=== PATIENT | female | born 1970 | race Caucasian/White ===

== ENCOUNTER 2017-09-22 08:45 | Emergency (ER) | payer BC, OTHER ==
[2017-09-22 08:54] VITALS: TEMP 37.2
[2017-09-22] MEDS ORDERED: SERT-234 PO (09:45)
[2017-09-22] MEDS ORDERED: MULT-506 PO (09:45)
--- NOTE | 2017-09-22 10:21 | DIAGNOSTIC IMAGING REPORT ---
HEAD WITHOUT CONTRAST (CT) CT DOSE: 537.48 mGy.cm HISTORY: Trauma. Mental status change. fall x4 last 24 hours TECHNIQUE: Multiaxial CT images of the head were performed without the use of intravenous contrast. A dose lowering technique was utilized adhering to the principles of ALARA. Comparison: None. Findings: The paranasal sinuses and mastoid air cells are clear. There is a right-sided ventriculostomy catheter. Catheter traverses the midline and is in the region of the anterior horn left lateral ventricle. There is no evidence for ventricular distention. There is dense calcification immediately left lateral of the suprasellar cistern and third ventricle. Density characteristics exceed that of blood consistent with a calcification. There is a second ventriculostomy catheter occupying the left occipital horn region. There is no midline shift. There is no acute intracranial hemorrhage. There is benign hyperostosis of the skull. Impression: 1. Chronic and age-related change. 2. Post operative catheter placement with no evidence hydrocephalus. 3. Dense calcification left basal ganglia. 4. No acute intracranial abnormality. The above report was generated using voice recognition software. It may contain grammatical, syntax or spelling errors. Electronically signed by: Saurav Barnett M.D. 09/22/2017 10:20 AM Dictated Date/Time: 09/22/2017 10:16 AM
[2017-09-22 10:50] LABS: BASO % 0.3 %; BASO ABS # 0.02 K/uL (0-0.2); EOS % 1.4 %; EOS ABS # 0.08 K/uL (0-0.5); HEMATOCRIT 39.2 % (37-47); HEMOGLOBIN 13.5 g/dL (12.0-16.0); IG# 0.02 K/uL (0.00-0.02); LYMPH % 29.2 %; LYMPH ABS # 1.73 K/uL (1.2-3.4); MEAN CELL VOLUME 88.1 fL (80-100); MEAN CORPUSCULAR HEMOGLOBIN 30.3 pg (25-34); MEAN CORPUSCULAR HGB CONC 34.4 g/dl (32-36); MEAN PLATELET VOLUME 10.9 fL (7.4-10.4); MONO % 6.9 %; MONO ABS # 0.41 K/uL (0.11-0.59); NEUT % 61.9 %; NEUT ABS # 3.66 K/uL (1.4-6.5); PLATELET COUNT 175 K/uL (130-400); RED CELL DISTRIBUTION WIDTH CV 13.5 % (11.5-14.5); RED CELL DISTRIBUTION WIDTH SD 43.7 fL (36.4-46.3); WHITE BLOOD COUNT 5.92 K/uL (4.8-10.8)
[2017-09-22 11:22] LABS: ALBUMIN 3.5 gm/dl (3.4-5.0); ALT/SGPT 20 U/L (12-78); AST/SGOT 11 U/L (15-37); BLOOD UREA NITROGEN 11 mg/dl (7-18); CALCIUM 8.5 mg/dl (8.5-10.1); CARBON DIOXIDE 26 mmol/L (21-32); CREATININE 0.61 mg/dl (0.60-1.20); GLUCOSE 99 mg/dl (70-99); POTASSIUM 3.8 mmol/L (3.5-5.1); SODIUM 140 mmol/L (136-145)
[2017-09-22 11:24] LABS: ALKALINE PHOSPHATASE 94 U/L (45-117); TOTAL PROTEIN 6.8 gm/dl (6.4-8.2)
--- NOTE | 2017-09-22 13:57 | DIAGNOSTIC IMAGING REPORT ---
HEAD WITHOUT CONTRAST (CT) CT DOSE: 537.48 mGy.cm HISTORY: Trauma new fall; R frontal hematoma TECHNIQUE: Multiaxial CT images of the head were performed without the use of intravenous contrast. A dose lowering technique was utilized adhering to the principles of ALARA. Comparison: Same date 10:12 AM Findings: The paranasal sinuses and mastoid air cells are clear. Bilateral shunt catheter placements including craniotomy defects are unchanged. Dense calcification of the left and to a lesser extent right basal ganglia is unaltered. Density characteristics of the cerebellar as well as cerebral hemispheres are within normal limits. There is minimal components of age-related chronic small vessel change. Impression: Stable postoperative change. No acute intracranial abnormality. No change from the prior study. The above report was generated using voice recognition software. It may contain grammatical, syntax or spelling errors. Electronically signed by: Saurav Barnett M.D. 09/22/2017 1:56 PM Dictated Date/Time: 09/22/2017 1:54 PM
[2017-09-22 14:44] VITALS: BP 166/92; PULSE 66; O2SAT 100
--- NOTE | 2017-09-22 14:49 | EMERGENCY ROOM VISIT NOTE ---
ED Visit Note First contact with patient: 09:01 The patient was seen and examined with Pankaj Hudson PA-C. I agree with the history, physical and findings. Please see the note for disposition and details. The patient is doing fairly well. She attempted to get out of bed while eating her lunch and had a fall. CT imaging did not reveal any evidence of bleed. Conservative management was recommended. The patient was discharged back to her facility.
--- NOTE | 2017-09-23 10:47 | EMERGENCY ROOM VISIT NOTE ---
ED Visit Note First contact with patient: 09:01 Chief Complaint: Fall. History of Present Illness: Ms. Mario is a 47-year-old white female who is brought into the ED following for falls in the last 24 hours. 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 Patient was brought in the hospital via ambulance from [facility] following for falls while standing up from her wheelchair in the last 24 hours. EMS reports patient was stable and had no acute changes in route. During transfer they initiated an IV lock and her blood sugar was checked and was 94. According to the paperwork sent with the patient they reports that 4 times in the last 24 hours she was attempting to stand up out of her wheelchair and fell to the ground. It was noted at least once she struck her head on the ground but did not have a loss of consciousness but was developing a left parietal contusion. Additionally they report after her last fall they feel her speech was slow. Additionally they report that over the last 24 hours she has been having difficulty feeding herself. On my initial evaluation patient reports she remembers her falls, but does not have any physical complaints. She denies headache, dizziness, lightheadedness, visual changes, hearing changes , difficulty speaking, difficulty swallowing, neck pain, back pain, chest pain, shortness of breath, abdominal pain, decreased appetite, nausea, vomiting, extremity weakness/numbness/tingling. Review of Systems: As noted above in history of present illness. All body systems were reviewed and found to be negative as noted above. Past Medical History: As previously noted and depression and spastic abnormal gait. Current Medications: Multivitamins, Zoloft. Allergies to Medications: Patient denies and no allergies noted in her medical records. Social History: Patient is not employed and is on disability; she feels safe in her home environment; she denies tobacco and alcohol use. Physical Examination: Vital Signs: Date Time Temp Pulse Resp B/P (MAP) Pulse Ox O2 Delivery O2 Flow Rate FiO2 09/22/17 14:44 66 16 166/92 100 09/22/17 12:54 81 16 172/114 98 09/22/17 11:24 71 20 149/88 99 Room Air 09/22/17 11:23 77 144/94 71 149/88 09/22/17 10:34 76 20 170/93 99 Room Air 159/69 09/22/17 08:55 77 09/22/17 08:54 37.2 78 20 148/104 99 Room Air GENERAL: 47-year-old female in no acute distress, chronically-appearing, afebrile and hemodynamically stable. NEUROLOGICAL: Awake, alert and oriented to person and place, but not time or day. Superficially elated. Answering questions appropriately and following commands. Cranial nerves II through XII grossly intact. Poor hand eye coordination. Abnormal rapid altering movements of the hands and fingers. Good long-term and short-term recall. Was not able to spell where count backwards. Difficulty to assess to rest of her neurological exam because of her medical conditions. SKIN: Warm, dry and pink. Head: Early contusion in the left parietal and occipital area. No open trauma noted. HEENT: Normocephalic. Skull: Contusion noted above under SKIN. Mild tenderness but no gross bony deformity. No raccoons eyes or youngblood signs. No drainage from the ears are than naris; no hemotympanum. Face: No bony tenderness, swelling or ecchymosis. PERRLA. EOMI without nystagmus. Oral cavity is moist and pink and airway is patent with graft speech due to no teeth. I do not appreciate any slurred speech. Pharynx is nonerythematous or edematous. No lymphadenopathy. Trachea midline. No jugular venous distention. No facial twitches. BACK: No tenderness over the bony spine. No CVA tenderness. THORAX: Lungs sounds are clear to auscultation and equal bilaterally with symmetrical chest wall. No wheezing, rales or rhonchi. HEART: Regular rate and rhythm. No gallops, rubs or murmurs are appreciated. ABDOMEN: Flat, soft and nontender. Positive bowel sounds in all quadrants. No guarding, rigidity or organomegaly. EXTREMITIES: Moves all extremities well on command and with purpose. Distal pulses, sensations to light touch, capillary refill are all intact. 4/5 muscle strength in all movements of the shoulders, elbows, forearms, wrists, hips, knees and ankles. ED Course: Patient is assessed as noted above. Patient's medication list was reviewed. Laboratory Testing: Test 09/22/17 10:00 09/22/17 10:25 Range/Units White Blood Count 5.92 4.8-10.8 K/uL Red Blood Count 4.45 4.2-5.4 M/uL Hemoglobin 13.5 12.0-16.0 g/dL Hematocrit 39.2 37-47 % Mean Corpuscular Volume 88.1 80-100 fL Mean Corpuscular Hemoglobin 30.3 25-34 pg Mean Corpuscular Hemoglobin Concent 34.4 32-36 g/dl Platelet Count 175 130-400 K/uL Mean Platelet Volume 10.9 7.4-10.4 fL Neutrophils (%) (Auto) 61.9 % Lymphocytes (%) (Auto) 29.2 % Monocytes (%) (Auto) 6.9 % Eosinophils (%) (Auto) 1.4 % Basophils (%) (Auto) 0.3 % Neutrophils # (Auto) 3.66 1.4-6.5 K/uL Lymphocytes # (Auto) 1.73 1.2-3.4 K/uL Monocytes # (Auto) 0.41 0.11-0.59 K/uL Eosinophils # (Auto) 0.08 0-0.5 K/uL Basophils # (Auto) 0.02 0-0.2 K/uL RDW Standard Deviation 43.7 36.4-46.3 fL RDW Coefficient of Variation 13.5 11.5-14.5 % Immature Granulocyte % (Auto) 0.3 % Immature Granulocyte # (Auto) 0.02 0.00-0.02 K/uL Sodium Level 140 136-145 mmol/L Potassium Level 3.8 3.5-5.1 mmol/L Chloride Level 110 98-107 mmol/L Carbon Dioxide Level 26 21-32 mmol/L Anion Gap 4.0 3-11 mmol/L Blood Urea Nitrogen 11 7-18 mg/dl Creatinine 0.61 0.60-1.20 mg/dl Estimated GFR () 126.9 Estimated GFR (Non- 109.5 BUN/Creatinine Ratio 18.6 10-20 Random Glucose 99 70-99 mg/dl Calcium Level 8.5 8.5-10.1 mg/dl Total Bilirubin 0.5 0.2-1 mg/dl Direct Bilirubin 0.1 0-0.2 mg/dl Aspartate Amino Transf (AST/SGOT) 11 15-37 U/L Alanine Aminotransferase (ALT/SGPT) 20 12-78 U/L Alkaline Phosphatase 94 45-117 U/L Total Protein 6.8 6.4-8.2 gm/dl Albumin 3.5 3.4-5.0 gm/dl Urine Color YELLOW Urine Appearance CLEAR CLEAR Urine pH 7.5 4.5-7.5 Urine Specific Marquez 1.013 1.000-1.030 Urine Protein NEG NEG Urine Glucose (UA) NEG NEG Urine Ketones NEG NEG Urine Occult Blood NEG NEG Urine Nitrite NEG NEG Urine Bilirubin NEG NEG Urine Urobilinogen NEG NEG Urine Leukocyte Esterase NEG NEG EKG: Was read by myself and shows normal sinus rhythm with a ventricular rate of 65 bpm. Normal axis, intervals and complexes. Medical records were reviewed and no previous to compare. Head CT: Was reviewed by myself and read by the radiologist showing chronic and age-related changes. Post operative catheter placement with no evidence of hydrocephalus. Dense calcification left basal ganglia. No acute intracranial abnormalities or skull fractures. Patient was reassessed multiple times during her stay in the emergency department. Patient was given a food tray because she was hungry after testing was done and waiting discharge. She was allowed to sit on the side of the bed. She then attempted to stand and fell to the floor striking the right frontal area of her head. She did not have a loss of consciousness. She also continued to deny any complaints. Head CT: Were reviewed by myself and read by the radiologist and shows no acute injuries and all the findings that were felt on her previous CT. Patient was reassessed multiple times during her stay in the emergency department. Patient's case was reviewed with Dr. Petersen; we agreed on diagnostic approach, treatment, disposition and plan. Patient was informed about her testing results and educated on her treatment plan; she verbalized understanding and agreement with this plan. Clinical Impression: Falls. Scalp contusions. Decision-Making: Initially my differential diagnosis I considered closed head injury, exacerbation of current illnesses, arrhythmias, hypotension, hypoglycemia and other causes. Disposition: Patient was discharged in stable condition. She was transferred To [facility]. Prior to departure I did speak with her and she reports that she was still pain-free. Plan: It was encouraged that the patient be given 650 mg of acetaminophen every 6 hours as needed for complaints of pain. It was encouraged that the patient be given ice for her scalp contusion 4-5 times a day for 20 minutes. It was encouraged that the patient be well- hydrated with increased clear fluids. It was encouraged that patient be observed for any signs of head injury. It was encouraged that the patient have follow-up with her primary care provider for recheck in 3-4 days. It was encouraged that the patient be brought back to the emergency department for any signs of head injury or any new/concerning symptoms.
[2017-09-26] MEDS ORDERED: LISI-729 PO (13:23)
[2017-09-26] MEDS ORDERED: ACET-1256 PO (13:23)
[2017-09-26] MEDS ORDERED: DOCU-94 PO (13:23)
== END 2017-09-22 15:43 | disposition home or self-care (01) ==
LOC: EDBD 08:45 → C.EDB 08:47
DX: S00.03XA Contusion of scalp, initial encounter (principal); W05.0XXA Fall from non-moving wheelchair, initial encounter; Y92.129 Unspecified place in nursing home as the place of occurrence of the external cause; G35 Multiple sclerosis; G10 Huntington's disease; G40.909 Epilepsy, unspecified, not intractable, without status epilepticus; F32.9 Major depressive disorder, single episode, unspecified; Z98.890 Other specified postprocedural states; Z79.899 Other long term (current) drug therapy

== ENCOUNTER 2017-09-26 12:37 | Inpatient (IN) | payer OTHER ==
[~2017-09-26] VITALS: Ht 175.3 cm; Wt 87.6 kg
[~2017-09-26 12:37] MED LIST changes: -ACET-1256 PO; -DOCU-94 PO; -LISI-729 PO
--- NOTE | 2017-09-26 12:51 | EMERGENCY ROOM VISIT NOTE ---
History Report prepared by Aleksandra: Luke Dalal Under the Supervision of: Dr. Jaguar Wheatley M.D. First contact with patient: 12:39 Stated Complaint: INCREASED FALLS History of Present Illness The patient is a 47 year old female who presents to the Emergency Room with concerns from the [facility] Nursing staff that she has been exhibiting increased falls and choking episodes over the past 24 hours. The nursing staff also questions a change in the patient's mental status/memory. 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 She was in the Emergency Department 4 days ago for falling episodes. The patient had a fall while she was in the department. She has no physical complaints at this time. Source of History: patient, [facility] notes, EMS Onset: 24 hours Position: throat Quality: other (Falls, choking) Timing: worsening (increased) Associated Symptoms: No chest pain, No SOB Review of Systems See HPI for pertinent positives & negatives. A total of 10 systems reviewed and were otherwise negative. Past Medical & Surgical Medical Problems: (1) Depression (2) History of brain tumor (3) HTN (hypertension) (4) Hx of hydrocephalus (5) Multiple sclerosis (6) Neurocognitive deficits Surgical Problems: (1) History of brain shunt Multiple sclerosis Family History Patient notes Brother has Cartwright's Disease. Social History Smoking Status: Never Smoker Housing Status: other ([facility]) Occupation Status: unemployed Current/Historical Medications Scheduled Lisinopril (Zestril), 2.5 MG PO DAILY Multivitamin (Multivitamin), 1 TAB PO DAILY Sertraline (Zoloft), 100 MG PO QAM Scheduled PRN Acetaminophen (Tylenol), 500 MG PO Q4H PRN for Pain Docusate Sodium (Colace), 1 CAP PO BID PRN for Constipation Allergies Coded Allergies: Erythromycin (Verified Allergy, Unknown, RASH, 09/26/17) Mother thinks rash Penicillins (Verified Allergy, Unknown, RASH, 09/26/17) Mother thinks rash Sulfamethoxazole w/Trimethoprim (Verified Allergy, Unknown, RASH, 09/26/17) Mother thinks rash Physical Exam Vital Signs Date Time Temp Pulse Resp B/P (MAP) Pulse Ox O2 Delivery O2 Flow Rate FiO2 09/26/17 15:12 80 18 139/89 100 Room Air 09/26/17 13:56 70 18 127/86 99 Room Air 09/26/17 13:08 68 09/26/17 13:06 72 18 134/62 88 142/81 84 143/78 09/26/17 12:55 37.1 83 18 155/86 97 Room Air Physical Exam GENERAL: Patient is in no acute distress. HEENT: There is an older contusion present around the right eye, right cheondoism, and right forehead. The right globe is uninvolved. Pupils are equal, round, and reactive to light. There is no facial bony step-off to suggest fracture. Mucous membranes are moist. NECK: No stridor, no adenopathy, no meningismus, trachea is midline. LUNGS: Clear to auscultation bilaterally, no wheeze, no rhonchi, breath sounds equal. HEART: Without murmurs gallops or rubs, regular rate and rhythm. ABDOMEN: Soft, nontender, bowel sounds positive, no hernias, no peritonitis. EXTREMITIES: No cyanosis or edema, full range of motion of all the joints without pain or difficulty, no signs for acute trauma. NEUROLOGIC: MR noted. Patient is moving all extremities equally. Awake and alert , answers questions appropriately, no Somnolence. SKIN: No rash, no jaundice, no diaphoresis. Medical Decision & Procedures ER Provider Diagnostic Interpretation: Radiology results as stated below per my review and radiologist interpretation: CHEST ONE VIEW PORTABLE CLINICAL HISTORY: 47 years-old Female presenting with EVALUATE ALTERED MENTAL STATUS/WEAKNESS. TECHNIQUE: Portable upright AP view of the chest was obtained. COMPARISON: None. FINDINGS: Cardiomediastinal silhouette normal. A catheter descends along the right hemithorax, terminus not visualized. The catheter is intact along the visualized course in the thorax though poorly visualized in the abdomen. A portion of the catheter may project over the right upper quadrant. No focal infiltrate in the lungs. No large effusion or pneumothorax. Osseous structures normal. Upper abdomen normal. IMPRESSION: 1. No acute cardiopulmonary disease. Electronically signed by: Cj Torres M.D. 09/26/2017 1:06 PM Dictated Date/Time: 09/26/2017 1:[address] OF THE HEAD WITHOUT CONTRAST CLINICAL HISTORY: Altered mental status. Weakness. Increased falls. COMPARISON STUDY: Head CT September 22, 2017. CT DOSE: 614.27 mGy.cm TECHNIQUE: Helical axial images of the head were obtained without IV contrast. Automated exposure control was utilized for the study. A dose lowering technique was utilized adhering to the principles of ALARA. FINDINGS: No acute intracranial hemorrhage, midline shift or mass effect is present. A right sided ventriculostomy catheter is unchanged in position. This traverses the bodies of the lateral ventricles. The tip is either within or adjacent to the frontal horn of the left lateral ventricle. Ventricular system remains decompressed. This is unchanged since exam of September 22, 2017. The corpus callosum may be congenitally absent. Note is made of a 1.6 cm mass-like lesion located between the frontal horns of the lateral ventricles. There is a 2.2 cm calcified focus within left basal ganglia which is unchanged. The basilar cisterns are patent. There are no extra axial collections. No calvarial fracture is present. A small right frontal scalp contusion is noted. There may be mild right periorbital soft tissue swelling. The right globe is intact and there is no retrobulbar hematoma. Irregularity of the inner table of the calvarium is noted. An additional left posterior shunt catheter is noted. IMPRESSION: 1. No acute intracranial findings. No change since exam of September 22, 2017. 2. Right ventriculostomy catheter in place. Ventricular system remains decompressed. This is unchanged. 3. 1.6 cm midline mass-like lesion located between the frontal horns of the lateral ventricles. 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 Left basal ganglia calcification may be related to this apparent tumor. 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 5. Right frontal scalp contusion with right periorbital soft tissue swelling. No chondral fracture. Electronically signed by: Emiliano Monet M.D. 09/26/2017 2:03 PM Dictated Date/Time: 09/26/2017 1:50 PM Laboratory Results 09/26/17 13:34 Red Blood Count 4.57, Mean Corpuscular Volume 88.4, Mean Corpuscular Hemoglobin 30.2, Mean Corpuscular Hemoglobin Concent 34.2, Mean Platelet Volume 10.1, Neutrophils (%) (Auto) 64.1, Lymphocytes (%) (Auto) 24.5, Monocytes (%) (Auto) 9.0, Eosinophils (%) (Auto) 1.6, Basophils (%) (Auto) 0.4, Neutrophils # (Auto) 4.77, Lymphocytes # (Auto) 1.82, Monocytes # (Auto) 0.67, Eosinophils # (Auto) 0.12, Basophils # (Auto) 0.03 09/26/17 13:34 Test 09/26/17 13:20 09/26/17 13:34 Urine Color DK YELLOW Urine Appearance CLOUDY (CLEAR) Urine pH 6.0 (4.5-7.5) Urine Specific [place] 1.020 (1.000-1.030) Urine Protein TRACE (NEG) Urine Glucose (UA) NEG (NEG) Urine Ketones NEG (NEG) Urine Occult Blood 1+ (NEG) Urine Nitrite NEG (NEG) Urine Bilirubin NEG (NEG) Urine Urobilinogen NEG (NEG) Urine Leukocyte Esterase LARGE (NEG) Urine WBC (Auto) >30 /hpf (0-5) Urine RBC (Auto) 5-10 /hpf (0-4) Urine Hyaline Casts (Auto) 1-5 /lpf (0-5) Urine Epithelial Cells (Auto) >30 /lpf (0-5) Urine Bacteria (Auto) NEG (NEG) White Blood Count 7.44 K/uL (4.8-10.8) Red Blood Count 4.57 M/uL (4.2-5.4) Hemoglobin 13.8 g/dL (12.0-16.0) Hematocrit 40.4 % (37-47) Mean Corpuscular Volume 88.4 fL (80-100) Mean Corpuscular Hemoglobin 30.2 pg (25-34) Mean Corpuscular Hemoglobin Concent 34.2 g/dl (32-36) Platelet Count 203 K/uL (130-400) Mean Platelet Volume 10.1 fL (7.4-10.4) Neutrophils (%) (Auto) 64.1 % Lymphocytes (%) (Auto) 24.5 % Monocytes (%) (Auto) 9.0 % Eosinophils (%) (Auto) 1.6 % Basophils (%) (Auto) 0.4 % Neutrophils # (Auto) 4.77 K/uL (1.4-6.5) Lymphocytes # (Auto) 1.82 K/uL (1.2-3.4) Monocytes # (Auto) 0.67 K/uL (0.11-0.59) Eosinophils # (Auto) 0.12 K/uL (0-0.5) Basophils # (Auto) 0.03 K/uL (0-0.2) RDW Standard Deviation 43.0 fL (36.4-46.3) RDW Coefficient of Variation 13.2 % (11.5-14.5) Immature Granulocyte % (Auto) 0.4 % Immature Granulocyte # (Auto) 0.03 K/uL (0.00-0.02) Prothrombin Time 10.4 SECONDS (9.0-12.0) Prothromb Time International Ratio 1.0 (0.9-1.1) Anion Gap 4.0 mmol/L (3-11) Est Creatinine Clear Calc Drug Dose 121.2 ml/min Estimated GFR () 121.8 Estimated GFR (Non- 105.1 BUN/Creatinine Ratio 20.3 (10-20) Calcium Level 8.7 mg/dl (8.5-10.1) Magnesium Level 2.2 mg/dl (1.8-2.4) Total Bilirubin 0.6 mg/dl (0.2-1) Aspartate Amino Transf (AST/SGOT) 14 U/L (15-37) Alanine Aminotransferase (ALT/SGPT) 27 U/L (12-78) Alkaline Phosphatase 102 U/L (45-117) Total Protein 7.0 gm/dl (6.4-8.2) Albumin 3.7 gm/dl (3.4-5.0) Globulin 3.3 gm/dl (2.5-4.0) Albumin/Globulin Ratio 1.1 (0.9-2) Thyroid Stimulating Hormone (TSH) 1.040 uIu/ml (0.300-4.500) Laboratory results reviewed by me. Medications Administered Medications (Trade) Dose Ordered Sig/Patience Route Start Time Stop Time Status Last Admin Dose Admin Ceftriaxone Sodium (Rocephin Inj) 1 gm NOW STAT IV 09/26/17 13:42 09/26/17 13:43 DC 09/26/17 14:18 1 GM ECG Per My Interpretation Indication: other (Falls) Rate (beats per minute): 67 Rhythm: normal sinus Findings: other (No BUTCH, No PVCs) ED Course 1241: The patient was evaluated in room C3. A complete history and physical exam was performed. 1342: Ordered Rocephin 1 gm IV. 1408: I discussed the case with Dr. Monet - Radiology at this time. 1414: I reviewed the patient's orthostatic vital signs. They were negative. 1419: I discussed the case with Dr. Lee - Neurology. She states that the patient does have a known tumor, so the imaging today may not be showing anything new. She is concerned that the patient is declining rapidly and may have Ismael's. She states that the patient may be to difficult for [facility] to care for. 1430: The reviewed a previous MRI of the patient's head. The findings of the CT are unchanged compared to the MRI. Today's findings are stable. 1428: I discussed the case with [employer], she will attempt to find a solution for the patients living status. 1439: I discussed the case at length with the patient's mother over the phone. She is in agreement with the patient being admitted. I will page for Orthopaedic Hospitalist. 1455: [facility] She will evaluate the patient for further treatment. Medical Decision Differential Diagnosis includes: UTI, dehydration, intracranial bleeding, viral illness, infection, anemia, electrolyte imbalance, and pneumonia. There is no leukocytosis or concerning anemia. No significant electrolyte abnormality, kidney failure, hepatitis. Urinalysis is suspicious for infection , urine culture is pending. Patient appears to be in a euthyroid state. Chest film does not show pneumonia. Brain CT was felt unchanged compared to previous imaging. Chronic findings were seen. The patient appears to be in a euthyroid state. Patient received IV ceftriaxone for the potential UTI. I discussed her situation with case management, I spoke with her mother over the telephone. Mother feels the patient is altered and not at baseline. She is concerned that she has not been the same since falling and striking her head a few days ago. Certainly, the patient may have a concussion. The UTI may also be causing the mental status decline. As the patient is not at baseline, as she continues to fall, further workup was felt warranted. I did speak with neurology over the phone. They also had concerns for the patient's frequent falls. I did speak with the on-call hospitalist. Patient is soon to be transferred upstairs. She has done well while here in the ED. Medication Reconcilliation Current Medication List: was personally reviewed by me Blood Pressure Screening Patient's blood pressure: Elevated blood pressure Referred to hospitalist. Consults Time Called: 1408 Consulting Physician: Dr. Lee - Neurology Returned Call: [phone] I discussed the case with Dr. Rosa Olivo Neurology. She states that the patient does have a known tumor, so the imaging today may not be showing anything new. She is concerned that the patient is declining rapidly and may have Cartwright's. She states that the patient may be to difficult for [facility] to care for. Additional Consults: Time Called: 1449 Consulted Physician: [facility] Returned Call: [phone] Additional Comments: I discussed the case with [facility]. She will evaluate the patient for further treatment. Impression Primary Impression: Head trauma Additional Impressions: Frequent falls Change in mental status UTI (urinary tract infection) Scribe Attestation The scribe's documentation has been prepared under my direction and personally reviewed by me in its entirety. I confirm that the note above accurately reflects all work, treatment, procedures, and medical decision making performed by me. Departure Information Dispostion Being Evaluated By Hospitalist Referrals [facility] (PCP) Problem Qualifiers
--- NOTE | 2017-09-26 13:08 | DIAGNOSTIC IMAGING REPORT ---
CHEST ONE VIEW PORTABLE CLINICAL HISTORY: 47 years-old Female presenting with EVALUATE ALTERED MENTAL STATUS/WEAKNESS. TECHNIQUE: Portable upright AP view of the chest was obtained. COMPARISON: None. FINDINGS: Cardiomediastinal silhouette normal. A catheter descends along the right hemithorax, terminus not visualized. The catheter is intact along the visualized course in the thorax though poorly visualized in the abdomen. A portion of the catheter may project over the right upper quadrant. No focal infiltrate in the lungs. No large effusion or pneumothorax. Osseous structures normal. Upper abdomen normal. IMPRESSION: 1. No acute cardiopulmonary disease. Electronically signed by: Cj Torres M.D. 09/26/2017 1:06 PM Dictated Date/Time: 09/26/2017 1:05 PM
[2017-09-26] MEDS ORDERED: LISI-729 PO ×2 (13:23)
[2017-09-26] MEDS ORDERED: ACET-1256 PO ×2 (13:23)
[2017-09-26] MEDS ORDERED: DOCU-94 PO ×2 (13:23)
[2017-09-26] MEDS ORDERED: CEFTRIAXONE SOD INJ 1 GM ADDVIAL IV STA (13:42)
[2017-09-26 13:45] LABS: BASO % 0.4 %; BASO ABS # 0.03 K/uL (0-0.2); EOS % 1.6 %; EOS ABS # 0.12 K/uL (0-0.5); HEMATOCRIT 40.4 % (37-47); HEMOGLOBIN 13.8 g/dL (12.0-16.0); IG# 0.03 K/uL (0.00-0.02); LYMPH % 24.5 %; LYMPH ABS # 1.82 K/uL (1.2-3.4); MEAN CELL VOLUME 88.4 fL (80-100); MEAN CORPUSCULAR HEMOGLOBIN 30.2 pg (25-34); MEAN CORPUSCULAR HGB CONC 34.2 g/dl (32-36); MEAN PLATELET VOLUME 10.1 fL (7.4-10.4); MONO ABS # 0.67 K/uL (0.11-0.59); NEUT % 64.1 %; NEUT ABS # 4.77 K/uL (1.4-6.5); PLATELET COUNT 203 K/uL (130-400); RED CELL DISTRIBUTION WIDTH CV 13.2 % (11.5-14.5); WHITE BLOOD COUNT 7.44 K/uL (4.8-10.8)
[2017-09-26 14:02] LABS: ALBUMIN 3.7 gm/dl (3.4-5.0); CALCIUM 8.7 mg/dl (8.5-10.1); CREATININE 0.69 mg/dl (0.60-1.20); POTASSIUM 4.2 mmol/L (3.5-5.1)
--- NOTE | 2017-09-26 14:04 | DIAGNOSTIC IMAGING REPORT ---
CT OF THE HEAD WITHOUT CONTRAST CLINICAL HISTORY: Altered mental status. Weakness. Increased falls. COMPARISON STUDY: Head CT September 22, 2017. CT DOSE: 614.27 mGy.cm TECHNIQUE: Helical axial images of the head were obtained without IV contrast. Automated exposure control was utilized for the study. A dose lowering technique was utilized adhering to the principles of ALARA. FINDINGS: No acute intracranial hemorrhage, midline shift or mass effect is present. A right sided ventriculostomy catheter is unchanged in position. This traverses the bodies of the lateral ventricles. The tip is either within or adjacent to the frontal horn of the left lateral ventricle. Ventricular system remains decompressed. This is unchanged since exam of September 22, 2017. The corpus callosum may be congenitally absent. Note is made of a 1.6 cm mass-like lesion located between the frontal horns of the lateral ventricles. There is a 2.2 cm calcified focus within left basal ganglia which is unchanged. The basilar cisterns are patent. There are no extra axial collections. No calvarial fracture is present. A small right frontal scalp contusion is noted. There may be mild right periorbital soft tissue swelling. The right globe is intact and there is no retrobulbar hematoma. Irregularity of the inner table of the calvarium is noted. An additional left posterior shunt catheter is noted. IMPRESSION: 1. No acute intracranial findings. No change since exam of September 22, 2017. 2. Right ventriculostomy catheter in place. Ventricular system remains decompressed. This is unchanged. 3. 1.6 cm midline mass-like lesion located between the frontal horns of the lateral ventricles. 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 Left basal ganglia calcification may be related to this apparent tumor. 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 5. Right frontal scalp contusion with right periorbital soft tissue swelling. No chondral fracture. Electronically signed by: Emiliano Monet M.D. 09/26/2017 2:03 PM Dictated Date/Time: 09/26/2017 1:50 PM
[2017-09-26] MEDS ORDERED: ONDANSETRON INJ 2 MG/ML 2 ML VIAL IV PRN (16:00)
[2017-09-26] MEDS ORDERED: ACETAMINOPHEN 325 MG TAB PO PRN (16:00)
[2017-09-26] MEDS ORDERED: DOCUSATE SODIUM 100 MG CAP PO PRN (16:00)
[2017-09-26 16:20] VITALS: O2SAT 97; Ht 175.3 cm; Wt 87.6 kg
[2017-09-26 16:55] VITALS: BP 134/83; PULSE 70; TEMP 36.6; O2SAT 100
[2017-09-26] MEDS ORDERED: SODIUM CHLORIDE 0.9% 1000ML 1,000 ML IV SCH (17:00)
--- NOTE | 2017-09-26 17:10 | History and Physical ---
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 Patient with history of shunt malfunction and since ongoing cognitive decline and gait dysfunction and diagnosed with neurocognitive disorder. Patient currently residing in [facility]. Reported patient had 4 falls when trying to get out of the wheelchair and hit her head. Patient seen in ER 09/22/17 for falls and patient had no change in CT scan at that time. Spoke with pt's mother on the phone and she reports that prior to patient falling the first time she was doing relatively well and had happy mood, was feeding herself, watching TV. Mother reports staff [facility] report noticing patient with increased confusion and intermittent slow speech and trouble feeding herself after the falls. Patient currently denies any complaints and she reports she does not remember falling. Patient follows with Dr. Pierre neurology seen on 08/29/17. Patient had stopped Copaxone and Keppra over 1 year ago. Denies any reported seizures. Patient states it has been eating and drinking does have pureed diet secondary to no dentition. FH of Ismael's disease in father and grandfather. Denies fever/ chills, diaphoresis, N/V/D/C, SHAHID, dizziness, syncope, vision changes, neck pain , CP, SOB, orthopnea, palpitations, cough, sore throat, choking, otalgia, rhinorrhea, abdominal pain, paresthesias, extremity weakness, extremity edema, rashes, urinary symptoms, weight loss. Past Medical/Surgical History Medical Problems: (1) Depression Status: Chronic (2) History of brain tumor Permanent Comment: hx pediatric brain tumor, unresectable. Hx multiple shunts for hydrocephalus. Hx colloid cyst Status: Chronic (3) HTN (hypertension) Status: Chronic (4) Hx of hydrocephalus Status: Chronic (5) Multiple sclerosis Status: Chronic (6) Neurocognitive deficits Status: Chronic Surgical Problems: (1) History of brain shunt Status: Resolved Family History FH: [place]'s disease Social History Smoking Status: Never Smoker Smokeless Tobacco Use: No Alcohol Use: none Drug Use: none Marital Status: single Housing status: other ([facility]) Occupational Status: unemployed Allergies Coded Allergies: Erythromycin (Verified Allergy, Unknown, RASH, 09/26/17) Mother thinks rash Penicillins (Verified Allergy, Unknown, RASH, 09/26/17) Mother thinks rash Sulfamethoxazole w/Trimethoprim (Verified Allergy, Unknown, RASH, 09/26/17) Mother thinks rash Home Medications Scheduled Lisinopril (Zestril), 2.5 MG PO DAILY Multivitamin (Multivitamin), 1 TAB PO DAILY Sertraline (Zoloft), 100 MG PO QAM Scheduled PRN Acetaminophen (Tylenol), 500 MG PO Q4H PRN for Pain Docusate Sodium (Colace), 1 CAP PO BID PRN for Constipation Review of Systems See HPI for pertinent positives & negatives. All other systems reviewed and were otherwise negative Physical Exam Vital Signs Date Time Temp Pulse Resp B/P (MAP) Pulse Ox O2 Delivery O2 Flow Rate FiO2 09/26/17 15:12 80 18 139/89 100 Room Air 09/26/17 13:56 70 18 127/86 99 Room Air 09/26/17 13:08 68 09/26/17 13:06 72 18 134/62 88 142/81 84 143/78 09/26/17 12:55 37.1 83 18 155/86 97 Room Air General Appearance: WD/WN, no apparent distress (Sitting up resting in bed watching TV) Head: + pertinent finding (Left and right total forehead with ecchymosis. Right periorbital ecchymosis. + Palpable shunt) Eyes: normal inspection, PERRL, sclerae normal ENT: hearing grossly normal, pharynx normal, + pertinent finding (Mucous membranes moist) Neck: supple, trachea midline, + pertinent finding (Nontender to palpation, full active range of motion) Respiratory/Chest: lungs clear, normal breath sounds, no respiratory distress Cardiovascular: regular rate, rhythm, normal peripheral pulses Abdomen/GI: normal bowel sounds, non tender, soft Back: no CVA tenderness Extremities/Musculoskelatal: no calf tenderness, normal capillary refill, no pedal edema, normal range of motion, + pertinent finding (Strength equal bilaterally) Neurologic/Psych: alert, + pertinent finding (Oriented to person, knows in hospital unsure of name. Unsure of month and day. Patient pleasant and cooperative) Skin: normal color, warm/dry Diagnostics Laboratory Results Results Past 24 Hours Test 09/26/17 13:20 09/26/17 13:34 Range/Units Urine Color DK YELLOW Urine Appearance CLOUDY CLEAR Urine pH 6.0 4.5-7.5 Urine Specific [place] 1.020 1.000-1.030 Urine Protein TRACE NEG Urine Glucose (UA) NEG NEG Urine Ketones NEG NEG Urine Occult Blood 1+ NEG Urine Nitrite NEG NEG Urine Bilirubin NEG NEG Urine Urobilinogen NEG NEG Urine Leukocyte Esterase LARGE NEG Urine WBC (Auto) >30 0-5 /hpf Urine RBC (Auto) 5-10 0-4 /hpf Urine Hyaline Casts (Auto) 1-5 0-5 /lpf Urine Epithelial Cells (Auto) >30 0-5 /lpf Urine Bacteria (Auto) NEG NEG White Blood Count 7.44 4.8-10.8 K/uL Red Blood Count 4.57 4.2-5.4 M/uL Hemoglobin 13.8 12.0-16.0 g/dL Hematocrit 40.4 37-47 % Mean Corpuscular Volume 88.4 80-100 fL Mean Corpuscular Hemoglobin 30.2 25-34 pg Mean Corpuscular Hemoglobin Concent 34.2 32-36 g/dl Platelet Count 203 130-400 K/uL Mean Platelet Volume 10.1 7.4-10.4 fL Neutrophils (%) (Auto) 64.1 % Lymphocytes (%) (Auto) 24.5 % Monocytes (%) (Auto) 9.0 % Eosinophils (%) (Auto) 1.6 % Basophils (%) (Auto) 0.4 % Neutrophils # (Auto) 4.77 1.4-6.5 K/uL Lymphocytes # (Auto) 1.82 1.2-3.4 K/uL Monocytes # (Auto) 0.67 0.11-0.59 K/uL Eosinophils # (Auto) 0.12 0-0.5 K/uL Basophils # (Auto) 0.03 0-0.2 K/uL RDW Standard Deviation 43.0 36.4-46.3 fL RDW Coefficient of Variation 13.2 11.5-14.5 % Immature Granulocyte % (Auto) 0.4 % Immature Granulocyte # (Auto) 0.03 0.00-0.02 K/uL Sodium Level 140 136-145 mmol/L Potassium Level 4.2 3.5-5.1 mmol/L Chloride Level 106 98-107 mmol/L Carbon Dioxide Level 30 21-32 mmol/L Anion Gap 4.0 3-11 mmol/L Blood Urea Nitrogen 14 7-18 mg/dl Creatinine 0.69 0.60-1.20 mg/dl Est Creatinine Clear Calc Drug Dose 121.2 ml/min Estimated GFR () 121.8 Estimated GFR (Non- 105.1 BUN/Creatinine Ratio 20.3 10-20 Random Glucose 99 70-99 mg/dl Calcium Level 8.7 8.5-10.1 mg/dl Magnesium Level 2.2 1.8-2.4 mg/dl Total Bilirubin 0.6 0.2-1 mg/dl Aspartate Amino Transf (AST/SGOT) 14 15-37 U/L Alanine Aminotransferase (ALT/SGPT) 27 12-78 U/L Alkaline Phosphatase 102 45-117 U/L Total Protein 7.0 6.4-8.2 gm/dl Albumin 3.7 3.4-5.0 gm/dl Globulin 3.3 2.5-4.0 gm/dl Albumin/Globulin Ratio 1.1 0.9-2 Thyroid Stimulating Hormone (TSH) 1.040 0.300-4.500 uIu/ml Microbiology Results 09/26/17 Urine Culture, Received Pending Diagnostic Radiology CT HEAD: IMPRESSION: 1. No acute intracranial findings. No change since exam of September 22, 2017. 2. Right ventriculostomy catheter in place. Ventricular system remains decompressed. This is unchanged. 3. 1.6 cm midline mass-like lesion located between the frontal horns of the lateral ventricles. 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 Left basal ganglia calcification may be related to this apparent tumor. 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 5. Right frontal scalp contusion with right periorbital soft tissue swelling. No chondral fracture. CXR: IMPRESSION: 1. No acute cardiopulmonary disease. EKG EKG: NSR, rate 63 Impression Assessment and Plan CHANGE IN MENTAL STATUS/FREQUENT FALLS Patient with history previously diagnosed MS not on medications for greater than a year. History of pediatric brain tumor that was unresectable, history multiple shunts for hydrocephalus. 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 Hx neurocognitive deficits. Patient with reported recent frequent falls and hitting head. [facility] staff report since initial falls noted change from patient's baseline mental status with increased confusion, slow speech and patient has had difficulty feeding herself. CT no acute changes. DDX: possible post concussion syndrome, UTI, progressive neuro disease, seizure -tele to monitor -IVF -Neurology consult, appreciate input -PT/OT eval -cbc, prp in am POSSIBLE UTI Pt denies symptoms, is incontinent of urine at times and wears a brief. UA: +1 occult blood, large leuk, >30 WBC, 5-10 RBC, >30 epithelial. Patient afebrile, no leukocytosis. Patient started on Rocephin and ER -Urine culture pending -will continue Rocephin until urine culture results HTN Stable -Continue lisinopril DEPRESSION -Continue Zoloft DVT Prophylaxis -Lovenox SQ Disposition admit tele Full Code as per discussion with pt's mother and pt Follows with Dr Argelia Rubi for routine care and currently seen by Dr Mariscal in [facility] Follows with Dr Haines - neurology Pt was seen with Dr Matute. See addendum ATTENDING ADDENDUM Patient seen and examined care coordinated with Gale Hightower PA-C This is a 47-year-old female with history of multiple sclerosis/history of pediatric hydrocephalus status post multiple shunt placement chronic gait disturbance Sent from [facility] as patient sustained multiple falls in the past few days During my interview patient appeared to be appropriate, has baseline forgetfulness No agitation or confusion noted Multiple bruise, bilateral periorbital ecchymosis from recent fall Physical exam: Please refer to physical exam by Gale Hightower PA-C Recurrent fall: Has baseline gait disturbance for multiple comorbidities Neurology consulted Fall precaution PT OT evaluation Confusion: Possible due to metabolic encephalopathy secondary to urinary tract infection Mental status improved to approximate baseline UTI: UA shows large leukocyte esterase Empiric antibiotic with IV Rocephin Follow urine culture Please refer to further documentation by Gale Hightower PA-C for discussion of other chronic issues Marisa Matute MD Resuscitation Status VTE Prophylaxis Will order VTE Prophylaxis: Yes [facility]
[2017-09-26] MEDS ORDERED: IV FLUIDS COMPLETED PRN (19:15)
[2017-09-26 19:41] VITALS: BP 124/84; PULSE 77; TEMP 36.7; O2SAT 95
[2017-09-26] MEDS: ENOXAPARIN 40 MG/0.4 ML SYR SC SCH (21:28)
[2017-09-26 22:39] VITALS: BP 117/59; PULSE 79; TEMP 37; O2SAT 94
[2017-09-27 04:18] VITALS: BP 130/67; PULSE 66; TEMP 36.7; O2SAT 97
[2017-09-27 06:36] LABS: HEMATOCRIT 38.5 % (37-47); HEMOGLOBIN 12.9 g/dL (12.0-16.0); MEAN CELL VOLUME 88.3 fL (80-100); MEAN CORPUSCULAR HEMOGLOBIN 29.6 pg (25-34); MEAN CORPUSCULAR HGB CONC 33.5 g/dl (32-36); MEAN PLATELET VOLUME 10.5 fL (7.4-10.4); PLATELET COUNT 179 K/uL (130-400); RED CELL DISTRIBUTION WIDTH CV 13.2 % (11.5-14.5); RED CELL DISTRIBUTION WIDTH SD 42.8 fL (36.4-46.3); WHITE BLOOD COUNT 6.39 K/uL (4.8-10.8)
[2017-09-27 07:01] LABS: CREATININE 0.66 mg/dl (0.60-1.20)
[2017-09-27 07:02] LABS: CALCIUM 8.3 mg/dl (8.5-10.1)
[2017-09-27 07:34] VITALS: BP 128/84; PULSE 60; TEMP 36.7; O2SAT 99
[2017-09-27] MEDS: LISINOPRIL 2.5 MG TAB PO SCH (08:58)
[2017-09-27] MEDS: MULTIVITAMIN TAB PO SCH (08:58)
[2017-09-27] MEDS: SERTRALINE HCL 100 MG TAB PO SCH (08:59)
[2017-09-27 11:25] VITALS: BP 125/58; PULSE 49; TEMP 37.1; O2SAT 96
[2017-09-27] MEDS ORDERED: CEFTRIAXONE SOD INJ 1 GM in DEXTROSE 5% ADD-VANTAGE 50ML 50 ML IV SCH (14:00)
--- NOTE | 2017-09-27 14:07 | Neurology Consultation ---
Neurology Consultation Date of Consultation: September 27, 2017. 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 She currently resides at [facility]. She has had 4 falls when trying to get out of the wheelchair and hit her head. The staff [facility] report noticing patient with increased confusion and intermittent slow speech and trouble feeding herself after the falls. She states she has had many falls. she is known to Dr. Pierre neurology seen on 08/29/17. Patient had stopped Copaxone and Keppra over 1 year ago. She has been eating ok but her food is pureed due to no teeth. There is a family history of Elver's disease in father and grandfather. She was refusing testing prior but now is consenting and was authorized in the out patient setting. denies CP, SOB, abdominal pain, one sided weakness, numbness tingling, vision changes, swallowing difficulty, N, V, weight loss. Past Medical/Surgical History Medical Problems: (1) Change in mental status Status: Acute (2) Fall Status: Acute (3) Frequent falls Status: Acute (4) Head trauma Status: Acute (5) UTI (urinary tract infection) Status: Acute Social History Smokeless Tobacco Use: No Alcohol Use: none Drug Use: none Marital Status: single Housing Status: assisted [facility] ([facility] other ([facility]) Occupation Status: unemployed Allergies Coded Allergies: Erythromycin (Verified Allergy, Unknown, RASH, 09/26/17) Mother thinks rash Penicillins (Verified Allergy, Unknown, RASH, 09/26/17) Mother thinks rash Sulfamethoxazole w/Trimethoprim (Verified Allergy, Unknown, RASH, 09/26/17) Mother thinks rash Current Inpatient Medications Current Inpatient Medications Medications (Trade) Dose Ordered Sig/Patience Route Start Time Stop Time Status Last Admin Dose Admin Enoxaparin Sodium (Lovenox Inj) 40 mg Q24H SC 09/26/17 21:00 10/26/17 20:59 09/26/17 21:28 40 MG Acetaminophen (Tylenol Tab) 650 mg Q4H PRN PO 09/26/17 16:00 10/26/17 15:59 09/26/17 16:58 650 MG Ondansetron HCl (Zofran Inj) 4 mg Q6H PRN IV 09/26/17 16:00 10/26/17 15:59 Docusate Sodium (coLACE CAP) 100 mg BID PRN PO 09/26/17 16:00 10/26/17 15:59 Lisinopril (Zestril Tab) 2.5 mg DAILY PO 09/27/17 09:00 10/27/17 08:59 09/27/17 08:58 2.5 MG Multivitamins (Multivitamin Tab) 1 tab DAILY PO 09/27/17 09:00 10/27/17 08:59 09/27/17 08:58 1 TAB Sertraline HCl (Zoloft Tab) 100 mg QAM PO 09/27/17 09:00 10/27/17 08:59 09/27/17 08:59 100 MG Ceftriaxone Sodium 1 gm/ Dextrose 50 ml @ 100 mls/hr Q24H IV 09/27/17 14:00 10/02/17 13:59 Miscellaneous (Iv Fluids Completed) 1 ea PRN PRN N/A 09/26/17 19:15 09/26/18 19:14 Physical Exam Vital Signs (Past 24 Hrs): Date Time Temp Pulse Resp B/P (MAP) Pulse Ox O2 Delivery O2 Flow Rate FiO2 09/27/17 11:25 37.1 49 18 125/58 (80) 96 Room Air 09/27/17 09:10 Room Air 09/27/17 07:34 36.7 60 18 128/84 (99) 99 Room Air 09/27/17 04:18 36.7 66 16 130/67 (88) 97 Room Air 09/27/17 04:00 Room Air 09/27/17 00:00 Room Air 09/26/17 22:39 37.0 79 18 117/59 (78) 94 Room Air 09/26/17 22:25 Room Air 09/26/17 19:41 36.7 77 18 124/84 (97) 95 Room Air 09/26/17 16:55 36.6 70 18 134/83 (100) 100 Room Air 09/26/17 16:30 71 18 133/82 97 09/26/17 16:20 97 Room Air 09/26/17 15:12 80 18 139/89 100 Room Air 09/26/17 13:56 70 18 127/86 99 Room Air Physical Exam: Constitutional: appearance nourished, healthy and normal, dishevel Ears, Nose, Mouth and Throat: mucous membranes moist, no injection and skin normal, eyes normal Cardiovascular: normal S-1 and S-2 and regular rate and rhythm Respiratory: clear to auscultation (CTA) and no rales, rhonchi or wheeze Musculoskeletal: no peripheral edema and good distal pulses Skin: no stigmata of neurocutaneous disease noted and normal and intact Eyes: extraocular muscles intact (EOMI) and pupils equal, round and reactive to light (PERRL), miotic, ecchymosis right eye and forehead appearance of healing NEUROLOGIC EXAMINATION: Mental status: Alert and interactive Oriented [facility], 2018, President Elvin, spring, sticks out tongue, closes eyes, points to ceiling with right hand Oriented to person Speech fluent with no evidence of aphasia Cranial Nerves smile eye brow raise, no teeth, tongue midline Reflexes: Deep tendon reflexes were symmetrical LE bilaterally hyperreflexic Plantar responses were flexor. Sensory: light touch and vibration Coordination: finger to nose, Romberg +with eyes open Gait/Stance: Posture sitting in bedside chair Strength: biceps triceps, hand engineering scientist 5/5 bilaterally hip flex plantar flex ext patellar flex ext 5/5 Laboratory Results Past 24 Hours: 09/27/17 06:11 09/27/17 06:11 Test 09/27/17 06:11 Red Blood Count 4.36 M/uL (4.2-5.4) Mean Corpuscular Volume 88.3 fL (80-100) Mean Corpuscular Hemoglobin 29.6 pg (25-34) Mean Corpuscular Hemoglobin Concent 33.5 g/dl (32-36) RDW Standard Deviation 42.8 fL (36.4-46.3) RDW Coefficient of Variation 13.2 % (11.5-14.5) Mean Platelet Volume 10.5 fL (7.4-10.4) Anion Gap 2.0 mmol/L (3-11) Est Creatinine Clear Calc Drug Dose 126.7 ml/min Estimated GFR () 123.6 Estimated GFR (Non- 106.7 BUN/Creatinine Ratio 14.9 (10-20) Calcium Level 8.3 mg/dl (8.5-10.1) Imaging CT head- No acute intracranial findings. No change since exam of September 22, 2017. Right ventriculostomy catheter in place. Ventricular system remains decompressed. This is unchanged. 3. 1.6 cm midline mass-like lesion located between the frontal horns of the lateral ventricles. 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 Left basal ganglia calcification may be related to this apparent tumor. 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 Right frontal scalp contusion with right periorbital soft tissue swelling. No chondral fracture. Impression 47 year old with cognitive decline and balance issues resulting in falls Plan 1. PT/OT for discharge needs 2. will likely need rehab and higher level of care at discharge 3. MRI brain and CT head was pushed from [facility] to [facility] system 4. MRI T/L spine ordered 5. psychiatry for input of impulsiveness and cognitive issues 6. question competency for decision making 7. Mom would like update of evaluation and treatment- Anabel [phone] 8. fall precautions 9. elver genetic testing as outpatient further recommendations to follow I have seen and discussed above patient with Dr Brook Haines, neurology PT known to me, hx as above. MS lotus preceded my care for her, but reviewing my notes when I dw her mother, the pt had remotely had a transient hemiparesis and at another time had optic neuritis. When I met her she had cognitive issues, disorganization which she attributed to when she had shunt malfunction. Over the last few years her follow-up has been inconsistent. She stopped copaxone a while ago and stopped keppra. She had had sz I believe at the time of shunt malfunction many years ago. Since she has stopped Keppra she has not had sz. RE pediatric brain tumor, pt has seen neurosurgery sporadically, had a shunt series. She has not had brain irradiation. She has cognitively declined, decreased in self-care and made some poor decisions, continuuing to drive, is impulsive.Her family lives remotely. Her gait has become more unsteady over time. She has not had any large amplitude chorea, although moves somewhat restlessly. She recently was xferred to personal care after rehab and has fallen mult times. Her mri brain recently was stable, MRI c spine showing poss minor abnl diffusely throughout cord. On exam pt knows who I am, but not readily, is impulsive. R periorb ecchymosis, nml motility,mild dysarthria (edentulous), full strength, dystaxic on fnf and HS. I dd not walk her. Impression: This pt with ped brain tumor of youth, presumed MS, and family hx of Elver's Chorea has had a gradual but significant decline in cognition, impulsivity, gait and balance, restlessness (query low level chorea) not corresponding to any major radiographic change in white matter. REc MRI t, l spine, r/o enhancement, drop mets, cord plaque. If neg consider LP for cytology , OCB, myelin basic protein and IgG synthesis rate. Pt has agreed to have genetic testing for HC, which will be done as an outpt. Dr Olson will take over the service tomorrow. SAKSHI Bar MD
[2017-09-27 16:00] VITALS: O2SAT 96
[2017-09-27 20:00] VITALS: O2SAT 96
[2017-09-27 20:19] VITALS: BP 147/67; PULSE 75; TEMP 36.6; O2SAT 99
[2017-09-27] MEDS: ENOXAPARIN 40 MG/0.4 ML SYR SC SCH (21:24)
--- NOTE | 2017-09-27 21:43 | DIAGNOSTIC IMAGING REPORT ---
C-SPINE ROUTINE 4 OR 5 VIEWS CLINICAL HISTORY: 47 years-old Female presenting with pt with weakness, mult falls. TECHNIQUE: Lateral, bilateral oblique, frontal, and submental views of the cervical spine were obtained. COMPARISON: None. FINDINGS: Normal cervical lordosis. Vertebral bodies maintain normal height and alignment. Intervertebral disc height is overall maintained though minimal height loss evident at C4-5. Small disc osteophyte complexes noted from C4-5 through C6-7. Posterior bony spurring noted at all these levels. Osseous neural foraminal narrowing suggested from C3-4 through C5-6 greater on the left. No compression deformity or subluxation. Osteopenia may be present. No prevertebral soft tissue swelling. IMPRESSION: 1. Multilevel degenerative changes. 2. No radiographic evidence of acute osseous injury of the cervical spine. Electronically signed by: Cj Torres M.D. 09/27/2017 9:42 PM Dictated Date/Time: 09/27/2017 9:39 PM
--- NOTE | 2017-09-27 22:26 | Progress Note ---
Medicine Progress Note Date & Time of Visit: September 27, 2017 at 1600 Subjective 47 yo F with h/o pediatric brain tumor, h/o multiple ventriculostomy shunts, and MS presents from [facility] after several successive falls and some neurocognitive decline. The patient reports not remembering the events that led to her admission to the hospital. Records reflect that she fell 4 times in 24 hours, and appeared to have increased slurring in her speech , gait dysfunction, and a cognitive decline from her baseline. The patient denies any current symptoms of weakness and has no pain. She feels well overall. Objective Last 8 Hrs Date Time Temp Pulse Resp B/P (MAP) Pulse Ox O2 Delivery O2 Flow Rate FiO2 09/27/17 20:19 36.6 75 18 147/67 (93) 99 Room Air 09/27/17 16:00 96 Room Air Physical Exam: GEN: WNWD, in no acute distress, alert and appropriate HEENT: NC/AT, PERRL, normal sclerae CARDIO: reg rate, S1/2 heard without m/g/r LUNGS: CTA bilaterally, no crackles, rales or wheezes, good diaphragmatic excursion ABD: soft, non-tender, non-distended, no rebound or guarding EXTREMITY: RP and DP palpable 2+ bilat, no LE swelling or edema, extremities are warm and well-perfused NEURO: CN 2-12 intact, sensation intact throughout MUSC: 5/5 strength throughout SKIN: warm and dry Laboratory Results: 09/27/17 06:11 09/27/17 06:11 Test 09/26/17 13:20 09/26/17 13:34 09/27/17 06:11 Urine Color DK YELLOW Urine Appearance CLOUDY (CLEAR) Urine pH 6.0 (4.5-7.5) Urine Specific [place] 1.020 (1.000-1.030) Urine Protein TRACE (NEG) Urine Glucose (UA) NEG (NEG) Urine Ketones NEG (NEG) Urine Occult Blood 1+ (NEG) Urine Nitrite NEG (NEG) Urine Bilirubin NEG (NEG) Urine Urobilinogen NEG (NEG) Urine Leukocyte Esterase LARGE (NEG) Urine WBC (Auto) >30 /hpf (0-5) Urine RBC (Auto) 5-10 /hpf (0-4) Urine Hyaline Casts (Auto) 1-5 /lpf (0-5) Urine Epithelial Cells (Auto) >30 /lpf (0-5) Urine Bacteria (Auto) NEG (NEG) Immature Granulocyte % (Auto) 0.4 % White Blood Count 7.44 K/uL (4.8-10.8) Red Blood Count 4.57 M/uL (4.2-5.4) 4.36 M/uL (4.2-5.4) Hemoglobin 13.8 g/dL (12.0-16.0) Hematocrit 40.4 % (37-47) Mean Corpuscular Volume 88.4 fL (80-100) 88.3 fL (80-100) Mean Corpuscular Hemoglobin 30.2 pg (25-34) 29.6 pg (25-34) Mean Corpuscular Hemoglobin Concent 34.2 g/dl (32-36) 33.5 g/dl (32-36) Platelet Count 203 K/uL (130-400) Mean Platelet Volume 10.1 fL (7.4-10.4) 10.5 fL (7.4-10.4) Neutrophils (%) (Auto) 64.1 % Lymphocytes (%) (Auto) 24.5 % Monocytes (%) (Auto) 9.0 % Eosinophils (%) (Auto) 1.6 % Basophils (%) (Auto) 0.4 % Neutrophils # (Auto) 4.77 K/uL (1.4-6.5) Lymphocytes # (Auto) 1.82 K/uL (1.2-3.4) Monocytes # (Auto) 0.67 K/uL (0.11-0.59) Eosinophils # (Auto) 0.12 K/uL (0-0.5) Basophils # (Auto) 0.03 K/uL (0-0.2) Immature Granulocyte # (Auto) 0.03 K/uL (0.00-0.02) Prothrombin Time 10.4 SECONDS (9.0-12.0) Prothromb Time International Ratio 1.0 (0.9-1.1) Magnesium Level 2.2 mg/dl (1.8-2.4) Total Bilirubin 0.6 mg/dl (0.2-1) Aspartate Amino Transf (AST/SGOT) 14 U/L (15-37) Alanine Aminotransferase (ALT/SGPT) 27 U/L (12-78) Alkaline Phosphatase 102 U/L (45-117) Total Protein 7.0 gm/dl (6.4-8.2) Albumin 3.7 gm/dl (3.4-5.0) Globulin 3.3 gm/dl (2.5-4.0) Albumin/Globulin Ratio 1.1 (0.9-2) Thyroid Stimulating Hormone (TSH) 1.040 uIu/ml (0.300-4.500) RDW Standard Deviation 42.8 fL (36.4-46.3) RDW Coefficient of Variation 13.2 % (11.5-14.5) Anion Gap 2.0 mmol/L (3-11) Est Creatinine Clear Calc Drug Dose 126.7 ml/min Estimated GFR () 123.6 Estimated GFR (Non- 106.7 BUN/Creatinine Ratio 14.9 (10-20) Calcium Level 8.3 mg/dl (8.5-10.1) Date/Time Source Procedure Growth Status 09/26/17 13:20 Urine , Clean Catch Urine Culture - Final MORE THAN THREE TYPES OF ORGANISMS NH... Complete Last 24 Hours Test 09/27/17 06:11 White Blood Count 6.39 K/uL Red Blood Count 4.36 M/uL Hemoglobin 12.9 g/dL Hematocrit 38.5 % Mean Corpuscular Volume 88.3 fL Mean Corpuscular Hemoglobin 29.6 pg Mean Corpuscular Hemoglobin Concent 33.5 g/dl RDW Standard Deviation 42.8 fL RDW Coefficient of Variation 13.2 % Platelet Count 179 K/uL Mean Platelet Volume 10.5 fL Sodium Level 142 mmol/L Potassium Level 4.0 mmol/L Chloride Level 109 mmol/L Carbon Dioxide Level 30 mmol/L Anion Gap 2.0 mmol/L Blood Urea Nitrogen 10 mg/dl Creatinine 0.66 mg/dl Est Creatinine Clear Calc Drug Dose 126.7 ml/min Estimated GFR () 123.6 Estimated GFR (Non- 106.7 BUN/Creatinine Ratio 14.9 Random Glucose 83 mg/dl Calcium Level 8.3 mg/dl Assessment & Plan 47 yo F with h/o pediatric brain tumor, h/o multiple ventriculostomy shunts, and MS presents from [facility] after several successive falls and some neurocognitive decline. The patient reports not remembering the events that led to her admission to the hospital. Records reflect that she fell 4 times in 24 hours, and appeared to have increased slurring in her speech , gait dysfunction, and a cognitive decline from her baseline. The patient denies any current symptoms of weakness and has no pain. She feels well overall. 1. multiple falls-uncertain if these are mechanical falls from tripping vs seizure activity vs a worsening of her MS, post-concussion syndrome or other etiology. Appreciate neuro evaluation and recs for pursuing MRIs and EEG. Will cont to monitor on telemetry for now. PT/OT evals. 2. MS-not on regular medications for this. Poss MS flare? Cont workup per neuro recs. 3. HTN-controlled, cont lisinopril 4. Depression-stable, cont Zoloft DVT proph-Lovenox Full Code Dispo-cont hospitalization, uncertain at this time. Contacted mother by phone who had already been updated by Dr. Pierre and had no further questions. [facility] Consultants: Neurology-Dr. Brook Haines Current Inpatient Medications: Current Inpatient Medications Medications (Trade) Dose Ordered Sig/Patience Route Start Time Stop Time Status Last Admin Dose Admin Enoxaparin Sodium (Lovenox Inj) 40 mg Q24H SC 09/26/17 21:00 10/26/17 20:59 09/27/17 21:24 40 MG Acetaminophen (Tylenol Tab) 650 mg Q4H PRN PO 09/26/17 16:00 10/26/17 15:59 09/26/17 16:58 650 MG Ondansetron HCl (Zofran Inj) 4 mg Q6H PRN IV 09/26/17 16:00 10/26/17 15:59 Docusate Sodium (coLACE CAP) 100 mg BID PRN PO 09/26/17 16:00 10/26/17 15:59 Lisinopril (Zestril Tab) 2.5 mg DAILY PO 09/27/17 09:00 10/27/17 08:59 09/27/17 08:58 2.5 MG Multivitamins (Multivitamin Tab) 1 tab DAILY PO 09/27/17 09:00 10/27/17 08:59 09/27/17 08:58 1 TAB Sertraline HCl (Zoloft Tab) 100 mg QAM PO 09/27/17 09:00 6/2/18 08:59 09/27/17 08:59 100 MG Miscellaneous (Iv Fluids Completed) 1 ea PRN PRN N/A 09/26/17 19:15 09/26/18 19:14
[2017-09-28] VITALS (7 sets, daily range): BP systolic 127–148; BP diastolic 74–85; PULSE 61–87; TEMP 36.3–37.1; O2SAT 93–97
[2017-09-28] MEDS: LISINOPRIL 2.5 MG TAB PO SCH (07:59)
[2017-09-28] MEDS: SERTRALINE HCL 100 MG TAB PO SCH (09:59)
[2017-09-28] MEDS: MULTIVITAMIN TAB PO SCH (09:59)
--- NOTE | 2017-09-28 11:20 | ELECTROENCEPHALOGRAPH REPORT ---
FOR: Dr. Haines CLINICAL DIAGNOSIS: Pediatric brain tumor status post treatment, possible demyelinating disease, progressive decline in mental status with increased impulsivity and recent post-head injury; overall decline in mental status with remote history of seizures. ELECTROENCEPHALOGRAM DIAGNOSIS: Essentially normal during wakefulness. DESCRIPTION OF TRACING: This EEG was done as a bedside recording. There was a lot of patient movement and muscle artifact. Video analysis does illustrate this very well with a simultaneous video recording of patient movement and behavior. Photic stimulation was not performed. Drowsiness and light sleep are not seen. Under these conditions, there is evidence for low amplitude background rhythm in the alpha range of up to 9-10 Hz of maximum frequency and about 20 microvolts of maximum amplitude. This is maximum posterior head regions bilaterally symmetrical. Polymorphic mid to upper frequency relatively low voltage theta activity is seen over all head regions without clear focal or regional predominance. Anterior head region maximum bilaterally symmetrical low voltage fast activity in the beta range is probably present but is difficult to dissect from the frontal muscle movement artifact. At no time during the recording is there evidence for clearcut potentially epileptogenic activity for polyspike or spike wave bursts, focal sharp waves or focal spikes. INTERPRETATION: This EEG is somewhat technically limited due to muscle movement artifact but during the interpretable parts of the recording there is no clear evidence for focal or generalized encephalopathy and no evidence for potentially epileptogenic activity.
--- NOTE | 2017-09-28 14:15 | Neurology Progress Notes ---
Neurology Progress Note Date of Service September 28, 2017. 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 She currently resides at [facility]. She has had 4 falls when trying to get out of the wheelchair and hit her head. The staff [facility] report noticing patient with increased confusion and intermittent slow speech and trouble feeding herself after the falls. She states she has had many falls. she is known to Dr. Pierre neurology seen on 08/29/17. Patient had stopped Copaxone and Keppra over 1 year ago. She has been eating ok but her food is pureed due to no teeth. There is a family history of Simon's disease in father and grandfather. She was refusing testing prior but now is consenting and was authorized in the out patient setting. Today she is sitting up in bed and states she is "doing good". denies CP, SOB, abdominal pain, one sided weakness, numbness tingling, vision changes, swallowing difficulty, N, V, weight loss. Objective Date Time Temp Pulse Resp B/P (MAP) Pulse Ox O2 Delivery O2 Flow Rate FiO2 09/28/17 12:18 Room Air 09/28/17 11:17 36.7 70 17 127/74 (91) 96 Room Air 09/28/17 08:15 Room Air 09/28/17 07:32 36.3 61 61 148/76 (100) 96 Room Air 09/28/17 04:00 Room Air 09/28/17 03:49 36.8 67 18 136/83 (100) 97 Room Air 09/28/17 00:31 36.7 87 20 130/85 (100) 96 Room Air 09/27/17 23:59 Room Air 09/27/17 20:19 36.6 75 18 147/67 (93) 99 Room Air 09/27/17 20:00 96 Room Air 09/27/17 16:00 96 Room Air no new labs Imaging: EEG- This EEG is somewhat technically limited due to muscle movement artifact but during the interpretable parts of the recording there is no clear evidence for focal or generalized encephalopathy and no evidence for potentially epileptogenic activity. Exam: Gen: alert NAD lungs CTA, CV RRR oriented to 2018, president Elvin, [facility] Current Inpatient Medications Medications (Trade) Dose Ordered Sig/Patience Route Start Time Stop Time Status Last Admin Dose Admin Enoxaparin Sodium (Lovenox Inj) 40 mg Q24H SC 09/26/17 21:00 10/26/17 20:59 09/27/17 21:24 40 MG Acetaminophen (Tylenol Tab) 650 mg Q4H PRN PO 09/26/17 16:00 10/26/17 15:59 09/26/17 16:58 650 MG Ondansetron HCl (Zofran Inj) 4 mg Q6H PRN IV 09/26/17 16:00 10/26/17 15:59 Docusate Sodium (coLACE CAP) 100 mg BID PRN PO 09/26/17 16:00 10/26/17 15:59 Lisinopril (Zestril Tab) 2.5 mg DAILY PO 09/27/17 09:00 10/27/17 08:59 09/28/17 07:59 2.5 MG Multivitamins (Multivitamin Tab) 1 tab DAILY PO 09/27/17 09:00 10/27/17 08:59 09/28/17 09:59 1 TAB Sertraline HCl (Zoloft Tab) 100 mg QAM PO 09/27/17 09:00 10/27/17 08:59 09/28/17 09:59 100 MG Miscellaneous (Iv Fluids Completed) 1 ea PRN PRN N/A 09/26/17 19:15 09/26/18 19:14 Impression 47 year old with cognitive decline and balance issues resulting in falls Plan 1. PT/OT for discharge needs 2. will likely need rehab and higher level of care at discharge 3. MRI brain and CT [place] [facility] [place] [facility] [place] 4. MRI T/L spine ordered waiting for shunt information from [facility] system to be faxed 5. psychiatry for input of impulsiveness and cognitive issues 6. question competency for decision making 7. Mom would like update of evaluation and treatment- Anabel [phone] 8. fall precautions 9. elver genetic testing as outpatient 10. if no definitive findings on MRI T/L spine will need LP with cytology, OCB, myelin basic protein and IgG synthesis rate. further recommendations to follow I have seen and discussed above patient with Dr Pankaj Olson, neurology Patient seen and discussed with Brook de la o and Brook Haines MD progressiv decline of uncertain cause but now is worse post closed head trauma will need spinal imaging and this is underway and after this will need repeat mri of brain and cervical cord to exclude new trauma iasu of ms and huntingtons to be addressed as well with lp after imaging and outpatient genetic testing today am somewhat suspicious about the huntingtons as she is sdicinhibited and has some odd movementa of the orofacial regaion and odd posturing of arms but her extensive white matter lesions could easily produce this as well will follow up tomorrow and write ordrs for further imaging studies then Pankaj Olson MD
[2017-09-28] MEDS: ENOXAPARIN 40 MG/0.4 ML SYR SC SCH (21:10)
[2017-09-29 00:07] VITALS: BP 143/76; PULSE 82; TEMP 37.1; O2SAT 95
--- NOTE | 2017-09-29 03:46 | Progress Note ---
Medicine Progress Note Date & Time of Visit: September 28, 2017 at 18:41. Subjective 47 yo F with h/o pediatric brain tumor, h/o multiple ventriculostomy shunts, and MS presents from [facility] after several successive falls and some neurocognitive decline. The patient reports not remembering the events that led to her admission to the hospital. Records reflect that she fell 4 times in 24 hours, and appeared to have increased slurring in her speech , gait dysfunction, and a cognitive decline from her baseline. She does not remember any of the falls or what brought her to the hospital. The patient denies any current symptoms of weakness and has no pain. She feels well overall. Objective Last 8 Hrs Date Time Temp Pulse Resp B/P (MAP) Pulse Ox O2 Delivery O2 Flow Rate FiO2 09/28/17 16:13 Room Air 09/28/17 15:05 36.9 69 18 130/81 (97) 96 Room Air 09/28/17 12:18 Room Air 09/28/17 11:17 36.7 70 17 127/74 (91) 96 Room Air Physical Exam: GEN: WNWD, in no acute distress, alert and appropriate HEENT: NC/AT, PERRL, normal sclerae CARDIO: reg rate, S1/2 heard without m/g/r LUNGS: CTA bilaterally, no crackles, rales or wheezes, good diaphragmatic excursion ABD: soft, non-tender, non-distended, no rebound or guarding EXTREMITY: RP and DP palpable 2+ bilat, no LE swelling or edema, extremities are warm and well-perfused NEURO: CN 2-12 intact, sensation intact throughout MUSC: 5/5 strength throughout SKIN: warm and dry Assessment & Plan 47 yo F with h/o pediatric brain tumor, h/o multiple ventriculostomy shunts, and MS presents from [facility] after several successive falls and some neurocognitive decline. The patient reports not remembering the events that led to her admission to the hospital. Records reflect that she fell 4 times in 24 hours, and appeared to have increased slurring in her speech , gait dysfunction, and a cognitive decline from her baseline. She does not remember any of the falls or what brought her to the hospital. The patient denies any current symptoms of weakness and has no pain. She feels well overall. 1. multiple falls-uncertain if these are mechanical falls from tripping, possibly from an MS flare or post-concussion syndrome. No seizure activity noted as patient has been stable off medications for over a year. Neuro requested MRI of spine to complete evaluation for MS acutely, however, we are still awaiting paperwork from h/o shunt per MRI pre-assessment protocol for her to be allowed into the scanner. Plan is to evaluate MRI for acute abnormalities and if none, proceed with investigation through LP. Neuro guiding care. 2. MS-not on regular medications for this. Poss flare as above. 3. HTN-controlled, cont lisinopril 4. Depression-stable, cont Zoloft DVT proph-Lovenox Full Code Dispo-cont hospitalization, uncertain at this time. Contacted mother by phone who had already been updated by Dr. Pierre and had no further questions. Maura Swanson DO [facility] Hospitalist Consultants: Neurology-Dr. Olson Current Inpatient Medications: Current Inpatient Medications Medications (Trade) Dose Ordered Sig/Patience Route Start Time Stop Time Status Last Admin Dose Admin Enoxaparin Sodium (Lovenox Inj) 40 mg Q24H SC 09/26/17 21:00 10/26/17 20:59 09/27/17 21:24 40 MG Acetaminophen (Tylenol Tab) 650 mg Q4H PRN PO 09/26/17 16:00 10/26/17 15:59 09/26/17 16:58 650 MG Ondansetron HCl (Zofran Inj) 4 mg Q6H PRN IV 09/26/17 16:00 10/26/17 15:59 Docusate Sodium (coLACE CAP) 100 mg BID PRN PO 09/26/17 16:00 10/26/17 15:59 Lisinopril (Zestril Tab) 2.5 mg DAILY PO 09/27/17 09:00 10/27/17 08:59 09/28/17 07:59 2.5 MG Multivitamins (Multivitamin Tab) 1 tab DAILY PO 09/27/17 09:00 10/27/17 08:59 09/28/17 09:59 1 TAB Sertraline HCl (Zoloft Tab) 100 mg QAM PO 09/27/17 09:00 10/27/17 08:59 09/28/17 09:59 100 MG Miscellaneous (Iv Fluids Completed) 1 ea PRN PRN N/A 09/26/17 19:15 09/26/18 19:14
[2017-09-29 07:21] VITALS: BP 140/74; PULSE 71; TEMP 36.9; O2SAT 99
[2017-09-29] MEDS: MULTIVITAMIN TAB PO SCH (08:02)
[2017-09-29] MEDS: LISINOPRIL 2.5 MG TAB PO SCH (08:02)
[2017-09-29] MEDS: SERTRALINE HCL 100 MG TAB PO SCH (08:02)
--- NOTE | 2017-09-29 09:48 | Progress Note ---
Medicine Progress Note Date & Time of Visit: September 29, 2017 at 09:24. Subjective 47 yo F with h/o pediatric brain tumor, h/o multiple ventriculostomy shunts, and MS presents from [facility] after several successive falls and some neurocognitive decline. She continues to deny remembering these events. She reports mostly getting around in a wheelchair and doesn't walk much per her report. Speech is normal, she has no pain. She is tolerating PO without issue. She requires minimal assistance to bedside to commode. Objective Last 8 Hrs Date Time Temp Pulse Resp B/P (MAP) Pulse Ox O2 Delivery O2 Flow Rate FiO2 09/29/17 07:21 36.9 71 18 140/74 (96) 99 Room Air Physical Exam: GEN: WNWD, in no acute distress, alert and appropriate HEENT: periorbital L eye ecchymosis in various stages of healing (been present since admission, previously not documented). PERRL, normal sclerae CARDIO: reg rate, S1/2 heard without m/g/r LUNGS: CTA bilaterally, no crackles, rales or wheezes, good diaphragmatic excursion ABD: soft, non-tender, non-distended, no rebound or guarding EXTREMITY: RP and DP palpable 2+ bilat, no LE swelling or edema, extremities are warm and well-perfused NEURO: CN 2-12 grossly intact, sensation intact throughout MUSC: 5/5 strength throughout SKIN: warm and dry Assessment & Plan 47 yo F with h/o pediatric brain tumor, h/o multiple ventriculostomy shunts, and MS presents from [facility] after several successive falls and some neurocognitive decline. She continues to deny remembering these events. She reports mostly getting around in a wheelchair and doesn't walk much per her report. Speech is normal, she has no pain. She is tolerating PO without issue. She requires minimal assistance to bedside to commode. 1. multiple falls-uncertain if these are mechanical falls from tripping, possibly from an MS flare or post-concussion syndrome. No seizure activity noted as patient has been stable off medications for over a year. Neuro requested MRI of spine to complete evaluation for MS acutely; required paperwork received and plan for MRI this morning. Neuro guiding care, and plan for LP if MRI is unremarkable. 2. MS-not on regular medications for this. Poss flare as above. 3. HTN-controlled, cont lisinopril 4. Depression-stable, cont Zoloft DVT proph-Lovenox Full Code Dispo-cont hospitalization, likely will return to [facility] on discharge. Pt reports that she is wheelchair-bound and is able to receive assistance anytime she calls for it. Will continue to monitor progress and discuss capabilities of [facility] with Case Management when we are closer to discharge. DO [facility] Hospitalist Consultants: Neurology-Dr. Olson Current Inpatient Medications: Current Inpatient Medications Medications (Trade) Dose Ordered Sig/Patience Route Start Time Stop Time Status Last Admin Dose Admin Enoxaparin Sodium (Lovenox Inj) 40 mg Q24H SC 09/26/17 21:00 10/26/17 20:59 09/28/17 21:10 40 MG Acetaminophen (Tylenol Tab) 650 mg Q4H PRN PO 09/26/17 16:00 10/26/17 15:59 09/26/17 16:58 650 MG Ondansetron HCl (Zofran Inj) 4 mg Q6H PRN IV 09/26/17 16:00 10/26/17 15:59 Docusate Sodium (coLACE CAP) 100 mg BID PRN PO 09/26/17 16:00 10/26/17 15:59 Lisinopril (Zestril Tab) 2.5 mg DAILY PO 09/27/17 09:00 10/27/17 08:59 09/29/17 08:02 2.5 MG Multivitamins (Multivitamin Tab) 1 tab DAILY PO 09/27/17 09:00 10/27/17 08:59 09/29/17 08:02 1 TAB Sertraline HCl (Zoloft Tab) 100 mg QAM PO 09/27/17 09:00 10/27/17 08:59 09/29/17 08:02 100 MG Miscellaneous (Iv Fluids Completed) 1 ea PRN PRN N/A 09/26/17 19:15 09/26/18 19:14
--- NOTE | 2017-09-29 12:01 | PROGRESS NOTE ---
DATE: 09/29/2017 Fiona actually looks a little better to me today, but I really do not have a good handle on her case as Dr. Haines is her primary neurologist and Dr. Hainse herself really has not seen her for 2 years. Fiona is now in the hospital after having a series of falls at her personal care facility and it is no longer felt to be safe for her there. She clearly has ecchymosis in the right orbit and was a little lethargic and disoriented on her initial presentation, but now is coming around, still is a little impulsive to say the least as well as having some odd oral facial movements and at times some dysmetric and dystonic posturing of her arms and there is a family history for Boon's disease in her father. 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 She has also been said to have multiple sclerosis based on the presence of at times confluent white matter areas of demyelination confined to the supratentorial compartment. She has had cervical MRIs done which apparently have shown no demyelination but has never had any studies of her thoracic and lumbar spines and now post-head injury probably needs reimaging of her brain and neck to be sure there is no now shunt malfunction or problem in the cervical cord. Physical exam reveals again dysarthric at times, explosive speech. She has some unusual associations. She continues to show impulsivity to nursing staff. There is again some dystonic posturing of the left arm and some cerebellar dysmetria and some unusual oral facial movements but I do not see any gris choreiform activity that would be typical of Boon's disease. There may be a little drift of the left arm and undoubtedly an upper motor neuron component exists based on review of her imaging studies on an outpatient basis. Right now, the plan is to get the MRIs of the thoracic and lumbar spine then wait a day to allow the dye load to clear and repeat images of the brain and cervical spine with and without contrast. There has been a hold up because of the presence of the shunt and the need to establish that it is indeed safe to do an MRI and what parameters need to be used and radiology I think finally has this information, we will go ahead today with the studies. I will drop in tomorrow and take a look at her and probably order the MRIs of the brain and neck to be done either tomorrow or Sunday or combination. After that, we are going to go ahead with a lumbar puncture to try to settle once and for all whether there are some markers in her spinal fluid that would be consistent with demyelinating disease and on an outpatient basis she has consented to have the genetic testing for Ismael's disease. The procedure has been approved and all she needs to do is go to the [facility] laboratory facility and have the blood drawn and I think this can be arranged. Right now, social service clearly needs to get involved about where she can be placed. I think based on my contact with her she really needs a fpc facility. She has failed a personal care facility due to her impulsivity and I think she needs more careful care and management because of this. All said and done, I do not think we are going to find much treatable. Even if this woman did have MS, I am not sure she would be a candidate for any type of therapy other than perhaps Ocrevus for what would be classified as a primary or perhaps secondary progressive disorder. There is a remote history of an optic neuritis that I think form the basis of the diagnosis of multiple sclerosis years ago. That having been said, her disease has been slowly progressive and about the only approved medication for this currently would be the Ocrevus. In terms of Ismael's disease, if indeed she turns out positive, there is not a whole lot to offer here other than symptomatic treatment and one certainly would not be using any of the approved medications for treating the choreiform movements such as zenazine since she has very little if any of these. The shunt and colloid cyst issue has been addressed and there is nothing more to do surgically unless the upcoming mri of the brain would show any signficant malfunction that might have occurred afte the recent closed head injuries I will check back tomorrow. I reviewed our thinking with Maura Swanson, her current hospitalist and I think we are on the same page on this one. KENDRA
[2017-09-29 14:56] VITALS: BP 127/76; PULSE 75; TEMP 37.1; O2SAT 97
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
[2017-09-29] MEDS ORDERED: GADAVIST IV PRN (17:45)
[2017-09-29 19:08] VITALS: BP 116/60; PULSE 71; TEMP 37.3; O2SAT 95
--- NOTE | 2017-09-29 19:35 | DIAGNOSTIC IMAGING REPORT ---
THORACIC SPINE COMBO CLINICAL HISTORY: 47 years-old Female presenting with progressive gait dysfunction r/o lesions r/o MS. TECHNIQUE: Multisequence, multiplanar MR imaging of the thoracic spine was performed before and after the administration of intravenous contrast. IV contrast: 9 mL of Gadavist. COMPARISON: None. FINDINGS: Several sequences are degraded by motion artifact limiting diagnostic sensitivity the exam. Localizer images: Unremarkable. Normal thoracic kyphosis. Vertebral bodies maintain normal height, alignment, and bone marrow signal intensity. No abnormal enhancement on postcontrast imaging. Vertebral discs heights maintained though disc osteophyte complexes noted at nearly every level. Several of these disc osteophyte complexes significantly efface the ventral thecal sac, most prominently at T6-7, T7-8, and T9-10. No convincing evidence of spinal cord impingement. Neural foramina are patent. Thoracic spinal cord maintains normal morphology and signal intensity. No evidence of abnormal enhancement on postcontrast imaging within the spinal cord. No epidural collection. Paraspinal musculature within normal limits. Nonspecific edema in the lumbar region. IMPRESSION: 1. Within limitations of the exam, no spinal cord lesion or abnormal spinal cord enhancement to suggest the myelinating disease. 2. Mild multilevel degenerative changes with disc osteophyte complexes. No significant spinal canal or neural foraminal narrowing. Electronically signed by: Cj Torres M.D. 09/29/2017 7:34 PM Dictated Date/Time: 09/29/2017 7:28 PM
--- NOTE | 2017-09-29 20:23 | DIAGNOSTIC IMAGING REPORT ---
LUMBAR SPINE COMBINATION CLINICAL HISTORY: 47 years-old Female presenting with progressive gait dysfunction r/o lesions r/o MS. TECHNIQUE: Multisequence, multiplanar MR imaging of the lumbar spine was performed before and after the administration of intravenous contrast. IV contrast: 9 mL of Gadavist. COMPARISON: None. FINDINGS: Localizer images: Unremarkable. Normal lumbar lordosis. Fatty endplate changes of L5-S1, where there is the greatest degree of degenerative change. Remaining vertebral bodies demonstrate normal height, alignment, bone marrow signal intensity. Intervertebral disc desiccation with mild height loss at L2-3. Similar desiccation with greater height loss at L5-S1. Multilevel degenerative changes further detailed below: L1-2: No significant neural foraminal or spinal canal narrowing. L2-3: Disc bulge and ligamentum flavum thickening. Minimal effacement of the ventral thecal sac. Moderate right and mild to moderate left neural foraminal narrowing. L3-4: Minimal disc bulge, facet arthropathy, and ligamentum flavum thickening result in circumferential effacement of the thecal sac though CSF signal intensity is maintained. Moderate right and mild left neural foraminal narrowing. L4-5: Minimal disc bulge, facet arthropathy, and ligamentum flavum thickening result in circumferential effacement of the thecal sac though CSF signal intensity is maintained. Prominent epidural fat along the dorsal aspect of the thecal sac at this level contributes to effacement. Mild bilateral neural foraminal narrowing. L5-S1: Significant disc bulge without focal protrusion or extruded fragment. Despite this, no significant spinal canal narrowing. Mild right and moderate left neural foraminal narrowing. Spinal cord ends in good position at L1. Cauda equina crowding secondary to degenerative change as above but otherwise normal. Postcontrast imaging does not demonstrate abnormal enhancement of the lower spinal cord or cauda equina. No abnormal enhancement of the vertebral bodies. Nonspecific subcutaneous edema in the lumbar region. IMPRESSION: 1. No abnormal signal intensity or abnormal enhancement to suggest demyelinating disease. 2. Mild multilevel degenerative changes with varying degrees of spinal canal and neural foraminal narrowing as above. No convincing evidence of cauda equina impingement. Electronically signed by: Cj Torres M.D. 09/29/2017 8:21 PM Dictated Date/Time: 09/29/2017 8:17 PM
[2017-09-29] MEDS: ENOXAPARIN 40 MG/0.4 ML SYR SC SCH (21:32)
[2017-09-30 00:24] VITALS: BP 133/76; PULSE 75; TEMP 36.4; O2SAT 97
[2017-09-30 07:25] VITALS: BP 108/55; PULSE 77; TEMP 37; O2SAT 98
[2017-09-30] MEDS: SERTRALINE HCL 100 MG TAB PO SCH (08:26)
[2017-09-30] MEDS: LISINOPRIL 2.5 MG TAB PO SCH (08:26)
[2017-09-30] MEDS: MULTIVITAMIN TAB PO SCH (08:27)
[2017-09-30 11:53] VITALS: BP 114/67; PULSE 84; TEMP 36.9; O2SAT 99
--- NOTE | 2017-09-30 13:08 | PROGRESS NOTE ---
DATE: 09/30/2017 SUBJECTIVE: Fiona looks about the same today, although I wonder if she is getting an ecchymosis on the left eye. I am concerned a little bit about an occult basal skull fracture in light of all of her trauma. We certainly cannot see anything on the CT scan and we are going to schedule for an MRI of the brain and cervical spine tomorrow. Imaging of the thoracic spine, lumbar spine have been negative for any evidence for demyelinating disease or compressive myelopathy or lumbar radiculopathy. So her gait disturbance remains likely due to her colloid cyst, perhaps the cortical demyelinating lesions that are confluent and fairly extensive or perhaps a combination of all the above plus underlying Ismael's disease. Whatever the case, she has had a recent followed by mental status change, and ambulatory status change. She does have the bilateral ecchymoses in the orbits, now worse on the right. So I think we need to really be sure there was no significant closed head trauma and perhaps some dysfunction of her shunt which has been in place for years and is apparently adequate to keep her from having a significant degree of obstructive hydrocephalus due to the colloid cyst. PLAN: After the above imaging of the brain and cervical spine I have encouraged her to get spinal fluid analysis, but first I think we need to get the imaging studies done to make sure that lumbar puncture is going to create further decompensation. Her exam otherwise is pretty much the same. If anything, she is a little brighter mentally, she still has the odd dystonic posturing of the left arm, to some degree the right, explosive speech and some of the orofacial movements and again is impulsive. I will check back with her tomorrow. KENDRA
[2017-09-30 15:36] VITALS: BP 113/75; PULSE 74; TEMP 36.9; O2SAT 95
--- NOTE | 2017-09-30 16:01 | Progress Note ---
Medicine Progress Note Date & Time of Visit: September 30, 2017 at 15:57. Subjective 47 yo F with h/o pediatric brain tumor, h/o multiple ventriculostomy shunts, and MS presents from [facility] after several successive falls and some neurocognitive decline. She continues to deny remembering these events. She reports mostly getting around in a wheelchair and doesn't walk much per her report. She is at her baseline, and toleratin gPO. She denies any symptoms today and is amenable to trying to walk with assistance or do whatever we would like to help her get better. She is in a happy mood today. Objective Last 8 Hrs Date Time Temp Pulse Resp B/P (MAP) Pulse Ox O2 Delivery O2 Flow Rate FiO2 09/30/17 15:36 36.9 74 18 113/75 (88) 95 Room Air 09/30/17 08:00 Room Air Physical Exam: GEN: WNWD, in no acute distress, alert and appropriate HEENT: periorbital L eye ecchymosis in various stages of healing. PERRL, normal sclerae CARDIO: reg rate, S1/2 heard without m/g/r LUNGS: CTA bilaterally, no crackles, rales or wheezes, good diaphragmatic excursion ABD: soft, non-tender, non-distended, no rebound or guarding EXTREMITY: RP and DP palpable 2+ bilat, no LE swelling or edema, extremities are warm and well-perfused NEURO: CN 2-12 grossly intact, sensation intact throughout MUSC: 5/5 strength throughout SKIN: warm and dry Assessment & Plan 47 yo F with h/o pediatric brain tumor, h/o multiple ventriculostomy shunts, and MS presents from [facility] after several successive falls and some neurocognitive decline. She continues to deny remembering these events. She reports mostly getting around in a wheelchair and doesn't walk much per her report. She is at her baseline, and toleratin gPO. She denies any symptoms today and is amenable to trying to walk with assistance or do whatever we would like to help her get better. She is in a happy mood today. 1. multiple falls-uncertain if these are mechanical falls from tripping, possibly from an MS flare or post-concussion syndrome. No seizure activity noted as patient has been stable off medications for over a year. Neuro requested MRI of spine to complete evaluation for MS acutely; MRI L and T-spine did not reveal evidence of MS. Neuro folowing and plans for MRI brain and c- spine tomorrow. If negative, may proceed with LP for further testing. Cont to try to ambulate with assist to keep up her strength. Pt is going to get a genetic test for [place]'s disease as outpatient after discharge. 2. MS-not on regular medications for this. Poss flare as above. 3. HTN-controlled, cont lisinopril 4. Depression-stable, cont Zoloft DVT proph-Lovenox Full Code Dispo-cont hospitalization, likely will return to [facility] on discharge. Pt reports that she is wheelchair-bound and is able to receive assistance anytime she calls for it. Will continue to monitor progress and discuss capabilities of [facility] with Case Management when we are closer to discharge. DO Nadia Castillo Hospitalist Consultants: Neurology-Dr. Olson Current Inpatient Medications: Current Inpatient Medications Medications (Trade) Dose Ordered Sig/Patience Route Start Time Stop Time Status Last Admin Dose Admin Enoxaparin Sodium (Lovenox Inj) 40 mg Q24H SC 09/26/17 21:00 10/26/17 20:59 09/29/17 21:32 40 MG Acetaminophen (Tylenol Tab) 650 mg Q4H PRN PO 09/26/17 16:00 10/26/17 15:59 09/26/17 16:58 650 MG Ondansetron HCl (Zofran Inj) 4 mg Q6H PRN IV 09/26/17 16:00 10/26/17 15:59 Docusate Sodium (coLACE CAP) 100 mg BID PRN PO 09/26/17 16:00 10/26/17 15:59 Lisinopril (Zestril Tab) 2.5 mg DAILY PO 09/27/17 09:00 10/27/17 08:59 09/30/17 08:26 2.5 MG Multivitamins (Multivitamin Tab) 1 tab DAILY PO 09/27/17 09:00 10/27/17 08:59 09/30/17 08:27 1 TAB Sertraline HCl (Zoloft Tab) 100 mg QAM PO 09/27/17 09:00 10/27/17 08:59 09/30/17 08:26 100 MG Miscellaneous (Iv Fluids Completed) 1 ea PRN PRN N/A 09/26/17 19:15 09/26/18 19:14 Gadobutrol (Gadavist) 9 mmol UD PRN IV 09/29/17 17:45 10/03/17 17:44
[2017-09-30 17:19] VITALS: O2SAT 98
[2017-09-30] MEDS: ENOXAPARIN 40 MG/0.4 ML SYR SC SCH (20:53)
[2017-09-30 23:30] VITALS: BP 122/69; PULSE 67; TEMP 36.6; O2SAT 96
[2017-10-01 07:32] VITALS: BP 115/73; PULSE 70; TEMP 36.6; O2SAT 97
[2017-10-01 08:00] VITALS: O2SAT 97
[2017-10-01] MEDS: MULTIVITAMIN TAB PO SCH (08:54)
[2017-10-01] MEDS: SERTRALINE HCL 100 MG TAB PO SCH (08:54)
[2017-10-01] MEDS: LISINOPRIL 2.5 MG TAB PO SCH (08:55)
[2017-10-01 14:42] VITALS: BP 128/82; PULSE 74; TEMP 36.7; O2SAT 99
--- NOTE | 2017-10-01 15:16 | Neurology Progress Notes ---
Neurology Progress Note Date of Service October 01, 2017. 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 She currently resides at [facility]. She has had 4 falls when trying to get out of the wheelchair and hit her head. The staff [facility] report noticing patient with increased confusion and intermittent slow speech and trouble feeding herself after the falls. She states she has had many falls. she is known to Dr. Pierre neurology seen on 08/29/17. Patient had stopped Copaxone and Keppra over 1 year ago. She has been eating ok but her food is pureed due to no teeth. There is a family history of [place]'s disease in father and grandfather. She was refusing testing prior but now is consenting and was authorized in the out patient setting. Today she is sitting up in bed and states she is "doing good". Discussed LP tomorrow to evaluate for MS for possible diagnosis of her decline. She wants to know if it will hurt. discussed it will hurt but not alot of pain. denies CP, SOB, abdominal pain, one sided weakness, numbness tingling, vision changes, swallowing difficulty, N, V, weight loss. 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 biceps triceps 5/5 bilaterally, hip flex plantar flex ext 5 /5 bilaterally neuro: know 2018, spring, [facility], president kamila Current Inpatient Medications Medications (Trade) Dose Ordered Sig/Patience Route Start Time Stop Time Status Last Admin Dose Admin Enoxaparin Sodium (Lovenox Inj) 40 mg Q24H SC 09/26/17 21:00 10/26/17 20:59 09/30/17 20:53 40 MG Acetaminophen (Tylenol Tab) 650 mg Q4H PRN PO 09/26/17 16:00 10/26/17 15:59 09/26/17 16:58 650 MG Ondansetron HCl (Zofran Inj) 4 mg Q6H PRN IV 09/26/17 16:00 10/26/17 15:59 Docusate Sodium (coLACE CAP) 100 mg BID PRN PO 09/26/17 16:00 10/26/17 15:59 Lisinopril (Zestril Tab) 2.5 mg DAILY PO 09/27/17 09:00 10/27/17 08:59 10/01/17 08:55 2.5 MG Multivitamins (Multivitamin Tab) 1 tab DAILY PO 09/27/17 09:00 10/27/17 08:59 10/01/17 08:54 1 TAB Sertraline HCl (Zoloft Tab) 100 mg QAM PO 09/27/17 09:00 10/27/17 08:59 10/01/17 08:54 100 MG Miscellaneous (Iv Fluids Completed) 1 ea PRN PRN N/A 09/26/17 19:15 09/26/18 19:14 Gadobutrol (Gadavist) 9 mmol UD PRN IV 09/29/17 17:45 10/03/17 17:44 Impression 47 year old with cognitive decline and balance issues resulting in falls Plan 1. PT/OT for discharge needs 2. will likely need rehab and higher level of care at discharge 3. MRI brain and CT head was pushed from [facility] system 4. MRI T/L spine done with no lesions or abnormal signal 5. psychiatry for input of impulsiveness and cognitive issues- executive dysfunction for decision making impaired 6. question competency for decision making 7. Mom would like update of evaluation and treatment- Anabel [phone] will need to call for consent of LP 8. fall precautions 9. elver genetic testing as outpatient 10. if no definitive findings on MRI T/L spine will need LP with cytology, OCB, myelin basic protein and IgG synthesis rate ordered for tomorrow 10/02/2017 I have seen and discussed above patient with Dr Pankaj Olson, neurology MR imaging still not totally complete will await results and proceed with liumbar puncture and evaluation for possible underlying demyelinating disease and eventually the genetic testing for [place] but for now placement is still up in the air and diagnostic studies are still underway overall she is better but still very impaired and not competent to make significant life decisions in my opinion some of what we see could still reflect post head trauma residua. Pankaj Olson MD
[2017-10-01 16:09] VITALS: O2SAT 99
--- NOTE | 2017-10-01 18:04 | Progress Note ---
Medicine Progress Note Date & Time of Visit: October 01, 2017 at 16:19. Subjective 47 yo F with h/o pediatric brain tumor, h/o multiple ventriculostomy shunts, and MS presents from [facility] after several successive falls and some neurocognitive decline. She reports memory problems. She has been ambulating with assistance and doing fairly well but is going to require increased level of care on discharge. She is aware of that and fine with that assessment. She is continuing to tolerate p.o. and mentating and ambulating at her baseline. Planning for LP in the morning Objective Last 8 Hrs Date Time Temp Pulse Resp B/P (MAP) Pulse Ox O2 Delivery O2 Flow Rate FiO2 10/01/17 16:09 99 Room Air 10/01/17 14:42 36.7 74 18 128/82 (97) 99 Room Air Physical Exam: GEN: WNWD, in no acute distress, alert and appropriate HEENT: periorbital L eye ecchymosis improved. PERRL, normal sclerae CARDIO: reg rate, S1/2 heard without m/g/r LUNGS: CTA bilaterally, no crackles, rales or wheezes, good diaphragmatic excursion ABD: soft, non-tender, non-distended, no rebound or guarding EXTREMITY: RP and DP palpable 2+ bilat, no LE swelling or edema, extremities are warm and well-perfused NEURO: CN 2-12 grossly intact, sensation intact throughout MUSC: 5/5 strength throughout SKIN: warm and dry Laboratory Results: 09/27/17 06:11 09/27/17 06:11 Test 09/26/17 13:20 09/26/17 13:34 09/27/17 06:11 10/01/17 14:23 Urine Color DK YELLOW Urine Appearance CLOUDY (CLEAR) Urine pH 6.0 (4.5-7.5) Urine Specific [place] 1.020 (1.000-1.030) Urine Protein TRACE (NEG) Urine Glucose (UA) NEG (NEG) Urine Ketones NEG (NEG) Urine Occult Blood 1+ (NEG) Urine Nitrite NEG (NEG) Urine Bilirubin NEG (NEG) Urine Urobilinogen NEG (NEG) Urine Leukocyte Esterase LARGE (NEG) Urine WBC (Auto) >30 /hpf (0-5) Urine RBC (Auto) 5-10 /hpf (0-4) Urine Hyaline Casts (Auto) 1-5 /lpf (0-5) Urine Epithelial Cells (Auto) >30 /lpf (0-5) Urine Bacteria (Auto) NEG (NEG) Immature Granulocyte % (Auto) 0.4 % White Blood Count 7.44 K/uL (4.8-10.8) Red Blood Count 4.57 M/uL (4.2-5.4) 4.36 M/uL (4.2-5.4) Hemoglobin 13.8 g/dL (12.0-16.0) Hematocrit 40.4 % (37-47) Mean Corpuscular Volume 88.4 fL (80-100) 88.3 fL (80-100) Mean Corpuscular Hemoglobin 30.2 pg (25-34) 29.6 pg (25-34) Mean Corpuscular Hemoglobin Concent 34.2 g/dl (32-36) 33.5 g/dl (32-36) Platelet Count 203 K/uL (130-400) Mean Platelet Volume 10.1 fL (7.4-10.4) 10.5 fL (7.4-10.4) Neutrophils (%) (Auto) 64.1 % Lymphocytes (%) (Auto) 24.5 % Monocytes (%) (Auto) 9.0 % Eosinophils (%) (Auto) 1.6 % Basophils (%) (Auto) 0.4 % Neutrophils # (Auto) 4.77 K/uL (1.4-6.5) Lymphocytes # (Auto) 1.82 K/uL (1.2-3.4) Monocytes # (Auto) 0.67 K/uL (0.11-0.59) Eosinophils # (Auto) 0.12 K/uL (0-0.5) Basophils # (Auto) 0.03 K/uL (0-0.2) Immature Granulocyte # (Auto) 0.03 K/uL (0.00-0.02) Prothrombin Time 10.4 SECONDS (9.0-12.0) Prothromb Time International Ratio 1.0 (0.9-1.1) Magnesium Level 2.2 mg/dl (1.8-2.4) Total Bilirubin 0.6 mg/dl (0.2-1) Aspartate Amino Transf (AST/SGOT) 14 U/L (15-37) Alanine Aminotransferase (ALT/SGPT) 27 U/L (12-78) Alkaline Phosphatase 102 U/L (45-117) Total Protein 7.0 gm/dl (6.4-8.2) Albumin 3.7 gm/dl (3.4-5.0) Globulin 3.3 gm/dl (2.5-4.0) Albumin/Globulin Ratio 1.1 (0.9-2) Thyroid Stimulating Hormone (TSH) 1.040 uIu/ml (0.300-4.500) RDW Standard Deviation 42.8 fL (36.4-46.3) RDW Coefficient of Variation 13.2 % (11.5-14.5) Anion Gap 2.0 mmol/L (3-11) Est Creatinine Clear Calc Drug Dose 126.7 ml/min Estimated GFR () 123.6 Estimated GFR (Non- 106.7 BUN/Creatinine Ratio 14.9 (10-20) Calcium Level 8.3 mg/dl (8.5-10.1) Date/Time Source Procedure Growth Status 10/01/17 14:23 Cerebral Spinal Fluid Fungal Culture Pending Ordered 09/26/17 13:20 Urine , Clean Catch Urine Culture - Final MORE THAN THREE TYPES OF ORGANISMS MS... Complete Last 24 Hours Test 10/01/17 14:23 Date/Time Source Procedure Growth Status 10/01/17 14:23 Cerebral Spinal Fluid Fungal Culture Pending Ordered Assessment & Plan 47 yo F with h/o pediatric brain tumor, h/o multiple ventriculostomy shunts, and MS presents from [facility] after several successive falls and some neurocognitive decline. She reports memory problems. She has been ambulating with assistance and doing fairly well but is going to require increased level of care on discharge. She is aware of that and fine with that assessment. She is continuing to tolerate p.o. and mentating and ambulating at her baseline. Planning for LP in the morning 1. multiple falls 2/2 ambulatory dysfunction-uncertain if these are mechanical falls from tripping, possibly from an MS flare or post-concussion syndrome versus [place]'s disease. No seizure activity noted as patient has been stable off medications for over a year. MRI L and T-spine did not reveal evidence of MS. Neuro following and plans for LP in the morning. Cont to try to ambulate with assist to keep up her strength. Pt is going to get a genetic test for [place]'s disease as outpatient after discharge. 2. MS-not on regular medications for this. Poss flare as above. No steroids indicated at this time. 3. HTN-controlled, cont lisinopril 4. Depression-stable, cont Zoloft DVT proph-Lovenox Full Code Dispo-cont hospitalization, likely will be going to a different facility on discharge than her personal [place] [facility]. Case management to assist with logistics. DO Nadia Castillo Hospitalist Consultants: Neurology-Dr. Olson Current Inpatient Medications: Current Inpatient Medications Medications (Trade) Dose Ordered Sig/Patience Route Start Time Stop Time Status Last Admin Dose Admin Enoxaparin Sodium (Lovenox Inj) 40 mg Q24H SC 09/26/17 21:00 10/26/17 20:59 09/30/17 20:53 40 MG Acetaminophen (Tylenol Tab) 650 mg Q4H PRN PO 09/26/17 16:00 10/26/17 15:59 09/26/17 16:58 650 MG Ondansetron HCl (Zofran Inj) 4 mg Q6H PRN IV 09/26/17 16:00 10/26/17 15:59 Docusate Sodium (coLACE CAP) 100 mg BID PRN PO 09/26/17 16:00 10/26/17 15:59 Lisinopril (Zestril Tab) 2.5 mg DAILY PO 09/27/17 09:00 10/27/17 08:59 10/01/17 08:55 2.5 MG Multivitamins (Multivitamin Tab) 1 tab DAILY PO 09/27/17 09:00 10/27/17 08:59 10/01/17 08:54 1 TAB Sertraline HCl (Zoloft Tab) 100 mg QAM PO 09/27/17 09:00 10/27/17 08:59 10/01/17 08:54 100 MG Miscellaneous (Iv Fluids Completed) 1 ea PRN PRN N/A 09/26/17 19:15 09/26/18 19:14 Gadobutrol (Gadavist) 9 mmol UD PRN IV 09/29/17 17:45 10/03/17 17:44
[2017-10-01] MEDS: ENOXAPARIN 40 MG/0.4 ML SYR SC SCH (20:05)
[2017-10-01] MEDS ORDERED: GADAVIST IV PRN (22:30)
--- NOTE | 2017-10-01 23:07 | DIAGNOSTIC IMAGING REPORT ---
CERVICAL SPINE COMBO HISTORY: Demyelinating disorder. Brain mass. ms TECHNIQUE: Multiplanar multisequence MRI of the cervical spine was performed both before and after the use of intravenous contrast. COMPARISON STUDY: None. FINDINGS: Signal characteristics of the vertebral bodies are unremarkable. There are findings of moderate degenerative disc change throughout the entire cervical region. C2-C3: No significant central canal or neural foraminal narrowing. C3-C4: Moderate osteophytic narrowing left neuroforamina. No significant impact upon the cervical cord. C4-C5: Broad-based bulging disc with minimal impact anterior cervical cord. Considerable osteophytic narrowing of the neuroforamina bilaterally. C5-C6: Left central disc herniation with mild impact left anterior cervical cord. Considerable narrowing left neuroforamina. C6-C7: Broad-based disc herniation with considerable narrowing of the neuroforamina bilaterally. Moderate impact anterior cervical cord. C7-T1: Mild left central bulging disc with minimal narrowing left neuroforamina. IMPRESSION: 1. Multilevel bulging discs versus mild disc herniations as described. 2. Mild/moderate impact upon the cervical cord at multiple levels including compromise of several neural foramina bilaterally. 3. No evidence for a major component of spinal stenosis. 4. Compromised exam due to patient somatic motion. The above report was generated using voice recognition software. It may contain grammatical, syntax or spelling errors. Electronically signed by: Saurav Barnett M.D. 10/01/2017 11:05 PM Dictated Date/Time: 10/01/2017 11:02 PM
[2017-10-01 23:24] VITALS: BP 135/80; PULSE 62; TEMP 36.6; O2SAT 97
[2017-10-02 05:38] LABS: HEMATOCRIT 42.3 % (37-47); HEMOGLOBIN 14.1 g/dL (12.0-16.0); MEAN CELL VOLUME 88.1 fL (80-100); MEAN CORPUSCULAR HEMOGLOBIN 29.4 pg (25-34); MEAN CORPUSCULAR HGB CONC 33.3 g/dl (32-36); MEAN PLATELET VOLUME 10.4 fL (7.4-10.4); PLATELET COUNT 174 K/uL (130-400); RED CELL DISTRIBUTION WIDTH CV 13.1 % (11.5-14.5); RED CELL DISTRIBUTION WIDTH SD 42.4 fL (36.4-46.3); WHITE BLOOD COUNT 6.49 K/uL (4.8-10.8)
[2017-10-02 05:43] LABS: CALCIUM 8.7 mg/dl (8.5-10.1); CREATININE 0.75 mg/dl (0.60-1.20); POTASSIUM 4.1 mmol/L (3.5-5.1)
[2017-10-02 07:02] VITALS: BP 121/76; PULSE 55; TEMP 36.7; O2SAT 99
--- NOTE | 2017-10-02 07:42 | DIAGNOSTIC IMAGING REPORT ---
Brain MRI WITH AND WITHOUT CONTRAST HISTORY: recent fall with head trauma TECHNIQUE: Multiplanar multisequence MRI of the brain was performed both before and after the intravenous administration of contrast. COMPARISON STUDY: Head CT 09/22/2017. Outside hospital brain MRI 09/06/2017. FINDINGS: No areas of restricted diffusion to suggest acute infarction. A few areas of increased signal on the DWI sequences are consistent with T2 shine through. Multifocal patchy areas of T2 hyperintensity seen predominantly within the periventricular white matter are not significantly changed. There is a right parietal approach and the left posterior parietal approach ventriculostomy catheters. These remain unchanged in position. The right parietal catheter crosses the midline and terminates likely within the left basal ganglia. This remains unchanged. The left parietal catheter terminates in the atrium of the left lateral ventricle. The ventricles remain stable in size. Focal area of dense calcification and cystic change within the left basal ganglia is again noted. There is a 1.5 cm round slightly T2 hyperintense, T1 hypointense mass at the anterior midline of the lateral ventricles near the left foramen of Monro. This remains unchanged. Encephalomalacia at the left anterior temporal lobe remains unchanged. There is increased T2 signal at the midbrain, unchanged. This demonstrates patchy enhancement, unchanged. The major vascular flow-voids at the skull base are well-maintained. Paranasal sinuses and mastoid air cells are clear. There is a new 8 mm focus of T2 hyperintensity which demonstrates enhancement within the periventricular white matter of the left parietal lobe. Trace extra-axial abnormal signal along the right side of the falx and within the high convexity. This is best seen on coronal FLAIR image 139. This favors trace subdural hemorrhage. This is new from the prior study. Dense dural calcifications, right greater than left, are again noted. Best seen on axial postcontrast image 7 and coronal postcontrast image 12 there is a 1 cm mass within the right Meckel's cave. This is T2 hyperintense and demonstrates enhancement. Thickening and enhancement along the falx has slightly progressed. IMPRESSION: 1. Interval development of trace abnormal extra-axial signal within the right high convexity along the right side of the falx. This favors trace subdural hemorrhage. Follow-up head CT in 12 hours is recommended to ensure stability. 2. Masses identified within the anterior aspect of the lateral ventricles adjacent to the left foramen of Monro and within right Meckel's cave as described above. These remain unchanged. 3. Patchy areas of increased T2 signal seen predominantly within the periventricular white matter and midbrain. This could represent white matter plaques in the setting of multiple sclerosis. There is a new 8 mm focus of increased T2 signal within the periventricular white matter of the left parietal lobe which demonstrates enhancement. Therefore, this likely represents active demyelination. Patchy enhancement at the midbrain signal abnormality remains unchanged. 4. Additional postoperative and chronic changes as described above. 5. These findings were discussed with Dr. Roche 8:15 AM on 10/02/2017. Electronically signed by: Toy Cotton M.D. 10/02/2017 8:20 AM Dictated Date/Time: 10/02/2017 7:16 AM
[2017-10-02 08:31] VITALS: BP 118/79; PULSE 69
[2017-10-02] MEDS: MULTIVITAMIN TAB PO SCH (08:32)
[2017-10-02] MEDS: SERTRALINE HCL 100 MG TAB PO SCH (08:32)
[2017-10-02] MEDS: LISINOPRIL 2.5 MG TAB PO SCH (08:32)
--- NOTE | 2017-10-02 09:01 | Progress Note ---
Medicine Progress Note Date & Time of Visit: October 02, 2017 at 08:48. Subjective 47 yo F with h/o pediatric brain tumor, h/o multiple ventriculostomy shunts, and MS presents from [facility] after several successive falls and some neurocognitive decline. She reports memory problems. She has been ambulating with assistance and doing fairly well but is going to require increased level of care on discharge which is being arranged. MRI brain was performed overnight revealing new white matter lesions that suggested active demyelination and also reported a subdural hematoma 1mm. A CT scan confirmed the 1mm hematoma. Neurosurgery at [place] (Dr. Churchill) was contacted and recommended a repeat head CT in 24 hours to assess stability. If no changes, then she will need neurosurgical outpatient follow-up. Regarding the LP that was ordered, this was aborted in the setting of the new bleed. This will need to be delayed for at least two weeks and can be done as an outpatient. The patient and her mother are aware of the new developments and all questions were answered. The patient reports feeling well, tolerating PO and having no headaches, visual changes or other new symptoms at this time. Objective Last 8 Hrs Date Time Temp Pulse Resp B/P (MAP) Pulse Ox O2 Delivery O2 Flow Rate FiO2 10/02/17 08:31 69 118/79 (92) 10/02/17 07:02 36.7 55 17 121/76 (91) 99 Room Air Physical Exam: GEN: WNWD, in no acute distress, alert and appropriate HEENT: periorbital L eye ecchymosis improved. PERRL, normal sclerae, EOMI CARDIO: reg rate, S1/2 heard without m/g/r LUNGS: CTA bilaterally, no crackles, rales or wheezes, good diaphragmatic excursion EXTREMITY: RP and DP palpable 2+ bilat, no LE swelling or edema, extremities are warm and well-perfused NEURO: CN 2-12 grossly intact, sensation intact throughout MUSC: 5/5 strength throughout SKIN: warm and dry Laboratory Results: 10/02/17 05:00 10/02/17 05:00 Test 09/26/17 13:20 09/26/17 13:34 10/02/17 04:49 10/02/17 05:00 Urine Color DK YELLOW Urine Appearance CLOUDY (CLEAR) Urine pH 6.0 (4.5-7.5) Urine Specific [place] 1.020 (1.000-1.030) Urine Protein TRACE (NEG) Urine Glucose (UA) NEG (NEG) Urine Ketones NEG (NEG) Urine Occult Blood 1+ (NEG) Urine Nitrite NEG (NEG) Urine Bilirubin NEG (NEG) Urine Urobilinogen NEG (NEG) Urine Leukocyte Esterase LARGE (NEG) Urine WBC (Auto) >30 /hpf (0-5) Urine RBC (Auto) 5-10 /hpf (0-4) Urine Hyaline Casts (Auto) 1-5 /lpf (0-5) Urine Epithelial Cells (Auto) >30 /lpf (0-5) Urine Bacteria (Auto) NEG (NEG) Immature Granulocyte % (Auto) 0.4 % White Blood Count 7.44 K/uL (4.8-10.8) Red Blood Count 4.57 M/uL (4.2-5.4) 4.80 M/uL (4.2-5.4) Hemoglobin 13.8 g/dL (12.0-16.0) Hematocrit 40.4 % (37-47) Mean Corpuscular Volume 88.4 fL (80-100) 88.1 fL (80-100) Mean Corpuscular Hemoglobin 30.2 pg (25-34) 29.4 pg (25-34) Mean Corpuscular Hemoglobin Concent 34.2 g/dl (32-36) 33.3 g/dl (32-36) Platelet Count 203 K/uL (130-400) Mean Platelet Volume 10.1 fL (7.4-10.4) 10.4 fL (7.4-10.4) Neutrophils (%) (Auto) 64.1 % Lymphocytes (%) (Auto) 24.5 % Monocytes (%) (Auto) 9.0 % Eosinophils (%) (Auto) 1.6 % Basophils (%) (Auto) 0.4 % Neutrophils # (Auto) 4.77 K/uL (1.4-6.5) Lymphocytes # (Auto) 1.82 K/uL (1.2-3.4) Monocytes # (Auto) 0.67 K/uL (0.11-0.59) Eosinophils # (Auto) 0.12 K/uL (0-0.5) Basophils # (Auto) 0.03 K/uL (0-0.2) Immature Granulocyte # (Auto) 0.03 K/uL (0.00-0.02) Prothrombin Time 10.4 SECONDS (9.0-12.0) Prothromb Time International Ratio 1.0 (0.9-1.1) Magnesium Level 2.2 mg/dl (1.8-2.4) Total Bilirubin 0.6 mg/dl (0.2-1) Aspartate Amino Transf (AST/SGOT) 14 U/L (15-37) Alanine Aminotransferase (ALT/SGPT) 27 U/L (12-78) Alkaline Phosphatase 102 U/L (45-117) Total Protein 7.0 gm/dl (6.4-8.2) Albumin 3.7 gm/dl (3.4-5.0) Globulin 3.3 gm/dl (2.5-4.0) Albumin/Globulin Ratio 1.1 (0.9-2) Thyroid Stimulating Hormone (TSH) 1.040 uIu/ml (0.300-4.500) RDW Standard Deviation 42.4 fL (36.4-46.3) RDW Coefficient of Variation 13.1 % (11.5-14.5) Anion Gap 2.0 mmol/L (3-11) Est Creatinine Clear Calc Drug Dose 111.8 ml/min Estimated GFR () 111.6 Estimated GFR (Non- 96.3 BUN/Creatinine Ratio 14.0 (10-20) Calcium Level 8.7 mg/dl (8.5-10.1) Date/Time Source Procedure Growth Status 10/02/17 10:00 Cerebral Spinal Fluid Fungal Culture Pending Ordered 09/26/17 13:20 Urine , Clean Catch Urine Culture - Final MORE THAN THREE TYPES OF ORGANISMS CA... Complete 10/02/17 05:00 10/02/17 05:00 Test 09/26/17 13:20 09/26/17 13:34 10/02/17 04:49 10/02/17 05:00 Urine Color DK YELLOW Urine Appearance CLOUDY (CLEAR) Urine pH 6.0 (4.5-7.5) Urine Specific [place] 1.020 (1.000-1.030) Urine Protein TRACE (NEG) Urine Glucose (UA) NEG (NEG) Urine Ketones NEG (NEG) Urine Occult Blood 1+ (NEG) Urine Nitrite NEG (NEG) Urine Bilirubin NEG (NEG) Urine Urobilinogen NEG (NEG) Urine Leukocyte Esterase LARGE (NEG) Urine WBC (Auto) >30 /hpf (0-5) Urine RBC (Auto) 5-10 /hpf (0-4) Urine Hyaline Casts (Auto) 1-5 /lpf (0-5) Urine Epithelial Cells (Auto) >30 /lpf (0-5) Urine Bacteria (Auto) NEG (NEG) Immature Granulocyte % (Auto) 0.4 % White Blood Count 7.44 K/uL (4.8-10.8) Red Blood Count 4.57 M/uL (4.2-5.4) 4.80 M/uL (4.2-5.4) Hemoglobin 13.8 g/dL (12.0-16.0) Hematocrit 40.4 % (37-47) Mean Corpuscular Volume 88.4 fL (80-100) 88.1 fL (80-100) Mean Corpuscular Hemoglobin 30.2 pg (25-34) 29.4 pg (25-34) Mean Corpuscular Hemoglobin Concent 34.2 g/dl (32-36) 33.3 g/dl (32-36) Platelet Count 203 K/uL (130-400) Mean Platelet Volume 10.1 fL (7.4-10.4) 10.4 fL (7.4-10.4) Neutrophils (%) (Auto) 64.1 % Lymphocytes (%) (Auto) 24.5 % Monocytes (%) (Auto) 9.0 % Eosinophils (%) (Auto) 1.6 % Basophils (%) (Auto) 0.4 % Neutrophils # (Auto) 4.77 K/uL (1.4-6.5) Lymphocytes # (Auto) 1.82 K/uL (1.2-3.4) Monocytes # (Auto) 0.67 K/uL (0.11-0.59) Eosinophils # (Auto) 0.12 K/uL (0-0.5) Basophils # (Auto) 0.03 K/uL (0-0.2) Immature Granulocyte # (Auto) 0.03 K/uL (0.00-0.02) Prothrombin Time 10.4 SECONDS (9.0-12.0) Prothromb Time International Ratio 1.0 (0.9-1.1) Magnesium Level 2.2 mg/dl (1.8-2.4) Total Bilirubin 0.6 mg/dl (0.2-1) Aspartate Amino Transf (AST/SGOT) 14 U/L (15-37) Alanine Aminotransferase (ALT/SGPT) 27 U/L (12-78) Alkaline Phosphatase 102 U/L (45-117) Total Protein 7.0 gm/dl (6.4-8.2) Albumin 3.7 gm/dl (3.4-5.0) Globulin 3.3 gm/dl (2.5-4.0) Albumin/Globulin Ratio 1.1 (0.9-2) Thyroid Stimulating Hormone (TSH) 1.040 uIu/ml (0.300-4.500) RDW Standard Deviation 42.4 fL (36.4-46.3) RDW Coefficient of Variation 13.1 % (11.5-14.5) Anion Gap 2.0 mmol/L (3-11) Est Creatinine Clear Calc Drug Dose 111.8 ml/min Estimated GFR () 111.6 Estimated GFR (Non- 96.3 BUN/Creatinine Ratio 14.0 (10-20) Calcium Level 8.7 mg/dl (8.5-10.1) Date/Time Source Procedure Growth Status 10/02/17 05:30 Cerebral Spinal Fluid Acid Fast Stain Pending [facility] Batch 10/02/17 05:30 Cerebral Spinal Fluid Mycobacterial Culture Pending [facility] Batch 09/26/17 13:20 Urine , Clean Catch Urine Culture - Final MORE THAN THREE TYPES OF ORGANISMS CA... Complete Last 24 Hours Test 10/02/17 04:49 10/02/17 05:00 White Blood Count 6.49 K/uL Red Blood Count 4.80 M/uL Hemoglobin 14.1 g/dL Hematocrit 42.3 % Mean Corpuscular Volume 88.1 fL Mean Corpuscular Hemoglobin 29.4 pg Mean Corpuscular Hemoglobin Concent 33.3 g/dl RDW Standard Deviation 42.4 fL RDW Coefficient of Variation 13.1 % Platelet Count 174 K/uL Mean Platelet Volume 10.4 fL Sodium Level 139 mmol/L Potassium Level 4.1 mmol/L Chloride Level 106 mmol/L Carbon Dioxide Level 31 mmol/L Anion Gap 2.0 mmol/L Blood Urea Nitrogen 10 mg/dl Creatinine 0.75 mg/dl Est Creatinine Clear Calc Drug Dose 111.8 ml/min Estimated GFR () 111.6 Estimated GFR (Non- 96.3 BUN/Creatinine Ratio 14.0 Random Glucose 89 mg/dl Calcium Level 8.7 mg/dl Date/Time Source Procedure Growth Status 10/02/17 05:30 Cerebral Spinal Fluid Acid Fast Stain Pending [facility] Batch 10/02/17 05:30 Cerebral Spinal Fluid Mycobacterial Culture Pending [facility] Batch 10/02/17 05:00 Cerebral Spinal Fluid Cryptococcal Antigen Pending Ordered 10/02/17 05:00 Cerebral Spinal Fluid Gram Stain Pending Ordered 10/02/17 05:00 Cerebral Spinal Fluid CSF Culture Pending Ordered 10/01/17 14:23 Cerebral Spinal Fluid Fungal Culture Pending Ordered Assessment & Plan 47 yo F with h/o pediatric brain tumor, h/o multiple ventriculostomy shunts, and MS presents from [facility] after several successive falls and some neurocognitive decline. She reports memory problems. She has been ambulating with assistance and doing fairly well but is going to require increased level of care on discharge which is being arranged. MRI brain was performed overnight revealing new white matter lesions that suggested active demyelination and also reported a subdural hematoma 1mm. A CT scan confirmed the 1mm hematoma. Neurosurgery at [place] (Dr. Churchill) was contacted and recommended a repeat head CT in 24 hours to assess stability. If no changes, then she will need neurosurgical outpatient follow-up. Regarding the LP that was ordered, this was aborted in the setting of the new bleed. This will need to be delayed for at least two weeks and can be done as an outpatient. The patient and her mother are aware of the new developments and all questions were answered. The patient reports feeling well, tolerating PO and having no headaches, visual changes or other new symptoms at this time. 1. Subdural hematoma-trace, seen on MRI. Not present on original CT scan. Pt is at baseline mental status which has been stable for the past several days. Spoke with Neurosurgery in [place] who recommended a repeat head CT and if no changes present, nothing further would need to be done. 2. MS-new active white matter lesions seen on MRI brain overnight suggesting active demyelination. Defer to Neurology for further treatment at this point. LP was aborted in the setting of trace subdural hematoma. 3. 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 Trace hematoma seen on MRI overnight. Awaiting repeat CT scan. Pt remains a high fall risk. multiple falls 2/2 ambulatory dysfunction-uncertain if these are mechanical falls from tripping, possibly from an MS flare or post-concussion syndrome versus Juneau's disease. No seizure activity noted as patient has been stable off medications for over a year. MRI L and T-spine did not reveal evidence of MS. Neuro following and plans for LP in the morning. Cont to try to ambulate with assist to keep up her strength. Pt is going to get a genetic test for Juneau's disease as outpatient after discharge. 4. HTN-controlled, cont lisinopril 5. Depression-stable, cont Zoloft ADDENDUM: repeat CT head revealed new 1mm subdural hematoma. Discussed with Jesse neurosurgeon who recommends repeat CT head in 24 hours for stability. Will plan for outpatient follow-up if stable and possible transfer to tertiary care center if any worsening. Mom requested an update from Neurology today if possible. DVT proph-SCDs, Lovenox contraindicated in setting of subdural hematoma. Full Code Dispo-planning for [facility] on discharge, if head CT tomorrow morning is stable and neurology isn't planning on any new treatments, she will be medically ready for dc in the morning. Maura Swanson DO [facility] Hospitalist Consultants: Neurology-Dr. Olson Current Inpatient Medications: Current Inpatient Medications Medications (Trade) Dose Ordered Sig/Patience Route Start Time Stop Time Status Last Admin Dose Admin Enoxaparin Sodium (Lovenox Inj) 40 mg Q24H SC 09/26/17 21:00 10/26/17 20:59 10/01/17 20:05 40 MG Acetaminophen (Tylenol Tab) 650 mg Q4H PRN PO 09/26/17 16:00 10/26/17 15:59 09/26/17 16:58 650 MG Ondansetron HCl (Zofran Inj) 4 mg Q6H PRN IV 09/26/17 16:00 10/26/17 15:59 Docusate Sodium (coLACE CAP) 100 mg BID PRN PO 09/26/17 16:00 10/26/17 15:59 Lisinopril (Zestril Tab) 2.5 mg DAILY PO 09/27/17 09:00 10/27/17 08:59 10/02/17 08:32 2.5 MG Multivitamins (Multivitamin Tab) 1 tab DAILY PO 09/27/17 09:00 10/27/17 08:59 10/02/17 08:32 1 TAB Sertraline HCl (Zoloft Tab) 100 mg QAM PO 09/27/17 09:00 10/27/17 08:59 10/02/17 08:32 100 MG Miscellaneous (Iv Fluids Completed) 1 ea PRN PRN N/A 09/26/17 19:15 09/26/18 19:14 Gadobutrol (Gadavist) 9 mmol UD PRN IV 09/29/17 17:45 10/03/17 17:44 Gadobutrol (Gadavist) 8.5 mmol UD PRN IV 10/01/17 22:30 10/05/17 22:29
--- NOTE | 2017-10-02 10:22 | DIAGNOSTIC IMAGING REPORT ---
HEAD CT NONCONTRAST CT DOSE: 614.27 mGy.cm HISTORY: Follow-up subdural hematoma. evidence of new subdural hematoma on MRI overnight TECHNIQUE: Multiaxial CT images of the head were performed without the use of intravenous contrast. Automated exposure control was utilized for this study. A dose lowering technique was utilized adhering to the principles of ALARA. Comparison: Head CT 09/26/2017. Findings: The paranasal sinuses and mastoid air cells are clear. No calvarial fractures. Dense dural calcifications persist. There is a subtle tiny right parafalcine subdural hematoma. This measures 1 mm in thickness. This favors an acute to subacute hematoma. No midline shift. No acute infarcts. The ventricles remain decompressed. Bilateral parietal approach ventriculostomy catheters are unchanged in position. Dense calcification within the left basal ganglia and the 1.5 cm ventricular mass remain unchanged. The periventricular white matter hypodensity also remains unchanged. This is consistent with the patient's history of multiple sclerosis. Right frontal scalp swelling has slightly improved. Impression: 1. Confirmation of the tiny right parafalcine acute to subacute subdural hematoma measuring 1 mm in thickness. No significant midline shift. 2. Additional chronic and postoperative changes remain unchanged. Electronically signed by: Toy Cotton M.D. 10/02/2017 10:20 AM Dictated Date/Time: 10/02/2017 10:06 AM
--- NOTE | 2017-10-02 15:06 | Neurology Progress Notes ---
Neurology Progress Note Date of Service October 02, 2017. 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 She currently resides at [facility]. She has had 4 falls when trying to get out of the wheelchair and hit her head. The staff [facility] report noticing patient with increased confusion and intermittent slow speech and trouble feeding herself after the falls. She states she has had many falls. she is known to Dr. Pierre neurology seen on 08/29/17. Patient had stopped Copaxone and Keppra over 1 year ago. She has been eating ok but her food is pureed due to no teeth. There is a family history of Taylor's disease in father and grandfather. She was refusing testing prior but now is consenting and was authorized in the out patient setting. Today she is sitting up in bed and states she is "doing good". She is aware the LP was cancelled because of a SDH which was seen on MRI and CT head. likely from recent fall. primary team working to move her to [facility]. denies CP, SOB, abdominal pain, one sided weakness, numbness tingling, vision changes, swallowing difficulty, N, V, weight loss. Objective Date Time Temp Pulse Resp B/P (MAP) Pulse Ox O2 Delivery O2 Flow Rate FiO2 10/02/17 08:31 69 118/79 (92) 10/02/17 08:00 Room Air 10/02/17 07:02 36.7 55 17 121/76 (91) 99 Room Air 10/02/17 00:00 Room Air 10/01/17 23:24 36.6 62 19 135/80 (98) 97 Room Air 10/01/17 16:09 99 Room Air Last 24 Hours Test 10/02/17 04:49 10/02/17 05:00 White Blood Count 6.49 K/uL Red Blood Count 4.80 M/uL Hemoglobin 14.1 g/dL Hematocrit 42.3 % Mean Corpuscular Volume 88.1 fL Mean Corpuscular Hemoglobin 29.4 pg Mean Corpuscular Hemoglobin Concent 33.3 g/dl RDW Standard Deviation 42.4 fL RDW Coefficient of Variation 13.1 % Platelet Count 174 K/uL Mean Platelet Volume 10.4 fL Sodium Level 139 mmol/L Potassium Level 4.1 mmol/L Chloride Level 106 mmol/L Carbon Dioxide Level 31 mmol/L Anion Gap 2.0 mmol/L Blood Urea Nitrogen 10 mg/dl Creatinine 0.75 mg/dl Est Creatinine Clear Calc Drug Dose 111.8 ml/min Estimated GFR () 111.6 Estimated GFR (Non- 96.3 BUN/Creatinine Ratio 14.0 Random Glucose 89 mg/dl Calcium Level 8.7 mg/dl Imaging: MRI brain with and without- . Interval development of trace abnormal extra- axial signal within the right high convexity along the right side of the falx. This favors trace subdural hemorrhage. Follow-up head CT in 12 hours is recommended to ensure stability. Masses identified within the anterior aspect of the lateral ventricles adjacent to the left foramen of Monro and within right Meckel's cave as described above. These remain unchanged. Patchy areas of increased T2 signal seen predominantly within the periventricular white matter and midbrain. This could represent white matter plaques in the setting of multiple sclerosis. There is a new 8 mm focus of increased T2 signal within the periventricular white matter of the left parietal lobe which demonstrates enhancement. Therefore, this likely represents active demyelination. Patchy enhancement at the midbrain signal abnormality remains unchanged. Additional postoperative and chronic changes as described above. CT head- Confirmation of the tiny right parafalcine acute to subacute subdural hematoma measuring 1 mm in thickness. No significant midline shift. Additional chronic and postoperative changes remain unchanged. 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 Current Inpatient Medications Medications (Trade) Dose Ordered Sig/Patience Route Start Time Stop Time Status Last Admin Dose Admin Acetaminophen (Tylenol Tab) 650 mg Q4H PRN PO 09/26/17 16:00 10/26/17 15:59 09/26/17 16:58 650 MG Ondansetron HCl (Zofran Inj) 4 mg Q6H PRN IV 09/26/17 16:00 10/26/17 15:59 Docusate Sodium (coLACE CAP) 100 mg BID PRN PO 09/26/17 16:00 10/26/17 15:59 Lisinopril (Zestril Tab) 2.5 mg DAILY PO 09/27/17 09:00 10/27/17 08:59 10/02/17 08:32 2.5 MG Multivitamins (Multivitamin Tab) 1 tab DAILY PO 09/27/17 09:00 10/27/17 08:59 10/02/17 08:32 1 TAB Sertraline HCl (Zoloft Tab) 100 mg QAM PO 09/27/17 09:00 10/27/17 08:59 10/02/17 08:32 100 MG Miscellaneous (Iv Fluids Completed) 1 ea PRN PRN N/A 09/26/17 19:15 09/26/18 19:14 Gadobutrol (Gadavist) 9 mmol UD PRN IV 09/29/17 17:45 10/03/17 17:44 Gadobutrol (Gadavist) 8.5 mmol UD PRN IV 10/01/17 22:30 10/05/17 22:29 Impression 47 year old with cognitive decline and balance issues resulting in falls Plan 1. PT/OT for discharge needs 2. will likely need rehab and higher level of care at discharge 3. MRI brain and CT head was pushed from [facility] system 4. MRI T/L spine done with no lesions or abnormal signal 5. psychiatry for input of impulsiveness and cognitive issues- executive dysfunction for decision making impaired 6. question competency for decision making 7. Mom would like update of evaluation and treatment- Anabel [phone] will need to call for consent of LP 8. fall precautions 9. Taylor genetic testing as outpatient 10. if no definitive findings on MRI T/L spine will need LP with cytology, OCB, myelin basic protein and IgG synthesis rate - cancelled will need to order as outpatient once SDH has resolved. 11. MRI head and CT head- repeated new enhancing lesion and small SDH will need reevaluation for course of treatment 12. repeat CT head in 1 week and then in 2 weeks I have seen and discussed above patient with Dr Pankaj Olson, neurology Patient seen improving daily to some degree but still impulsive with baseline signs as described earlier mri show small subdural and extremely subtle aree of possible white matter enhancement in left parietal area LP on hold due to sdh imaging with ct to be repeated now and in about a week and will address ms and huntingtons issues as outpatient will follow here for now and await placement plans Pankaj Olson MD
--- NOTE | 2017-10-02 15:35 | Neurology Progress Notes ---
Neurology Progress Note Date of Service October 02, 2017. Subjective Supplemental note: called Fiona's mom Anabel and discussed the plan to postpone the LP until the SDH is resolved. We will be doing a repeat CT head in 1 week and then again in 2 weeks to check for resolve of the SDH. As an outpatient after the SDH has resolved we will arrange for the LP and the MS labs to further evaluate for diagnosis of cognitive and gait instability that has been progressive. She is likely going to [facility] for rehab to see if she can get back to her baseline and transition back to personal care living. all questions were answered and she voiced an understanding. Objective Date Time Temp Pulse Resp B/P (MAP) Pulse Ox O2 Delivery O2 Flow Rate FiO2 10/02/17 08:31 69 118/79 (92) 10/02/17 08:00 Room Air 10/02/17 07:02 36.7 55 17 121/76 (91) 99 Room Air 10/02/17 00:00 Room Air 10/01/17 23:24 36.6 62 19 135/80 (98) 97 Room Air 10/01/17 16:09 99 Room Air Last 24 Hours Test 10/02/17 04:49 10/02/17 05:00 White Blood Count 6.49 K/uL Red Blood Count 4.80 M/uL Hemoglobin 14.1 g/dL Hematocrit 42.3 % Mean Corpuscular Volume 88.1 fL Mean Corpuscular Hemoglobin 29.4 pg Mean Corpuscular Hemoglobin Concent 33.3 g/dl RDW Standard Deviation 42.4 fL RDW Coefficient of Variation 13.1 % Platelet Count 174 K/uL Mean Platelet Volume 10.4 fL Sodium Level 139 mmol/L Potassium Level 4.1 mmol/L Chloride Level 106 mmol/L Carbon Dioxide Level 31 mmol/L Anion Gap 2.0 mmol/L Blood Urea Nitrogen 10 mg/dl Creatinine 0.75 mg/dl Est Creatinine Clear Calc Drug Dose 111.8 ml/min Estimated GFR () 111.6 Estimated GFR (Non- 96.3 BUN/Creatinine Ratio 14.0 Random Glucose 89 mg/dl Calcium Level 8.7 mg/dl in previous note Exam: none Impression / Plan 47 year old with cognitive decline and balance issues resulting in falls
[2017-10-02 16:01] VITALS: BP 130/86; PULSE 65; TEMP 36.7; O2SAT 98
[2017-10-03 00:47] VITALS: BP 104/66; PULSE 63; TEMP 36.7; O2SAT 95
[2017-10-03 07:28] VITALS: BP 128/81; PULSE 66; TEMP 36.8; O2SAT 100
[2017-10-03] MEDS: SERTRALINE HCL 100 MG TAB PO SCH (07:29)
[2017-10-03] MEDS: MULTIVITAMIN TAB PO SCH (07:29)
[2017-10-03] MEDS: LISINOPRIL 2.5 MG TAB PO SCH (07:29)
--- NOTE | 2017-10-03 09:34 | DIAGNOSTIC IMAGING REPORT ---
HEAD WITHOUT CONTRAST (CT) CT DOSE: 788.63 mGycm HISTORY: Subdural hematoma 24 hour review of 1mm subdural hematoma TECHNIQUE: Multiaxial CT images of the head were performed without the use of intravenous contrast. A dose lowering technique was utilized adhering to the principles of ALARA. Comparison: 10/02/2017 Findings: The paranasal sinuses and mastoid air cells are clear. All major components of the CT of the brain are unchanged in the prior study. This includes a shunt tube placement, as well as the multiple additional findings which have been described previously. The para falcine subdural hematomas unchanged.] Thickness is 1.2 mm which given differences in measurement are stable. Impression: Stable 1.25 mm parafalcine subdural hematoma. 2. No change from the prior study with all additional findings stable. The above report was generated using voice recognition software. It may contain grammatical, syntax or spelling errors. Electronically signed by: Saurav Barnett M.D. 10/03/2017 9:33 AM Dictated Date/Time: 10/03/2017 9:30 AM
--- NOTE | 2017-10-03 12:17 | Discharge Instructions ---
Discharge Instructions Date of Service October 03, 2017. Admission Reason for Admission: Change In Mental Status, Frequent Falls Discharge Discharge Diagnosis / Problem: subdural hematoma, traumatic falls, MS Discharge Goals Goal(s): Improve function, Increase independence, Improve disease control, Prevent Disease Progression Activity Recommendations Activity Limitations: per Instructions/Follow-up section . Instructions / Follow-Up Instructions / Follow-Up Please take all medications as instructed. Please avoid any blood thinners for the next two weeks until you can be evaluated by a neurosurgeon. It is recommended that you see a Neurosurgical specialist at [facility] in two weeks time to follow-up on the subdural hematoma (brain bleed). No spinal tap should be scheduled in that time unless it is for a medical emergency. You will need to have a repeat CT scan of the head without contrast in one week' s time to ensure stability and/or resolution of the subdural hematoma. Results will need to be sent to both your primary care physician and your Neurologist ( Dr. Brook Pierre with [facility]). Please schedule follow-up with [facility] within 2-4 weeks of discharge. It was a pleasure taking care of you! Call if you have any questions or problems. You can reach a [place] Hospitalist on duty at [facility] 24 hours a day by calling [phone]. Take care of yourself. Maura Swanson DO [place] Hospitalist Current Hospital Diet Patient's current hospital diet: Regular Diet Discharge Diet Recommended Diet: Regular Diet Procedures Procedures Performed: EEG Pending Studies Studies pending at discharge: no Medical Emergencies . Who to Call and When: Medical Emergencies: If at any time you feel your situation is an emergency, please call 911 immediately. . Non-Emergent Contact Non-Emergency issues call your: Primary Care Provider, Neurologist . . "Provider Documentation" section prepared by Maura Swanson. .
--- NOTE | 2017-10-03 15:30 | Neurology Progress Notes ---
Neurology Progress Note Date of Service October 03, 2017. 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 She currently resides at [facility]. She has had 4 falls when trying to get out of the wheelchair and hit her head. The staff [facility] report noticing patient with increased confusion and intermittent slow speech and trouble feeding herself after the falls. She states she has had many falls. she is known to Dr. Pierre neurology seen on 08/29/17. Patient had stopped Copaxone and Keppra over 1 year ago. She has been eating ok but her food is pureed due to no teeth. There is a family history of Milan's disease in father and grandfather. She was refusing testing prior but now is consenting and was authorized in the out patient setting. Today she is sitting up in bed and states she is "doing good". Primary team working to move her to [facility]. Currently she is working on word find but she does no chilkat them when she finds them because then she can use the same one over again. denies CP, SOB, abdominal pain, one sided weakness, numbness tingling, vision changes, swallowing difficulty, N, V, weight loss. Objective Date Time Temp Pulse Resp B/P (MAP) Pulse Ox O2 Delivery O2 Flow Rate FiO2 10/03/17 08:00 Room Air 10/03/17 07:28 36.8 66 18 128/81 (97) 100 Room Air 10/03/17 00:47 36.7 63 20 104/66 (79) 95 Room Air 10/03/17 00:30 Room Air 10/02/17 16:01 36.7 65 18 130/86 (101) 98 Room Air 10/02/17 16:00 Room Air no new labs Imaging: CT head- Stable 1.25 mm parafalcine subdural hematoma. No change from the prior study with all additional findings stable. Exam: gen: alert NAD, [facility], 2018, spring lungs normal respiration effort CV RRR strength biceps triceps hand bar tacker 5/5 bilaterally, hip flex 5/5 bilaterally Current Inpatient Medications Medications (Trade) Dose Ordered Sig/Patience Route Start Time Stop Time Status Last Admin Dose Admin Acetaminophen (Tylenol Tab) 650 mg Q4H PRN PO 09/26/17 16:00 10/26/17 15:59 09/26/17 16:58 650 MG Ondansetron HCl (Zofran Inj) 4 mg Q6H PRN IV 09/26/17 16:00 10/26/17 15:59 Docusate Sodium (coLACE CAP) 100 mg BID PRN PO 09/26/17 16:00 10/26/17 15:59 10/02/17 15:29 100 MG Lisinopril (Zestril Tab) 2.5 mg DAILY PO 09/27/17 09:00 10/27/17 08:59 10/03/17 07:29 2.5 MG Multivitamins (Multivitamin Tab) 1 tab DAILY PO 09/27/17 09:00 10/27/17 08:59 10/03/17 07:29 1 TAB Sertraline HCl (Zoloft Tab) 100 mg QAM PO 09/27/17 09:00 10/27/17 08:59 10/03/17 07:29 100 MG Miscellaneous (Iv Fluids Completed) 1 ea PRN PRN N/A 09/26/17 19:15 09/26/18 19:14 Gadobutrol (Gadavist) 9 mmol UD PRN IV 09/29/17 17:45 10/03/17 17:44 Gadobutrol (Gadavist) 8.5 mmol UD PRN IV 10/01/17 22:30 10/05/17 22:29 Impression 47 year old with cognitive decline and balance issues resulting in falls Plan 1. PT/OT for discharge needs 2. awaiting bed at [facility] 3. MRI brain and CT head was pushed from [facility] to [facility] system 4. MRI T/L spine done with no lesions or abnormal signal 5. psychiatry for input of impulsiveness and cognitive issues- executive dysfunction for decision making impaired 6. question competency for decision making 7. Mom would like update of evaluation and treatment- Anabel [phone] updated last night to current plan from neurology issues 8. fall precautions 9. Milan genetic testing as outpatient 10. if no definitive findings on MRI T/L spine will need LP with cytology, OCB, myelin basic protein and IgG synthesis rate - cancelled will need to order as outpatient once SDH has resolved. 11. MRI head and CT head- repeated new enhancing lesion and small SDH will need reevaluation for course of treatment 12. repeat CT head in 1 week and then in 2 weeks 13. once medically stable ok from neurology standpoint to discharge to rehab follow up in 2-3 weeks after discharge from rehab Dr Brook Haines, schedule I have seen and discussed above patient with Dr Pankaj Olson, neurology Continues to clinically ijmprove and sdh is stable placement plans still pending workup with lp and genetic testing on hold for now but will be done outpatient basis after discharge and placement in an ecf Pankaj Olson MD
[2017-10-03 15:40] VITALS: BP 98/61; PULSE 66; TEMP 36.5; O2SAT 98
[2017-10-03 16:00] VITALS: O2SAT 98
--- NOTE | 2017-10-03 23:18 | Progress Note ---
Medicine Progress Note Date & Time of Visit: October 03, 2017 at 17:37. Subjective 10/02/17 05:00 10/02/17 05:00 Test 09/26/17 13:20 09/26/17 13:34 10/02/17 05:00 Urine Color DK YELLOW Urine Appearance CLOUDY (CLEAR) Urine pH 6.0 (4.5-7.5) Urine Specific [place] 1.020 (1.000-1.030) Urine Protein TRACE (NEG) Urine Glucose (UA) NEG (NEG) Urine Ketones NEG (NEG) Urine Occult Blood 1+ (NEG) Urine Nitrite NEG (NEG) Urine Bilirubin NEG (NEG) Urine Urobilinogen NEG (NEG) Urine Leukocyte Esterase LARGE (NEG) Urine WBC (Auto) >30 /hpf (0-5) Urine RBC (Auto) 5-10 /hpf (0-4) Urine Hyaline Casts (Auto) 1-5 /lpf (0-5) Urine Epithelial Cells (Auto) >30 /lpf (0-5) Urine Bacteria (Auto) NEG (NEG) Immature Granulocyte % (Auto) 0.4 % White Blood Count 7.44 K/uL (4.8-10.8) Red Blood Count 4.57 M/uL (4.2-5.4) 4.80 M/uL (4.2-5.4) Hemoglobin 13.8 g/dL (12.0-16.0) Hematocrit 40.4 % (37-47) Mean Corpuscular Volume 88.4 fL (80-100) 88.1 fL (80-100) Mean Corpuscular Hemoglobin 30.2 pg (25-34) 29.4 pg (25-34) Mean Corpuscular Hemoglobin Concent 34.2 g/dl (32-36) 33.3 g/dl (32-36) Platelet Count 203 K/uL (130-400) Mean Platelet Volume 10.1 fL (7.4-10.4) 10.4 fL (7.4-10.4) Neutrophils (%) (Auto) 64.1 % Lymphocytes (%) (Auto) 24.5 % Monocytes (%) (Auto) 9.0 % Eosinophils (%) (Auto) 1.6 % Basophils (%) (Auto) 0.4 % Neutrophils # (Auto) 4.77 K/uL (1.4-6.5) Lymphocytes # (Auto) 1.82 K/uL (1.2-3.4) Monocytes # (Auto) 0.67 K/uL (0.11-0.59) Eosinophils # (Auto) 0.12 K/uL (0-0.5) Basophils # (Auto) 0.03 K/uL (0-0.2) Immature Granulocyte # (Auto) 0.03 K/uL (0.00-0.02) Prothrombin Time 10.4 SECONDS (9.0-12.0) Prothromb Time International Ratio 1.0 (0.9-1.1) Magnesium Level 2.2 mg/dl (1.8-2.4) Total Bilirubin 0.6 mg/dl (0.2-1) Aspartate Amino Transf (AST/SGOT) 14 U/L (15-37) Alanine Aminotransferase (ALT/SGPT) 27 U/L (12-78) Alkaline Phosphatase 102 U/L (45-117) Total Protein 7.0 gm/dl (6.4-8.2) Albumin 3.7 gm/dl (3.4-5.0) Globulin 3.3 gm/dl (2.5-4.0) Albumin/Globulin Ratio 1.1 (0.9-2) Thyroid Stimulating Hormone (TSH) 1.040 uIu/ml (0.300-4.500) RDW Standard Deviation 42.4 fL (36.4-46.3) RDW Coefficient of Variation 13.1 % (11.5-14.5) Anion Gap 2.0 mmol/L (3-11) Est Creatinine Clear Calc Drug Dose 111.8 ml/min Estimated GFR () 111.6 Estimated GFR (Non- 96.3 BUN/Creatinine Ratio 14.0 (10-20) Calcium Level 8.7 mg/dl (8.5-10.1) Anti-Nuclear Antibody Screen NEGATIVE (NEGATIVE) Date/Time Source Procedure Growth Status 09/26/17 13:20 Urine , Clean Catch Urine Culture - Final MORE THAN THREE TYPES OF ORGANISMS NC... Complete Objective Last 8 Hrs Date Time Temp Pulse Resp B/P (MAP) Pulse Ox O2 Delivery O2 Flow Rate FiO2 10/03/17 16:00 98 Room Air 10/03/17 15:40 36.5 66 16 98/61 (73) 98 Room Air Physical Exam: GEN: WNWD, in no acute distress, alert and appropriate HEENT: periorbital L eye ecchymosis improved. PERRL, normal sclerae, EOMI CARDIO: reg rate, S1/2 heard without m/g/r LUNGS: CTA bilaterally, no crackles, rales or wheezes, good diaphragmatic excursion EXTREMITY: RP and DP palpable 2+ bilat, no LE swelling or edema, extremities are warm and well-perfused NEURO: CN 2-12 grossly intact, sensation intact throughout MUSC: 5/5 strength throughout SKIN: warm and dry Assessment & Plan 47 yo F with h/o pediatric brain tumor, h/o multiple ventriculostomy shunts, and MS presents from [facility] after several successive falls and some neurocognitive decline. Repeat head CT is stable this am and she denies any symptoms at this time. 1. Subdural hematoma-trace, seen on MRI. Not present on original CT scan. Pt is at baseline mental status which has been stable for the past several days. Serial imaging studies as outpatient. 2. MS-new active white matter lesions seen on MRI brain overnight suggesting active demyelination. Defer to Neurology for further treatment at this point. LP was aborted in the setting of trace subdural hematoma. Neuro declines inpatient tratment at this time. 3. 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 Trace hematoma seen on MRI overnight. Awaiting repeat CT scan. Pt remains a high fall risk. 4. HTN-controlled, cont lisinopri 5. Depression-stable, cont Zoloft DVT proph-SCDs, Lovenox contraindicated in setting of subdural hematoma. Full Code Dispo-planning for [facility] on discharge, if head CT tomorrow morning is stable and neurology isn't planning on any new treatments, she will be medically ready for dc in the morning. Maura Swanson DO [facility] Hospitalist Consultants: Neurology-Dr. Olson Current Inpatient Medications: Current Inpatient Medications Medications (Trade) Dose Ordered Sig/Patience Route Start Time Stop Time Status Last Admin Dose Admin Acetaminophen (Tylenol Tab) 650 mg Q4H PRN PO 09/26/17 16:00 10/26/17 15:59 09/26/17 16:58 650 MG Ondansetron HCl (Zofran Inj) 4 mg Q6H PRN IV 09/26/17 16:00 10/26/17 15:59 Docusate Sodium (coLACE CAP) 100 mg BID PRN PO 09/26/17 16:00 10/26/17 15:59 10/02/17 15:29 100 MG Lisinopril (Zestril Tab) 2.5 mg DAILY PO 09/27/17 09:00 10/27/17 08:59 10/03/17 07:29 2.5 MG Multivitamins (Multivitamin Tab) 1 tab DAILY PO 09/27/17 09:00 10/27/17 08:59 10/03/17 07:29 1 TAB Sertraline HCl (Zoloft Tab) 100 mg QAM PO 09/27/17 09:00 10/27/17 08:59 10/03/17 07:29 100 MG Miscellaneous (Iv Fluids Completed) 1 ea PRN PRN N/A 09/26/17 19:15 09/26/18 19:14 Gadobutrol (Gadavist) 9 mmol UD PRN IV 09/29/17 17:45 10/03/17 17:44 Gadobutrol (Gadavist) 8.5 mmol UD PRN IV 10/01/17 22:30 10/05/17 22:29
[2017-10-04 07:41] VITALS: BP 112/78; PULSE 65; TEMP 36.9; O2SAT 100
[2017-10-04] MEDS: MULTIVITAMIN TAB PO SCH (07:42)
[2017-10-04] MEDS: SERTRALINE HCL 100 MG TAB PO SCH (07:42)
[2017-10-04] MEDS: LISINOPRIL 2.5 MG TAB PO SCH (07:43)
[2017-10-04 11:06] VITALS: BP 112/78; PULSE 65; TEMP 36.9; O2SAT 100
--- NOTE | 2017-10-04 11:06 | Discharge Summary ---
Discharge Summary Date of Service October 04, 2017. Discharge Summary Admission Date: September 28, 2017 at 14:51 Discharge Date: October 03, 2017 Discharge Disposition: residential facility Principal Diagnosis: 1 mm subdural hematoma status post fall Multiple sclerosis History of pediatric brain tumor with history of multiple ventriculostomy shunts Multiple falls secondary to worsening ambulatory dysfunction Hypertension Depression Procedures: EEG Vaccinations: None. Consultations: Neurology-Dr. Olson Pending Studies/Follow-Up: see instructions below. 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 Patient with history of shunt malfunction and since ongoing cognitive decline and gait dysfunction and diagnosed with neurocognitive disorder. Patient currently residing in [facility]. Reported patient had 4 falls when trying to get out of the wheelchair and hit her head. Patient seen in ER 09/22/17 for falls and patient had no change in CT scan at that time. Spoke with pt's mother on the phone and she reports that prior to patient falling the first time she was doing relatively well and had happy mood, was feeding herself, watching TV. Mother reports staff [facility] report noticing patient with increased confusion and intermittent slow speech and trouble feeding herself after the falls. Patient currently denies any complaints and she reports she does not remember falling. Patient follows with Dr. Pierre neurology seen on 08/29/17. Patient had stopped Copaxone and Keppra over 1 year ago. Denies any reported seizures. Patient states it has been eating and drinking does have pureed diet secondary to no dentition. FH of Hardy's disease in father and grandfather. Denies fever/ chills, diaphoresis, N/V/D/C, SHAHID, dizziness, syncope, vision changes, neck pain , CP, SOB, orthopnea, palpitations, cough, sore throat, choking, otalgia, rhinorrhea, abdominal pain, paresthesias, extremity weakness, extremity edema, rashes, urinary symptoms, weight loss. Physical Exam (per Admitting): General Appearance: WD/WN, no apparent distress (Sitting up resting in bed watching TV) Head: + pertinent finding (Left and right total forehead with ecchymosis. Right periorbital ecchymosis. + Palpable shunt) Eyes: normal inspection, PERRL, sclerae normal ENT: hearing grossly normal, pharynx normal, + pertinent finding (Mucous membranes moist) Neck: supple, trachea midline, + pertinent finding (Nontender to palpation, full active range of motion) Respiratory/Chest: lungs clear, normal breath sounds, no respiratory distress Cardiovascular: regular rate, rhythm, normal peripheral pulses Abdomen/GI: normal bowel sounds, non tender, soft Back: no CVA tenderness Extremities/Musculoskelatal: no calf tenderness, normal capillary refill, no pedal edema, normal range of motion, + pertinent finding (Strength equal bilaterally) Neurologic/Psych: alert, + pertinent finding (Oriented to person, knows in hospital unsure of name. Unsure of month and day. Patient pleasant and cooperative) Skin: normal color, warm/dry Hospital Course 47 yo F with h/o pediatric brain tumor, h/o multiple ventriculostomy shunts, and MS presents from [facility] after several successive falls and some neurocognitive decline. She initially underwent CT scan revealing no acute changes. Several days went by and neurology was consulted with request for lumbar puncture. A brain MRI was performed in the setting of trauma since last brain MRI in August and showed a 1 mm subdural hematoma after several days of the patient being admitted. There were no neurologic changes to exam or mentation in fact this had improved over this time. Neurosurgery was consulted at [facility] and recommended a repeat CT scan from baseline CT scan on admission which showed the 1 mm subdural hematoma, a change from admission CT. The CT was repeated again in 24 hours with no changes and appeared stable. There were recommendations made to repeat the head CT again in 1 week and then follow-up with neurosurgery as outpatient in 2 weeks. These plans and recommendations were communicated with her other who is medical power of employee benefits attorney. She verbalized understanding with intent to comply. On day of discharge Ms. Mario was mentating and ambulating at baseline and was tolerating p.o. She was hemodynamically stable and afebrile and was discharged in stable condition to [facility] for continued care. 1. Subdural hematoma-trace, seen on MRI. Not present on original CT scan. Pt is at baseline mental status which has been stable for the past several days. Serial imaging studies as outpatient. 2. MS-new active white matter lesions seen on MRI brain overnight suggesting active demyelination. Defer to Neurology for further treatment at this point. LP was aborted in the setting of trace subdural hematoma. Neuro declines inpatient treatment as above. Pt to follow-up with Neurology as outpatient to discuss white matter lesions further. 3. 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 Trace hematoma seen on MRI overnight. Awaiting repeat CT scan. Pt remains a high fall risk. 4. HTN-controlled, cont lisinopri 5. Depression-stable, cont Zoloft DVT proph-SCDs, Lovenox given for several days but now contraindicated in setting of subdural hematoma. Full Code Dispo-to [facility] as a permanent move from current residence at [facility]. Spoke with mother on day of discharge and communicated all discharge instructions. Maura Swanson DO [facility] Hospitalist Total time spent on discharge = 60 minutes This includes examination of the patient, discharge planning, medication reconciliation, and communication with other providers. Discharge Instructions [facility] [address] [place] [address] Discharge Medical Patient Name: Fiona Mario Unit Number: [id number] Date of : 1970 Patient Status: Admitted Inpatient Attending Doctor: Maura Swanson DO DI: Medical v5 Discharge Instructions Date of Service October 03, 2017. Admission Reason for Admission: Change In Mental Status, Frequent Falls Discharge Discharge Diagnosis / Problem: subdural hematoma, traumatic falls, MS Discharge Goals Goal(s): Improve function, Increase independence, Improve disease control, Prevent Disease Progression Activity Recommendations Activity Limitations: per Instructions/Follow-up section . Instructions / Follow-Up Instructions / Follow-Up Please take all medications as instructed. Please avoid any blood thinners for the next two weeks until you can be evaluated by a neurosurgeon. It is recommended that you see a Neurosurgical specialist at [facility] in two weeks time to follow-up on the subdural hematoma (brain bleed). No spinal tap should be scheduled in that time unless it is for a medical emergency. You will need to have a repeat CT scan of the head without contrast in one week' s time to ensure stability and/or resolution of the subdural hematoma. Results will need to be sent to both your primary care physician and your Neurologist ( Dr. Brook Pierre with [facility]). Please schedule follow-up with [facility] within 2-4 weeks of discharge. It was a pleasure taking care of you! Call if you have any questions or problems. You can reach a [facility] hospitalist on duty at [facility] 24 hours a day by calling [phone]. Take care of yourself. Maura Swanson, [facility] Current [facility] Diet Patient's current hospital diet: Regular Diet Discharge Diet Recommended Diet: Regular Diet Procedures Procedures Performed: EEG Pending Studies Studies pending at discharge: no Medical Emergencies . Who to Call and When: Medical Emergencies: If at any time you feel your situation is an emergency, please call 911 immediately. . Non-Emergent Contact Non-Emergency issues call your: Primary Care Provider, Neurologist . . "Provider Documentation" section prepared by Maura Swanson. . Additional Copies To [place], [place]; Brook Haines M.D.
--- NOTE | 2017-10-08 10:02 | EDITING REQUIRED CODING QUERY ---
PRESENT ON ADMISSION QUERY To promote full compliance with coding requirements relating to pateint care, physician participation is requested in all cases of pick up driver uncertainty. Please assist us with the question(s) below: Please place an X within the parenthesis (x). The following diagnosis(es) listed in this patient's medical record require physician assistance to determine if they were present on admission (POA) or not. Please advise for each diagnosis whether it was present on admission, not present on admission, or if it was clinically undetermined. 1. Subdural Hematoma status post fall (documented in later chart and Discharge Summary) ( ) Present On Admission (x ) Not Present On Admission ( ) Clinically Undetermined Thank you Cassandra Grimes *Definition of the present on admission (POA)-Present on admission is defined as present at the time the order for inpatient admission occurs. Conditions that develop during an outpatient encounter prior to a written order for inpatient admission (including emergency department, observation, or outpatient surgery) are considered present on admission.
--- NOTE | 2017-10-08 10:07 | EDITING REQUIRED CODING QUERY ---
To promote full compliance with coding requirements relating to patient care, provider participation is requested in all cases of manager utility uncertainty. Please assist us with the question(s) below: Coding Question(s): The diagnosis(es) below was documented in the H&P then subsequently fell off all further documentation. Please indicate if it is still a possible diagnosis or ruled out. Physician's Response(s): POSSIBLE UTI ( ) Diagnosed and POA ( ) Diagnosed and not POA ( x ) Ruled out-the urinalysis was contaminated, however, she was empirically covered for a UTI up front. She never had one. Thanks. ( ) Other (please specify) METABOLIC ENCEPHALOPATHY ( x ) Diagnosed and POA-this was determined by another provider (admitting provider) ( ) Diagnosed and not POA ( ) Ruled out ( ) Other (please specify)
== END 2017-10-04 12:00 | DRG 56 ==
LOC: EDBD 12:37 → C.EDC 12:38 → C.MED 15:51 → ENRESERV 16:06 → C.MED 09-27 17:20 → OBSVTOIN 09-28 14:51 → C.MS4W 09-30 16:30
PROVIDERS: ADMIT Hospitalist; ATTEND Hospitalist
DX: G10 Huntington's disease (principal); G93.41 Metabolic encephalopathy; S06.5X0A Traumatic subdural hemorrhage without loss of consciousness, initial encounter; G35 Multiple sclerosis; F07.81 Postconcussional syndrome; D49.6 Neoplasm of unspecified behavior of brain; G91.4 Hydrocephalus in diseases classified elsewhere; F32.9 Major depressive disorder, single episode, unspecified; R53.81 Other malaise; I10 Essential (primary) hypertension; K08.109 Complete loss of teeth, unspecified cause, unspecified class; Z51.81 Encounter for therapeutic drug level monitoring; Z79.899 Other long term (current) drug therapy; Z98.2 Presence of cerebrospinal fluid drainage device; Z88.0 Allergy status to penicillin; Z88.1 Allergy status to other antibiotic agents; Z88.2 Allergy status to sulfonamides; Z82.0 Family history of epilepsy and other diseases of the nervous system; W19.XXXA Unspecified fall, initial encounter; Y99.8 Other external cause status

== ENCOUNTER → 2017-09-26 | Outpatient (CLI) | payer OTHER ==
[~2017-09-26] MED LIST: ACET-1256 PO; DOCU-94 PO; LISI-729 PO; MULT-506 PO; SERT-234 PO
[2017-09-26 09:42] LABS: HEMATOCRIT 39.7 % (37-47); HEMOGLOBIN 13.2 g/dL (12.0-16.0); MEAN CORPUSCULAR HEMOGLOBIN 29.6 pg (25-34); MEAN CORPUSCULAR HGB CONC 33.2 g/dl (32-36); MEAN PLATELET VOLUME 10.7 fL (7.4-10.4); PLATELET COUNT 186 K/uL (130-400); RED CELL DISTRIBUTION WIDTH CV 13.5 % (11.5-14.5); RED CELL DISTRIBUTION WIDTH SD 43.9 fL (36.4-46.3); WHITE BLOOD COUNT 7.22 K/uL (4.8-10.8)
[2017-09-26 09:50] LABS: BLOOD UREA NITROGEN 16 mg/dl (7-18); CALCIUM 8.3 mg/dl (8.5-10.1); CARBON DIOXIDE 28 mmol/L (21-32); CREATININE 0.67 mg/dl (0.60-1.20); GLUCOSE 83 mg/dl (70-99); POTASSIUM 3.8 mmol/L (3.5-5.1); SODIUM 140 mmol/L (136-145)
== END | disposition home or self-care (01) ==
LOC: C.LABSPEC 08:21
PROVIDERS: ATTEND Nurse Practitioner Adult Health
DX: I10 Essential (primary) hypertension (principal)

== ENCOUNTER → 2017-10-11 | Outpatient (CLI) | payer OTHER ==
[~2017-10-11] MED LIST changes: +ACET-1256 PO; +DOCU-94 PO; +LISI-729 PO
--- NOTE | 2017-10-11 11:16 | DIAGNOSTIC IMAGING REPORT ---
HEAD WITHOUT CONTRAST (CT) CLINICAL HISTORY: 47 years-old Female with SUBDURAL HEMATOMA. Follow-up study to assess a small subdural hematoma. TECHNIQUE: Multiple axial CT images of the head were obtained without contrast. A dose lowering technique was utilized adhering to the principles of ALARA. CT DOSE: 638.56 mGycm COMPARISON: CT head 10/03/2017, 10/02/2017, brain MRI 10/01/2017. FINDINGS: Previously described subdural hematoma layering adjacent to the falx cerebri is not definitively seen. Minimal subdural hemorrhage adjacent to the right vertebral convexity near the vertex is redemonstrated measuring up to approximately 2 mm, unchanged. No midline shift or new intracranial hemorrhage identified. Right parietal approach ventriculostomy catheter is unchanged with distal tip terminating in the region of the frontal horn left lateral ventricle. Heterogeneous calcifications within the distribution of the left basal ganglia are unchanged. Cephalization about the right frontal lobe adjacent to the ventriculostomy catheter is stable. No hydrocephalus. 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 No territorial infarction. Chronic calvarial thickening redemonstrated. Mastoid air cells, middle ear cavities and paranasal sinuses are unremarkable. Soft tissues and orbits are within normal limits. IMPRESSION: 1. Previously described subdural hematoma adjacent to the falx cerebri is not definitively seen. There is minimal subdural hemorrhage about the right cerebral convexity at the vertex which is unchanged measuring up to approximately 2 mm. No midline shift or new intracranial hemorrhage identified. 2. Additional stable findings as above including unchanged positioning of right-sided ventriculostomy shunt catheter without hydrocephalus. The above report was generated using voice recognition software. It may contain grammatical, syntax or spelling errors. Electronically signed by: Ventura Rosado M.D. 10/11/2017 11:14 AM Dictated Date/Time: 10/11/2017 11:08 AM
== END | disposition home or self-care (01) ==
LOC: C.CTS 10:42
PROVIDERS: ATTEND Nurse Practitioner Adult Health
DX: S06.5X9A Traumatic subdural hemorrhage with loss of consciousness of unspecified duration, initial encounter (principal); X58.XXXA Exposure to other specified factors, initial encounter

== ENCOUNTER → 2017-10-17 | Outpatient (CLI) | payer OTHER ==
--- NOTE | 2017-10-17 13:16 | DIAGNOSTIC IMAGING REPORT ---
HEAD WITHOUT CONTRAST (CT) CLINICAL HISTORY: 47 years-old Female with SUBDURAL HEMATOMA. Follow-up study in a patient with a subdural hematoma TECHNIQUE: Multiple axial CT images of the head were obtained without contrast. A dose lowering technique was utilized adhering to the principles of ALARA. CT DOSE: 709.48 mGy.cm COMPARISON: CT head 10/11/2017, brain MRI 10/01/2017. FINDINGS: There is resolution of the previously noted minimal subdural hemorrhage adjacent to the right vertebral convexity. No new intracranial hemorrhage identified. No midline shift or new intracranial hemorrhage identified. Right parietal approach ventriculostomy catheter is unchanged with distal tip terminating in the region of the frontal horn left lateral ventricle. Additional posterior approach ventriculostomy catheter terminating within the atria left lateral ventricle is unchanged. Heterogeneous calcifications within the distribution of the left basal ganglia are unchanged. Encephalomalacia about the right frontal lobe adjacent to the ventriculostomy catheter is stable. No hydrocephalus. 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 No territorial infarction. Chronic calvarial thickening redemonstrated. Mastoid air cells, middle ear cavities and paranasal sinuses are unremarkable. Soft tissues and orbits are within normal limits. IMPRESSION: 1. No acute intracranial hemorrhage identified. There is resolution of the previously noted small right-sided subdural hematoma. 2. Unchanged positioning of the right-sided ventriculostomy shunt catheter without hydrocephalus. The above report was generated using voice recognition software. It may contain grammatical, syntax or spelling errors. Electronically signed by: Ventura Rosado M.D. 10/17/2017 1:14 PM Dictated Date/Time: 10/17/2017 1:09 PM
== END | disposition home or self-care (01) ==
LOC: C.CTS 12:42
PROVIDERS: ATTEND Nurse Practitioner Adult Health
DX: I62.00 Nontraumatic subdural hemorrhage, unspecified (principal)

== ENCOUNTER 2018-11-15 10:29 | Inpatient (IN) ==
--- OUTSIDE RECORDS SUMMARY | 2018-11-15 10:31 | External Medical Summary | Continuity of Care Document ---
:1970 Author Name Vanessa Stone, Provider Address Unavailable Unavailable , Care Team Providers Name Role Phone NonMNPG Bertha, Provider Unavailable [email or web address] PCP, UNKNOWN Unavailable Unavailable Problems Active medical history not documented Allergies and Adverse Reactions Allergy history not documented Medications Medications not documented Procedures Procedures not documented Immunizations Immunizations not documented Plan of Treatment Planned Observations Planned Goals not documented Results No Known Results Results not documented
[2018-11-15] MEDS ORDERED: KETOROLAC 30 MG/ML VIAL IV STA (11:16)
[2018-11-15] MEDS ORDERED: ONDANSETRON INJ 2 MG/ML 2 ML VIAL IV STA (11:16)
[2018-11-15] MEDS ORDERED: SODIUM CHLORIDE 0.9% 500 ML IV SCH (11:30)
[2018-11-15 13:25] LABS: Basophils # (auto) 0.03 K/uL (0-0.2); Basophils % (auto) 0.2 %; Eosinophils # (auto) 0.01 K/uL (0-0.5); Eosinophils % (auto) 0.1 %; Hematocrit (blood only) 42.8 % (37-47); Hemoglobin 14.8 g/dL (12.0-16.0); Immature Granulocytes # (auto) 0.12 K/uL (0.00-0.02); Immature Granulocytes % (auto) 0.7 %; Lymphocytes # (auto) 1.12 K/uL (1.2-3.4); Lymphocytes % (auto) 6.3 %; Mean Corpuscular Hgb Conc 34.6 g/dL (32-36); Mean Platelet Volume 9.7 fL (7.4-10.4); Monocytes # (auto) 0.86 K/uL (0.11-0.59); Monocytes % (auto) 4.9 %; Neutrophils # (auto) 15.51 K/uL (1.4-6.5); Neutrophils % (auto) 87.8 %; Platelet Count 263 K/uL (130-400); RDW Coefficient of Variation 12.7 % (11.5-14.5); RDW Standard Deviation 40.6 fL (36.4-46.3); Red Blood Count 4.92 M/uL (4.2-5.4); White Blood Count 17.65 K/uL (4.8-10.8)
[2018-11-15 13:43] LABS: BUN Creatinine Ratio 12.5 (10-20); Calcium 9.2 mg/dl (8.5-10.1); Est GFR (African American) 83.3; Est GFR (Non-African American) 71.8; Potassium 3.5 mmol/L (3.5-5.1)
[2018-11-15 13:44] LABS: Pregnancy Test, Serum Negative (Negative)
[2018-11-15 13:46] LABS: Albumin Globulin Ratio 1.1 (0.9-2); Bilirubin,Total 1.1 mg/dl (0.2-1); Globulin 3.7 gm/dl (2.5-4.0); Total Protein 7.7 gm/dl (6.4-8.2)
[2018-11-15 13:52] LABS: Appearance Urine Cloudy (Clear); Blood Urine 1+ (Negative); Color Urine Dark Yellow; Epithelial Cell Urine Auto >30 /lpf (0-5); Glucose Urine UA Negative (Negative); Ketones Urine Trace (Negative); Leukocyte Esterase Urine Trace (Negative); Nitrite Urine Positive (Negative); Protein Urine 1+ (Negative); Urobilinogen Urine Negative (Negative)
[2018-11-15 14:12] LABS: Bilirubin Urine Negative (Negative); Ictotest Urine Negative (Negative)
[2018-11-15 14:14] LABS: Mucus Urine Present (None Prsent)
[2018-11-15 14:15] LABS: Bacteria Urine Automated 1+ (Negative)
[2018-11-15] MEDS ORDERED: cefOXitin 2,000 MG/60 ML BAG IV STA (14:20)
--- NOTE | 2018-11-15 15:32 | CT Scan Report ---
CT OF THE ABDOMEN AND PELVIS WITHOUT CONTRAST CLINICAL HISTORY: Left lower quadrant abdominal pain. COMPARISON STUDY: No previous studies for comparison. TECHNIQUE: Axial images of the abdomen and pelvis were obtained without IV contrast. Images were revi ewed in the axial, sagittal, and coronal planes. Automated exposure control was utilized for the aalyiah dy. A dose lowering technique was utilized adhering to the principles of ALARA. FINDINGS: Evaluation of the abdomen and pelvis is suboptimal on this unenhanced exam. There is a smal l amount of abdominal and pelvic ascites. A PLATE COLORER shunt catheter is partially imaged. Old shunt catheter s are also noted. The intact catheter terminates within the mid pelvis. Unenhanced images of the adre nal glands, spleen and kidneys are normal. There is fatty infiltration of the liver. There are multip le gallstones within the gallbladder. There is no CT evidence for acute cholecystitis. There is moder ate peripancreatic infiltration and fluid which extends into the bilateral anterior pararenal spaces. No well-defined peripancreatic fluid collection is present. There is no evidence for a bowel obstruc tion. No lymphadenopathy is present. There are no suspicious osseous lesions. No hydronephrosis is pr esent. IMPRESSION: 1. Edematous pancreas with moderate peripancreatic fluid and infiltration consistent with acute pancr eatitis. 2. Cholelithiasis. 3. Small amount of abdominal and pelvic ascites. 4. Fatty liver. 5. Partially visualized PLATE COLORER shunt catheter. Electronically signed by: mEiliano Monet M.D. 11/15/2018 3:30 PM
--- NOTE | 2018-11-15 16:36 | Surgery Consultation ---
Date of Consultation November 15, 2018 Assessment & Plan (1) Pancreatitis: Discussed with GI, no plans for MRCP at this time. Will continue to trend LFT's. Consider lap juanis, possible IOC, when pancreatitis resolves. History of Present Illness History of Present Illness 48 y/o female resident of [facility] with lower abdominal pain and vomiting today. Has had multiple BARREL HEADER shunts, no other abdominal surgery. Was living alone until last year. Her family is in [place]. She is being admitted by medical service for biliary pancreatitis. Allergies Allergy/AdvReac Type Severity Reaction Status Date / Time Bactrim Allergy Unknown RASH Verified 09/26/17 16:39 erythromycin base Allergy Unknown RASH Verified 09/26/17 16:39 Penicillins Allergy Unknown RASH Verified 09/26/17 16:39 Home Medications Home Medications Medication Instructions Recorded Confirmed Type acetaminophen 500 mg PO Q4H PRN 11/15/18 11/15/18 History amlodipine 5 mg PO DAILY 11/15/18 11/15/18 History docusate sodium [Colace] 100 mg PO DAILY PRN 11/15/18 11/15/18 History hydrochlorothiazide 12.5 mg PO DAILY 11/15/18 11/15/18 History lisinopril 5 mg PO DAILY 11/15/18 11/15/18 History sertraline 100 mg PO DAILY 11/15/18 11/15/18 History therapeutic multivitamin [Therems] 1 tab PO DAILY 11/15/18 11/15/18 History Patient History Medical History Multiple sclerosis (Chronic) Neurocognitive deficits (Chronic) History of brain tumor (Chronic) "hx pediatric brain tumor, unresectable. Hx multiple shunts for hydrocephalus. Hx colloid cyst" HTN (hypertension) (Chronic) Hx of hydrocephalus (Chronic) Depression (Chronic) Surgical History S/P BARREL HEADER shunt Social History Feels Safe at Home: Yes Smoking Status: Never smoker Review of Systems Constitutional: no fever and no chills Gastrointestinal: + abdominal pain and + vomiting Physical Exam Constitutional: no acute distress Respiratory: normal respiratory effort and + respiratory distress Cardiovascular: Rate/Rhythm: regular rate Gastrointestinal (Abdomen): Inspection/Auscultation: abdomen not distended Percussion/Palpation: + abdomen tender (generalized) and abdomen soft Results & Data Vital Signs (Past 12 Hours) Vital Signs Temp Pulse Pulse Resp BP BP Pulse Ox 11/15/18 15:28 80 20 122/82 97 11/15/18 13:29 75 22 133/74 97 11/15/18 12:14 71 20 139/53 L 97 11/15/18 10:40 36.5 C 69 20 112/52 L 95
--- NOTE | 2018-11-15 16:42 | Gastrointestinal Consultation ---
Date of Consultation November 15, 2018 Assessment & Plan (1) Pancreatitis: 48 year old female wit history of unresectable brain tumor, hydrocephalous s/p shunt, MS, Ms, seizure disorder who presents with nausea, vomiting and abd pain. Work up concerning for gallstone panc w/ mildly elevated LFTs and UTI. She does have stones on imaging but there is no mention of biliary dilation or CBD stone - Treat the pancreatitis - Continue ABX for present - NPO for bowel - LR 250 mL - Antiemetics PRN - Analgesia PRN - Obtain MRCP if able - If not able will need ABD US Will follow. Thank you for allowing us to participate in the care of this patient. Please call with any acute changes, questions or concerns. Please see addendum below with additional recommendation from my supervising physician. (2) S/P TEST BORING CREW CHIEF shunt: Supervising Physician Co-Signing Physician Notes I have seen and examined the patient with RACHEL Silva. 48 yo fm with a history of mild neurocognitive deficits, htn, multiple evp sales shunts before that reportedly are MR compatible, admitted with abdominal pain. GI now consulted for abdominal pain and lipase elevation. She reports her pain is improved, she is not having fevers or chills, no prior belly surgeries reportedly, she makes her own medical decisions. PE- well nourished fm in nad, heent - perrla, cv- rrr no mrg, pulm- ctab, abd - soft nt nd +bs labs reviewed- leukoctyosis, stable hgb and platelet, tb 1.1, mild ast/alt elevation, mild alk phos elevation Imaging reviewed: fatty liver, pancreatitis, cholelithiasis but no cholecystitis, no mention of cbd dilation Being admitted for abdominal pain and concerns for gallstone pancreatitis. IV LR MRCP - she states with her evp sales shunts she can get MRCP, if for some reason she can't, then abd nelly to determine CBD size. Empiric abx - given she also has a uti, on cefoxitin No over signs of cholangitis, leukocytosis could be from UTI ERCP pending MRCP or abd nelly results, likely Sunday. NPO for bowel rest today, possibly clears tomorrow if pain is improved. Prn pain control. History of Present Illness Reason for Consultation: gallstone panc, gallstones Requesting Physician: Giovani Attending Physician: Giovani History of Present Illness 48 year old female with history of unresectable brain tumor, hydrocephalus s/p shunting, MS, HTN, seizure disorder, depression and questionable [place] Disease who presented through the ED with abd pain. Pt was seen and evaluated, chart reviewed. She notes generalized abd pain, worse in upper abd for about 24 hours. Associated with nausea, vomiting. Denies any black/bloody emesis. No change in BM. Daily. No black or bloody stools. Denies fever, chills, CP, SOB. She lives in a detention as she was unable to continue to care for her self and her home. No family local. CT: Edematous pancreas with moderate peripancreatic fluid and infiltration consistent with acute pancreatitis.Cholelithiasis.Small amount of abdominal and pelvic ascites.Fatty liver. Partially visualized TEST BORING CREW CHIEF shunt catheter. Allergies Allergy/AdvReac Type Severity Reaction Status Date / Time Bactrim Allergy Unknown RASH Verified 09/26/17 16:39 erythromycin base Allergy Unknown RASH Verified 09/26/17 16:39 Penicillins Allergy Unknown RASH Verified 09/26/17 16:39 Home Medications Home Medications Medication Instructions Recorded Confirmed Type acetaminophen 500 mg PO Q4H PRN 11/15/18 11/15/18 History amlodipine 5 mg PO DAILY 11/15/18 11/15/18 History docusate sodium [Colace] 100 mg PO DAILY PRN 11/15/18 11/15/18 History hydrochlorothiazide 12.5 mg PO DAILY 11/15/18 11/15/18 History lisinopril 5 mg PO DAILY 11/15/18 11/15/18 History sertraline 100 mg PO DAILY 11/15/18 11/15/18 History therapeutic multivitamin [Therems] 1 tab PO DAILY 11/15/18 11/15/18 History Patient History Medical History Multiple sclerosis (Chronic) Neurocognitive deficits (Chronic) History of brain tumor (Chronic) "hx pediatric brain tumor, unresectable. Hx multiple shunts for hydrocephalus. Hx colloid cyst" HTN (hypertension) (Chronic) Hx of hydrocephalus (Chronic) Depression (Chronic) Surgical History S/P TEST BORING CREW CHIEF shunt Social History Feels Safe at Home: Yes Smoking Status: Never smoker Review of Systems Constitutional: no fever, no chills and no fatigue Respiratory: no cough, no dyspnea and no pain on inspiration Cardiovascular: no chest pain, no radiating jaw, neck or arm pain and no dyspnea on exertion Gastrointestinal: + abdominal pain, + nausea, + vomiting and + cramping; no belching, no early satiety, no heartburn, no coffee ground emesis, no blood in stools and no melena Physical Exam Constitutional: well developed and well nourished Respiratory: normal respiratory effort, lungs clear to auscultation Cardiovascular: Rate/Rhythm: regular rate and regular rhythm Gastrointestinal (Abdomen): Inspection/Auscultation: normal bowel sounds Percussion/Palpation: + abdomen tender and abdomen soft; no guarding, abdomen not rigid, no abdominal mass and no ascites Skin: no rashes, warm and dry Results & Data Vital Signs (Past 12 Hours) Vital Signs Temp Pulse Pulse Resp BP BP Pulse Ox 11/15/18 15:28 80 20 122/82 97 11/15/18 13:29 75 22 133/74 97 11/15/18 12:14 71 20 139/53 L 97 11/15/18 10:40 36.5 C 69 20 112/52 L 95 Laboratory Results 11/15/18 11/15/18 11/15/18 Range/Units 13:31 13:16 13:16 WBC (4.8-10.8) K/uL RBC (4.2-5.4) M/uL Hgb (12.0-16.0) g/dL Hct (37-47) % MCV (80-100) fL MCH (25-34) pg MCHC (32-36) g/dL RDW Std Deviation (36.4-46.3) fL RDW Coeff of Kary (11.5-14.5) % Plt Count (130-400) K/uL MPV (7.4-10.4) fL Immature Gran % (Auto) % Neut % (Auto) % Lymph % (Auto) % [place] % (Auto) % Eos % (Auto) % Baso % (Auto) % Immature Gran # (Auto) (0.00-0.02) K/uL Neut # (Auto) (1.4-6.5) K/uL Lymph # (Auto) (1.2-3.4) K/uL [place] # (Auto) (0.11-0.59) K/uL Eos # (Auto) (0-0.5) K/uL Baso # (Auto) (0-0.2) K/uL Sodium 136 (136-145) mmol/L Potassium 3.5 (3.5-5.1) mmol/L Chloride 101 (98-107) mmol/L Carbon Dioxide 26 (21-32) mmol/L Anion Gap 9.0 (3-11) BUN 12 (7-18) mg/dl Creatinine 0.95 (0.6-1.2) mg/dl Est Cr Clr Drug Dosing 93.0 ml/min Est GFR ( Amer) 83.3 Est GFR (Non-Af Amer) 71.8 BUN/Creatinine Ratio 12.5 (10-20) Glucose 125 H (70-99) mg/dl Calcium 9.2 (8.5-10.1) mg/dl Total Bilirubin 1.1 H (0.2-1) mg/dl AST 67 H (15-37) U/L ALT 85 H (12-78) U/L Alkaline Phosphatase 130 H (45-117) U/L Total Protein 7.7 (6.4-8.2) gm/dl Albumin 4.0 (3.4-5.0) gm/dl Globulin 3.7 (2.5-4.0) gm/dl Albumin/Globulin Ratio 1.1 (0.9-2) Lipase 11655 H (73-393) U/L HCG, Qual Negative (Negative) Urine Color Dark Yellow Urine Appearance Cloudy A (Clear) Urine pH 7.0 (4.5-7.5) Ur Specific [place] 1.020 (1.000-1.030) Urine Protein 1+ H (Negative) Urine Glucose (UA) Negative (Negative) Urine Ketones Trace H (Negative) Urine Blood 1+ H (Negative) Urine Nitrite Positive A (Negative) Urine Bilirubin Negative (Negative) Urine Urobilinogen Negative (Negative) Ur Leukocyte Esterase Trace H (Negative) Urine WBC (Auto) 1-5 (0-5) /hpf Urine RBC (Auto) 5-10 H (0-4) /hpf U Hyaline Cast (Auto) 10-30 H (0-5) /lpf U Epithel Cells (Auto) >30 H (0-5) /lpf Urine Bacteria (Auto) 1+ H (Negative) Ur Renal Epithelial Cell Not Reportable Urine Mucus Present A (None Prsent) Urine Yeast Not Reportable 11/15/18 Range/Units 13:16 WBC 17.65 H (4.8-10.8) K/uL RBC 4.92 (4.2-5.4) M/uL Hgb 14.8 (12.0-16.0) g/dL Hct 42.8 (37-47) % MCV 87.0 (80-100) fL MCH 30.1 (25-34) pg MCHC 34.6 (32-36) g/dL RDW Std Deviation 40.6 (36.4-46.3) fL RDW Coeff of Kary 12.7 (11.5-14.5) % Plt Count 263 (130-400) K/uL MPV 9.7 (7.4-10.4) fL Immature Gran % (Auto) 0.7 % Neut % (Auto) 87.8 % Lymph % (Auto) 6.3 % [place] % (Auto) 4.9 % Eos % (Auto) 0.1 % Baso % (Auto) 0.2 % Immature Gran # (Auto) 0.12 H (0.00-0.02) K/uL Neut # (Auto) 15.51 H (1.4-6.5) K/uL Lymph # (Auto) 1.12 L (1.2-3.4) K/uL [place] # (Auto) 0.86 H (0.11-0.59) K/uL Eos # (Auto) 0.01 (0-0.5) K/uL Baso # (Auto) 0.03 (0-0.2) K/uL Sodium (136-145) mmol/L Potassium (3.5-5.1) mmol/L Chloride (98-107) mmol/L Carbon Dioxide (21-32) mmol/L Anion Gap (3-11) BUN (7-18) mg/dl Creatinine (0.6-1.2) mg/dl Est Cr Clr Drug Dosing ml/min Est GFR ( Amer) Est GFR (Non-Af Amer) BUN/Creatinine Ratio (10-20) Glucose (70-99) mg/dl Calcium (8.5-10.1) mg/dl Total Bilirubin (0.2-1) mg/dl AST (15-37) U/L ALT (12-78) U/L Alkaline Phosphatase (45-117) U/L Total Protein (6.4-8.2) gm/dl Albumin (3.4-5.0) gm/dl Globulin (2.5-4.0) gm/dl Albumin/Globulin Ratio (0.9-2) Lipase (73-393) U/L HCG, Qual (Negative) Urine Color Urine Appearance (Clear) Urine pH (4.5-7.5) Ur Specific [place] (1.000-1.030) Urine Protein (Negative) Urine Glucose (UA) (Negative) Urine Ketones (Negative) Urine Blood (Negative) Urine Nitrite (Negative) Urine Bilirubin (Negative) Urine Urobilinogen (Negative) Ur Leukocyte Esterase (Negative) Urine WBC (Auto) (0-5) /hpf Urine RBC (Auto) (0-4) /hpf U Hyaline Cast (Auto) (0-5) /lpf U Epithel Cells (Auto) (0-5) /lpf Urine Bacteria (Auto) (Negative) Ur Renal Epithelial Cell Urine Mucus (None Prsent) Urine Yeast
[2018-11-15] MEDS ORDERED: D5W AND NSS 1,000 ML IV SCH (17:00)
--- NOTE | 2018-11-15 17:20 | History & Physical Report ---
Date of Service November 15, 2018 Assessment & Plan (1) Acute pancreatitis: Visit with acute onset of abdominal pain acid with nausea vomiting started this morning The abdomen pelvis shows: Edematous pancreas with moderate peripancreatic fluid and infiltration consistent with acute pancreatitis Cholelithiasis Lipase level elevated more than 19,000 With mild elevation of AST ALT Remains hemodynamically stable Patient will be admitted to medical floor Appreciate input from GI Ordered for bowel rest-n.p.o. okay for sips of water and ice chips, IV fluids with LR at rate of 250 mL/h, pain control Repeat LFT/lipase level in a.m. Possible gallstone pancreatitis MRCP not ordered patient has WALLET ASSEMBLER shunt Ultrasound of liver and pancreas ordered CT abdomen pelvis shows no evidence of common bile duct dilatation Surgery consulted appreciate input Conservative approach with bowel rest IV fluids, improvement of acute pancreatitis Possible cholecystectomy with intraoperative cholangiogram to assess common bile duct stone-next week per surgery (2) S/P WALLET ASSEMBLER shunt: History of known approval of brain tumor, leading to hydrocephalus, Status post WALLET ASSEMBLER shunt (3) Depression: Hold SSRI secondary to p.o. status acute pancreatitis (4) Hx of hydrocephalus: Status post WALLET ASSEMBLER shunt (5) HTN (hypertension): BP stable Hold diuretics, lisinopril/hydrochlorothiazide in the setting of acute pancreatitis Continue Norvasc in a.m. 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 status post WALLET ASSEMBLER shunt Patient denies of any headache or change in vision (7) Neurocognitive deficits: Mental status stable at baseline Able to answer questions appropriately (8) Possible urinary tract infection: UA: Urine appearance cloudy, with trace amount of ketones positive nitrite trace leukocyte esterase Ordered for urine culture Empiric antibiotic with IV Rocephin for possible UTI (9) Multiple sclerosis: CODE STATUS: Full code discussed with patient DVT prophylaxis: SCD and teds Pharmacological anticoagulation avoided as patient may need surgical procedure Disposition Resident at [facility] PT OT evaluation request Social service consulted for discharge planning History of Present Illness Primary Care Provider: [facility] Is a 48-year-old female with history of unresectable brain tumor, hydrocephalus, status post multiple WALLET ASSEMBLER shunt, multiple sclerosis, seizure disorder Resident at [facility] Presented to ER with complaint of intractable abdominal pain associated with nausea vomiting started this morning Labs showed mild leukocytosis with white count elevated to 17 K lipase level 19, 911 Borderline Elevated LFT with AST 67/ALT 85 CT abdomen pelvis shows: Edematous pancreas suggestive of an cryptitis, cholelithiasis with no evidence of cholecystitis, no CBD dilatation noted Abdominal pain has improved 2 out of 10 after getting IV Dilaudid 1 mg She denies of any fever chills, no cough, no shortness of breath, no chest h eaviness or dyspnea on exertion Episode of nausea leading to vomiting this morning, Had normal bowel movement today, no diarrhea, no blood in stool or dark stool Denies of any headache, no blurred vision, no recent tick bite, no weakness or paresthesia in any part of the body Allergies Allergy/AdvReac Type Severity Reaction Status Date / Time Bactrim Allergy Unknown RASH Verified 09/26/17 16:39 erythromycin base Allergy Unknown RASH Verified 09/26/17 16:39 Penicillins Allergy Unknown RASH Verified 09/26/17 16:39 Home Medications Home Medications Medication Instructions Recorded Confirmed Type acetaminophen 500 mg PO Q4H PRN 11/15/18 11/15/18 History amlodipine 5 mg PO DAILY 11/15/18 11/15/18 History docusate sodium [Colace] 100 mg PO DAILY PRN 11/15/18 11/15/18 History hydrochlorothiazide 12.5 mg PO DAILY 11/15/18 11/15/18 History lisinopril 5 mg PO DAILY 11/15/18 11/15/18 History sertraline 100 mg PO DAILY 11/15/18 11/15/18 History therapeutic multivitamin [Therems] 1 tab PO DAILY 11/15/18 11/15/18 History Past Med/Surg History Medical History Multiple sclerosis (Chronic) Neurocognitive deficits (Chronic) History of brain tumor (Chronic) "hx pediatric brain tumor, unresectable. Hx multiple shunts for hydrocephalus. Hx colloid cyst" HTN (hypertension) (Chronic) Hx of hydrocephalus (Chronic) Depression (Chronic) Surgical History S/P WALLET ASSEMBLER shunt Social History Feels Safe at Home: Yes Smoking Status: Never smoker Review of Systems Review of Systems: All systems reviewed & are unremarkable except as noted in HPI & below Physical Exam Constitutional: WD/WN, vitals as above no acute distress Eyes: PERRL, conjunctivae normal, anicteric sclerae ENMT: external ear and nose normal, oropharynx normal Neck: trachea midline, no thyromegaly Respiratory: normal respiratory effort, lungs clear to auscultation Cardiovascular: RRR, no murmur, no edema Gastrointestinal (Abdomen): Inspection/Auscultation: abdomen normal to inspection Percussion/Palpation: + abdomen tender and abdomen soft; no ascites Positive mid abdomen and epigastric tenderness, bowel sounds diminished Musculoskeletal: no cyanosis or clubbing, extremities motor strength 5/5 Skin: no rashes, warm and dry Neurologic: PERRL, EOMI, accommodation nl, no face palsy, no dysarthria Results & Data Vital Signs (Past 12 Hours) Vital Signs CT abdomen pelvis without contrast: Temp Pulse Pulse Resp BP BP Pulse Ox IMPRESSION: 1. Edematous pancreas with moderate peripancreatic fluid and infiltration consistent with acute pancreatitis. 2. Cholelithiasis. 3. Small amount of abdominal and pelvic ascites. 4. Fatty liver. 5. Partially visualized WALLET ASSEMBLER shunt catheter. 11/15/18 15:28 80 20 122/82 97 11/15/18 13:29 75 22 133/74 97 11/15/18 12:14 71 20 139/53 L 97 11/15/18 10:40 36.5 C 69 20 112/52 L 95 Code Status & VTE Plan Code Status CODE STATUS: Full code VTE Prophylaxis Plan VTE Prophylaxis will be ordered: Yes (1) Depression Depression Type: unspecified Qualified Code(s): F32.9 - Major depressive disorder, single episode, unspecified (2) HTN (hypertension) Hypertension type: unspecified Qualified Code(s): I10 - Essential (primary) hypertension (3) Acute pancreatitis Acute pancreatitis complication: unspecified Pancreatitis type: biliary Qualified Code(s): K85.10 - Biliary acute pancreatitis without necrosis or infection
[2018-11-15] MEDS ORDERED: cefTRIAXone SODIUM 1,000 MG in DEXTROSE 5% 50 ML IV SCH (17:30)
[2018-11-15 18:06] LABS: Hepatitis B Surface Antigen Neg (Neg)
--- NOTE | 2018-11-15 18:29 | Ultrasound Report ---
BILIARY ULTRASOUND CLINICAL HISTORY: Gallstone pancreatitis COMPARISON STUDY: CT scan dated 11/15/2018 FINDINGS: The examination was difficult from a technical standpoint. The patient was unable to cooperate with b reath holding. The head and body the pancreas appear edematous, consistent with the history of acute pancreatitis. No focal hepatic masses were visualized. There is slight increase in hepatic echogenicity. There is n o intrahepatic biliary ductal dilatation. Multiple gallstones are identified. There is trace pericholecystic fluid. The common bile duct was the upper limits of normal diameter measuring 6 mm. There is no right-sided hydronephrosis. The technologist reported a negative sonographic Cervantes sign. IMPRESSION: 1. Cholelithiasis. No evidence of ductal dilatation 2. Trace pericholecystic fluid. No evidence of gallbladder wall thickening. Negative sonographic Murp hy sign. 3. Pancreatic head and body edema consistent with the clinical diagnosis of pancreatitis 4. Suspected hepatic steatosis Electronically signed by: Cruz Soriano M.D. 11/15/2018 6:27 PM
[2018-11-15 18:35] LABS: Hepatitis C IgG 13Yrs+Old_Rflx Neg (Neg)
[2018-11-15] MEDS ORDERED: ONDANSETRON INJ 2 MG/ML 2 ML VIAL IV PRN (18:45)
[2018-11-15] MEDS: HYDROmorphone INJ 0.5 MG/0.5 ML SYR IV PRN (19:32)
[2018-11-15] MEDS: LACTATED RINGER'S 1,000 ML IV SCH ×2 (19:35→23:42)
[2018-11-15] MEDS: cefTRIAXone SODIUM 2,000 MG in DEXTROSE 5% 50 ML IV SCH (20:33)
[2018-11-16] MEDS: LACTATED RINGER'S 1,000 ML IV SCH ×5 (03:33→19:49)
[2018-11-16 06:05] LABS: Hematocrit (blood only) 38.3 % (37-47); Hemoglobin 13.3 g/dL (12.0-16.0); Mean Corpuscular Hgb Conc 34.7 g/dL (32-36); Mean Platelet Volume 9.5 fL (7.4-10.4); Platelet Count 307 K/uL (130-400); RDW Coefficient of Variation 12.8 % (11.5-14.5); RDW Standard Deviation 41.1 fL (36.4-46.3); White Blood Count 21.83 K/uL (4.8-10.8)
[2018-11-16 06:39] LABS: Albumin Level 3.4 gm/dl (3.4-5.0); BUN Creatinine Ratio 20.6 (10-20); Bilirubin Direct 0.2 mg/dl (0-0.2); Calcium 8.4 mg/dl (8.5-10.1); Creatinine Clr Calc Pharmacy 124.4 ml/min; Est GFR (African American) 118.4; Est GFR (Non-African American) 102.1; Potassium 3.5 mmol/L (3.5-5.1)
[2018-11-16 06:43] LABS: Albumin Globulin Ratio 1.1 (0.9-2); Bilirubin,Total 0.6 mg/dl (0.2-1); Globulin 3.1 gm/dl (2.5-4.0); Total Protein 6.5 gm/dl (6.4-8.2)
--- NOTE | 2018-11-16 08:03 | Emergency Department Note ---
Entered by Jacqui Hill acting as a scribe for History of Present Illness General Chief complaint: Illness Stated complaint: ams Time Seen by Provider: 11/15/18 11:03 Source: patient Mode of arrival: EMS Limitations: altered mental status History of Present Illness Provider complaint: abd pain Onset (ago): unknown Location: abdomen Maximum Pain Intensity: 0 Quality: + other (abd pain) Associated symptoms: + nausea/vomiting; no chest pain and no shortness of breath The patient is a 48 year old female who presents to the Emergency Room via EMS with complaints of a persistent abdominal pain. She denies any chest pain or shortness of breath but states she does have an associated nausea. HPI is limited secondary to AMS. Home Medications Home Medications Medication Instructions Recorded Confirmed Type acetaminophen 500 mg PO Q4H PRN 11/15/18 11/15/18 History amlodipine 5 mg PO DAILY 11/15/18 11/15/18 History docusate sodium [Colace] 100 mg PO DAILY PRN 11/15/18 11/15/18 History hydrochlorothiazide 12.5 mg PO DAILY 11/15/18 11/15/18 History lisinopril 5 mg PO DAILY 11/15/18 11/15/18 History sertraline 100 mg PO DAILY 11/15/18 11/15/18 History therapeutic multivitamin [Therems] 1 tab PO DAILY 11/15/18 11/15/18 History Allergies Allergy/AdvReac Type Severity Reaction Status Date / Time Bactrim Allergy Unknown RASH Verified 09/26/17 16:39 erythromycin base Allergy Unknown RASH Verified 09/26/17 16:39 Penicillins Allergy Unknown RASH Verified 09/26/17 16:39 Past Med/Surg History Medical History Multiple sclerosis (Chronic) Neurocognitive deficits (Chronic) History of brain tumor (Chronic) "hx pediatric brain tumor, unresectable. Hx multiple shunts for hydrocephalus. Hx colloid cyst" HTN (hypertension) (Chronic) Hx of hydrocephalus (Chronic) Depression (Chronic) Surgical History S/P MENTAL HEALTH ASSISTANT shunt Social History Preferred Language: Kiswahili Communication Ability: Impaired Communication Ability Comment: Patient cognitively impaired Author'S Agent Required: No Beliefs That Will Affect Care: None Current Living Situation: Group Home Feels Safe at Home: Yes Safety Concerns: Feels Safe At This Time Smoking Status: Never smoker Hx Alcohol Use: No Hx Substance Use: No Review of Systems Other (HPI and ROS are both limited secondary to AMS. ) Physical Exam Vital Signs Vital Signs - 24 hr 11/15/18 10:40 11/15/18 11:16 11/15/18 12:14 Temperature 36.5 C Temperature Source Oral Sepsis Recent Fever Within 48 Hours No Sepsis New/Unexplained Change in Mental Status No Sepsis Action Taken by Nursing No Action Required Pulse Rate 69 Pulse Rate [Left] 71 Respiratory Rate 20 20 Blood Pressure 112/52 L Blood Pressure [Right Arm] 139/53 L Blood Pressure Mean 72 Blood Pressure Mean [Right Arm] 81 Pulse Oximetry 95 97 Oxygen Delivery Method Room Air Room Air 11/15/18 13:29 11/15/18 15:28 Temperature Temperature Source Sepsis Recent Fever Within 48 Hours Sepsis New/Unexplained Change in Mental Status Sepsis Action Taken by Nursing Pulse Rate Pulse Rate [Left] 75 80 Respiratory Rate 22 20 Blood Pressure Blood Pressure [Right Arm] 133/74 122/82 Blood Pressure Mean Blood Pressure Mean [Right Arm] 93 95 Pulse Oximetry 97 97 Oxygen Delivery Method Room Air Room Air GENERAL: Well-appearing female in no acute distress. Follows commands. HENT: Normocephalic, atraumatic. Oropharynx unremarkable. EYES: Normal conjunctiva. Sclera non-icteric. NECK: Supple. No nuchal rigidity. FROM. No JVD. RESPIRATORY: Clear to auscultation. CARDIAC: Regular rate, normal rhythm. Extremities warm and well perfused. Pulses equal. ABDOMEN: Soft, non-distended. LLQ tenderness to palpation. No rebound or guarding. No masses. RECTAL: Deferred. MUSCULOSKELETAL: Chest examination reveals no tenderness. The back is symmetrical on inspection without obvious abnormality. There is no CVA tenderness to palpation. No joint edema. LOWER EXTREMITIES: Calves are equal size bilaterally and non-tender. No edema. No discoloration. NEURO: Follows commands. SKIN: No rash or jaundice noted. Course 1115: Past medical records reviewed. The patient was evaluated in room C2B. A limited history and physical examination was performed. Administered Medications Hydromorphone HCl (Dilaudid) 0.5 mg IV Q15M PRN PRN Reason: Pain Stop: 11/29/18 11:15 Last Admin: 11/15/18 19:32 Dose: 0.5 mg Documented by: [id number] Lactated Ringer's (Lr) 1,000 mls @ 250 mls/hr IV .Q4H DORETHA Stop: 12/15/18 17:59 Last Admin: 11/16/18 07:19 Dose: 250 mls/hr Documented by: [id number] Infusion: 11/16/18 07:19 Dose: 250 mls/hr Documented by: [id number] Admin: 11/16/18 03:33 Dose: 250 mls/hr Documented by: [id number] Infusion: 11/16/18 03:33 Dose: 250 mls/hr Documented by: [id number] Admin: 11/15/18 23:42 Dose: 250 mls/hr Documented by: [id number] Infusion: 11/15/18 23:35 Dose: 250 mls/hr Documented by: [id number] Admin: 11/15/18 19:35 Dose: 250 mls/hr Documented by: [id number] Ceftriaxone Sodium 2,000 mg/ (Dextrose) 70 mls @ 140 mls/hr IV Q24H DORETHA Stop: 11/25/18 19:59 Last Infusion: 11/15/18 22:22 Dose: 0 mls/hr Documented by: [id number] Admin: 11/15/18 20:33 Dose: 140 mls/hr Documented by: [id number] Ondansetron HCl (Zofran) 4 mg IV Q6H PRN PRN Reason: Nausea Stop: 12/15/18 18:44 Last Admin: 11/15/18 23:51 Dose: 4 mg Documented by: [id number] Discontinued Medications Sodium Chloride (Nss) 500 mls @ 999 mls/hr IV .Q31M DORETHA Stop: 11/15/18 12:00 Last Infusion: 11/15/18 12:25 Dose: 0 mls/hr Documented by: [id number] Admin: 11/15/18 11:54 Dose: 999 mls/hr Documented by: [id number] Cefoxitin Sodium (Mefoxin) 2,000 mg in 60 mls @ 100 mls/hr IV NOW STA Stop: 11/15/18 14:55 Last Infusion: 11/15/18 15:57 Dose: 0 mls/hr Documented by: [id number] Admin: 11/15/18 15:20 Dose: 100 mls/hr Documented by: [id number] Dextrose/Sodium Chloride (D5w And Nss) 1,000 mls @ 250 mls/hr IV .Q4H [facility] Stop: 12/15/18 16:59 Last Admin: 11/15/18 23:10 Dose: Not Given Documented by: [id number] Ketorolac Tromethamine (Toradol) 30 mg IV NOW STA Stop: 11/15/18 11:17 Last Admin: 11/15/18 11:53 Dose: 30 mg Documented by: [id number] Ondansetron HCl (Zofran) 4 mg IV NOW STA Stop: 11/15/18 11:17 Last Admin: 11/15/18 11:54 Dose: 4 mg Documented by: [id number] Medical Decision Making Differential Diagnosis Differential diagnosis includes: gastritis, peptic ulcer disease, GERD, gallbladder disease, pancreatitis, small bowel obstruction, acute coronary syndrome, pericarditis, ischemic bowel, irritable bowel disease, irritable bowel syndrome, appendicitis, diverticulitis, malignancy, hernia, urinary tract infection, torsion, perforation, ectopic , trauma, and infectious. Medical Records Attestation: I reviewed the patient's medical records. Home Medications Current Medication List: was personally reviewed by me Laboratory Data Attestation: I reviewed the patient's lab results. Result diagrams: 11/16/18 05:45 11/16/18 05:45 Lab Results 11/15/18 11/15/18 11/15/18 Range/Units 13:16 13:16 13:16 WBC 17.65 H (4.8-10.8) K/uL RBC 4.92 (4.2-5.4) M/uL Hgb 14.8 (12.0-16.0) g/dL Hct 42.8 (37-47) % MCV 87.0 (80-100) fL MCH 30.1 (25-34) pg MCHC 34.6 (32-36) g/dL RDW Std Deviation 40.6 (36.4-46.3) fL RDW Coeff of Kary 12.7 (11.5-14.5) % Plt Count 263 (130-400) K/uL MPV 9.7 (7.4-10.4) fL Immature Gran % (Auto) 0.7 % Neut % (Auto) 87.8 % Lymph % (Auto) 6.3 % [place] % (Auto) 4.9 % Eos % (Auto) 0.1 % Baso % (Auto) 0.2 % Immature Gran # (Auto) 0.12 H (0.00-0.02) K/uL Neut # (Auto) 15.51 H (1.4-6.5) K/uL Lymph # (Auto) 1.12 L (1.2-3.4) K/uL [place] # (Auto) 0.86 H (0.11-0.59) K/uL Eos # (Auto) 0.01 (0-0.5) K/uL Baso # (Auto) 0.03 (0-0.2) K/uL Sodium 136 (136-145) mmol/L Potassium 3.5 (3.5-5.1) mmol/L Chloride 101 (98-107) mmol/L Carbon Dioxide 26 (21-32) mmol/L Anion Gap 9.0 (3-11) BUN 12 (7-18) mg/dl Creatinine 0.95 (0.6-1.2) mg/dl Est Cr Clr Drug Dosing 93.0 ml/min Est GFR ( Amer) 83.3 Est GFR (Non-Af Amer) 71.8 BUN/Creatinine Ratio 12.5 (10-20) Glucose 125 H (70-99) mg/dl Calcium 9.2 (8.5-10.1) mg/dl Total Bilirubin 1.1 H (0.2-1) mg/dl AST 67 H (15-37) U/L ALT 85 H (12-78) U/L Alkaline Phosphatase 130 H (45-117) U/L Total Protein 7.7 (6.4-8.2) gm/dl Albumin 4.0 (3.4-5.0) gm/dl Globulin 3.7 (2.5-4.0) gm/dl Albumin/Globulin Ratio 1.1 (0.9-2) Lipase 51471 H (73-393) U/L HCG, Qual Negative (Negative) Urine Color Urine Appearance (Clear) Urine pH (4.5-7.5) Ur Specific [place] (1.000-1.030) Urine Protein (Negative) Urine Glucose (UA) (Negative) Urine Ketones (Negative) Urine Blood (Negative) Urine Nitrite (Negative) Urine Bilirubin (Negative) Urine Urobilinogen (Negative) Ur Leukocyte Esterase (Negative) Urine WBC (Auto) (0-5) /hpf Urine RBC (Auto) (0-4) /hpf U Hyaline Cast (Auto) (0-5) /lpf U Epithel Cells (Auto) (0-5) /lpf Urine Bacteria (Auto) (Negative) Ur Renal Epithelial Cell Urine Mucus (None Prsent) Urine Yeast Hep Bs Antigen (Neg) Hepatitis C Antibody (Neg) 11/15/18 11/15/18 Range/Units 13:16 13:31 WBC (4.8-10.8) K/uL RBC (4.2-5.4) M/uL Hgb (12.0-16.0) g/dL Hct (37-47) % MCV (80-100) fL MCH (25-34) pg MCHC (32-36) g/dL RDW Std Deviation (36.4-46.3) fL RDW Coeff of Kary (11.5-14.5) % Plt Count (130-400) K/uL MPV (7.4-10.4) fL Immature Gran % (Auto) % Neut % (Auto) % Lymph % (Auto) % [place] % (Auto) % Eos % (Auto) % Baso % (Auto) % Immature Gran # (Auto) (0.00-0.02) K/uL Neut # (Auto) (1.4-6.5) K/uL Lymph # (Auto) (1.2-3.4) K/uL [place] # (Auto) (0.11-0.59) K/uL Eos # (Auto) (0-0.5) K/uL Baso # (Auto) (0-0.2) K/uL Sodium (136-145) mmol/L Potassium (3.5-5.1) mmol/L Chloride (98-107) mmol/L Carbon Dioxide (21-32) mmol/L Anion Gap (3-11) BUN (7-18) mg/dl Creatinine (0.6-1.2) mg/dl Est Cr Clr Drug Dosing ml/min Est GFR ( Amer) Est GFR (Non-Af Amer) BUN/Creatinine Ratio (10-20) Glucose (70-99) mg/dl Calcium (8.5-10.1) mg/dl Total Bilirubin (0.2-1) mg/dl AST (15-37) U/L ALT (12-78) U/L Alkaline Phosphatase (45-117) U/L Total Protein (6.4-8.2) gm/dl Albumin (3.4-5.0) gm/dl Globulin (2.5-4.0) gm/dl Albumin/Globulin Ratio (0.9-2) Lipase (73-393) U/L HCG, Qual (Negative) Urine Color Dark Yellow Urine Appearance Cloudy A (Clear) Urine pH 7.0 (4.5-7.5) Ur Specific [place] 1.020 (1.000-1.030) Urine Protein 1+ H (Negative) Urine Glucose (UA) Negative (Negative) Urine Ketones Trace H (Negative) Urine Blood 1+ H (Negative) Urine Nitrite Positive A (Negative) Urine Bilirubin Negative (Negative) Urine Urobilinogen Negative (Negative) Ur Leukocyte Esterase Trace H (Negative) Urine WBC (Auto) 1-5 (0-5) /hpf Urine RBC (Auto) 5-10 H (0-4) /hpf U Hyaline Cast (Auto) 10-30 H (0-5) /lpf U Epithel Cells (Auto) >30 H (0-5) /lpf Urine Bacteria (Auto) 1+ H (Negative) Ur Renal Epithelial Cell Not Reportable Urine Mucus Present A (None Prsent) Urine Yeast Not Reportable Hep Bs Antigen Neg (Neg) Hepatitis C Antibody Neg (Neg) Imaging Data Radiologist's Impression: Radiology results as stated below per my review and the radiologist's interpretation: Blood Pressure Blood Pressure Findings: Low blood pressure MDM Narrative This is a 48-year-old female who presents emergency department complaining of epigastric pain. Laboratory work was obtained which was concerning for elevation of the patient's lipase. Based on this patient was sent for CAT scan of the abdomen pelvis. This was concerning for choledocholithiasis. Based on this and discussing the case with the patient's mother the patient was admitted to the hospitalist service. Impression & Plan Acute pancreatitis Discharge Plan Visit Data *Final* Discharge Date/Time: 11/15/18 17:35 Chief Complaint: Illness Stated Complaint: ams ED Provider: Silvestre Ham Discharge Problem: Acute pancreatitis Patient Disposition: Admitted As Inpatient Discharge Instructions Interventions: ED Discharge Assessment Last Done: 11/15/18 17:35 The scribe's documentation has been prepared under my direction and personally reviewed by me in its entirety. I confirm that the note above accurately reflects all work, treatment, procedures, and medical decision making performed by me.
[2018-11-16] MEDS: AMLODIPINE BESYLATE 5 MG TAB PO SCH (08:31)
[2018-11-16] MEDS: KETOROLAC TROMETHAMINE 15 MG/ML VIAL IV PRN (08:31)
--- NOTE | 2018-11-16 10:00 | Gastroenterology Progress Note ---
Date of Service November 16, 2018 Supervising Physician Co-Signing Physician Notes 48 yo fm with a history of intellectual disability, prior avp shunts with revision, admitted with abd pain and concerns for cholecystitis, minor elevation in lft's for which GI was consulted. She currently has a UTI as well on cefoxitin. Lft's today have normalized and abd nelly shows cbd of 6 mm. No clinical evidence of cholangitis at this time. Trend lft's, continue abx for UTI, no current indication for pre-operative ercp given normal lft's and normal cbd on imaging. Will defer to surgery on surgical plan for potential cholecystectomy. Subjective No acute complaints Belly pain improved this morning No fevers, chills reported. Review of Systems Review of Systems: All systems reviewed & are unremarkable except as noted in HPI & below Physical Exam Physical Exam: Lying in bed in no acute distress Constitutional: well developed Cardiovascular: RRR, no murmur, no edema Chest (Breasts): Chest: normal inspection of chest Gastrointestinal (Abdomen): normal bowel sounds, soft, nontender, no hepatosplenomegaly Results & Data Vital Signs (Past 12 Hours) Vital Signs Temp Pulse Resp BP Pulse Ox 11/16/18 08:07 37.5 C 103 H 18 121/60 94 11/15/18 23:43 36.7 C 90 16 152/79 H 98 Lft's have now normalized Abd nelly overnite shows cbd of 6 mm, non dilated
--- NOTE | 2018-11-16 10:13 | Surgery Progress Note ---
Date of Service November 16, 2018 Assessment & Plan (1) Acute pancreatitis: gallstone pancreatitis and cholecystitis labs improved except WBC increased to 21,000 pt still symptomatic some risk of surgery with shunt in place however I do believe risk/benefit warrant lap juanis this admission after pancreatitis improves/resolves will d/w pt's mother will follow along. continue conservative management for her pancreatitis. LFT's improving. (2) Cholecystitis: Subjective pt continues to c/o of abdominal pain but primarily is in the lower abdomen. admits to mild nausea. Physical Exam Physical Exam: alert. appears to be in mild discomfort abd: soft. + diffuse tenderness in epigastric region, suprapubic region, and RUQ no g/r/r. no peritoneal signs. Results & Data Vital Signs (Past 12 Hours) Vital Signs Temp Pulse Resp BP Pulse Ox 11/16/18 08:07 37.5 C 103 H 18 121/60 94 11/15/18 23:43 36.7 C 90 16 152/79 H 98 (1) Acute pancreatitis Pancreatitis type: unspecified pancreatitis type Acute pancreatitis complication: unspecified Qualified Code(s): K85.90 - Acute pancreatitis without necrosis or infection, unspecified
[2018-11-16] MEDS: MoRPHine SULFATE 2 MG/ML CARP IV PRN (12:51)
--- NOTE | 2018-11-16 14:00 | Hospitalist Progress Note ---
Date of Service November 16, 2018 Assessment & Plan (1) Acute pancreatitis: (2) S/P SURVEY CAD TECHNICIAN shunt: likely gallstone pancreatitis abdominal pain slightly better lipase and lft's improved no plans for ERCP per GI Gen Surg planning on cholecystectomy remain on NPO continue IV fluids monitor (3) Depression: resume SSRI (4) Hx of hydrocephalus: Status post SURVEY CAD TECHNICIAN shunt (5) HTN (hypertension): BP stable Hold diuretics, lisinopril/hydrochlorothiazide for now Continue Norvasc in a.m. 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 status post SURVEY CAD TECHNICIAN shunt no acute symptoms (7) Neurocognitive deficits: MS at baseline (8) Possible urinary tract infection: urine culture pending continue Ceftriaxone IV (9) Multiple sclerosis: CODE STATUS: Full code discussed with patient DVT prophylaxis: SCD and teds Pharmacological anticoagulation avoided as patient may need surgical procedure Disposition Resident at [facility] PT OT evaluation request Social service consulted for discharge planning Subjective ff up for acute pancreatitis seen with HUB ASSOCIATE at bedside throughout whole encounter seen resting in bed, comfortable not in distress abdominal discomfort slightly better than yesterday denies nausea, fever/chills no chest pain, dyspnea, dizziness, headache no other symptoms Review of Systems Review of Systems: All systems reviewed & are unremarkable except as noted in HPI & below Physical Exam Physical Exam: General- oriented x 2, not in distress, speaks in sentences with no effort or accessory muscle use Eyes- anicteric Neck- no JVD Lungs- clear breath sounds bilaterally Heart- normal rate, regular rhythm; no murmurs Abdomen- normal bowel sounds, nondistended, soft, mild tenderness on all quadrants Extremities- no pretibial edema, no calf tenderness Neuro- alert, oriented x 3; no gross focal neurologic deficits Skin- warm & dry Results & Data Vital Signs (Past 12 Hours) Vital Signs Temp Pulse Resp BP Pulse Ox 11/16/18 08:07 37.5 C 103 H 18 121/60 94 (1) Depression Depression Type: unspecified Qualified Code(s): F32.9 - Major depressive disorder, single episode, unspecified (2) HTN (hypertension) Hypertension type: unspecified Qualified Code(s): I10 - Essential (primary) hypertension (3) Acute pancreatitis Acute pancreatitis complication: unspecified Pancreatitis type: unspecified pancreatitis type Qualified Code(s): K85.90 - Acute pancreatitis without necrosis or infection, unspecified
[2018-11-16] MEDS: HYDROmorphone INJ 0.5 MG/0.5 ML SYR IV PRN (15:43)
[2018-11-16] MEDS: cefTRIAXone SODIUM 2,000 MG in DEXTROSE 5% 50 ML IV SCH (19:55)
[2018-11-17] MEDS: LACTATED RINGER'S 1,000 ML IV SCH ×4 (00:55→21:57)
[2018-11-17 06:13] LABS: Hematocrit (blood only) 35.3 % (37-47); Hemoglobin 12.2 g/dL (12.0-16.0); Mean Corpuscular Hgb Conc 34.6 g/dL (32-36); Mean Corpuscular Volume 87.6 fL (80-100); Mean Platelet Volume 9.4 fL (7.4-10.4); Platelet Count 253 K/uL (130-400); RDW Coefficient of Variation 13.1 % (11.5-14.5); RDW Standard Deviation 42.3 fL (36.4-46.3); Red Blood Count 4.03 M/uL (4.2-5.4); White Blood Count 23.35 K/uL (4.8-10.8)
[2018-11-17 06:52] LABS: Albumin Globulin Ratio 0.8 (0.9-2); Albumin Level 2.8 gm/dl (3.4-5.0); BUN Creatinine Ratio 12.4 (10-20); Bilirubin Direct 0.3 mg/dl (0-0.2); Bilirubin,Total 0.8 mg/dl (0.2-1); Calcium 8.4 mg/dl (8.5-10.1); Creatinine Clr Calc Pharmacy 152.3 ml/min; Est GFR (African American) 128.1; Est GFR (Non-African American) 110.5; Globulin 3.4 gm/dl (2.5-4.0); Potassium 3.4 mmol/L (3.5-5.1); Total Protein 6.2 gm/dl (6.4-8.2)
[2018-11-17] MEDS: KETOROLAC TROMETHAMINE 15 MG/ML VIAL IV PRN (07:41)
[2018-11-17] MEDS: SERTRALINE HCL 100 MG TABLET PO SCH (07:54)
[2018-11-17] MEDS: AMLODIPINE BESYLATE 5 MG TAB PO SCH (07:54)
--- NOTE | 2018-11-17 08:14 | XRay Report ---
XR chest 1V portable CLINICAL HISTORY: wheezing COMPARISON STUDY: 09/26/2017 FINDINGS: The heart is at the upper limits of normal in size. A right-sided ventriculoperitoneal shun t is visualized. There has been interval development of bilateral pleural effusions right greater felix n left with associated right basilar atelectasis/consolidation. There is mild central vascular promin ence.[ IMPRESSION: Interval development of small bilateral pleural effusions right greater than left with as sociated right basilar airspace opacities. Low lung volumes. Electronically signed by: Cruz Soriano M.D. 11/17/2018 8:12 AM
[2018-11-17] MEDS ORDERED: FUROSEMIDE 20 MG in SYRINGE 0 ML IV ONE (08:15)
[2018-11-17] MEDS ORDERED: POTASSIUM CHLORIDE 20 MEQ/15 ML UDC PO ONE (08:15)
--- NOTE | 2018-11-17 09:49 | Gastroenterology Progress Note ---
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 Initially had elevated lft's and concern for cholecystitis +/- cholangitis given wbc count elevation. She is unable to get an MRCP due to a podiatry professor shunt, therefore got an abd nelly which showed a non-dilated cbd. She was given IV fluids and IV cefoxitin, her lft's have normalized since 11/16/18. With a non-dilated CBD and normal lft's though her lipase was elevated concerning for ? gallstone pancreatitis, did discuss her case with Dr. Love (an ercp) colleague this weekend and no indication for pre-operative ERCP. Given normal cbd, could consider lap juanis without preopearative GI endoscopic assessment- will defer to surgery on surgical plan. Continue IV fluids. Subjective No complaints of fevers or chills this morning. Review of Systems Review of Systems: All systems reviewed & are unremarkable except as noted in HPI & below Physical Exam Physical Exam: Sitting in a chair in no acute distress Respiratory: Normal excursion of lungs Gastrointestinal (Abdomen): normal bowel sounds, soft, nontender, no he patosplenomegaly Skin: no rashes, warm and dry Neurologic: PERRL, EOMI, accommodation nl, no face palsy, no dysarthria Results & Data Vital Signs (Past 12 Hours) Vital Signs Temp Pulse Resp BP Pulse Ox 11/17/18 07:00 37.7 C H 121 H 26 H 153/84 H 94 11/16/18 23:10 37.8 C H 119 H 22 144/75 H 93 Lipase is downtrending Slight increase in wbc count Lft's normalized
--- NOTE | 2018-11-17 10:46 | Surgery Progress Note ---
Date of Service November 17, 2018 Assessment & Plan (1) Cholecystitis: LFT's and lipase have improved however WBC's continue to rise and slight fever/tachy I do not suspect all of the could be attributed to her cholecystitis. will recheck CT scan to eval her pancreas. will need her gallbladder out but want to r/o necrotizing pancreatitis first. will call/discuss with her mother. agressive IVF. agree with sousa to monitor output. (2) Acute pancreatitis: Subjective pt feeling "about the same". main c/o is lower midline abdominal discomfort. Physical Exam Physical Exam: does not appear in distress abd: soft. +diffuse tenderness. no peritoneal signs Results & Data Vital Signs (Past 12 Hours) Vital Signs Temp Pulse Resp BP Pulse Ox 11/17/18 07:00 37.7 C H 121 H 26 H 153/84 H 94 11/16/18 23:10 37.8 C H 119 H 22 144/75 H 93 (1) Acute pancreatitis Pancreatitis type: unspecified pancreatitis type Acute pancreatitis compli cation: unspecified Qualified Code(s): K85.90 - Acute pancreatitis without necrosis or infection, unspecified
[2018-11-17] MEDS ORDERED: IOVERSOL 100ml IV PRN (11:31)
--- NOTE | 2018-11-17 11:44 | CT Scan Report ---
CT abd pelvis IV con only CLINICAL HISTORY: pancreatitis ABDOMINAL PAIN COMPARISON STUDY: CT scan dated 11/15/2018 TECHNIQUE: The patient was scanned in a dynamic helical fashion during intravenous administration of 94 cc of Optiray 3 A dose lowering technique was utilized adhering to the principles of ALARA. CT DOSE: 1477.29 mGy.cm FINDINGS: Lower chest: Now evident are small bilateral pleural effusions right greater than left. There are bas ilar airspace opacities, likely atelectatic. Liver: No focal hepatic masses are visualized. There is suspected hepatic steatosis Gallbladder: Cholelithiasis Spleen: Normal in size and attenuation. Pancreas: There is infiltration of the peripancreatic fat, consistent with acute interstitial pancrea titis. There is no definite evidence for pancreatic necrosis. There is a small amount of peripancreat ic fluid. Adrenal glands: Unremarkable. Kidneys: There is symmetric renal cortical enhancement. The kidneys are normal in size without hydron ephrosis. Bowel: There are no transition zones indicate bowel obstruction. Peritoneum: A HEATER OPERATOR HELPER shunt catheter is visualized. A second unused catheter fragment is also evident. The re is increasing pelvic ascites. Vasculature: The abdominal aorta is normal in course and caliber. Adenopathy: None. Pelvic viscera: There is a joint Smalls catheter. Skeletal structures: No destructive osseous lesions are seen. IMPRESSION: 1. Small bilateral pleural effusions with basilar atelectasis 2. Cholelithiasis 3. No evidence of bowel obstruction. No evidence of free air 4. CT findings indicative of acute pancreatitis 5. Increasing pelvic ascites 6. Hepatic steatosis Electronically signed by: Cruz Soriano M.D. 11/17/2018 11:42 AM
--- NOTE | 2018-11-17 12:38 | Hospitalist Progress Note ---
Date of Service November 17, 2018 Assessment & Plan (1) Acute pancreatitis: Abdominal pain slightly improved Lipase further improved 1486 Continue n.p.o. for now Hold IV fluids secondary to shortness of breath, possible pulmonary edema Lasix 20 mg IV ordered Continue PRN analgesics GI consulted, does not recommend ERCP Surgery consulted, planning on laparoscopic cholecystectomy Continue to monitor closely Resume IV fluids once her shortness of breath improved, respiratory status is stabilized (2) S/P DIGITAL FORENSICS EXAMINER shunt: Stable neurologically (3) Depression: Continue SSRI (4) Hx of hydrocephalus: Status post DIGITAL FORENSICS EXAMINER shunt (5) HTN (hypertension): Pressure systolic in the 140s Denies headache, chest pain Diuretics, lisinopril/hydrochlorthiazide on hold Continue Norvasc Monitor (6) History of brain tumor: 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 status post DIGITAL FORENSICS EXAMINER shunt no acute symptoms (7) Neurocognitive deficits: MS at baseline (8) Possible urinary tract infection: urine culture pending continue Ceftriaxone IV DVT prophylaxis SCDs for now in light of possible surgery DisPosition pending (9) Multiple sclerosis: CODE STATUS: Full code discussed with patient DVT prophylaxis: SCD and teds Pharmacological anticoagulation avoided as patient may need surgical procedure Disposition Resident at [facility] PT OT evaluation request Social service consulted for discharge planning Subjective Follow-up for acute pancreatitis Reported by RN that patient has been wheezing and tachycardic assessment this morning Seen resting in bed, nondistressed distress but does report mild dyspnea, no cough States abdominal pain is slightly better compared to yesterday, no nausea, no chills Has some mild dysuria, no hematuria Denies any symptoms Review of Systems Review of Systems: All systems reviewed & are unremarkable except as noted in HPI & below Physical Exam Physical Exam: General- oriented x 3, not in distress, speaks in sentences, mi ldly uncomfortable, no accessory muscle use Eyes- anicteric Neck- no JVD Lungs-mild rales at the bases, no wheezing Heart- normal rate, regular rhythm; no murmurs Abdomen- normal bowel sounds, nondistended, soft, nontender Extremities-trace pretibial edema, no calf tenderness Neuro- alert, oriented x 3; no gross focal neurologic deficits Skin- warm & dry Results & Data Vital Signs (Past 12 Hours) Vital Signs Temp Pulse Resp BP Pulse Ox 11/17/18 10:50 36.8 C 106 H 20 145/77 H 100 11/17/18 07:00 37.7 C H 121 H 26 H 153/84 H 94 Laboratory Results Laboratory Results - last 24 hr 11/17/18 11/17/18 05:48 05:48 WBC 23.35 H RBC 4.03 L Hgb 12.2 Hct 35.3 L MCV 87.6 MCH 30.3 MCHC 34.6 RDW Std Deviation 42.3 RDW Coeff of Kary 13.1 Plt Count 253 MPV 9.4 Sodium 135 L Potassium 3.4 L Chloride 101 Carbon Dioxide 27 Anion Gap 7.0 BUN 7 D Creatinine 0.58 L Est Cr Clr Drug Dosing 152.3 Est GFR ( Amer) 128.1 Est GFR (Non-Af Amer) 110.5 BUN/Creatinine Ratio 12.4 Glucose 99 Calcium 8.4 L Total Bilirubin 0.8 Direct Bilirubin 0.3 H AST 16 ALT 37 Alkaline Phosphatase 83 Total Protein 6.2 L Albumin 2.8 L Globulin 3.4 Albumin/Globulin Ratio 0.8 L Lipase 1486 H (1) Acute pancreatitis Pancreatitis type: unspecified pancreatitis type Acute pancreatitis complication: unspecified Qualified Code(s): K85.90 - Acute pancreatitis without necrosis or infection, unspecified (2) Depression Depression Type: unspecified Qualified Code(s): F32.9 - Major depressive disorder, single episode, unspecified (3) HTN (hypertension) Hypertension type: unspecified Qualified Code(s): I10 - Essential (primary) hypertension
[2018-11-17] MEDS: HYDROmorphone INJ 0.5 MG/0.5 ML SYR IV PRN ×2 (13:13→16:07)
[2018-11-17] MEDS ORDERED: CONSULT PHARMACY STA (18:39)
[2018-11-17] MEDS ORDERED: LEVALBUTEROL HCL 0.63 MG/3 ML NEB NEB PRN (18:43)
[2018-11-17] MEDS: CEFEPIME 2,000 MG in SYRINGE 7.5 ML IV SCH (20:02)
[2018-11-17] MEDS: metroNIDAZOLE 500 MG/100 ML BAG IV SCH (20:09)
--- NOTE | 2018-11-17 20:20 | Hospitalist Progress Note ---
Date of Service November 17, 2018 Subjective Patient transferred to medical telemetry for closer monitoring given persistent tachycardia. Will relay to AM provider. Results & Data Vital Signs (Past 12 Hours) Vital Signs Temp Pulse Resp BP Pulse Ox 11/17/18 15:21 37.3 C 126 H 18 99/60 L 91 11/17/18 10:50 36.8 C 106 H 20 145/77 H 100
[2018-11-17 22:15] LABS: Albumin Globulin Ratio 0.8 (0.9-2); Albumin Level 2.9 gm/dl (3.4-5.0); BUN Creatinine Ratio 19.4 (10-20); Bilirubin,Total 0.9 mg/dl (0.2-1); Calcium 8.4 mg/dl (8.5-10.1); Creatinine Clr Calc Pharmacy 173.2 ml/min; Est GFR (African American) 133.7; Est GFR (Non-African American) 115.3; Globulin 3.9 gm/dl (2.5-4.0); Magnesium 1.7 mg/dl (1.8-2.4); Potassium 3.6 mmol/L (3.5-5.1); Total Protein 6.8 gm/dl (6.4-8.2)
[2018-11-17] MEDS ORDERED: POTASSIUM CHLORIDE 20 MEQ TABCR PO STA (22:17)
[2018-11-17] MEDS ORDERED: MAGNESIUM SULFATE / D5W 1 GM/100 ML BAG IV ONE (22:17)
[2018-11-18] MEDS ORDERED: PROMETHAZINE HCL 12.5 MG in SODIUM CHLORIDE 0.9% 50 ML IV PRN (01:41)
[2018-11-18] MEDS: metroNIDAZOLE 500 MG/100 ML BAG IV SCH ×3 (04:50→20:27)
[2018-11-18] MEDS: HYDROmorphone INJ 0.5 MG/0.5 ML SYR IV PRN (05:38)
[2018-11-18 05:45] LABS: Basophils # (auto) 0.02 K/uL (0-0.2); Basophils % (auto) 0.1 %; Eosinophils # (auto) 0.02 K/uL (0-0.5); Eosinophils % (auto) 0.1 %; Hematocrit (blood only) 34.4 % (37-47); Hemoglobin 11.7 g/dL (12.0-16.0); Immature Granulocytes # (auto) 0.08 K/uL (0.00-0.02); Immature Granulocytes % (auto) 0.4 %; Lymphocytes # (auto) 1.37 K/uL (1.2-3.4); Lymphocytes % (auto) 7.5 %; Mean Platelet Volume 9.2 fL (7.4-10.4); Monocytes # (auto) 1.32 K/uL (0.11-0.59); Monocytes % (auto) 7.2 %; Neutrophils # (auto) 15.53 K/uL (1.4-6.5); Neutrophils % (auto) 84.7 %; Platelet Count 255 K/uL (130-400); RDW Coefficient of Variation 12.9 % (11.5-14.5); RDW Standard Deviation 41.1 fL (36.4-46.3); White Blood Count 18.34 K/uL (4.8-10.8)
[2018-11-18 06:15] LABS: Albumin Level 2.9 gm/dl (3.4-5.0); Bilirubin Direct 0.3 mg/dl (0-0.2); Calcium 8.2 mg/dl (8.5-10.1); Est GFR (African American) 136.3; Est GFR (Non-African American) 117.6; Potassium 3.4 mmol/L (3.5-5.1)
[2018-11-18 06:27] LABS: Albumin Globulin Ratio 0.8 (0.9-2); Bilirubin,Total 0.9 mg/dl (0.2-1); Globulin 3.8 gm/dl (2.5-4.0); Total Protein 6.7 gm/dl (6.4-8.2)
[2018-11-18] MEDS: LACTATED RINGER'S 1,000 ML IV SCH ×2 (07:08→18:27)
--- NOTE | 2018-11-18 07:44 | Anesthesiology Consultation ---
Date of Service November 18, 2018 Assessment & Plan Chart Review Chart Review: Pending: Refer to Additional Notes / Consult section Consults Requested none ASA ASA4 Proposed Anesthesia Anesthesia Type: General History Surgery Operation Date: 11/18/18 11:50 Proposed Procedures p Endoscopic Retrograde Cholangiopancreatogram - Alejo Baumann MD Height/Weight Height: 5 ft 6 in Weight: 110 kg Allergies Allergy/AdvReac Type Severity Reaction Status Date / Time erythromycin base Allergy Intermediate RASH Verified 11/17/18 07:51 Penicillins Allergy Intermediate RASH Verified 11/17/18 07:51 sulfamethoxazole Allergy Intermediate RASH Verified 11/17/18 07:51 trimethoprim Allergy Intermediate RASH Verified 11/17/18 07:51 Bactrim Allergy Unknown RASH Verified 09/26/17 16:39 Medications Home Medications Medication Instructions Recorded Confirmed Last Taken acetaminophen 500 mg PO Q4H PRN 11/15/18 11/15/18 Unknown amlodipine 5 mg PO DAILY 11/15/18 11/15/18 Unknown docusate sodium [Colace] 100 mg PO DAILY PRN 11/15/18 11/15/18 Unknown hydrochlorothiazide 12.5 mg PO DAILY 11/15/18 11/15/18 Unknown lisinopril 5 mg PO DAILY 11/15/18 11/15/18 Unknown sertraline 100 mg PO DAILY 11/15/18 11/15/18 Unknown therapeutic multivitamin [Therems] 1 tab PO DAILY 11/15/18 11/15/18 Unknown Active Medications Generic Name Dose Route Start Last Admin Trade Name Freq PRN Reason Stop Dose Admin Amlodipine Besylate 5 mg 11/16/18 09:00 11/17/18 07:54 Norvasc PO 12/16/18 08:59 5 mg DAILY DORETHA Administration Metronidazole 500 mg in 100 mls @ 100 mls/hr 11/17/18 20:00 11/18/18 05:53 Flagyl IV 11/27/18 19:59 Infused Q8H DORETHA Infusion Protocol Cefepime HCl 2,000 mg/ Syringe 20 mls @ 5 mls/min 11/17/18 20:00 11/17/18 20:02 IV 11/27/18 19:59 5 mls/min Q12H DORETHA Administration Protocol Lactated Ringer's 1,000 mls @ 100 mls/hr 11/17/18 21:30 11/18/18 07:08 Lr IV 12/17/18 21:29 100 mls/hr .Q10H DORETHA Administration Promethazine HCl 12.5 mg/ 50.5 mls @ 202 mls/hr 11/18/18 01:41 11/18/18 06:01 Sodium Chloride IV 12/18/18 01:40 Infused Q6H PRN Infusion Nausea And Vomiting Ketorolac Tromethamine 15 mg 11/15/18 18:45 11/17/18 07:41 Toradol IV 11/20/18 18:44 15 mg Q6H PRN Administration Pain Morphine Sulfate 1 mg 11/15/18 18:45 11/16/18 12:51 Morphine Sulfate IV 11/29/18 18:44 1 mg Q6 PRN Administration Pain Sertraline HCl 100 mg 11/17/18 09:00 11/17/18 07:54 Zoloft PO 12/17/18 08:59 100 mg DAILY DORETHA Administration Past Medical History Medical History Multiple sclerosis (Chronic) Neurocognitive deficits (Chronic) History of brain tumor (Chronic) "hx pediatric brain tumor, unresectable. Hx multiple shunts for hydrocephalus. 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 Past Anesthesia History No Hx of Anesthesia Complications and No Family Hx of Anesthesia Complications History of PONV No Hx of PONV and No Hx of Motion Sickness Social History Smoking Status: Never smoker Hx Alcohol Use: No Hx Substance Use: No Physical Exam Vital Signs Last Vital Signs Temp 36.8 C 11/18/18 07:40 Pulse 105 H 11/18/18 07:07 Resp 16 11/18/18 07:07 BP 149/85 H 11/18/18 07:07 Pulse Ox 91 11/18/18 07:07 Testing Laboratory Results 11/18/18 05:39 11/18/18 05:34 Urine Color Dark Yellow 11/15/18 13:31 Urine Appearance Cloudy (Clear) A 11/15/18 13:31 Urine pH 7.0 (4.5-7.5) 11/15/18 13:31 Ur Specific [place] 1.020 (1.000-1.030) 11/15/18 13:31 Urine Protein 1+ (Negative) H 11/15/18 13:31 Urine Glucose (UA) Negative (Negative) 11/15/18 13:31 Urine Ketones Trace (Negative) H 11/15/18 13:31 Urine Nitrite Positive (Negative) A 11/15/18 13:31 Ur Leukocyte Esterase Trace (Negative) H 11/15/18 13:31 Urine WBC (Auto) 1-5 /hpf (0-5) 11/15/18 13:31 Urine RBC (Auto) 5-10 /hpf (0-4) H 11/15/18 13:31 U Hyaline Cast (Auto) 10-30 /lpf (0-5) H 11/15/18 13:31 U Epithel Cells (Auto) >30 /lpf (0-5) H 11/15/18 13:31 Urine Bacteria (Auto) 1+ (Negative) H 11/15/18 13:31 11/15/18 23:37 Urine Culture - Preliminary Urine,Clean Catch Pin-point growth present, reincubating. 11/15/18 13:31 Urine Culture - Final Urine,Straight Cath No growth - less than 1,000 colonies/mL. Electrocardiogram Date: 11/18/18 Findings: + ST @ (107;low voltage QRS;prolonged QT) Chest X-Ray Date: 11/17/18 Findings: + atelectasis (right basilar atelectasis/consolidation), + pulmonary vascular congestion (mild central vascular prominence) and + pleural effusion (small bilateral pleural effusion,R>L)
[2018-11-18] MEDS: MoRPHine SULFATE 2 MG/ML CARP IV PRN (09:07)
[2018-11-18] MEDS: CEFEPIME 2,000 MG in SYRINGE 7.5 ML IV SCH ×2 (09:08→20:27)
--- NOTE | 2018-11-18 09:08 | Gastroenterology Progress Note ---
Date of Service November 18, 2018 Assessment & Plan (1) Pancreatitis: Pt is a 48 y/o female w hx of unresectable brain tumor, hydrocephalus s/p WEB USER EXPERIENCE STRATEGIST shunt, MS admitted for pancreatitis ? gallstone related. Unable to obtain MRCP given WEB USER EXPERIENCE STRATEGIST shunt. Imaging studies including CT, u/s showed non dilated bile duct, + cholelithiasis. Initially had elevated WBC, LFTs and Lipase concerning for cholecystitis +/- cholangitis but now had improved, LFTs & Lipase normalized. ERCP is deferred. Pt did have mild fever yesterday, tachycardic and transferred to [facility] floor. CT abd/pelvis w contrast done yesterday w/o signs of pancreas necrosis. Does have atelectasis and persistent cholelithiasis and pancreatitis. - Defer timing of cholecystectomy per Surgery - Keep LR IVF if still NPO - Symptomatic management otherwise Supervising Physician Co-Signing Physician Notes I have performed a history and physical examination of this patient and reviewed the electronic medical record. Specifically, on physical examination there is no abdominal tenderness. I have discussed the case with RACHEL Smith. The above note reflects my findings, conclusions, and recommendations. Aljeo Baumann MD Subjective Pt reports having some abd tenderness - pointed to lower mid sectio area. Denies any n/v, chest pain. BM last week. Is passing flatus Mild fever 37.7C yesterday morning. HR 100s. LFTs normal. Lipase normal now to 289 Review of Systems Review of Systems: All systems reviewed & are unremarkable except as noted in HPI & below Physical Exam Constitutional: WD/WN, vitals as above well groomed, cooperative and comfortable Eyes: PERRL, conjunctivae normal, anicteric sclerae ENMT: external ear and nose normal, oropharynx normal Respiratory: normal respiratory effort, lungs clear to auscultation Cardiovascular: RRR, no murmur, no edema Gastrointestinal (Abdomen): Inspection/Auscultation: normal bowel sounds Percussion/Palpation: + abdomen tender (RUQ, mid lower ) and abdomen soft Skin: no rashes, warm and dry no jaundice Neurologic: Motor/Sensory: no asterixis Psychiatric: A+Ox3, euthymic affect Lymphatic: no lymphedema Results & Data Vital Signs (Past 12 Hours) Vital Signs Temp Pulse Pulse Pulse Resp BP Pulse Ox 11/18/18 07:40 36.8 C 11/18/18 07:07 37.7 C H 105 H 16 149/85 H 91 11/18/18 01:53 105 H 11/18/18 01:40 36.9 C 107 H 20 127/79 91 11/18/18 00:30 112 H 11/18/18 00:26 37.2 C 111 H 16 145/79 H 92 11/17/18 22:49 36.8 C 125 H 20 90 11/17/18 21:32 37.3 C 108 H 20 143/75 H 91
[2018-11-18] MEDS: AMLODIPINE BESYLATE 5 MG TAB PO SCH (09:09)
[2018-11-18] MEDS: SERTRALINE HCL 100 MG TABLET PO SCH (09:09)
--- NOTE | 2018-11-18 11:38 | Surgery Progress Note ---
Date of Service November 17, 2018 Results & Data Vital Signs (Past 12 Hours) Vital Signs Temp Pulse Resp BP Pulse Ox 11/17/18 15:21 37.3 C 126 H 18 99/60 L 91 11/17/18 10:50 36.8 C 106 H 20 145/77 H 100
--- NOTE | 2018-11-18 11:38 | Surgery Progress Note ---
Date of Service November 18, 2018 Assessment & Plan (1) Acute pancreatitis: clinically doing better and labs improved. will plan lap juanis tomorrow. discussed with pt and answered questions. she is agreeable. attempted to call her mother/POA without success and left message. we had discussed lap juanis previously with her mother but will try again tomorrow to contact. (2) Cholecystitis: Subjective looks better but continue to c/o of abdominal pain. non specific. nic liquids. no emesis Physical Exam Physical Exam: alert. nad abd: soft. mild diffuse tenderness. no peritoneal signs. Results & Data Vital Signs (Past 12 Hours) Vital Signs Temp Pulse Pulse Pulse Resp BP Pulse Ox 11/18/18 07:40 36.8 C 11/18/18 07:07 37.7 C H 105 H 16 149/85 H 91 11/18/18 01:53 105 H 11/18/18 01:40 36.9 C 107 H 20 127/79 91 11/18/18 00:30 112 H 11/18/18 00:26 37.2 C 111 H 16 145/79 H 92 (1) Acute pancreatitis Pancreatitis type: unspecified pancreatitis type Acute pancreatitis complication: unspecified Qualified Code(s): K85.90 - Acute pancreatitis without necrosis or infection, unspecified
--- NOTE | 2018-11-18 12:06 | Ultrasound Report ---
US venous doppler LE BI CLINICAL HISTORY: 48 years-old Female presenting with extended period of the mobility, clinical humberto rn for dvt. TECHNIQUE: Real-time grayscale and color and spectral Doppler ultrasound imaging of the veins of the bilateral lower extremities was performed. Compression and augmentation were also utilized. COMPARISON: None. FINDINGS: RIGHT: Common femoral vein: Patent. Greater saphenous vein (superficial): Patent. Deep femoral vein: Patent. Femoral vein: Patent. Popliteal vein: Patent. Calf veins: Patent. LEFT: Common femoral vein: Patent. Greater saphenous vein (superficial): Patent. Deep femoral vein: Patent. Femoral vein: Patent. Popliteal vein: Patent. Calf veins: Patent. Other: None. IMPRESSION: No evidence of deep venous thrombosis. Electronically signed by: Cj Torres M.D. 11/18/2018 12:05 PM
--- NOTE | 2018-11-18 13:23 | Hospitalist Progress Note ---
Date of Service November 18, 2018 Assessment & Plan (1) Acute pancreatitis: Abdominal pain about the same overall Lipase further improved, back to normal LFTs now normal IV fluids resumed antibiotics broadened from ceftriaxone to cefepime plus Flagyl Leukocytosis improving plan for Lap Mariam tomorrow clear liquids started today appreciate GI and Gen Surg SVC input Continue to monitor closely (2) S/P PATTERN WORKER shunt: Stable neurologically (3) Depression: Continue SSRI (4) Hx of hydrocephalus: Status post PATTERN WORKER shunt (5) HTN (hypertension): Pressure systolic in the 140s Denies headache, chest pain Diuretics, lisinopril/hydrochlorthiazide on hold Continue Norvasc Monitor (6) History of brain tumor: 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 status post PATTERN WORKER shunt no acute symptoms (7) Neurocognitive deficits: MS at baseline (8) Possible urinary tract infection: UTI ruled out urine culture negative DVT prophylaxis SCDs for now in light of possible surgery, history of brain tumor DisPosition pending (9) Multiple sclerosis: CODE STATUS: Full code discussed with patient DVT prophylaxis: SCD and teds Pharmacological anticoagulation avoided as patient may need surgical procedure Disposition Resident at [facility] PT OT evaluation request Social service consulted for discharge planning Subjective Follow-up for acute parotitis, cholelithiasis Seen resting, sitting up in bed, comfortable States abdominal pain is about the same as yesterday Denies nausea Denies fever chills, chest pain, shortness of breath, palpitations, dizziness No other symptoms looks better but continue to c/o of abdominal pain. non specific. nic liquids. no emesis Review of Systems Review of Systems: All systems reviewed & are unremarkable except as noted in HPI & below Physical Exam Physical Exam: General- oriented x 2, not in distress, speaks in sentences with no effort or accessory muscle use Eyes- anicteric Neck- no JVD Lungs- clear breath sounds bilaterally, no crackles, no wheezing Heart- normal rate, regular rhythm; no murmurs Abdomen- normal bowel sounds, nondistended, soft, mild tenderness all quadrants, no Cervantes sign Extremities-mild pretibial edema, no calf tenderness Neuro- alert, oriented x 2; no gross focal neurologic deficits Skin- warm & dry Results & Data Vital Signs (Past 12 Hours) Vital Signs Temp Pulse Pulse Pulse Resp BP Pulse Ox 11/18/18 07:40 36.8 C 11/18/18 07:07 37.7 C H 105 H 16 149/85 H 91 11/18/18 01:53 105 H 11/18/18 01:40 36.9 C 107 H 20 127/79 91 Laboratory Results Laboratory Results - last 24 hr 11/15/18 11/17/18 11/17/18 13:16 21:45 21:46 WBC RBC Hgb Hct MCV MCH MCHC RDW Std Deviation RDW Coeff of Kary Plt Count MPV Immature Gran % (Auto) Neut % (Auto) Lymph % (Auto) Collier % (Auto) Eos % (Auto) Baso % (Auto) Immature Gran # (Auto) Neut # (Auto) Lymph # (Auto) Collier # (Auto) Eos # (Auto) Baso # (Auto) Sodium 132 L Potassium 3.6 Chloride 99 Carbon Dioxide 25 Anion Gap 8.0 BUN 10 Creatinine 0.51 L Est Cr Clr Drug Dosing 173.2 Est GFR ( Amer) 133.7 Est GFR (Non-Af Amer) 115.3 BUN/Creatinine Ratio 19.4 Glucose 98 Lactate 0.7 Calcium 8.4 L Magnesium 1.7 L Total Bilirubin 0.9 Direct Bilirubin AST 20 ALT 34 Alkaline Phosphatase 88 Total Protein 6.8 Albumin 2.9 L Globulin 3.9 Albumin/Globulin Ratio 0.8 L Lipase TSH Specimen Hemolysis Hepatitis A IgM Ab NON-REACTIVE Hep B Core IgM Ab NON-REACTIVE 11/18/18 11/18/18 05:34 05:39 WBC 18.34 H RBC 4.00 L Hgb 11.7 L Hct 34.4 L MCV 86.0 MCH 29.3 MCHC 34.0 RDW Std Deviation 41.1 RDW Coeff of Kary 12.9 Plt Count 255 MPV 9.2 Immature Gran % (Auto) 0.4 Neut % (Auto) 84.7 Lymph % (Auto) 7.5 Collier % (Auto) 7.2 Eos % (Auto) 0.1 Baso % (Auto) 0.1 Immature Gran # (Auto) 0.08 H Neut # (Auto) 15.53 H Lymph # (Auto) 1.37 Collier # (Auto) 1.32 H Eos # (Auto) 0.02 Baso # (Auto) 0.02 Sodium 130 L Potassium 3.4 L Chloride 98 Carbon Dioxide 26 Anion Gap 6.0 BUN 6 L Creatinine 0.48 L Est Cr Clr Drug Dosing 184.0 Est GFR ( Amer) 136.3 Est GFR (Non-Af Amer) 117.6 BUN/Creatinine Ratio 13.0 Glucose 97 Lactate Calcium 8.2 L Magnesium Total Bilirubin 0.9 Direct Bilirubin 0.3 H AST 16 ALT 33 Alkaline Phosphatase 93 Total Protein 6.7 Albumin 2.9 L Globulin 3.8 Albumin/Globulin Ratio 0.8 L Lipase 289 TSH 2.030 Specimen Hemolysis Hepatitis A IgM Ab Hep B Core IgM Ab (1) Acute pancreatitis Pancreatitis type: unspecified pancreatitis type Acute pancreatitis complication: unspecified Qualified Code(s): K85.90 - Acute pancreatitis without necrosis or infection, unspecified (2) Depression Depression Type: unspecified Qualified Code(s): F32.9 - Major depressive disorder, single episode, unspecified (3) HTN (hypertension) Hypertension type: unspecified Qualified Code(s): I10 - Essential (primary) hypertension
[2018-11-18] MEDS ORDERED: POTASSIUM CHLORIDE 20 MEQ TABCR PO SCH (17:45)
[2018-11-18] MEDS ORDERED: POLYETHYLENE (MIRALAX) 17 GM PACK PO ONE (22:00)
[2018-11-18] MEDS ORDERED: DOCUSATE SODIUM 100 MG CAP PO ONE (22:00)
[2018-11-19] MEDS: metroNIDAZOLE 500 MG/100 ML BAG IV SCH ×3 (04:52→20:01)
[2018-11-19] MEDS: LACTATED RINGER'S 1,000 ML IV SCH ×3 (05:03→23:36)
[2018-11-19] MEDS: AMLODIPINE BESYLATE 5 MG TAB PO SCH (05:03)
[2018-11-19] MEDS: KETOROLAC TROMETHAMINE 15 MG/ML VIAL IV PRN (05:12)
[2018-11-19 06:27] LABS: Basophils # (auto) 0.02 K/uL (0-0.2); Basophils % (auto) 0.1 %; Eosinophils # (auto) 0.06 K/uL (0-0.5); Eosinophils % (auto) 0.4 %; Hematocrit (blood only) 32.1 % (37-47); Hemoglobin 11.3 g/dL (12.0-16.0); Immature Granulocytes % (auto) 0.6 %; Lymphocytes # (auto) 1.23 K/uL (1.2-3.4); Mean Corpuscular Hgb Conc 35.2 g/dL (32-36); Mean Corpuscular Volume 85.6 fL (80-100); Mean Platelet Volume 9.4 fL (7.4-10.4); Monocytes # (auto) 1.27 K/uL (0.11-0.59); Monocytes % (auto) 8.2 %; Neutrophils # (auto) 12.77 K/uL (1.4-6.5); Neutrophils % (auto) 82.7 %; Platelet Count 275 K/uL (130-400); RDW Coefficient of Variation 12.6 % (11.5-14.5); RDW Standard Deviation 39.5 fL (36.4-46.3); Red Blood Count 3.75 M/uL (4.2-5.4); White Blood Count 15.45 K/uL (4.8-10.8)
[2018-11-19] MEDS: CEFEPIME 2,000 MG in SYRINGE 7.5 ML IV SCH ×2 (07:54→19:54)
[2018-11-19] MEDS: SERTRALINE HCL 100 MG TABLET PO SCH (07:54)
[2018-11-19 08:55] LABS: BUN Creatinine Ratio 11.4 (10-20); Calcium 8.5 mg/dl (8.5-10.1); Creatinine Clr Calc Pharmacy 239.4 ml/min; Est GFR (African American) 148.5; Est GFR (Non-African American) 128.2; Potassium 3.3 mmol/L (3.5-5.1)
[2018-11-19] MEDS ORDERED: NEOSTIGMINE METHYLSULFATE 5 MG/5 ML SYR ONE (09:08)
[2018-11-19] MEDS ORDERED: PROPOFOL IV EMULSION 10 MG/ML 20 ML VIAL IV ONE (09:08)
[2018-11-19] MEDS ORDERED: LIDOCAINE HCL 2% 2 ML VIAL/AMP(20MG/ML) INFIL ONE (09:08)
[2018-11-19] MEDS ORDERED: GLYCOPYRROLATE 0.2 MG/ML VIAL ONE ×2 (09:08→11:00)
[2018-11-19] MEDS ORDERED: DEXAMETHASONE SOD INJ 4 MG/ML VIAL ONE (09:08)
[2018-11-19] MEDS ORDERED: ONDANSETRON INJ 2 MG/ML 2 ML VIAL ONE (09:08)
[2018-11-19] MEDS ORDERED: fentaNYL citrate 100 MCG/2 ML VIAL ONE ×2 (09:08→10:23)
[2018-11-19] MEDS ORDERED: MIDAZOLAM HCL 1 MG/ML 2ML VIAL ONE (09:08)
[2018-11-19] MEDS ORDERED: BUPIVACAINE/EPINEPHRINE 0.5% MPF 1:200,000 30 ML VIAL ONE (09:09)
[2018-11-19] MEDS ORDERED: ePHEDrine sulfate 50 MG/ML AMP IV PRN (09:20)
[2018-11-19] MEDS ORDERED: fentaNYL citrate 100 MCG/2 ML VIAL IV PRN (09:20)
[2018-11-19] MEDS ORDERED: ATROPINE SULFATE 0.1 MG/ML 10ML SYR IV PRN (09:20)
[2018-11-19] MEDS ORDERED: FLUMAZENIL 0.1 MG/1 ML 10 ML VIAL IV PRN (09:20)
[2018-11-19] MEDS ORDERED: PROMETHAZINE HCL 12.5 MG in SODIUM CHLORIDE 0.9% 50 ML IV PRN (09:20)
[2018-11-19] MEDS ORDERED: ONDANSETRON INJ 2 MG/ML 2 ML VIAL IV PRN (09:20)
[2018-11-19] MEDS ORDERED: LABETALOL HCL IV 5 MG/ML 20ML IV PRN (09:20)
[2018-11-19] MEDS ORDERED: NALOXONE HCL 0.4 MG/1 ML VIAL/CARP IV PRN (09:20)
--- NOTE | 2018-11-19 09:21 | History & Physical Bridge Note ---
Date of Service November 19, 2018 History & Physical Bridge Note I have examined the patient, reviewed the History & Physical and in the interval since the performance of the History & Physical I have noted the following changes of clinical significance: no changes noted pt 4examined procedure explained all questions answered Supervising Physician Co-Signing Physician Notes I have performed a history and physical examination of this patient and reviewed the electronic medical record. Specifically, on physical examination there is no abdominal tenderness. I have discussed the case with RACHEL Smith. The above note reflects my findings, conclusions, and recommendations. Alejo Baumann MD
[2018-11-19] MEDS ORDERED: CONRAY 60% 50 ML VIAL ONE (09:23)
--- NOTE | 2018-11-19 10:49 | Fluoroscopy Report ---
INTRAOPERATIVE RADIOGRAPHS CLINICAL HISTORY: Intraoperative cholangiogram. Laparoscopic cholecystectomy. Fluoroscopy time: 3 seconds. FINDINGS: 2 spot fluoroscopic views of the right upper quadrant from an intraoperative cholangiogram are obtained. Correlation is made with abdominal CT dated 11/17/2018. The gallbladder is surgically ab sent. The common bile duct is normal in caliber. There is no intrahepatic biliary ductal dilatation. No filling defects are identified to suggest choledocholithiasis. There is free contrast spillage int o the duodenum. IMPRESSION: Intraoperative cholangiogram images as above. There is no evidence of choledocholithiasis . Electronically signed by: Jaguar Herrera M.D. 11/19/2018 10:48 AM
--- NOTE | 2018-11-19 11:08 | Post Operative Brief Note ---
Immediate Post Op Note v1 Date of Surgery November 19, 2018 Pre & Post Diagnosis Operation Date: 11/18/18 11:50 <No data on this case meets the specified criteria> Operation Date: 11/19/18 11:00 Pre-Op Diagnosis: acute pancreatitis, cholecystitis Post-Op Diagnosis: chronic cholecystitis, cholelithiasis Procedure Operation Date: 11/18/18 11:50 <No data on this case meets the specified criteria> Operation Date: 11/19/18 11:00 Actual Procedures p Laparoscopic Cholecystectomy with Cholangriogram, Lysis of Adhesions(Not Applicable) - Arturo Jorge MD Surgeon Arturo Jorge MD Relationship Mgr b laura worthy Estimated Blood Loss 20 Findings Consistent with Post-Op Diagnosis Drains Carmelo-Estevez Drain (19 janine)
--- NOTE | 2018-11-19 11:19 | Operative Report ---
Post Operative Report Pre & Post Diagnosis Operation Date: 11/18/18 11:50 <No data on this case meets the specified criteria> Operation Date: 11/19/18 11:00 Pre-Op Diagnosis: acute pancreatitis, cholecystitis Post-Op Diagnosis: chronic cholecystitis, cholelithiasis Procedure Operation Date: 11/18/18 11:50 <No data on this case meets the specified criteria> Operation Date: 11/19/18 11:00 Actual Procedures p Laparoscopic Cholecystectomy with Cholangriogram, Lysis of Adhesions(Not Applicable) - Arturo Jorge MD The patient was brought into the operating theater and general endotracheal anesthesia supine position the abdomen was prepped Betadine solution properly draped timeout was had patient identified systemic antibiotics on board made a small incision approximately 2 inches above the umbilical area deepened to subcutaneous tissue sufficient enough to the cold up the abdominal wall with Leslee clamps the fascia was elevated small opening in the fascia was made 0 Vicryl stay sutures were used and under direct visualization with a hemostat we entered the peritoneal cavity followed by 5 mm trocar this time insufflation was adjusted 3 L a minute slowly we expanded and were able to place the camera and we identified that we were in an open area but circumference eventually limited by adhesions to the anterior abdominal wall there was a fine adhesive area in the right towards left upper quadrant that we broke through with the camera and then were able to visualize left upper quadrant under direct visualization there placed a 5 mm trocar lateral to the rectus with preemptive local analgesic once we are able to then to place this camera in this area we could identify that the patient had extensive abdominal adhesions to the abdominal wall somewhat fine some more more course we can see a couple catheters at that she had ventriculoperitoneal shunts the one catheter of interest was the one that was intact and appeared to be not towards the right upper quadrant overlying the liver we did not need to do anything with test the other ones were pretty much stuck in the adhesions that we left alone but circumferentially we had to create a window were placed the right upper quadrant 5 mm trocar placed in the camera individual sites we talked all the adhesions to the anterior abdominal wall so we were able to visualize the initial entry of the trocar in the supraumbilical area where we were in fatty tissue and omental tissue but no bowel was there. At this point once we created a full window in the right upper quadrant and we were able to place a 5 mm epigastric trocar and another subcostal ports the gallbladder was visualized was placed under traction and there were no adhesions of the gallbladder down the bia hepatis we dissected out the cystic duct was easily appreciated actually was large we clipped approximately a small opening cystic duct was made there was never could see anything extravasating from the small opening therefore we made 2 other opening more distally until we got into an area that we were able to safely place the #4 urethral catheter transverse to the abdominal wall and Angiocath serial x-rays were taken showed free flow into the duodenum no obstruction and common bile duct and no dilatation. And no filling defect. The Cholangiocath was then removed the cystic duct was doubly secured clipped. The subhepatic area was checked hemostasis appear satisfactory we then took the gallbladder in the antegrade fashion intact off the liver leaving as much posterior peritoneum as possible. Gallbladder was placed in Endopouch and taken out intact through the epigastric port subhepatic suprahepatic area was then checked hemostasis appear satisfactory but I elected to drain this with a Jose drain taken out medial to the umbilical ligament taken out medial to the epigastric trocar site and taken out lateral to the trocar site placed subhepatically this was a 19 Jose attached to skin edge with 2-0 silk suture individual trocar port of entry inspected no injury identified unless the trocar umbilical area was removed wounds were closed with fastest fascial stitch of 0 Vicryl [id number] for the umbilical and the elements for 4-0 Monocryl Steri-Strips applied procedure was tolerated well by the patient estimated blood loss 20 cc the patient was taken recovery room in good condition Robinson Orozco was present throughout the procedure helped with retraction exposure camera work and wound closure Surgeon Arturo Jorge MD Brass Molder Helper mariaa worthy Estimated Blood Loss 20 Findings Consistent with Post-Op Diagnosis Specimens gallbladder and contents Description of Procedure gallbladder and contents I attest to the content of the Intraoperative Record and any orders documented therein. Any exceptions are noted below. Supervising Physician Co-Signing Physician Notes I have performed a history and physical examination of this patient and reviewed the electronic medical record. Specifically, on physical examination there is no abdominal tenderness. I have discussed the case with RACHEL Smith. The above note reflects my findings, conclusions, and recommendations. Alejo Baumann MD
--- NOTE | 2018-11-19 11:20 | Operative Report ---
Post Operative Report Pre & Post Diagnosis Operation Date: 11/18/18 11:50 <No data on this case meets the specified criteria> Operation Date: 11/19/18 11:00 Pre-Op Diagnosis: acute pancreatitis, cholecystitis Post-Op Diagnosis: chronic cholecystitis, cholelithiasis Procedure Operation Date: 11/18/18 11:50 <No data on this case meets the specified criteria> Operation Date: 11/19/18 11:00 Actual Procedures p Laparoscopic Cholecystectomy with Cholangriogram, Lysis of Adhesions(Not Applicable) - Arturo Jorge MD Surgeon Arturo Jorge MD Nailhead Setter mariaa worthy Estimated Blood Loss 20 Findings Consistent with Post-Op Diagnosis Specimens gallbladder and contents Description of Procedure merda I attest to the content of the Intraoperative Record and any orders documented therein. Any exceptions are noted below.
--- NOTE | 2018-11-19 11:22 | Hospitalist Progress Note ---
Date of Service November 19, 2018 Assessment & Plan (1) Acute pancreatitis: Abdominal pain well controlled by analgesics Given vigorous IV fluids Lipase further improved, back to normal LFTs now normal Leukocytosis noted to be increasing with tachycardia Repeat CT abdomen: No signs of necrotizing pancreatitis antibiotics broadened from ceftriaxone to cefepime plus Flagyl for possible component of cholecystitis Leukocytosis improving since antibiotic was broadened Afebrile times few days plan for Lap Mariam today clear liquids. 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 neurologically (3) Depression: Continue SSRI (4) Hx of hydrocephalus: Status post NATURAL GAS INSPECTOR shunt (5) HTN (hypertension): Pressure systolic in the 140s Denies headache, chest pain Diuretics, lisinopril/hydrochlorthiazide on hold Norvasc increased Monitor (6) History of brain tumor: 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 status post NATURAL GAS INSPECTOR shunt no acute symptoms (7) Neurocognitive deficits: MS at baseline (8) Possible urinary tract infection: UTI ruled out urine culture negative (9) Multiple sclerosis: CODE STATUS: Full code discussed with patient DVT prophylaxis: SCD and teds Pharmacological anticoagulation avoided as patient is to have lap scopic cholecystectomy, and also has inoperable brain tumor Disposition Resident at [facility] PT OT evaluation request Social service consulted for discharge planning Subjective Follow-up for acute pancreatitis, cholelithiasis Seen with TIFFANY Mas at the bedside throughout whole encounter States her abdominal pain is about the same, but denies nausea, fevers or chills Denies shortness of breath, cough, chest pain, palpitations, dizziness Tolerated clear liquids yesterday, no other symptoms Review of Systems Review of Systems: All systems reviewed & are unremarkable except as noted in HPI & below Physical Exam Physical Exam: General- oriented x2, not in distress, speaks in sentences with no effort or accessory muscle use Eyes- anicteric Neck- no JVD Lungs- clear breath sounds bilaterally, no crackles, no wheezing Heart- normal rate, regular rhythm; no murmurs Abdomen- normal bowel sounds, nondistended, soft, mild tenderness on all quadrants Extremities-mild pretibial edema, no calf tenderness Neuro- alert, oriented x 2; no gross focal neurologic deficits Skin- warm & dry Results & Data Vital Signs (Past 12 Hours) Vital Signs Temp Pulse Pulse Pulse Resp BP BP 11/19/18 09:25 36.8 C 103 H 22 151/78 H 11/19/18 08:11 87 11/19/18 07:21 89 19 145/84 H 11/19/18 05:06 37.8 C H 118 H 18 135/76 11/18/18 23:59 99 H 11/18/18 23:53 37.1 C 115 H 20 166/86 H Pulse Ox 11/19/18 09:25 97 11/19/18 08:11 11/19/18 07:21 94 11/19/18 05:06 96 11/18/18 23:59 11/18/18 23:53 93 Laboratory Results Laboratory Results - last 24 hr 11/19/18 11/19/18 06:03 06:03 WBC 15.45 H RBC 3.75 L Hgb 11.3 L Hct 32.1 L MCV 85.6 MCH 30.1 MCHC 35.2 RDW Std Deviation 39.5 RDW Coeff of Kary 12.6 Plt Count 275 MPV 9.4 Immature Gran % (Auto) 0.6 Neut % (Auto) 82.7 Lymph % (Auto) 8.0 Reagan % (Auto) 8.2 Eos % (Auto) 0.4 Baso % (Auto) 0.1 Immature Gran # (Auto) 0.10 H Neut # (Auto) 12.77 H Lymph # (Auto) 1.23 Reagan # (Auto) 1.27 H Eos # (Auto) 0.06 Baso # (Auto) 0.02 Sodium 132 L Potassium 3.3 L Chloride 99 Carbon Dioxide 25 Anion Gap 7.0 BUN 4 L Creatinine 0.37 L Est Cr Clr Drug Dosing 239.4 Est GFR ( Amer) 148.5 Est GFR (Non-Af Amer) 128.2 BUN/Creatinine Ratio 11.4 Glucose 100 H Calcium 8.5 (1) Depression Depression Type: unspecified Qualified Code(s): F32.9 - Major depressive disorder, single episode, unspecified (2) HTN (hypertension) Hypertension type: unspecified Qualified Code(s): I10 - Essential (primary) hypertension (3) Acute pancreatitis Acute pancreatitis complication: unspecified Pancreatitis type: unspecified pancreatitis type Qualified Code(s): K85.90 - Acute pancreatitis without necrosis or infection, unspecified
--- NOTE | 2018-11-19 12:03 | Anesthesiology Progress Note ---
Date of Service November 19, 2018 Anesthesia Post Procedure Vital Signs Vital Signs: Temp Pulse Pulse Pulse Resp BP BP 11/19/18 11:50 97 H 17 146/96 H 11/19/18 11:40 123 H 21 145/72 H 11/19/18 11:30 36.3 C L 106 H 14 157/97 H 11/19/18 09:25 36.8 C 103 H 22 151/78 H 11/19/18 08:11 87 11/19/18 07:21 89 19 145/84 H 11/19/18 05:06 37.8 C H 118 H 18 135/76 11/18/18 23:59 99 H 11/18/18 23:53 37.1 C 115 H 20 166/86 H 11/18/18 20:03 37.3 C 110 H 24 147/88 H 11/18/18 18:27 142/85 H 11/18/18 15:27 103 H 11/18/18 14:57 37.2 C 84 20 153/91 H Pulse Ox 11/19/18 11:50 98 11/19/18 11:40 92 11/19/18 11:30 93 11/19/18 09:25 97 11/19/18 08:11 11/19/18 07:21 94 11/19/18 05:06 96 11/18/18 23:59 11/18/18 23:53 93 11/18/18 20:03 92 11/18/18 18:27 11/18/18 15:27 11/18/18 14:57 93 Pain Intensity Abdomen: Pain Intensity: 8 Transfer of Care Handoff Completed per policy Notes Mental Status: alert / awake / arousable Patient Amnestic to Procedure: Yes Nausea / Vomiting: adequately controlled Pain: adequately controlled Airway Patency, RR, SpO2: stable & adequate BP & HR: stable & adequate Hydration State: stable & adequate Anesthetic Complications: no major complications apparent
[2018-11-19] MEDS ORDERED: MoRPHine SULFATE 4 MG/ML 1 ML CARP\\VIAL IV PRN (13:03)
[2018-11-19] MEDS ORDERED: OXYCODONE/ACETAMINOPHEN 5mg/325mg TAB PO PRN (13:03)
--- NOTE | 2018-11-19 18:04 | XRay Report ---
XR chest 1V portable CLINICAL HISTORY: 48 years-old Female presenting with hypoxia. TECHNIQUE: Portable upright AP view of the chest was obtained. COMPARISON: 11/17/2018. FINDINGS: A catheter descends along the right neck and right chest wall. Cardiomediastinal silhouette normal. L ow lung volumes most pronounced on the right with elevation of the right hemidiaphragm. Underlying sm all right pleural effusion suspected. Poor aeration of the right lung base. Sutures may be present at the right lung base. The left lung is grossly clear though a trace left pleural effusion may be pres ent. Osseous structures normal. Gaseous distention of colon or stomach. External leads project over t he right upper quadrant. IMPRESSION: 1. Low lung volumes worse on the right. 2. Small right and trace left pleural effusions. No significant change from prior. Electronically signed by: Cj Torres M.D. 11/19/2018 6:03 PM
[2018-11-19 18:59] LABS: BUN Creatinine Ratio 12.2 (10-20); Calcium 8.7 mg/dl (8.5-10.1); Creatinine Clr Calc Pharmacy 132.2 ml/min; Est GFR (African American) 122.2; Est GFR (Non-African American) 105.4; Magnesium 2.1 mg/dl (1.8-2.4); Potassium 3.5 mmol/L (3.5-5.1)
[2018-11-19] MEDS ORDERED: POTASSIUM CHLORIDE 20 MEQ TABCR PO STA (19:05)
[2018-11-20] MEDS: metroNIDAZOLE 500 MG/100 ML BAG IV SCH ×3 (04:01→19:27)
[2018-11-20 06:30] LABS: Basophils # (auto) 0.01 K/uL (0-0.2); Basophils % (auto) 0.1 %; Hematocrit (blood only) 31.7 % (37-47); Hemoglobin 10.7 g/dL (12.0-16.0); Immature Granulocytes # (auto) 0.13 K/uL (0.00-0.02); Lymphocytes # (auto) 1.37 K/uL (1.2-3.4); Lymphocytes % (auto) 10.3 %; Mean Corpuscular Hgb Conc 33.8 g/dL (32-36); Mean Corpuscular Volume 86.8 fL (80-100); Mean Platelet Volume 8.9 fL (7.4-10.4); Monocytes % (auto) 7.5 %; Neutrophils # (auto) 10.81 K/uL (1.4-6.5); Neutrophils % (auto) 81.1 %; Platelet Count 321 K/uL (130-400); RDW Coefficient of Variation 12.9 % (11.5-14.5); RDW Standard Deviation 41.5 fL (36.4-46.3); Red Blood Count 3.65 M/uL (4.2-5.4); White Blood Count 13.32 K/uL (4.8-10.8)
[2018-11-20 07:04] LABS: Albumin Level 2.7 gm/dl (3.4-5.0); BUN Creatinine Ratio 15.3 (10-20); Bilirubin Direct 0.1 mg/dl (0-0.2); Bilirubin,Total 0.5 mg/dl (0.2-1); Calcium 8.6 mg/dl (8.5-10.1); Creatinine Clr Calc Pharmacy 164.2 ml/min; Est GFR (African American) 131.2; Est GFR (Non-African American) 113.2; Potassium 3.8 mmol/L (3.5-5.1); Total Protein 6.6 gm/dl (6.4-8.2)
--- NOTE | 2018-11-20 07:28 | Surgery Progress Note ---
Date of Service November 20, 2018 Assessment & Plan (1) Pancreatitis: POD 1 lap juanis seen with Dr. Luisito Garcia drain removed advance diet ok for discharge from our standpoint Subjective no comlaints, tolerating diet, ready to go home Physical Exam Gastrointestinal (Abdomen): Inspection/Auscultation: + abdominal surgical incision (clean, dry) and + abdominal surgical drain present (125 cc); abdomen not distended Percussion/Palpation: abdomen soft Results & Data Vital Signs (Past 12 Hours) Vital Signs Temp Pulse Pulse Pulse Resp BP BP 11/20/18 07:22 36.7 C 92 H 20 142/80 H 11/20/18 04:25 37.6 C H 102 H 20 136/68 11/19/18 23:59 83 11/19/18 23:00 37.0 C 85 18 119/60 11/19/18 19:42 36.9 C 100 H 20 125/83 Pulse Ox 11/20/18 07:22 95 11/20/18 04:25 93 11/19/18 23:59 11/19/18 23:00 91 11/19/18 19:42 92
[2018-11-20] MEDS ORDERED: ONDANSETRON INJ 2 MG/ML 2 ML VIAL IV PRN (07:41)
[2018-11-20] MEDS: CEFEPIME 2,000 MG in SYRINGE 7.5 ML IV SCH ×2 (08:09→19:21)
[2018-11-20] MEDS: SERTRALINE HCL 100 MG TABLET PO SCH (08:11)
[2018-11-20] MEDS: AMLODIPINE BESYLATE 5 MG TAB PO SCH (08:11)
--- NOTE | 2018-11-20 08:21 | Anesthesiology Progress Note ---
Date of Service November 20, 2018 Anesthesia Post Procedure Vital Signs Vital Signs: Temp Pulse Pulse Pulse Pulse Resp BP 11/20/18 07:22 36.7 C 92 H 20 142/80 H 11/20/18 04:25 37.6 C H 102 H 20 136/68 11/19/18 23:59 83 11/19/18 23:00 37.0 C 85 18 11/19/18 19:42 36.9 C 100 H 20 125/83 11/19/18 15:38 116 H 11/19/18 15:35 36.4 C L 104 H 18 126/82 11/19/18 15:29 37 C 102 H 20 133/83 11/19/18 14:50 36.7 C 104 H 18 122/75 11/19/18 13:02 36.6 C 85 18 136/82 11/19/18 12:25 36.9 C 99 H 16 137/92 11/19/18 12:10 92 H 17 146/91 H 11/19/18 12:00 37.1 C 97 H 17 135/93 11/19/18 11:50 97 H 17 146/96 H 11/19/18 11:40 123 H 21 145/72 H 11/19/18 11:30 36.3 C L 106 H 14 157/97 H 11/19/18 09:25 36.8 C 103 H 22 151/78 H BP Pulse Ox 11/20/18 07:22 95 11/20/18 04:25 93 11/19/18 23:59 11/19/18 23:00 119/60 91 11/19/18 19:42 92 11/19/18 15:38 11/19/18 15:35 94 11/19/18 15:29 92 11/19/18 14:50 92 11/19/18 13:02 93 11/19/18 12:25 95 11/19/18 12:10 92 11/19/18 12:00 93 11/19/18 11:50 98 11/19/18 11:40 92 11/19/18 11:30 93 11/19/18 09:25 97 Pain Intensity Abdomen: Pain Intensity: 8 Notes Mental Status: alert / awake / arousable and participated in evaluation Patient Amnestic to Procedure: Yes Nausea / Vomiting: adequately controlled Pain: adequately controlled Airway Patency, RR, SpO2: stable & adequate BP & HR: stable & adequate Hydration State: stable & adequate Anesthetic Complications: no major complications apparent
--- NOTE | 2018-11-20 18:55 | Hospitalist Progress Note ---
Date of Service November 20, 2018 Assessment & Plan (1) Acute pancreatitis: -Abdominal pain resolved -off IV fluids Operation Date: 11/19/18 Pre-Op Diagnosis: acute pancreatitis, cholecystitis Post-Op Diagnosis: chronic cholecystitis, cholelithiasis Procedure s/p Laparoscopic Cholecystectomy with Cholangriogram, Leukocytosis downtrending with cefepime plus Flagyl, continue antibiotics for now (2) S/P DISH WASHER shunt: Stable neurologically (3) Depression: Continue SSRI (4) Hx of hydrocephalus: Status post DISH WASHER shunt in the past (5) HTN (hypertension): transition from amlodipine 7.5 mg back to 5 mg daily home dose resume home dose HCTZ and lisinopril which were initially held during the hosptal stay (6) History of brain tumor: 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 Social service consulted for discharge planning Subjective Today patient passed trial of void with sousa removed. also titrated from nasal cannula to room air. patient denies shortness of breath. no chest pain. no abdomen pain. no vomiting. no other concerns Physical Exam Constitutional: comfortable Eyes: PERRL, conjunctivae normal, anicteric sclerae EOM intact bilaterally Neck: trachea midline, no thyromegaly Respiratory: normal respiratory effort, lungs clear to auscultation Cardiovascular: RRR, no murmur, no edema Gastrointestinal (Abdomen): Percussion/Palpation: abdomen soft surgical scars, nontender abdomen Musculoskeletal: no cyanosis or clubbing, extremities motor strength 5/5 Neurologic: CN's II-XI intact bilaterally Psychiatric: Orientation: alert and cooperative Results & Data Vital Signs (Past 12 Hours) Vital Signs Temp Pulse Pulse Resp BP BP Pulse Ox 11/20/18 15:47 36.6 C 88 20 155/91 H 96 11/20/18 15:00 92 H 11/20/18 13:35 95 11/20/18 11:50 85 11/20/18 07:22 36.7 C 92 H 20 142/80 H 95 (1) Acute pancreatitis Pancreatitis type: unspecified pancreatitis type Acute pancreatitis complication: unspecified Qualified Code(s): K85.90 - Acute pancreatitis without necrosis or infection, unspecified (2) Depression Depression Type: unspecified Qualified Code(s): F32.9 - Major depressive disorder, single episode, unspecified (3) HTN (hypertension) Hypertension type: unspecified Qualified Code(s): I10 - Essential (primary) hypertension
[2018-11-20] MEDS ORDERED: LISINOPRIL 5 MG TAB PO ONE (19:30)
[2018-11-20] MEDS ORDERED: hydroCHLOROthiazide 25 MG TAB PO ONE (19:30)
[2018-11-21] MEDS: metroNIDAZOLE 500 MG/100 ML BAG IV SCH ×2 (04:21→11:27)
[2018-11-21 06:17] LABS: Basophils # (auto) 0.02 K/uL (0-0.2); Basophils % (auto) 0.1 %; Eosinophils # (auto) 0.12 K/uL (0-0.5); Eosinophils % (auto) 0.7 %; Hematocrit (blood only) 32.4 % (37-47); Hemoglobin 11.1 g/dL (12.0-16.0); Immature Granulocytes # (auto) 0.24 K/uL (0.00-0.02); Immature Granulocytes % (auto) 1.4 %; Lymphocytes # (auto) 1.69 K/uL (1.2-3.4); Lymphocytes % (auto) 9.6 %; Mean Corpuscular Hgb Conc 34.3 g/dL (32-36); Mean Corpuscular Volume 86.4 fL (80-100); Mean Platelet Volume 8.7 fL (7.4-10.4); Monocytes # (auto) 1.76 K/uL (0.11-0.59); Neutrophils # (auto) 13.71 K/uL (1.4-6.5); Neutrophils % (auto) 78.2 %; Platelet Count 341 K/uL (130-400); RDW Coefficient of Variation 13.1 % (11.5-14.5); RDW Standard Deviation 41.5 fL (36.4-46.3); Red Blood Count 3.75 M/uL (4.2-5.4); White Blood Count 17.54 K/uL (4.8-10.8)
[2018-11-21 07:04] LABS: BUN Creatinine Ratio 18.5 (10-20); Calcium 8.2 mg/dl (8.5-10.1); Creatinine Clr Calc Pharmacy 199.3 ml/min; Est GFR (African American) 139.3; Est GFR (Non-African American) 120.2; Potassium 3.2 mmol/L (3.5-5.1)
[2018-11-21] MEDS: CEFEPIME 2,000 MG in SYRINGE 7.5 ML IV SCH (07:44)
[2018-11-21] MEDS: SERTRALINE HCL 100 MG TABLET PO SCH (07:47)
[2018-11-21] MEDS: POTASSIUM CHLORIDE / WTR 10 MEQ/100 ML PLCT IV SCH ×2 (07:48→09:01)
[2018-11-21] MEDS ORDERED: AMLODIPINE BESYLATE 5 MG TAB PO SCH (09:00)
[2018-11-21] MEDS ORDERED: LISINOPRIL 5 MG TAB PO SCH (09:00)
[2018-11-21] MEDS ORDERED: hydroCHLOROthiazide 25 MG TAB PO SCH (09:00)
--- NOTE | 2018-11-21 12:47 | Hospitalist Progress Note ---
Date of Service November 21, 2018 Assessment & Plan (1) Acute pancreatitis: This is a 48 year old female who presented with abdominal pain and found to have Acute Pancreatitis and also treated also for cholecystitis, cholelithiasis with antibiotics and Laparoscopic Cholecystectomy with Cholangr iogram Acute Pancreatitis cholecystitis, cholelithiasis -Abdominal pain resolved -off IV fluids Operation Date: 11/19/18 Pre-Op Diagnosis: Post-Op Diagnosis: chronic cholecystitis, cholelithiasis Procedure s/p Laparoscopic Cholecystectomy with Cholangriogram, antibiotic course -Cefepime IV and Flagyl IV from 11/17/18 to 11/21/18 -11/21/18 switch to oral metronidazole -Discharge to [facility] Patient should take Metronidazole 500 mg every 8 hours for 5 more days Patient should take primary care doctor in 1 week (2) S/P ANALYTICAL LEAD shunt: s/p Ventriculoperitoneal shunting in the past because of complications from brain tumor (3) Depression: Continue SSRI (4) Hx of hydrocephalus: s/p Ventriculoperitoneal shunting in the past because of complications from brain tumor (5) HTN (hypertension): was transitioned from amlodipine 7.5 mg back to 5 mg daily home dose and was then resumed home dose HCTZ and lisinopril which were initially held during the hospital stay continue on discharge amlodipine 5 mg daily, HCTZ 12.5 mg daily, lisinopril 5 mg daily (6) History of brain tumor: 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 status post ANALYTICAL LEAD shunt no acute symptoms Patient should follow up with previously scheduled appointment for 12/05/2018 10:00 AM Provider RACHEL Graham Department Neurology [facility] (7) Neurocognitive deficits: baseline mental status (8) Possible urinary tract infection: UTI ruled out urine culture negative (9) Multiple sclerosis: CODE STATUS: Full code discussed with patient DVT prophylaxis: SCD and teds Discharge Diagnosis Acute pancreatitis, cholecystitis, cholelithiasis, s/p laparoscopic cholecystectomy, hypertension, Episode of V. tach 12 beats on 11/19/2018 but no subsequent arrythmias and normal echocardiogram s/p Ventriculoperitoneal shunting in the past because of complications from brain tumor Subjective Patient continues to be breathing on room air . Able to make bowel movements and urinate without sousa. no abdomen pain. no vomiting. no chest pain. no shortness of breath. she would like to be discharged from the hospital Physical Exam Constitutional: comfortable Eyes: PERRL, conjunctivae normal, anicteric sclerae EOM intact bilaterally Neck: trachea midline, no thyromegaly Respiratory: normal respiratory effort, lungs clear to auscultation Cardiovascular: RRR, no murmur, no edema Gastrointestinal (Abdomen): Percussion/Palpation: abdomen soft Musculoskeletal: no cyanosis or clubbing, extremities motor strength 5/5 Neurologic: CN's II-XI intact bilaterally Psychiatric: Orientation: alert and cooperative Results & Data Vital Signs (Past 12 Hours) Vital Signs Temp Pulse Pulse Pulse Pulse Resp BP 11/21/18 12:06 37.2 C 85 16 138/85 11/21/18 11:19 37.4 C 100 H 104 H 82 18 148/80 H 11/21/18 08:05 18 11/21/18 07:13 92 H 11/21/18 07:11 37.4 C 82 16 148/80 H 11/21/18 03:05 37.1 C 96 H 20 139/83 BP Pulse Ox 11/21/18 12:06 98 11/21/18 11:19 150/89 H 95 11/21/18 08:05 11/21/18 07:13 11/21/18 07:11 95 11/21/18 03:05 93 (1) Depression Depression Type: unspecified Qualified Code(s): F32.9 - Major depressive disorder, single episode, unspecified (2) HTN (hypertension) Hypertension type: unspecified Qualified Code(s): I10 - Essential (primary) hypertension (3) Acute pancreatitis Acute pancreatitis complication: unspecified Pancreatitis type: unspecified pancreatitis type Qualified Code(s): K85.90 - Acute pancreatitis without necrosis or infection, unspecified
--- NOTE | 2018-11-21 12:56 | Discharge Summary ---
Date of Service November 21, 2018 Admission HPI Per Admitting Provider Is a 48-year-old female with history of unresectable brain tumor, hydrocephalus, status post multiple RESERVOIR ENGINEERING ADVISOR shunt, multiple sclerosis, seizure disorder [facility] with complaint of intractable abdominal pain associated with nausea vomiting started this morning Labs showed mild leukocytosis with white count elevated to 17 K lipase level 19, 911 Borderline Elevated LFT with AST 67/ALT 85 CT abdomen pelvis shows: Edematous pancreas suggestive of an cryptitis, cholelithiasis with no evidence of cholecystitis, no CBD dilatation noted Abdominal pain has improved 2 out of 10 after getting IV Dilaudid 1 mg She denies of any fever chills, no cough, no shortness of breath, no chest heaviness or dyspnea on exertion Episode of nausea leading to vomiting this morning, Had normal bowel movement today, no diarrhea, no blood in stool or dark stool Denies of any headache, no blurred vision, no recent tick bite, no weakness or paresthesia in any part of the body Admission Exam Per Admitting Provider Constitutional: WD/WN, vitals as above no acute distress Eyes: PERRL, conjunctivae normal, anicteric sclerae ENMT: external ear and nose normal, oropharynx normal Neck: trachea midline, no thyromegaly Respiratory: normal respiratory effort, lungs clear to auscultation Cardiovascular: RRR, no murmur, no edema Gastrointestinal (Abdomen): Inspection/Auscultation: abdomen normal to inspection Percussion/Palpation: + abdomen tender and abdomen soft; no ascites Positive mid abdomen and epigastric tenderness, bowel sounds diminished Musculoskeletal: no cyanosis or clubbing, extremities motor strength 5/5 Skin: no rashes, warm and dry Neurologic: PERRL, EOMI, accommodation nl, no face palsy, no dysarthria Principal Diagnosis Acute pancreatitis, cholecystitis, cholelithiasis, s/p laparoscopic cholecystectomy, hypertension, Episode of V. tach 12 beats on 11/19/2018 but no subsequent arrythmias and normal echocardiogram Other diagnosis s/p Ventriculoperitoneal shunting in the past because of complications from brain tumor Discharge Data Allergies Allergy/AdvReac Type Severity Reaction Status Date / Time erythromycin base Allergy Intermediate RASH Verified 11/19/18 08:55 Penicillins Allergy Intermediate RASH Verified 11/19/18 08:55 sulfamethoxazole Allergy Intermediate RASH Verified 11/19/18 08:55 trimethoprim Allergy Intermediate RASH Verified 11/19/18 08:55 Bactrim Allergy Unknown RASH Verified 09/26/17 16:39 Consultations 11/15/18 15:44 Consult General Surgery Stat ED Decision to Admit Stat 11/15/18 18:45 Consult Case Management - Discharge Planning Routine Consult Gastroenterology Routine Consult General Surgery Routine Procedures Performed Operation Date: 11/18/18 11:50 <No data on this case meets the specified criteria> Operation Date: 11/19/18 11:00 Actual Procedures p Laparoscopic Cholecystectomy with Cholangriogram, Lysis of Adhesions(Not Applicable) - Arturo Jorge MD Ordered Studies 11/15/18 11:16 CT abd pelvis wo con Stat 11/15/18 17:34 US liver Stat 11/17/18 10:42 CT abd pelvis IV con only Urgent 11/18/18 08:42 US venous doppler LE BI Stat 11/19/18 [place] cholangiogram OR Routine Hospital Course (1) Acute pancreatitis: This is a 48 year old female who presented with abdominal pain and found to have Acute Pancreatitis and also treated also for cholecystitis, cholelithiasis with antibiotics and Laparoscopic Cholecystectomy with Cholangriogram Acute Pancreatitis cholecystitis, cholelithiasis -Abdominal pain resolved -off IV fluids Operation Date: 11/19/18 Pre-Op Diagnosis: Post-Op Diagnosis: chronic cholecystitis, cholelithiasis Procedure s/p Laparoscopic Cholecystectomy with Cholangriogram, antibiotic course -Cefepime IV and Flagyl IV from 11/17/18 to 11/21/18 -11/21/18 switch to oral metronidazole -Discharge to [facility] Patient should take Metronidazole 500 mg every 8 hours for 5 more days Patient should take primary care doctor in 1 week (2) S/P RESERVOIR ENGINEERING ADVISOR shunt: s/p Ventriculoperitoneal shunting in the past because of complications from brain tumor (3) Depression: Continue SSRI (4) Hx of hydrocephalus: s/p Ventriculoperitoneal shunting in the past because of complications from brain tumor (5) HTN (hypertension): was transitioned from amlodipine 7.5 mg back to 5 mg daily home dose and was then resumed home dose HCTZ and lisinopril which were initially held during the hospital stay continue on discharge amlodipine 5 mg daily, HCTZ 12.5 mg daily, lisinopril 5 mg daily (6) History of brain tumor: 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 status post RESERVOIR ENGINEERING ADVISOR shunt no acute symptoms Patient should follow up with previously scheduled appointment for 12/05/2018 10:00 AM Provider RACHEL Graham Department Neurology [facility] (7) Neurocognitive deficits: baseline mental status (8) Possible urinary tract infection: UTI ruled out urine culture negative (9) Multiple sclerosis: CODE STATUS: Full code discussed with patient DVT prophylaxis: SCD and teds Discharge Diagnosis Acute pancreatitis, cholecystitis, cholelithiasis, s/p laparoscopic cholecystectomy, hypertension, Episode of V. tach 12 beats on 11/19/2018 but no subsequent arrythmias and normal echocardiogram s/p Ventriculoperitoneal shunting in the past because of complications from brain tumor Total Time Total Time Spent Total Time Spent (In Minutes): 40 minutes Total Time Includes: Examination of the Patient, Discharge Planning, Medication Reconciliation and Communication With Other Providers Discharge Plan Discharge Items Patient Disposition: Personal Assisted Reason For Visit: ABD PAIN PANCREATITIS Discharge Diagnosis: Acute pancreatitis, cholecystitis, cholelithiasis, s/p laparoscopic cholecystectomy, hypertension, s/p Ventriculoperitoneal shunting in the past because of complications from brain tumor, Episode of V. tach 12 beats on 11/19/2018 but no subsequent arrythmias and normal echocardiogram Condition: Good Discharge Goals: Decrease discomfort Activity: Per 'Additional Instructions' section Lifting: No more than 10 pounds Bathing Comment: OK to shower, remove bandage to shower, cover daily until dry Non-emergency contact: Surgeon Call non-emergency contact if: you have any medication questions, your pain is not controlled, you have a fever, your temperature is above 101.5, your wound has increased redness and your wound has increased drainage Follow-up/Referrals: Arturo Jorge MD [Surgeon] - (Call to make an appt in 1 week) [facility] [Primary Care [facility]] - Diet: Low Fat Addtl Provider Instructions: Discharge to [facility] Patient should take Metronidazole 500 mg every 8 hours for 5 more days Patient should take primary care doctor in 1 week Patient should follow up with previously scheduled appointment for 12/05/2018 10:00 AM Provider RACHEL Graham Department Neurology [facility] Prescriptions: New metronidazole 500 mg Tablet 500 mg PO Q8H 5 Days Qty: 15 RF: 0 Continued sertraline 100 mg Tablet 100 mg PO DAILY RF: 0 Therems Tablet 1 tab PO DAILY RF: 0 amlodipine 5 mg Tablet 5 mg PO DAILY RF: 0 acetaminophen 500 mg Tablet 500 mg PO Q4H PRN (Reason: PAIN) RF: 0 docusate sodium [Colace] 100 mg Capsule 100 mg PO DAILY PRN (Reason: Constipation) RF: 0 lisinopril 5 mg Tablet 5 mg PO DAILY RF: 0 hydrochlorothiazide 12.5 mg Tablet 12.5 mg PO DAILY RF: 0 Stand-Alone Forms: Counts Include [facility] Discharge Orders: Discharge Order (Routine); Ordered 11/21/18 Ordered By: Arvind Garzon Admission Data Admit Date/Time: 11/15/18 16:51 Attending Provider: Arvind Garzon Admit Provider: Marisa Matute Primary Care Provider: [facility], [facility] Other Providers: Emil Horn ; Suki Linares ; Ean Patel ; Kerry Nuno ; Dain Cheney ; Sarah Campbell ; Mumtaz Hanley ; Marifer Childers ; Alejo Baumann ; Bk Lepe ; Blanka Rodarte ; Beverly Turner ; Shannon Fleming ; Stefanie Maloney ; Aileen Love ; Marisa Matute Service: Telemetry Medical Other Interventions: Discharge Summary Assessment (RN) Last Done: 11/21/18 11:19
[2018-11-21] MEDS ORDERED: metroNIDAZOLE 500 MG TAB PO SCH (20:00)
== END 2018-11-21 16:55 | disposition home or self-care (01) | DRG 417 ==
LOC: ED 10:29 → SUATTDRO 16:51 → 3N 16:51 → 2N 11-18 01:36

== ENCOUNTER 2019-02-12 15:30 | Inpatient (IN) ==
[2019-02-12] MEDS ORDERED: SODIUM CHLORIDE 0.9% 1000ML 1,000 ML IV ONE (15:51)
[2019-02-12] MEDS ORDERED: FAMOTIDINE 20MG IV PUSH 20 MG/5 ML SYR IV STA (15:51)
[2019-02-12] MEDS ORDERED: ONDANSETRON INJ 2 MG/ML 2 ML VIAL IV STA (15:51)
[2019-02-12 16:02] LABS: Basophils # (auto) 0.03 K/uL (0-0.2); Basophils % (auto) 0.1 %; Eosinophils # (auto) 0.02 K/uL (0-0.5); Eosinophils % (auto) 0.1 %; Hematocrit (blood only) 35.4 % (37-47); Hemoglobin 11.9 g/dL (12.0-16.0); Immature Granulocytes # (auto) 0.14 K/uL (0.00-0.02); Immature Granulocytes % (auto) 0.6 %; Lymphocytes # (auto) 1.54 K/uL (1.2-3.4); Lymphocytes % (auto) 7.1 %; Mean Corpuscular Hemoglobin 29.2 pg (25-34); Mean Corpuscular Hgb Conc 33.6 g/dL (32-36); Mean Corpuscular Volume 86.8 fL (80-100); Mean Platelet Volume 9.8 fL (7.4-10.4); Monocytes # (auto) 1.63 K/uL (0.11-0.59); Monocytes % (auto) 7.6 %; Neutrophils # (auto) 18.22 K/uL (1.4-6.5); Neutrophils % (auto) 84.5 %; Platelet Count 293 K/uL (130-400); RDW Coefficient of Variation 13.4 % (11.5-14.5); RDW Standard Deviation 42.7 fL (36.4-46.3); Red Blood Count 4.08 M/uL (4.2-5.4); White Blood Count 21.58 K/uL (4.8-10.8)
[2019-02-12 16:09] LABS: Alanine Aminotransferase 30 U/L (12-78); Albumin Level 3.5 gm/dl (3.4-5.0); Aspartate Aminotransferase 18 U/L (15-37); BUN Creatinine Ratio 13.1 (10-20); Blood Urea Nitrogen 17 mg/dl (7-18); Calcium 8.9 mg/dl (8.5-10.1); Carbon Dioxide 28 mmol/L (21-32); Chloride 95 mmol/L (98-107); Creatinine Clr Calc Pharmacy 64.8 ml/min; Est GFR (African American) 57.5; Est GFR (Non-African American) 49.6; Glucose 140 mg/dl (70-99); Lipase 97 U/L (73-393); Magnesium 1.8 mg/dl (1.8-2.4); Potassium 3.4 mmol/L (3.5-5.1); Sodium 131 mmol/L (136-145)
[2019-02-12 16:13] LABS: Albumin Globulin Ratio 0.8 (0.9-2); Alkaline Phosphatase 104 U/L (45-117); Bilirubin Direct 0.3 mg/dl (0-0.2); Bilirubin,Total 1.1 mg/dl (0.2-1); Globulin 4.2 gm/dl (2.5-4.0); Phosphorus 3.1 mg/dl (2.5-4.9); Total Protein 7.7 gm/dl (6.4-8.2)
--- NOTE | 2019-02-12 16:24 | XRay Report ---
XR chest 1V portable CLINICAL HISTORY: near syncope pain COMPARISON STUDY: 11/19/2018 FINDINGS: Shunt catheter overlying the medial right hemithorax. Lungs are considered clear. Diaphragm s are smooth. IMPRESSION: No acute process. The above report was generated using voice recognition software. It may contain grammatical, syntax or spelling errors. Electronically signed by: Saurav Barnett M.D. 02/12/2019 4:23 PM
[2019-02-12 17:00] LABS: Troponin I < 0.015 ng/ml (0-0.045)
--- NOTE | 2019-02-12 17:10 | Emergency Department Note ---
Entered by Caroline Garnett acting as a scribe for Robert Cerna MD History of Present Illness General Chief complaint: Abdominal Pain Stated complaint: LETHARGIC, AB PAIN Time Seen by Provider: 02/12/19 15:41 Source: patient History of Present Illness Provider complaint: Abdominal Pain Onset (ago): day(s) 3 Location: abdomen Radiation: non-radiation Exacerbated By: + none Associated symptoms: + nausea/vomiting and + other (Sleepiness ); no fever/chills The patient is a 48 year old female who presents to the Emergency Room with complaints of abdominal pain that began yesterday. The patient states the pain does not radiate anywhere else on her body and is not exacerbated by anything. The patient reports experiencing nausea/vomiting and extreme sleepiness. The patient denies any fever/chills. The patient notes she lives in a nursing home facility and they referred her to the ED after she went to the bathroom on the seat of the toilet. The patient notes she is in a wheelchair due to poor balance from "[place]'s disease." Home Medications Home Medications Medication Instructions Recorded Confirmed Type Therems 1 tab PO DAILY 11/15/18 02/12/19 History amlodipine 5 mg PO BID 11/15/18 02/12/19 History hydrochlorothiazide 12.5 mg PO DAILY 11/15/18 02/12/19 History sertraline 100 mg PO DAILY 11/15/18 02/12/19 History acetaminophen 650 mg PO Q6H PRN MDD 3 GM APAP/02/12/19 02/12/19 History HOURS docusate sodium [Doc-Q-Lace] 100 mg PO Q12H PRN 02/12/19 02/12/19 History lisinopril 20 mg PO BID 02/12/19 02/12/19 History nystatin 1 applic TOPICAL BID PRN 02/12/19 02/12/19 History Allergies Allergy/AdvReac Type Severity Reaction Status Date / Time erythromycin base Allergy Intermediate RASH Verified 02/12/19 16:56 Penicillins Allergy Intermediate RASH Verified 02/12/19 16:56 sulfamethoxazole Allergy Intermediate RASH Verified 02/12/19 16:56 trimethoprim Allergy Intermediate RASH Verified 02/12/19 16:56 Bactrim Allergy Unknown RASH Verified 09/26/17 16:39 influenza virus vaccine, Allergy Unknown Unknown Verified 02/12/19 16:56 specific Past Med/Surg History Medical History Multiple sclerosis (Chronic) Neurocognitive deficits (Chronic) History of brain tumor (Chronic) "hx pediatric brain tumor, unresectable. Hx multiple shunts for hydrocephalus. Hx colloid cyst" HTN (hypertension) (Chronic) Hx of hydrocephalus (Chronic) Depression (Chronic) Morbid obesity Surgical History S/P PLASTER MAKER shunt Social History Preferred Language: Bruneian Communication Ability: Impaired Medical Customer Service Representative Required: No Beliefs That Will Affect Care: None Current Living Situation: Personal Care Facility Current Living Situation Comment: [facility] Other Information That Helps Us Care for You: No (cognitively impaired) Feels Safe at Home: Yes Safety Concerns: Feels Safe At This Time Smoking Status: Never smoker Hx Alcohol Use: No Hx Substance Use: No Review of Systems See HPI for pertinent positives & negatives. and A total of 10 systems reviewed and were otherwise negative Physical Exam Vital Signs Vital Signs - 24 hr 02/12/19 15:51 02/12/19 16:50 02/12/19 16:53 Temperature 37.1 C Temperature Source Oral Sepsis Recent Fever Within 48 Hours No Sepsis New/Unexplained Change in Mental Status No Sepsis Action Taken by Nursing No Action Required Pulse Rate 105 H 101 H 102 H Pulse Rate from SpO2 Sensor 101 H 102 H Respiratory Rate 20 23 22 Respiratory Effort / Characteristics Non-Labored Spontaneous Respiratory Depth Normal Respiratory Pattern Regular Blood Pressure 117/74 106/61 Blood Pressure Mean 88 76 Pulse Oximetry 100 99 100 Oxygen Delivery Method Room Air Room Air 02/12/19 17:00 02/12/19 17:30 02/12/19 18:00 Temperature Temperature Source Sepsis Recent Fever Within 48 Hours Sepsis New/Unexplained Change in Mental Status Sepsis Action Taken by Nursing Pulse Rate 97 H 91 H 94 H Pulse Rate from SpO2 Sensor 97 H 92 H 95 H Respiratory Rate 21 20 20 Respiratory Effort / Characteristics Respiratory Depth Respiratory Pattern Blood Pressure 110/59 L 111/67 107/57 L Blood Pressure Mean 76 81 73 Pulse Oximetry 100 98 99 Oxygen Delivery Method 02/12/19 18:30 02/12/19 19:00 02/12/19 19:17 Temperature Temperature Source Sepsis Recent Fever Within 48 Hours Sepsis New/Unexplained Change in Mental Status Sepsis Action Taken by Nursing Pulse Rate 91 H 100 H 94 H Pulse Rate from SpO2 Sensor 91 H 99 H 94 H Respiratory Rate 21 26 H 22 Respiratory Effort / Characteristics Respiratory Depth Respiratory Pattern Blood Pressure 108/46 L 142/83 H Blood Pressure Mean 66 102 Pulse Oximetry 98 97 96 Oxygen Delivery Method 02/12/19 20:17 02/12/19 20:30 02/12/19 21:00 Temperature Temperature Source Sepsis Recent Fever Within 48 Hours Sepsis New/Unexplained Change in Mental Status Sepsis Action Taken by Nursing Pulse Rate 108 H 93 H 98 H Pulse Rate from SpO2 Sensor 97 H 93 H 98 H Respiratory Rate 22 16 23 Respiratory Effort / Characteristics Respiratory Depth Respiratory Pattern Blood Pressure 125/71 132/69 126/58 L Blood Pressure Mean 89 90 80 Pulse Oximetry 97 98 98 Oxygen Delivery Method 02/12/19 21:30 Temperature Temperature Source Sepsis Recent Fever Within 48 Hours Sepsis New/Unexplained Change in Mental Status Sepsis Action Taken by Nursing Pulse Rate 100 H Pulse Rate from SpO2 Sensor 99 H Respiratory Rate 23 Respiratory Effort / Characteristics Respiratory Depth Respiratory Pattern Blood Pressure 109/64 Blood Pressure Mean 79 Pulse Oximetry 98 Oxygen Delivery Method GENERAL: Awake, alert, chronically-appearing, in no distress HENT: Normocephalic, atraumatic. Oropharynx with dry mucous membranes and o therwise unremarkable. EYES: Normal conjunctiva. Sclera non-icteric. NECK: Supple. No nuchal rigidity. FROM. No JVD. RESPIRATORY: CTAB. CARDIAC: Regular rate, normal rhythm. Extremities warm and well perfused. Pulses equal. ABDOMEN: Soft, non-distended. No tenderness to palpation. No rebound or guarding. No masses. Suprapubic discomfort without discrete tenderness. RECTAL: Deferred. MUSCULOSKELETAL: Chest examination reveals no tenderness. The back is symmetrical on inspection without obvious abnormality. There is no CVA tenderness to palpation. No joint edema. LOWER EXTREMITIES: Calves are equal size bilaterally and non-tender. No edema. Moving all extremities equally and at baseline. NEURO: Normal sensorium. No sensory or motor deficits noted. SKIN: Warm and dry. No jaundice noted. 15cm region of erythema, warmth and tenderness with centeral area of induration and fluctuance of proximal left medial thigh. No crepitus. Course Reevaluation(s) Reevaluation #1: 1550: Past medical records reviewed. The patient was evaluated in room C03. A complete history and physical exam was performed. 2116: [facility] and he will accept the patient for further evaluation. Administered Medications Ertapenem 1,000 mg/ Sodium (Chloride) 60 mls @ 100 mls/hr IV Q24H DORETHA Stop: 02/23/19 00:00 Last Infusion: 02/13/19 00:33 Dose: 0 mls/hr Documented by: [id number] Admin: 02/12/19 23:57 Dose: 100 mls/hr Documented by: [id number] Discontinued Medications Famotidine (Pepcid 20mg Iv Push) 20 mg in 5 mls @ 2.5 mls/min IV NOW STA Stop: 02/12/19 15:52 Last Admin: 02/12/19 16:53 Dose: 2.5 mls/min Documented by: [id number] Sodium Chloride (Nss 1000ml) 1,000 mls @ 999 mls/hr IV .Q1H1M ONE Stop: 02/12/19 16:51 Last Infusion: 02/12/19 18:23 Dose: 0 mls/hr Documented by: [id number] Admin: 02/12/19 16:53 Dose: 999 mls/hr Documented by: [id number] Cefepime HCl (Maxipime) 2,000 mg in 20 mls @ 5 mls/min IV NOW STA; Protocol Stop: 02/12/19 19:24 Last Admin: 02/12/19 20:28 Dose: 5 mls/min Documented by: [id number] Vancomycin HCl 2,000 mg/ (Sodium Chloride) 540 mls @ 200 mls/hr IV NOW ONE Stop: 02/12/19 22:02 Last Infusion: 02/12/19 22:29 Dose: 0 mls/hr Documented by: [id number] Admin: 02/12/19 19:46 Dose: 200 mls/hr Documented by: [id number] Ioversol (Optiray 320 100ml) 90 ml IV ONCE PRN PRN Reason: Interaction Checking Stop: 02/16/19 19:31 Last Admin: 02/12/19 19:32 Dose: 90 ml Documented by: [id number] Lidocaine HCl (Buffered Lidocaine 1%) 20 ml INFIL NOW ONE Stop: 02/12/19 19:14 Last Admin: 02/12/19 19:47 Dose: 20 ml Documented by: [id number] Ondansetron HCl (Zofran) 4 mg IV NOW STA Stop: 02/12/19 15:52 Last Admin: 02/12/19 16:54 Dose: 4 mg Documented by: [id number] Medical Decision Making Differential Diagnosis Differential diagnosis: Etiologies such as biliary colic, cholecystitis, hepatitis, perihepatitis, pancreatitis, cardiac disease, pancreatitis, gastritis, peptic ulcer disease, appendicitis, ovarian cyst, ovarian torsion, ectopic , pelvic inflammatory disease, cystitis, diverticulitis, mesenteric ischemia, inflammato ry bowel disease, ileus, bowel obstruction, aortic pathology, shingles, as well as others were considered. Medical Records Attestation: I reviewed the patient's medical records. Home Medications Current Medication List: was personally reviewed by me Laboratory Data Attestation: I reviewed the patient's lab results. Result diagrams: 02/12/19 15:05 02/12/19 15:05 Lab Results 02/12/19 02/12/19 02/12/19 Range/Units 15:05 15:05 18:20 WBC 21.58 H (4.8-10.8) K/uL RBC 4.08 L (4.2-5.4) M/uL Hgb 11.9 L (12.0-16.0) g/dL Hct 35.4 L (37-47) % MCV 86.8 (80-100) fL MCH 29.2 (25-34) pg MCHC 33.6 (32-36) g/dL RDW Std Deviation 42.7 (36.4-46.3) fL RDW Coeff of Kary 13.4 (11.5-14.5) % Plt Count 293 (130-400) K/uL MPV 9.8 (7.4-10.4) fL Immature Gran % (Auto) 0.6 % Neut % (Auto) 84.5 % Lymph % (Auto) 7.1 % Butts % (Auto) 7.6 % Eos % (Auto) 0.1 % Baso % (Auto) 0.1 % Immature Gran # (Auto) 0.14 H (0.00-0.02) K/uL Neut # (Auto) 18.22 H (1.4-6.5) K/uL Lymph # (Auto) 1.54 (1.2-3.4) K/uL Butts # (Auto) 1.63 H (0.11-0.59) K/uL Eos # (Auto) 0.02 (0-0.5) K/uL Baso # (Auto) 0.03 (0-0.2) K/uL Sodium 131 L (136-145) mmol/L Potassium 3.4 L (3.5-5.1) mmol/L Chloride 95 L (98-107) mmol/L Carbon Dioxide 28 (21-32) mmol/L Anion Gap 8.0 (3-11) BUN 17 (7-18) mg/dl Creatinine 1.29 H (0.6-1.2) mg/dl Est Cr Clr Drug Dosing 64.8 ml/min Est GFR ( Amer) 57.5 Est GFR (Non-Af Amer) 49.6 BUN/Creatinine Ratio 13.1 (10-20) Glucose 140 H (70-99) mg/dl Lactate (0.4-2.0) mmol/L Calcium 8.9 (8.5-10.1) mg/dl Phosphorus 3.1 (2.5-4.9) mg/dl Magnesium 1.8 (1.8-2.4) mg/dl Total Bilirubin 1.1 H (0.2-1) mg/dl Direct Bilirubin 0.3 H (0-0.2) mg/dl AST 18 (15-37) U/L ALT 30 (12-78) U/L Alkaline Phosphatase 104 (45-117) U/L Troponin I < 0.015 (0-0.045) ng/ml Total Protein 7.7 (6.4-8.2) gm/dl Albumin 3.5 (3.4-5.0) gm/dl Globulin 4.2 H (2.5-4.0) gm/dl Albumin/Globulin Ratio 0.8 L (0.9-2) Lipase 97 (73-393) U/L Urine Color Dark Yellow Urine Appearance Cloudy A (Clear) Urine pH 6.5 (4.5-7.5) Ur Specific Stem 1.021 (1.000-1.030) Urine Protein Trace H (Negative) Urine Glucose (UA) Negative (Negative) Urine Ketones Trace H (Negative) Urine Blood 2+ H (Negative) Urine Nitrite Positive A (Negative) Urine Bilirubin 1+ H (Negative) Urine Urobilinogen Negative (Negative) Ur Leukocyte Esterase Trace H (Negative) Urine WBC (Auto) 1-5 (0-5) /hpf Urine RBC (Auto) >30 H (0-4) /hpf U Hyaline Cast (Auto) 10-30 H (0-5) /lpf U Epithel Cells (Auto) >30 H (0-5) /lpf Urine Bacteria (Auto) Negative (Negative) Ur Renal Epithelial Cell Not Reportable Other Casts Epithelial A (0) /lpf 02/12/19 Range/Units 19:09 WBC (4.8-10.8) K/uL RBC (4.2-5.4) M/uL Hgb (12.0-16.0) g/dL Hct (37-47) % MCV (80-100) fL MCH (25-34) pg MCHC (32-36) g/dL RDW Std Deviation (36.4-46.3) fL RDW Coeff of Kary (11.5-14.5) % Plt Count (130-400) K/uL MPV (7.4-10.4) fL Immature Gran % (Auto) % Neut % (Auto) % Lymph % (Auto) % Butts % (Auto) % Eos % (Auto) % Baso % (Auto) % Immature Gran # (Auto) (0.00-0.02) K/uL Neut # (Auto) (1.4-6.5) K/uL Lymph # (Auto) (1.2-3.4) K/uL Butts # (Auto) (0.11-0.59) K/uL Eos # (Auto) (0-0.5) K/uL Baso # (Auto) (0-0.2) K/uL Sodium (136-145) mmol/L Potassium (3.5-5.1) mmol/L Chloride (98-107) mmol/L Carbon Dioxide (21-32) mmol/L Anion Gap (3-11) BUN (7-18) mg/dl Creatinine (0.6-1.2) mg/dl Est Cr Clr Drug Dosing ml/min Est GFR ( Amer) Est GFR (Non-Af Amer) BUN/Creatinine Ratio (10-20) Glucose (70-99) mg/dl Lactate 0.8 (0.4-2.0) mmol/L Calcium (8.5-10.1) mg/dl Phosphorus (2.5-4.9) mg/dl Magnesium (1.8-2.4) mg/dl Total Bilirubin (0.2-1) mg/dl Direct Bilirubin (0-0.2) mg/dl AST (15-37) U/L ALT (12-78) U/L Alkaline Phosphatase (45-117) U/L Troponin I (0-0.045) ng/ml Total Protein (6.4-8.2) gm/dl Albumin (3.4-5.0) gm/dl Globulin (2.5-4.0) gm/dl Albumin/Globulin Ratio (0.9-2) Lipase (73-393) U/L Urine Color Urine Appearance (Clear) Urine pH (4.5-7.5) Ur Specific Stem (1.000-1.030) Urine Protein (Negative) Urine Glucose (UA) (Negative) Urine Ketones (Negative) Urine Blood (Negative) Urine Nitrite (Negative) Urine Bilirubin (Negative) Urine Urobilinogen (Negative) Ur Leukocyte Esterase (Negative) Urine WBC (Auto) (0-5) /hpf Urine RBC (Auto) (0-4) /hpf U Hyaline Cast (Auto) (0-5) /lpf U Epithel Cells (Auto) (0-5) /lpf Urine Bacteria (Auto) (Negative) Ur Renal Epithelial Cell Other Casts (0) /lpf Imaging Data Radiologist's Impression: Radiology results as stated below per my review and the radiologist's interpretation: XR chest 1V portable CLINICAL HISTORY: near syncope pain COMPARISON STUDY: 11/19/2018 FINDINGS: Shunt catheter overlying the medial right hemithorax. Lungs are considered clear. Diaphragms are smooth. IMPRESSION: No acute process. The above report was generated using voice recognition software. It may contain grammatical, syntax or spelling errors. Electronically signed by: Saurav Barnett M.D. 02/12/2019 4:[address] OF THE ABDOMEN AND PELVIS WITH CONTRAST CLINICAL HISTORY: Abdominal pain. Leukocytosis. COMPARISON STUDY: CT of the abdomen and pelvis November 17, 2018. TECHNIQUE: Following IV administration of 90 mL of Optiray-320, axial images of the abdomen and pelvis were obtained from the lung bases to the proximal femurs. Images were reviewed in the axial, sagittal, and coronal planes. IV contrast was administered without complication. Automated exposure control was utilized for the study. A dose lowering technique was utilized adhering to the principles of ALARA. CT DOSE: 1051.67 mGy.cm FINDINGS: A PLASTER MAKER shunt catheter terminates within the right lower quadrant. An additional PLASTER MAKER shunt catheter is likely old. There is no biliary ductal dilatation status post interval cholecystectomy. Fatty infiltration of the liver is noted. The spleen, adrenal glands and kidneys are normal. There is no pancreatic ductal dilatation. There is no peripancreatic infiltration. Exam is mildly compromised by motion artifact. No hydronephrosis is present. There is no evidence for a bowel obstruction. The appendix is normal. A small amount of fluid within the pelvis is noted. No pneumatosis, free air or portal venous gas is present. There are no suspicious osseous lesions. IMPRESSION: 1. Normal appendix. No bowel obstruction. 2. Fatty infiltration of the liver. 3. Partially visualized PLASTER MAKER shunt catheter. 4. Small amount fluid within the pelvis which is nonspecific and may be related to the shunt catheter. Electronically signed by: Emiliano Monet M.D. 02/12/2019 7:48 PM ECG Data Attestation: I personally reviewed and interpreted this ECG as follows: Indication: abdominal pain Rate (beats per minute): 100 Rhythm: normal sinus Findings: + other (Normal axis); no acute ischemic change Blood Pressure Blood Pressure Findings: Normal blood pressure Blood Pressure Disposition: further management by hospitalist NANDO Narrative The patient is a pleasant 48-year-old woman with a past medical history of unresectable brain tumor/history of hydrocephalus status post PLASTER MAKER shunt, [place] who presents emergency department from [facility] with generalized weakness, lower abdominal pain and loose stools with dizziness and diphoretic upon ambulation found to be hypotensive by EMS but improved with IVF per hpi. On arrival patient is chronically ill-appearing but no acute distress, afebrile stable vital signs. The patient has mild suprapubic discomfort without discrete tenderness. There is a 15cm region of erythema, warmth and tenderness with central area of induration and fluctuance of proximal left medial thigh. No crepitus. Bedside US demonstrates underlying discrete fluid collection c/w abscess. EKG without evidence of acute ischemia. CXR negative. WBC 21K slightly increased from October when she did appear to have persistent similar elevations in the setting of infection/cholecystitis. H/H 11.9/35.4 similar to prior range of values. Platelets within normal limits. Creatinine 1.29 elevated from prior v alues consistent with the patient's clinically dry appearance. LFTs unremarkable. Troponin negative. CT abd/pelvis negative for acute process. I&D performed per LATOYA, Jamal's note. Culture sent. Blood cultures drawn. Patient treated with Cefepime and Vancomycin. Given 2/4 SIRS criteria on arrival and two infectious sources including, UTI and abscess/cellulitis, reasonable to admit for further management for possible early sepsis. Case was discussed with Dr. Bond, [facility] hospitalist, who will evaluate the patient for admission. Patient's mother, Anabel Pitt, who is the patient's POA and lives in [place] was updated by phone. Impression & Plan Acute sepsis, Acute UTI, Abscess, Cellulitis Critical Care Time Critical Care Time: Yes Total Critical Care Time: 35 I have personally spent greater than 35 minutes of critical care time in the direct management of this patient. This includes bedside care, interpretation of diagnostic studies, and testing, discussion with consultants, patient, and family members, and other required patient management activities. This 35 minutes is in excess of all separately billable procedures. Discharge Plan Visit Data *Final* Discharge Date/Time: 02/12/19 22:34 Chief Complaint: Abdominal Pain Stated Complaint: LETHARGIC, AB PAIN ED Provider: Robert Cerna Discharge Problem: Acute sepsis, Acute UTI, Abscess, Cellulitis Patient Disposition: Admitted As Inpatient Discharge Instructions Interventions: ED Discharge Assessment Last Done: 02/12/19 22:34 Discharge Problem: Cellulitis Qualifiers: Site of cellulitis: unspecified site Qualified Code(s): L03.90 - Cellulitis, unspecified The scribe's documentation has been prepared under my direction and personally reviewed by me in its entirety. I confirm that the note above accurately reflects all work, treatment, procedures, and medical decision making performed by me.
[2019-02-12 18:47] LABS: Appearance Urine Cloudy (Clear); Bacteria Urine Automated Negative (Negative); Blood Urine 2+ (Negative); Color Urine Dark Yellow; Epithelial Cell Urine Auto >30 /lpf (0-5); Glucose Urine UA Negative (Negative); Ketones Urine Trace (Negative); Leukocyte Esterase Urine Trace (Negative); Nitrite Urine Positive (Negative); Protein Urine Trace (Negative); RBC Urine Automated >30 /hpf (0-4); Specific Gravity Urine 1.021 (1.000-1.030); Urobilinogen Urine Negative (Negative); pH Urine 6.5 (4.5-7.5)
[2019-02-12 19:10] LABS: Bilirubin Urine 1+ (Negative)
[2019-02-12 19:11] LABS: Ictotest Urine Positive (Negative)
[2019-02-12] MEDS ORDERED: XYLOCAINE 1%/SOD BICARB 20 ML VIAL INFIL ONE (19:13)
[2019-02-12] MEDS ORDERED: CEFEPIME 2,000 MG/20 ML VIAL IV STA (19:21)
[2019-02-12] MEDS ORDERED: VANCOMYCIN HCL 2,000 MG in SODIUM CHLORIDE 0.9% 500 ML IV ONE (19:21)
[2019-02-12] MEDS ORDERED: VANCOMYCIN CONSULT ACTIVE PRN ×2 (19:21→22:57)
[2019-02-12] MEDS ORDERED: IOVERSOL 100ml IV PRN (19:32)
[2019-02-12 19:41] LABS: Other Casts Urine Epithelial /lpf (0)
--- NOTE | 2019-02-12 19:49 | CT Scan Report ---
CT OF THE ABDOMEN AND PELVIS WITH CONTRAST CLINICAL HISTORY: Abdominal pain. Leukocytosis. COMPARISON STUDY: CT of the abdomen and pelvis November 17, 2018. TECHNIQUE: Following IV administration of 90 mL of Optiray-320, axial images of the abdomen and pelvi s were obtained from the lung bases to the proximal femurs. Images were reviewed in the axial, sagitt al, and coronal planes. IV contrast was administered without complication. Automated exposure contro l was utilized for the study. A dose lowering technique was utilized adhering to the principles of A ARNOL. CT DOSE: 1051.67 mGy.cm FINDINGS: A SPRAY PAINTER HELPER shunt catheter terminates within the right lower quadrant. An additional SPRAY PAINTER HELPER shunt cath eter is likely old. There is no biliary ductal dilatation status post interval cholecystectomy. Fatty infiltration of the liver is noted. The spleen, adrenal glands and kidneys are normal. There is no p ancreatic ductal dilatation. There is no peripancreatic infiltration. Exam is mildly compromised by m otion artifact. No hydronephrosis is present. There is no evidence for a bowel obstruction. The appen pelon is normal. A small amount of fluid within the pelvis is noted. No pneumatosis, free air or portal venous gas is present. There are no suspicious osseous lesions. IMPRESSION: 1. Normal appendix. No bowel obstruction. 2. Fatty infiltration of the liver. 3. Partially visualized SPRAY PAINTER HELPER shunt catheter. 4. Small amount fluid within the pelvis which is nonspecific and may be related to the shunt catheter . Electronically signed by: Emiliano Monet M.D. 02/12/2019 7:48 PM
--- NOTE | 2019-02-12 21:17 | Emergency Department Note ---
ED Visit Note I was asked by Dr. Cerna to perform an I&D of the abscess noted on the left thigh. Please see Dr. Cerna's dictation regarding complete management and care of this patient. There is a 12cm abscess noted on the inner left thigh with significant induration. No pointing or active drainage. There is a zone of erythema surrounding the wound, but no pointing or drainage. Verbal consent was obtained to perform the procedure. After saline and Betadine cleansing and 12 mL of 1% buffered lidocaine anesthesia, the abscess was incised with a number 11 scalpel blade. A large amount of purulent material was released with more expressed by pressure. A swab was obtained for culture. The abscess cavity was further probed with a needle delivery motorcycle driver and the deep pocket expressed. The abscess cavity was then copiously irrigated with sterile saline under pressure. The area was then packed with bacitracin soaked packing. The area was cleaned with sterile saline and dressed with bacitracin and a bulky bandage. The patient tolerated the procedure well. : Cellulitis Qualifiers: Site of cellulitis: unspecified site Qualified Code(s): L03.90 - Cellulitis, unspecified
[2019-02-12] MEDS ORDERED: DOCUSATE SODIUM 100 MG CAP PO PRN (22:57)
[2019-02-12] MEDS ORDERED: ACETAMINOPHEN 325 MG TAB PO PRN (22:57)
[2019-02-12] MEDS ORDERED: NYSTATIN POWDER 15GM BTL EXT PRN (22:57)
[2019-02-12] MEDS ORDERED: ONDANSETRON INJ 2 MG/ML 2 ML VIAL IV PRN (22:57)
[2019-02-12] MEDS ORDERED: VANCOMYCIN HCL 1,000 MG in SODIUM CHLORIDE 0.9% 250 ML IV SCH (22:57)
[2019-02-12] MEDS ORDERED: ERTAPENEM CONSULT ACTIVE PRN (23:13)
[2019-02-13] MEDS ORDERED: ERTAPENEM SODIUM 1,000 MG in SODIUM CHLORIDE 0.9% 50 ML IV SCH
--- NOTE | 2019-02-13 00:14 | History and Physical Report ---
DATE OF ADMISSION: 02/12/2019 CHIEF COMPLAINT: Abdominal pain. HISTORY OF PRESENT ILLNESS: This is a 48-year-old female with past medical history significant for unresectable brain tumor, hydrocephalus, status post multiple SUPERVISING EDITOR NEWS REEL shunts, multiple sclerosis, history of seizure disorder, hypertension, allergic rhinitis, depression, [facility] Presents with complaints of right lower quadrant abdominal pain. Says this started about 3 days ago and seems she has also had an accident when she was moving her bowels today, but denies any diarrhea and she was brought in here. She said she denies any fever, but felt chills 3 days ago. Denies any nausea, vomiting. No other complaints. Currently resting comfortably and hemodynamically stable. She also says that she hit the left thigh sometime back, she does not remember the exact time, but in the ER, she was found to have left thigh abscess and it was drained in the ER and also UA was positive. The patient denies any burning micturition currently. Denies any black stools or blood in the stools. Denies headache or dizziness. No blurred visions, no earache, no runny nose, no sore throat. Appetite is good, eating okay. No dysphagia, no shortness of breath, no cough, no rash. She has imbalance and she ambulates with the help of walker. She says her mother lives in [place] and she knows that she is in the hospital. Tried to contact [facility], but it went in to voicemail. ALLERGIES: BACTRIM, ERYTHROMYCIN, INFLUENZA VACCINE, PENICILLINS. PAST MEDICAL HISTORY: As mentioned above. PAST SURGICAL HISTORY: Multiple surgeries for brain tumor at [facility], shunt placement and replacement in 2001. MEDICATIONS: The patient is on Tylenol, amlodipine, Colace, hydrochlorothiazide, lisinopril, nystatin topical b.i.d. p.r.n., Zoloft, Therems. FAMILY HISTORY: Significant for father had nervous breakdown when the patient was 12 years old; Vinton's disease, presumed, in father. SOCIAL HISTORY: Single, currently living at [facility]. No tobacco use. No drug use. No alcohol use as per records. REVIEW OF SYSTEMS: As per HPI. Rest of the review of systems negative. PHYSICAL EXAMINATION: GENERAL: The patient is alert and awake, not in acute distress. VITAL SIGNS: Temperature 37.1, pulse 108, respiratory rate 22, blood pressure 125/71, oxygen 97% on room air. HEENT: No pallor, no icterus. Pupils equal, round, and reactive to light. Oral mucosa moist. NECK: No JVD, no neck masses, no carotid bruits. CARDIOVASCULAR: S1, S2 heard, regular rate and rhythm. No murmur, no gallop. RESPIRATORY SYSTEM: Normal AP diameter. No accessory muscle use. No wheezing, no crackles. ABDOMEN: Soft, bowel sounds present. Mild tenderness in the right lower quadrant. No guarding, no rigidity, no distention. CENTRAL NERVOUS SYSTEM: Cranial nerves II-XII grossly intact. Nonfocal. EXTREMITIES: Left middle part of thigh is erythematous and status post I and D done in the ER, dressing intact. No obvious drainage seen and erythematous. LABORATORY DATA: WBC 21, hemoglobin 11.9, hematocrit 35.4, platelets 293. Sodium 131, potassium 3.4, chloride 95, CO2 of 28, BUN 17, creatinine 1.29, serum glucose 140. Lactate 0.8, calcium 8.9, total phosphorus 3.1, magnesium 1.8, total bilirubin 1.1, total direct bilirubin 0.3, AST 18, ALT 30, alkaline phosphatase 104. Troponin I less than 0.015. Lipase 97. Urinalysis, cloudy and positive for nitrite and leukocyte esterase. IMAGING DATA: CT of the abdomen and pelvis with contrast, normal appendix, no bowel obstruction. Fatty infiltration of the liver. Partially visualized SUPERVISING EDITOR NEWS REEL shunt catheter, small amount of fluid within the pelvis, is nonspecific and related to shunt catheter. Chest x-ray, no acute process. EKG: Normal sinus rhythm, rate of 100, nonspecific T-wave abnormalities. ASSESSMENT AND PLAN: This is a 48-year-old female who presents with a complaint of right quadrant abdominal pain and found to have left thigh abscess and also urinary tract infection. 1. Left thigh abscess, status post drained in the ER. We will follow the cultures. We placed on empirically on IV vancomycin and IV Invanz, has allergy to penicillin and also consulted general surgery for any need of furthermore I and D. Monitor on the medical floor. We will keep her n.p.o. until seen by surgery. We will place on IV fluids. 2. Urinary tract infection. Antibiotics as above. Follow the cultures. 3. History of hypertension. Continue home medication of lisinopril, hctz and amlodipine. Need to verify home dosages. Monitor the blood pressure. 4. History of depression. Continue Zoloft. 5. History of multiple sclerosis and history of brain neoplasm, status post ventricular shunt. Follows with neurology. Family history of Vinton's chorea, follows with neurology. 6. Deep venous thrombosis prophylaxis, sequential compression devices for now. 7. Disposition: Closely monitor on the medical floor. Level 1 full code as per my discussion with the patient. MTDD
[2019-02-13 05:51] LABS: Basophils # (auto) 0.01 K/uL (0-0.2); Basophils % (auto) 0.1 %; Eosinophils # (auto) 0.02 K/uL (0-0.5); Eosinophils % (auto) 0.1 %; Hematocrit (blood only) 32.6 % (37-47); Hemoglobin 11.1 g/dL (12.0-16.0); Immature Granulocytes % (auto) 0.5 %; Lymphocytes # (auto) 1.48 K/uL (1.2-3.4); Mean Corpuscular Hemoglobin 29.3 pg (25-34); Mean Platelet Volume 9.4 fL (7.4-10.4); Monocytes # (auto) 1.52 K/uL (0.11-0.59); Monocytes % (auto) 8.2 %; Neutrophils # (auto) 15.37 K/uL (1.4-6.5); Neutrophils % (auto) 83.1 %; Platelet Count 244 K/uL (130-400); RDW Coefficient of Variation 13.3 % (11.5-14.5); RDW Standard Deviation 41.8 fL (36.4-46.3); Red Blood Count 3.79 M/uL (4.2-5.4)
[2019-02-13 06:09] LABS: BUN Creatinine Ratio 18.3 (10-20); Calcium 8.1 mg/dl (8.5-10.1); Est GFR (African American) 120.4; Est GFR (Non-African American) 103.9; Magnesium 1.8 mg/dl (1.8-2.4); Potassium 3.3 mmol/L (3.5-5.1)
[2019-02-13] MEDS: hydroCHLOROthiazide 25 MG TAB PO SCH (08:04)
[2019-02-13] MEDS: CEROVITE ADV FORMULA TAB PO SCH (08:04)
[2019-02-13] MEDS: AMLODIPINE BESYLATE 5 MG TAB PO SCH ×2 (08:05→21:03)
[2019-02-13] MEDS: LISINOPRIL 20 MG TAB PO SCH ×2 (08:05→21:03)
[2019-02-13] MEDS: SERTRALINE HCL 100 MG TABLET PO SCH (08:05)
[2019-02-13 08:19] LABS: Albumin Level 2.8 gm/dl (3.4-5.0); Bilirubin Direct 0.5 mg/dl (0-0.2); Bilirubin,Total 1.2 mg/dl (0.2-1); Total Protein 6.7 gm/dl (6.4-8.2)
[2019-02-13] MEDS ORDERED: VANCOMYCIN HCL 1,500 MG in SODIUM CHLORIDE 0.9% 500 ML IV ONE (09:15)
--- NOTE | 2019-02-13 09:24 | Hospitalist Progress Note ---
Date of Service February 13, 2019 Assessment & Plan (1) Acute sepsis: Sec to UTI and Thigh Abscess (2) Acute UTI: (3) Abscess: (4) Cellulitis: (5) Cholecystitis: (6) Possible urinary tract infection: (7) Acute pancreatitis: (8) S/P CASINO CASHIER MANAGER shunt: ASSESSMENT AND PLAN: This is a 48-year-old female who presents with a complaint of right quadrant abdominal pain and found to have left thigh abscess and also urinary tract infection. 1. Left thigh abscess, status post drained in the ER. Follow the cultures. We placed on empirically on IV vancomycin and IV Invanz, has allergy to penicillin and also consulted general surgery for any need of furthermore I and D. 2. Urinary tract infection. Antibiotics as above. 3. History of hypertension. Continue lisinopril, hctz and amlodipine. 4. History of depression. controlled on Zoloft. 5. History of multiple sclerosis and history of brain neoplasm, status post ventricular shunt. Follows with neurology. Family history of Braxton's chorea, follows with neurology. 6. Deep venous thrombosis prophylaxis, sequential compression devices for now. 7. Disposition: DC when afebrile 24-48 hrs, organism IDd and WBCs close to normal ROS-No Headache, No Visual Changes, No Nausea, No Vomiting, No Fever, No Chills, No Neck Pain or Stiffness, No Chest Pain, No Palpitations, No SOB, No THAKUR, No Cough, No Sputum, No Wheezing, No Abdominal Pain, No Diarrhea, No Hematemesis, No Hemoptysis, No Unexpected Weight Loss, No Flank pain, No Melena, No Hematochezia, No Frequency, No Urgency, No Burning, No Hematuria, No Rashes, No Diaphoresis. Appetite is Normal Physical Exam Gen-AAO x 3, NAD, Afebrile Head-NCAT, EOMI, PERRLA, Anicteric Sclera, No Posterior Pharyngeal Erythema Neck-Supple, No JVD, No Thyromegaly, No Masses, No LAD, No Bruits Lungs-Clear to Auscultation Bilaterally, No Rales, No Rhonchi, No Wheezing, No Crepitus Chest-No S4, +S1, +S2, No S3, No Murmurs, No Rubs, No Gallops, No Ectopy Abdomen-Soft, Bowel Sounds Present, Non Tender, Non Distended, No Hepatomegaly, No Splenomegaly, No Palpable Masses, No Rebound, No Rigidity, No Guarding Musculoskeletal-Full Range of Motion Bilaterally, No CVAT Extremities-No Cyanosis, No Clubbing, No Edema, l thigh abscess Nuero-Cranial Nerves II-XII grossly intact, Motor WNL, DTRs WNL, Strength WNL, Non Focal Psych-odd affect, pleasant Results & Data Vital Signs (Past 12 Hours) Vital Signs Temp Pulse Pulse Resp BP BP Pulse Ox 02/13/19 09:15 38.1 C H 02/13/19 07:42 38.7 C H 110 H 16 107/66 96 02/13/19 03:50 102 H 02/13/19 03:34 37.6 C H 110 H 16 107/58 L 93 02/12/19 23:33 37.8 C H 104 H 16 112/72 98 02/12/19 22:30 100 H 21 101/63 100 02/12/19 22:00 102 H 21 109/67 97 02/12/19 21:30 100 H 23 109/64 98 Allergies erythromycin base Allergy (Intermediate, Verified 02/12/19 16:56) RASH Penicillins Allergy (Intermediate, Verified 02/12/19 16:56) RASH sulfamethoxazole Allergy (Intermediate, Verified 02/12/19 16:56) RASH trimethoprim Allergy (Intermediate, Verified 02/12/19 16:56) RASH Bactrim Allergy (Unknown, Verified 09/26/17 16:39) RASH influenza virus vaccine, specific Allergy (Unknown, Verified 02/12/19 16:56) Unknown Height/Weight/Isolation Height 5 ft 5 in Weight 106.9 kg Isolation Type Contact Precautions Chemistry 02/12/19 02/13/19 15:05 05:31 Sodium 131 L 135 L Potassium 3.4 L 3.3 L Chloride 95 L 101 Carbon Dioxide 28 24 Anion Gap 8.0 10.0 BUN 17 13 Creatinine 1.29 H 0.70 D Glucose 140 H 105 H Urinalysis 02/12/19 18:20 Urine Color Dark Yellow Urine Appearance Cloudy A Urine pH 6.5 Ur Specific [place] 1.021 Urine Protein Trace H Urine Glucose (UA) Negative Urine Ketones Trace H Urine Blood 2+ H Urine Nitrite Positive A Urine Bilirubin 1+ H Microbiology 02/12/19 20:00 Leg,Left Gram Stain - Final 02/12/19 20:00 Leg,Left Deep Wound Culture - Pending 02/12/19 19:09 Blood Aerobic Blood Culture - Pending 02/12/19 19:09 Blood Anaerobic Blood Culture - Pending 02/12/19 19:09 Blood Aerobic Blood Culture - Pending 02/12/19 19:09 Blood Anaerobic Blood Culture - Pending (1) Cellulitis Site of cellulitis: unspecified site Qualified Code(s): L03.90 - Cellulitis, unspecified (2) Acute pancreatitis Acute pancreatitis complication: unspecified Pancreatitis type: unspecified pancreatitis type Qualified Code(s): K85.90 - Acute pancreatitis without necrosis or infection, unspecified
--- NOTE | 2019-02-13 10:02 | Surgery Consultation ---
Date of Consultation February 13, 2019 Assessment & Plan (1) Abscess: Abdominal pain is resolved. CT was negative. Only bilirubin is slightly elevated, cholangiogram was negative so would not pursue any further at this time. Left thigh abscess adequately drained at this time. D/c packing, continue IV abx. Resume diet today, keep NPO after midnight and will re-eval in AM. History of Present Illness Attending Physician: Arvind Kwan DO History of Present Illness 48 y/o female brought to ED yesterday from [facility] for abdominal pain, admitted for left thigh abscess and UTI. Pain was present just one day, mostly RUQ, today is resolved. No N/V, appetite has been good and no other problems since lap juanis [address] Jorge. Her left thigh pain is improved, redness also improved after I&D last night in ED. Allergies Allergy/AdvReac Type Severity Reaction Status Date / Time erythromycin base Allergy Intermediate RASH Verified 02/12/19 16:56 Penicillins Allergy Intermediate RASH Verified 02/12/19 16:56 sulfamethoxazole Allergy Intermediate RASH Verified 02/12/19 16:56 trimethoprim Allergy Intermediate RASH Verified 02/12/19 16:56 Bactrim Allergy Unknown RASH Verified 09/26/17 16:39 influenza virus vaccine, Allergy Unknown Unknown Verified 02/12/19 16:56 specific Home Medications Home Medications Medication Instructions Recorded Confirmed Type Therems 1 tab PO DAILY 11/15/18 02/12/19 History amlodipine 5 mg PO BID 11/15/18 02/12/19 History hydrochlorothiazide 12.5 mg PO DAILY 11/15/18 02/12/19 History sertraline 100 mg PO DAILY 11/15/18 02/12/19 History acetaminophen 650 mg PO Q6H PRN MDD 3 GM APAP/24 02/12/19 02/12/19 History HOURS docusate sodium [Doc-Q-Lace] 100 mg PO Q12H PRN 02/12/19 02/12/19 History lisinopril 20 mg PO BID 02/12/19 02/12/19 History nystatin 1 applic TOPICAL BID PRN 02/12/19 02/12/19 History Patient History Medical History Multiple sclerosis (Chronic) Neurocognitive deficits (Chronic) History of brain tumor (Chronic) "hx pediatric brain tumor, unresectable. Hx multiple shunts for hydrocephalus. Hx colloid cyst" HTN (hypertension) (Chronic) Hx of hydrocephalus (Chronic) Depression (Chronic) Morbid obesity Surgical History S/P DRAIN TILER shunt Social History Preferred Language: Kyrgyz Communication Ability: Impaired Chorus Dancer Required: No Beliefs That Will Affect Care: None Current Living Situation: Personal Care Facility Current Living Situation Comment: [facility] Other Information That Helps Us Care for You: No (cognitively impaired) Feels Safe at Home: Yes Safety Concerns: Feels Safe At This Time Smoking Status: Never smoker Hx Alcohol Use: No Hx Substance Use: No Review of Systems Gastrointestinal: + abdominal pain; no bloating, no heartburn, no nausea and no vomiting Physical Exam Gastrointestinal (Abdomen): Inspection/Auscultation: abdomen not distended Percussion/Palpation: abdomen soft; abdomen nontender Musculoskeletal: left inner thigh erythema 10 cm and some induration, 1 cm incision and 8 inches of 1/4" packing was removed Results & Data Vital Signs (Past 12 Hours) Vital Signs Temp Pulse Pulse Resp BP BP Pulse Ox 02/13/19 09:15 38.1 C H 02/13/19 07:42 38.7 C H 110 H 16 107/66 96 02/13/19 03:50 102 H 02/13/19 03:34 37.6 C H 110 H 16 107/58 L 93 02/12/19 23:33 37.8 C H 104 H 16 112/72 98 02/12/19 22:30 100 H 21 101/63 100 02/12/19 22:00 102 H 21 109/67 97 PG Care Time/CCT Total # of Minutes Spent Total Time Spent with Patient: Total time spent is greater than 50% in coordination of care (as documented) at patient's floor/unit and/or counseling patient:
--- NOTE | 2019-02-13 14:22 | Pharmacy Report ---
Pharmacy Abx Dose Short Note - Date of Service February 13, 2019 - Assessment & Plan Assessment 48 year old F receiving vancomycin and ertapenem IV for treatment of left thigh abscess. Preliminary left wound culture is growing S. aureus (sensitivities pending). Patient has a positive MRSA nasal swab. Plan Vancomycin * Loading dose: 2000 mg IV (19 mg/kg) * Maintenance dose: 1500 mg IV every 12 hours * Estimated vanco half life of 7-8 hours. * I have extended the dosing frequency to q12h due to likelihood of drug accumulation with BMI of 39. * Goal trough level for SSTI : 15 mcg/mL * Trough level ordered for: 02/14 @ 1930 Ertapenem - discontinue Add flagyl 500 mg IV q8h for anaerobic coverage Pharmacy will continue to follow and will adjust dose/frequency as necessary. Thank you.
[2019-02-13] MEDS: metroNIDAZOLE 500 MG/100 ML BAG IV SCH (17:42)
[2019-02-13] MEDS: VANCOMYCIN HCL 1,500 MG in SODIUM CHLORIDE 0.9% 500 ML IV SCH (19:32)
[2019-02-14] MEDS: metroNIDAZOLE 500 MG/100 ML BAG IV SCH ×3 (01:46→18:06)
[2019-02-14 06:45] LABS: Hematocrit (blood only) 29.1 % (37-47); Mean Corpuscular Hemoglobin 29.4 pg (25-34); Mean Corpuscular Hgb Conc 34.4 g/dL (32-36); Mean Corpuscular Volume 85.6 fL (80-100); Mean Platelet Volume 9.3 fL (7.4-10.4); Platelet Count 229 K/uL (130-400); RDW Standard Deviation 41.1 fL (36.4-46.3); White Blood Count 12.86 K/uL (4.8-10.8)
[2019-02-14 07:18] LABS: BUN Creatinine Ratio 16.7 (10-20); Calcium 7.9 mg/dl (8.5-10.1); Creatinine Clr Calc Pharmacy 144.8 ml/min; Est GFR (African American) 127.4; Est GFR (Non-African American) 109.9; Potassium 2.9 mmol/L (3.5-5.1)
[2019-02-14] MEDS: VANCOMYCIN HCL 1,500 MG in SODIUM CHLORIDE 0.9% 500 ML IV SCH ×2 (08:10→20:37)
[2019-02-14] MEDS: CEROVITE ADV FORMULA TAB PO SCH (08:12)
[2019-02-14] MEDS: hydroCHLOROthiazide 25 MG TAB PO SCH (08:12)
[2019-02-14] MEDS: AMLODIPINE BESYLATE 5 MG TAB PO SCH ×2 (08:12→20:41)
[2019-02-14] MEDS: SERTRALINE HCL 100 MG TABLET PO SCH (08:13)
[2019-02-14] MEDS: LISINOPRIL 20 MG TAB PO SCH ×2 (08:13→20:41)
--- NOTE | 2019-02-14 08:43 | Hospitalist Progress Note ---
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 1. Left thigh abscess, status post drained in the ER. MRSA. We placed on empirically on IV vancomycin and IV Invanz, general surgery saw the patient 2. Urinary tract infection. Antibiotics as above. 3. History of hypertension. Continue lisinopril, hctz and amlodipine. 4. History of depression. controlled on Zoloft. 5. History of multiple sclerosis and history of brain neoplasm, status post ventricular shunt. Follows with neurology. Family history of Ismael's chorea, follows with neurology. 6. Deep venous thrombosis prophylaxis, sequential compression devices for now. 7. Disposition: DC when afebrile 24-48 hrs, organism IDd and WBCs close to normal, WBCs coming down, Still febrile Labs checked ROS-No Headache, No Visual Changes, No Nausea, No Vomiting, No Fever, No Chills, No Neck Pain or Stiffness, No Chest Pain, No Palpitations, No SOB, No THAKUR, No Cough, No Sputum, No Wheezing, No Abdominal Pain, No Diarrhea, No Hematemesis, No Hemoptysis, No Unexpected Weight Loss, No Flank pain, No Melena, No Hematochezia, No Frequency, No Urgency, No Burning, No Hematuria, No Rashes, No Diaphoresis. Appetite is Normal Physical Exam Gen-AAO x 3, NAD, Febrile Head-NCAT, EOMI, PERRLA, Anicteric Sclera, No Posterior Pharyngeal Erythema Neck-Supple, No JVD, No Thyromegaly, No Masses, No LAD, No Bruits Lungs-Clear to Auscultation Bilaterally, No Rales, No Rhonchi, No Wheezing, No Crepitus Chest-No S4, +S1, +S2, No S3, No Murmurs, No Rubs, No Gallops, No Ectopy Abdomen-Soft, Bowel Sounds Present, Non Tender, Non Distended, No Hepatomegaly, No Splenomegaly, No Palpable Masses, No Rebound, No Rigidity, No Guarding Musculoskeletal-Full Range of Motion Bilaterally, No CVAT Extremities-No Cyanosis, No Clubbing, No Edema, l thigh abscess Nuero-Cranial Nerves II-XII grossly intact, Motor WNL, DTRs WNL, Strength WNL, Non Focal Psych-odd affect, pleasant Results & Data Vital Signs (Past 12 Hours) Vital Signs Temp Pulse Resp BP BP Pulse Ox 02/14/19 07:50 37.7 C H 99 H 16 109/58 L 92 02/13/19 23:39 37.7 C H 99 H 18 100/60 93 (1) Cellulitis Site of cellulitis: unspecified site Qualified Code(s): L03.90 - Cellulitis, unspecified (2) Acute pancreatitis Pancreatitis type: unspecified pancreatitis type Acute pancreatitis complication: unspecified Qualified Code(s): K85.90 - Acute pancreatitis without necrosis or infection, unspecified
--- NOTE | 2019-02-14 08:54 | Surgery Progress Note ---
Date of Service February 14, 2019 Assessment & Plan (1) Abscess: Hospital Day #2 left thigh abscess Cultures growing staph aureus (MRSA), patient currently on IV vancomycin and flagyl WBC downtrending to 12 today, had a 37.7C temp overnight Previous I&D site appears to be closing over without much drainage Patient seen and examined with Dr. Horn this AM, and we will proceed to take her to the OR today for incision and drainage of this abscess for better drainage Keep NPO until after OR Subjective Patient with no acute events overnight. Abdominal pain is gone. Patient still with left inner thigh tenderness with palpation. Otherwise no major complaints. Physical Exam Physical Exam: awake/alert/sitting up in bed Constitutional: well developed and well nourished; no acute distress Skin: cellulitis and induration of left medial thigh. previous i&d site healing over without much drainage. tender to palpation as above. large abcess with inadequate drainage. will need formal I & D in OR with sedation. pt agreeable. d/w mother who is also agreeable. will proceed this AM with incision and drainage of left thigh abcess. Results & Data Vital Signs (Past 12 Hours) Vital Signs Temp Pulse Resp BP BP Pulse Ox 02/14/19 07:50 37.7 C H 99 H 16 109/58 L 92 02/13/19 23:39 37.7 C H 99 H 18 100/60 93 PG Care Time/CCT Total # of Minutes Spent Total Time Spent with Patient: Total time spent is greater than 50% in coord ination of care (as documented) at patient's floor/unit and/or counseling patient:
[2019-02-14] MEDS ORDERED: PROPOFOL IV EMULSION 10 MG/ML 20 ML VIAL IV ONE (09:05)
[2019-02-14] MEDS ORDERED: fentaNYL citrate 100 MCG/2 ML VIAL ONE (09:05)
[2019-02-14] MEDS ORDERED: LIDOCAINE HCL 2% 2 ML VIAL/AMP(20MG/ML) INFIL ONE (09:05)
[2019-02-14] MEDS ORDERED: MIDAZOLAM HCL 1 MG/ML 2ML VIAL ONE (09:05)
--- NOTE | 2019-02-14 09:21 | Anesthesiology Consultation ---
Date of Service February 14, 2019 Assessment & Plan Chart Review Chart Review: Acceptable Risk for Surgery and Patient NOT seen in Pre Admission Testing Spoke with primary team, who are going to order potassium replacement (IV). Given emergent nature of procedure, will proceed. ECG did not show any U waves and patient's K for the past several months has been around 3.3-3.5 so this is not an entirely new finding. Consults Requested none History Surgery Operation Date: 02/14/19 11:00 Proposed Procedures p Left Thigh Incision and Drainage - Emli Horn, Height/Weight Height: 5 ft 5 in Weight: 106.9 kg Allergies Allergy/AdvReac Type Severity Reaction Status Date / Time erythromycin base Allergy Intermediate RASH Verified 02/12/19 16:56 Penicillins Allergy Intermediate RASH Verified 02/12/19 16:56 sulfamethoxazole Allergy Intermediate RASH Verified 02/12/19 16:56 trimethoprim Allergy Intermediate RASH Verified 02/12/19 16:56 Bactrim Allergy Unknown RASH Verified 09/26/17 16:39 influenza virus vaccine, Allergy Unknown Unknown Verified 02/12/19 16:56 specific Medications Home Medications Medication Instructions Recorded Confirmed Last Taken Therems 1 tab PO DAILY 11/15/18 02/12/19 Unknown amlodipine 5 mg PO BID 11/15/18 02/12/19 Unknown hydrochlorothiazide 12.5 mg PO DAILY 11/15/18 02/12/19 Unknown sertraline 100 mg PO DAILY 11/15/18 02/12/19 Unknown acetaminophen 650 mg PO Q6H PRN MDD 3 GM APAP/24 02/12/19 02/12/19 Unknown HOURS docusate sodium [Doc-Q-Lace] 100 mg PO Q12H PRN 02/12/19 02/12/19 Unknown lisinopril 20 mg PO BID 02/12/19 02/12/19 Unknown nystatin 1 applic TOPICAL BID PRN 02/12/19 02/12/19 Unknown Active Medications Generic Name Dose Route Start Last Admin Trade Name Freq PRN Reason Stop Dose Admin Acetaminophen 650 mg 02/12/19 22:57 02/13/19 08:04 Tylenol PO 03/14/19 22:56 650 mg Q4H PRN Administration pain/fever Amlodipine Besylate 5 mg 02/13/19 09:00 02/14/19 08:12 Norvasc PO 03/15/19 08:59 5 mg BID DORETHA Administration Hydrochlorothiazide 12.5 mg 02/13/19 09:00 02/14/19 08:12 Hctz PO 03/15/19 08:59 12.5 mg DAILY DORETHA Administration Vancomycin HCl 1,500 mg/ 530 mls @ 200 mls/hr 02/13/19 20:00 02/14/19 08:10 Sodium Chloride IV 02/22/19 19:59 200 mls/hr Q12H DORETHA Administration Protocol Metronidazole 500 mg in 100 mls @ 100 mls/hr 02/13/19 18:00 02/14/19 02:46 Flagyl IV 02/23/19 17:59 Infused Q8H DORETHA Infusion Protocol Lisinopril 20 mg 02/13/19 09:00 02/14/19 08:13 Zestril PO 03/15/19 08:59 20 mg BID DORETHA Administration Multivitamins/Minerals 1 tab 02/13/19 09:00 02/14/19 08:12 Multivitamin W/ Minerals Tab PO 03/15/19 08:59 1 tab DAILY DORETHA Administration Sertraline HCl 100 mg 02/13/19 09:00 02/14/19 08:13 Zoloft PO 03/15/19 08:59 100 mg DAILY DORETHA Administration Past Medical History Medical History Acute sepsis (Acute) Acute UTI (Acute) Multiple sclerosis (Chronic) Neurocognitive deficits (Chronic) History of brain tumor (Chronic) "hx pediatric brain tumor, unresectable. Hx multiple shunts for hydrocephalus. Hx colloid cyst" HTN (hypertension) (Chronic) Hx of hydrocephalus (Chronic) Depression (Chronic) Morbid obesity Past Surgical History Surgical History S/P TIME STUDY STATISTICIAN shunt Hx laparoscopic cholecystectomy 11/19/2018 at [facility]. MAC 3. grade 1 view. 7.5ETT. no issues. Past Anesthesia History No Hx of Anesthesia Complications and No Family Hx of Anesthesia Complications History of PONV No Hx of PONV and No Hx of Motion Sickness Social History Smoking Status: Never smoker Hx Alcohol Use: No Hx Substance Use: No Physical Exam Vital Signs Last Vital Signs Temp 37.7 C H 02/14/19 07:50 Pulse 99 H 02/14/19 07:50 Resp 16 02/14/19 07:50 BP 109/58 L 02/14/19 07:50 Pulse Ox 92 02/14/19 07:50 Testing Laboratory Results 02/14/19 06:32 02/14/19 06:32 Urine Color Dark Yellow 02/12/19 18:20 Urine Appearance Cloudy (Clear) A 02/12/19 18:20 Urine pH 6.5 (4.5-7.5) 02/12/19 18:20 Ur Specific [place] 1.021 (1.000-1.030) 02/12/19 18:20 Urine Protein Trace (Negative) H 02/12/19 18:20 Urine Glucose (UA) Negative (Negative) 02/12/19 18:20 Urine Ketones Trace (Negative) H 02/12/19 18:20 Urine Nitrite Positive (Negative) A 02/12/19 18:20 Ur Leukocyte Esterase Trace (Negative) H 02/12/19 18:20 Urine WBC (Auto) 1-5 /hpf (0-5) 02/12/19 18:20 Urine RBC (Auto) >30 /hpf (0-4) H 02/12/19 18:20 U Hyaline Cast (Auto) 10-30 /lpf (0-5) H 02/12/19 18:20 U Epithel Cells (Auto) >30 /lpf (0-5) H 02/12/19 18:20 Urine Bacteria (Auto) Negative (Negative) 02/12/19 18:20 02/12/19 20:00 Gram Stain - Final Leg,Left Deep Wound Culture - Preliminary Staph aureus MRSA 02/12/19 19:09 Aerobic Blood Culture - Preliminary Blood No growth in Aerobic bottle after 24 hours. Anaerobic Blood Culture - Final 02/12/19 19:09 Aerobic Blood Culture - Preliminary Blood No growth in Aerobic bottle after 24 hours. Anaerobic Blood Culture - Preliminary No growth in Anaerobic bottle after 24 hours. Electrocardiogram Date: 02/12/19 Findings: + ST @ (100) Normal sinus rhythm Nonspecific T wave abnormality When compared with ECG of 18-NOV-2018 01:46, Nonspecific T wave abnormality now evident in Anterolateral leads QT has shortened Confirmed by Chiki Gonzalez ([id number]) on 02/13/2019 8:07:16 PM Echocardiogram 11/20/2018. LV normal size. No RWMA LV systolic function is normal. EF 65-70% Mild LVH No valvular disease No pericardial effusion.
[2019-02-14] MEDS ORDERED: BUPIVACAINE/EPINEPHRINE 0.5% MPF 1:200,000 30 ML VIAL ONE (09:29)
[2019-02-14] MEDS ORDERED: BACITRACIN INJ 50,000 UNIT VIAL ONE (09:29)
[2019-02-14] MEDS: POTASSIUM CHLORIDE / WTR 10 MEQ/100 ML PLCT IV SCH ×4 (09:45→13:36)
[2019-02-14] MEDS ORDERED: fentaNYL citrate 100 MCG/2 ML VIAL IV PRN (11:03)
[2019-02-14] MEDS ORDERED: ATROPINE SULFATE 0.1 MG/ML 10ML SYR IV PRN (11:03)
[2019-02-14] MEDS ORDERED: ePHEDrine sulfate 50 MG/ML AMP IV PRN (11:03)
[2019-02-14] MEDS ORDERED: ONDANSETRON INJ 2 MG/ML 2 ML VIAL IV PRN (11:03)
--- NOTE | 2019-02-14 11:11 | Post Operative Brief Note ---
PG Immediate Post Op with CF Date of Surgery February 14, 2019 Pre & Post Diagnosis Operation Date: 02/14/19 11:00 Pre-Op Diagnosis: left thigh abscess Post-Op Diagnosis: left thigh abscess Procedure Operation Date: 02/14/19 11:00 Actual Procedures p Left Thigh Incision and Drainage(Left) - Emil Horn DO Surgeon Emil Horn DO Heel Seat Filler jamie Hoskins Estimated Blood Loss 20 Findings Consistent with Post-Op Diagnosis Specimens Specimen Description: none per surgeon Drains Carlene Drain
--- NOTE | 2019-02-14 11:22 | Anesthesiology Progress Note ---
Date of Service February 14, 2019 Anesthesia Post Procedure Vital Signs Vital Signs: Temp Pulse Pulse Resp BP BP Pulse Ox 02/14/19 11:15 93 H 17 113/65 95 02/14/19 11:05 85 17 99/62 L 96 02/14/19 10:57 36 C L 94 H 15 106/63 97 02/14/19 09:27 36.2 C L 94 H 20 110/63 94 02/14/19 07:50 37.7 C H 99 H 16 109/58 L 92 02/13/19 23:39 37.7 C H 99 H 18 100/60 93 02/13/19 15:10 37.4 C 98 H 20 110/74 95 02/13/19 12:02 37.5 C 105 H 16 108/72 94 Pain Intensity Abdomen: Pain Intensity: 3 Transfer of Care Handoff Completed per policy Notes Mental Status: alert / awake / arousable and participated in evaluation Patient Amnestic to Procedure: Yes Nausea / Vomiting: adequately controlled Pain: adequately controlled Airway Patency, RR, SpO2: stable & adequate BP & HR: stable & adequate Hydration State: stable & adequate Anesthetic Complications: no major complications apparent and Pt Satisfied with anesthetic care
[2019-02-14] MEDS ORDERED: HYDROCODONE/ACETAMOPHEN 5/325MG TAB PO PRN ×2 (11:53)
[2019-02-14] MEDS ORDERED: MoRPHine SULFATE 2 MG/ML CARP IV PRN (11:53)
--- NOTE | 2019-02-14 12:37 | Operative Report ---
Post Operative Report Pre & Post Diagnosis Operation Date: 02/14/19 11:00 Pre-Op Diagnosis: left thigh abscess Post-Op Diagnosis: left thigh abscess Procedure Operation Date: 02/14/19 11:00 Actual Procedures p Left Thigh Incision and Drainage(Left) - Emil Horn DO Surgeon Emil Horn DO Quality Management Coordinator jamie Hoskins Estimated Blood Loss 20 Findings Consistent with Post-Op Diagnosis Specimens none Description of Procedure After informed consent was obtained the patient was taken to the operating room placed in supine position. IV sedation was administered by anesthesia and titrated to effect. After adequate sedation the patient was placed in a slight frog-leg position. Left upper thigh area was sterilely prepped and draped with a Betadine solution. The the patient was somewhat uncomfortable during the procedure so anesthesia changed to a laryngeal mask airway without difficulty. We then made a horizontal incision over her previous incision and carried this down through soft tissues and cautery. We readily encountered a large abscess cavity. A large amount of purulent fluid was expressed. I finger fractionated the entire cavity and then thoroughly irrigated it. 1/2 inch Carlene drain was placed into the cavity and secured to the skin using 2-0 nylon. Sterile dressings were applied. The patient was awakened extubated and transferred recovery in stable condition. My physician seo assistant assisted throughout the case helping with exposure irrigation and dressing placement. I attest to the content of the Intraoperative Record and any orders documented therein. Any exceptions are noted below.
[2019-02-14] MEDS ORDERED: VANCOMYCIN TROUGH ONE (19:30)
--- NOTE | 2019-02-14 22:03 | Pharmacy Report ---
Pharmacy Abx Dose Short Note - Date of Service February 14, 2019 - Assessment & Plan Assessment 48 year old F receiving vancomycin and flagyl for left thigh abscess. Day # 3 of antimicrobial therapy. Plan Vancomycin * Trough level came subtherapeutic at 9.7 mcg/ml (goal 15-20 mcg/ml) * Will adjust to vancomycin 1250 mg (~12 mg/kg) iv q 8 hrs to target higher trough level * Estimated kinetics based upon level: ke~0.102 hr-1, t1/2~7 hrs, Vd ~64 L/kg * Scr remains stable, CrCl >100 ml/min. Blood cultures are no growth, wound cultures positive for MRSA * Will plan on rechecking trough in next 1-2 days if vancomycin is to be continued Pharmacy will continue to follow and will adjust dose/frequency as necessary. Thank you.
[2019-02-15] MEDS: metroNIDAZOLE 500 MG/100 ML BAG IV SCH ×3 (02:59→18:05)
[2019-02-15] MEDS: VANCOMYCIN HCL 1,250 MG in SODIUM CHLORIDE 0.9% 250 ML IV SCH ×3 (04:52→20:18)
[2019-02-15] MEDS ORDERED: SODIUM CHLORIDE 0.9% 1000ML 1,000 ML IV ONE (06:44)
--- NOTE | 2019-02-15 06:47 | Hospitalist Progress Note ---
Date of Service February 15, 2019 Assessment & Plan (1) Acute sepsis: Sec to UTI and Thigh Abscess, MRSA grew out in Wound (2) Acute UTI: (3) Abscess: (4) Cellulitis: (5) Cholecystitis: (6) Possible urinary tract infection: (7) Acute pancreatitis: (8) S/P SILK TRIMMER shunt: ASSESSMENT AND PLAN: This is a 48-year-old female who presents with a complaint of right quadrant abdominal pain and found to have left thigh abscess and also urinary tract infection. 1. Left thigh abscess, status post drained in the ER. MRSA. We placed on empirically on IV vancomycin and IV Invanz, general surgery saw the patient 2. Urinary tract infection. Antibiotics as above. 3. History of hypertension. Continue lisinopril, amlodipine. 4. History of depression. controlled on Zoloft. 5. History of multiple sclerosis and history of brain neoplasm, status post ventricular shunt. Follows with neurology. Family history of Goodman's chorea, follows with neurology. 6. Deep venous thrombosis prophylaxis, sequential compression devices for now. 7. Disposition: DC when afebrile 24-48 hrs, organism IDd and WBCs close to normal, WBCs still coming down, Still febrile last night, more alert Hypotension-IVF Bolus ordered Hypokalemia-K IV given yesterday, 30 meq IV today Labs checked DC Sunday or Sunday ROS-No Headache, No Visual Changes, No Nausea, No Vomiting, No Fever, No Chills, No Neck Pain or Stiffness, No Chest Pain, No Palpitations, No SOB, No THAKUR, No Cough, No Sputum, No Wheezing, No Abdominal Pain, No Diarrhea, No Hematemesis, No Hemoptysis, No Unexpected Weight Loss, No Flank pain, No Melena, No Hematochezia, No Frequency, No Urgency, No Burning, No Hematuria, No Rashes, No Diaphoresis. Appetite is Normal Physical Exam Gen-AAO x 3, NAD, Still Febrile Head-NCAT, EOMI, PERRLA, Anicteric Sclera, No Posterior Pharyngeal Erythema Neck-Supple, No JVD, No Thyromegaly, No Masses, No LAD, No Bruits Lungs-Clear to Auscultation Bilaterally, No Rales, No Rhonchi, No Wheezing, No Crepitus Chest-No S4, +S1, +S2, No S3, No Murmurs, No Rubs, No Gallops, No Ectopy Abdomen-Soft, Bowel Sounds Present, Non Tender, Non Distended, No Hepatomegaly, No Splenomegaly, No Palpable Masses, No Rebound, No Rigidity, No Guarding Musculoskeletal-Full Range of Motion Bilaterally, No CVAT Extremities-No Cyanosis, No Clubbing, No Edema, l thigh abscess Nuero-Cranial Nerves II-XII grossly intact, Motor WNL, DTRs WNL, Strength WNL, Non Focal Psych-Pleasant Results & Data Vital Signs (Past 12 Hours) Vital Signs Temp Pulse Resp BP BP Pulse Ox 02/15/19 03:08 36.6 C 87 18 93/58 L 92 02/14/19 23:08 113/69 02/14/19 23:07 37.8 C H 98 H 18 92/55 L 93 02/14/19 20:41 90 133/77 02/14/19 20:03 37.6 C H 92 H 14 108/70 95 Current Diagnoses Sepsis, unspecified organism (02/12/19) Cholecystitis, unspecified (02/12/19) Acute pancreatitis without necrosis or infection, unspecified (02/12/19) Cutaneous abscess, unspecified (02/12/19) Cellulitis, unspecified (02/12/19) Urinary tract infection, site not specified (02/12/19) Other symptoms and signs involving the genitourinary system (02/12/19) Presence of cerebrospinal fluid drainage device (02/12/19) Allergies erythromycin base Allergy (Intermediate, Verified 02/12/19 16:56) RASH Penicillins Allergy (Intermediate, Verified 02/12/19 16:56) RASH sulfamethoxazole Allergy (Intermediate, Verified 02/12/19 16:56) RASH trimethoprim Allergy (Intermediate, Verified 02/12/19 16:56) RASH Bactrim Allergy (Unknown, Verified 09/26/17 16:39) RASH influenza virus vaccine, specific Allergy (Unknown, Verified 02/12/19 16:56) Unknown Height/Weight/Isolation Height 5 ft 5 in Weight 106.9 kg Isolation Type Contact Precautions Chemistry 02/14/19 06:32 Sodium 133 L Potassium 2.9 L Chloride 99 Carbon Dioxide 27 Anion Gap 7.0 BUN 10 Creatinine 0.59 L Glucose 98 Microbiology 02/12/19 19:09 Blood Aerobic Blood Culture - Preliminary No growth in Aerobic bottle after 48 hours. 02/12/19 19:09 Blood Anaerobic Blood Culture - Preliminary No growth in Anaerobic bottle after 48 hours. 02/12/19 19:09 Blood Aerobic Blood Culture - Preliminary No growth in Aerobic bottle after 48 hours. 02/12/19 19:09 Blood Anaerobic Blood Culture - Final 02/12/19 20:00 Leg,Left Gram Stain - Final 02/12/19 20:00 Leg,Left Deep Wound Culture - Final Staph aureus MRSA (1) Cellulitis Site of cellulitis: unspecified site Qualified Code(s): L03.90 - Cellulitis, unspecified (2) Acute pancreatitis Pancreatitis type: unspecified pancreatitis type Acute pancreatitis complication: unspecified Qualified Code(s): K85.90 - Acute pancreatitis without necrosis or infection, unspecified
[2019-02-15 07:26] LABS: Albumin Level 2.6 gm/dl (3.4-5.0); BUN Creatinine Ratio 17.2 (10-20); Calcium 8.7 mg/dl (8.5-10.1); Creatinine Clr Calc Pharmacy 144.8 ml/min; Est GFR (African American) 127.4; Est GFR (Non-African American) 109.9; Potassium 3.3 mmol/L (3.5-5.1)
[2019-02-15 07:37] LABS: Albumin Globulin Ratio 0.6 (0.9-2); Bilirubin,Total 0.5 mg/dl (0.2-1); Total Protein 6.6 gm/dl (6.4-8.2)
--- NOTE | 2019-02-15 08:11 | Surgery Progress Note ---
Date of Service February 15, 2019 Assessment & Plan (1) Abscess: con't antibiotics marline in place keep in house through weekend Present on Admission?: Yes Subjective doing well pain controlled Review of Systems Constitutional: no fever and no chills Respiratory: no cough and no dyspnea Cardiovascular: no chest pain Musculoskeletal: no joint pain Integumentary: + erythema (improving) Physical Exam Constitutional: WD/WN, vitals as above Neck: trachea midline Respiratory: normal respiratory effort, lungs clear to auscultation Cardiovascular: RRR, no murmur, no edema Gastrointestinal (Abdomen): normal bowel sounds, soft, nontender, no hepatosplenomegaly Skin: abscess with less erythema; serous drainage from marline; no fluctuance Results & Data Vital Signs (Past 12 Hours) Vital Signs Temp Pulse Resp BP BP Pulse Ox 02/15/19 07:07 37.0 C 84 19 108/72 98 02/15/19 03:08 36.6 C 87 18 93/58 L 92 02/14/19 23:08 113/69 02/14/19 23:07 37.8 C H 98 H 18 92/55 L 93 02/14/19 20:41 90 133/77
[2019-02-15] MEDS: POTASSIUM CHLORIDE / WTR 10 MEQ/100 ML PLCT IV SCH ×3 (08:32→10:43)
[2019-02-15] MEDS: AMLODIPINE BESYLATE 5 MG TAB PO SCH ×2 (09:39→20:24)
[2019-02-15] MEDS: LISINOPRIL 20 MG TAB PO SCH ×2 (09:39→20:24)
[2019-02-15] MEDS: SERTRALINE HCL 100 MG TABLET PO SCH (09:40)
[2019-02-15] MEDS: CEROVITE ADV FORMULA TAB PO SCH (09:40)
[2019-02-16] MEDS: metroNIDAZOLE 500 MG/100 ML BAG IV SCH ×3 (02:20→17:11)
[2019-02-16] MEDS ORDERED: VANCOMYCIN TROUGH ONE (03:30)
[2019-02-16 03:48] LABS: Basophils # (auto) 0.02 K/uL (0-0.2); Basophils % (auto) 0.3 %; Eosinophils # (auto) 0.22 K/uL (0-0.5); Eosinophils % (auto) 2.9 %; Hematocrit (blood only) 29.2 % (37-47); Hemoglobin 9.7 g/dL (12.0-16.0); Immature Granulocytes # (auto) 0.05 K/uL (0.00-0.02); Immature Granulocytes % (auto) 0.7 %; Lymphocytes # (auto) 1.78 K/uL (1.2-3.4); Lymphocytes % (auto) 23.9 %; Mean Corpuscular Hemoglobin 28.8 pg (25-34); Mean Corpuscular Hgb Conc 33.2 g/dL (32-36); Mean Corpuscular Volume 86.6 fL (80-100); Mean Platelet Volume 8.9 fL (7.4-10.4); Monocytes # (auto) 0.58 K/uL (0.11-0.59); Monocytes % (auto) 7.8 %; Neutrophils # (auto) 4.81 K/uL (1.4-6.5); Neutrophils % (auto) 64.4 %; Platelet Count 290 K/uL (130-400); RDW Standard Deviation 41.6 fL (36.4-46.3); Red Blood Count 3.37 M/uL (4.2-5.4); White Blood Count 7.46 K/uL (4.8-10.8)
[2019-02-16 04:08] LABS: Albumin Level 2.4 gm/dl (3.4-5.0); BUN Creatinine Ratio 15.8 (10-20); Calcium 8.2 mg/dl (8.5-10.1); Creatinine Clr Calc Pharmacy 152.5 ml/min; Est GFR (African American) 129.6; Est GFR (Non-African American) 111.8; Potassium 3.5 mmol/L (3.5-5.1)
[2019-02-16 04:10] LABS: Albumin Globulin Ratio 0.7 (0.9-2); Bilirubin,Total 0.4 mg/dl (0.2-1); Globulin 3.5 gm/dl (2.5-4.0); Total Protein 5.9 gm/dl (6.4-8.2)
[2019-02-16] MEDS: VANCOMYCIN HCL 1,250 MG in SODIUM CHLORIDE 0.9% 250 ML IV SCH ×3 (05:08→19:59)
--- NOTE | 2019-02-16 07:47 | Hospitalist Progress Note ---
Date of Service February 16, 2019 Assessment & Plan (1) Acute sepsis: Sec to UTI and Thigh Abscess, MRSA grew out in Wound, WBCs are now normal, DC Sunday on 10 days of IV Vanco or Dapto, will check c ID as well (2) Acute UTI: (3) Abscess: (4) Cellulitis: (5) Cholecystitis: (6) Possible urinary tract infection: (7) Acute pancreatitis: (8) S/P JINRIKSHA DRIVER shunt: ASSESSMENT AND PLAN: This is a 48-year-old female who presents with a complaint of right quadrant abdominal pain and found to have left thigh abscess and also urinary tract infection. 1. Left thigh abscess, status post drained in the ER. MRSA. We placed on empirically on IV vancomycin and IV Invanz, general surgery saw the patient 2. Urinary tract infection. Antibiotics as above. 3. History of hypertension. Continue lisinopril, amlodipine. 4. History of depression. controlled on Zoloft. 5. History of multiple sclerosis and history of brain neoplasm, status post ventricular shunt. Follows with neurology. Family history of Ismael's chorea, follows with neurology. 6. Deep venous thrombosis prophylaxis, sequential compression devices for now. 7. Disposition: DC when afebrile 24-48 hrs, organism IDd and WBCs close to normal, WBCs normal now, afebrile last night, more alert BP normal now Labs checked ID eval DC Sunday or Sunday ROS-No Headache, No Visual Changes, No Nausea, No Vomiting, No Fever, No Chills, No Neck Pain or Stiffness, No Chest Pain, No Palpitations, No SOB, No THAKUR, No Cough, No Sputum, No Wheezing, No Abdominal Pain, No Diarrhea, No Hematemesis, No Hemoptysis, No Unexpected Weight Loss, No Flank pain, No Melena, No Hematochezia, No Frequency, No Urgency, No Burning, No Hematuria, No Rashes, No Diaphoresis. Appetite is Normal Physical Exam Gen-AAO x 3, NAD, Afebrile Head-NCAT, EOMI, PERRLA, Anicteric Sclera, No Posterior Pharyngeal Erythema Neck-Supple, No JVD, No Thyromegaly, No Masses, No LAD, No Bruits Lungs-Clear to Auscultation Bilaterally, No Rales, No Rhonchi, No Wheezing, No Crepitus Chest-No S4, +S1, +S2, No S3, No Murmurs, No Rubs, No Gallops, No Ectopy Abdomen-Soft, Bowel Sounds Present, Non Tender, Non Distended, No Hepatomegaly, No Splenomegaly, No Palpable Masses, No Rebound, No Rigidity, No Guarding Musculoskeletal-Full Range of Motion Bilaterally, No CVAT Extremities-No Cyanosis, No Clubbing, No Edema, l thigh abscess Nuero-Cranial Nerves II-XII grossly intact, Motor WNL, DTRs WNL, Strength WNL, Non Focal Psych-Pleasant Results & Data Vital Signs (Past 12 Hours) Vital Signs Temp Pulse Resp BP Pulse Ox 02/16/19 07:11 36.4 C L 85 18 124/79 96 02/15/19 23:23 37.3 C 99 H 18 129/62 96 Current Diagnoses Sepsis, unspecified organism (02/12/19) Cholecystitis, unspecified (02/12/19) Acute pancreatitis without necrosis or infection, unspecified (02/12/19) Cutaneous abscess, unspecified (02/12/19) Cellulitis, unspecified (02/12/19) Urinary tract infection, site not specified (02/12/19) Other symptoms and signs involving the genitourinary system (02/12/19) Presence of cerebrospinal fluid drainage device (02/12/19) Allergies erythromycin base Allergy (Intermediate, Verified 02/12/19 16:56) RASH Penicillins Allergy (Intermediate, Verified 02/12/19 16:56) RASH sulfamethoxazole Allergy (Intermediate, Verified 02/12/19 16:56) RASH trimethoprim Allergy (Intermediate, Verified 02/12/19 16:56) RASH Bactrim Allergy (Unknown, Verified 09/26/17 16:39) RASH influenza virus vaccine, specific Allergy (Unknown, Verified 02/12/19 16:56) Unknown Height/Weight/Isolation Height 5 ft 5 in Weight 106.9 kg Isolation Type Contact Precautions Chemistry 02/15/19 02/16/19 06:34 03:35 Sodium 135 L 138 Potassium 3.3 L 3.5 Chloride 101 105 Carbon Dioxide 27 27 Anion Gap 7.0 6.0 BUN 10 9 Creatinine 0.59 L 0.56 L Glucose 90 96 Microbiology 02/12/19 19:09 Blood Aerobic Blood Culture - Preliminary No growth in Aerobic bottle after 48 hours. 02/12/19 19:09 Blood Anaerobic Blood Culture - Preliminary No growth in Anaerobic bottle after 48 hours. 02/12/19 19:09 Blood Aerobic Blood Culture - Preliminary No growth in Aerobic bottle after 48 hours. 02/12/19 19:09 Blood Anaerobic Blood Culture - Final 02/12/19 20:00 Leg,Left Gram Stain - Final 02/12/19 20:00 Leg,Left Deep Wound Culture - Final Staph aureus MRSA (1) Cellulitis Site of cellulitis: unspecified site Qualified Code(s): L03.90 - Cellulitis, unspecified (2) Acute pancreatitis Pancreatitis type: unspecified pancreatitis type Acute pancreatitis complication: unspecified Qualified Code(s): K85.90 - Acute pancreatitis wit hout necrosis or infection, unspecified
[2019-02-16] MEDS: LISINOPRIL 20 MG TAB PO SCH ×2 (08:58→20:05)
[2019-02-16] MEDS: SERTRALINE HCL 100 MG TABLET PO SCH (08:58)
[2019-02-16] MEDS: CEROVITE ADV FORMULA TAB PO SCH (08:58)
[2019-02-16] MEDS: AMLODIPINE BESYLATE 5 MG TAB PO SCH ×2 (08:58→20:05)
--- NOTE | 2019-02-16 09:55 | Pharmacy Report ---
Pharmacy Abx Dose Short Note - Date of Service February 16, 2019 - Assessment & Plan Assessment 48 year old F receiving Vancomycin/Flagyl for treatment of left thigh abscess Day # 5 of antimicrobial therapy. Plan Laboratory Tests 02/16/19 03:35 Vancomycin Trough 14.7 Vancomycin * Trough level of 14.7 mcg/mL is therapeutic * Continue dose of 1250 mg IV every 8 hours * Goal trough level : 15 to 20 mcg/mL * Trough level ordered for: 02/17/19 @1130 Pharmacy will continue to follow and will adjust dose/frequency as necessary. Thank you.
--- NOTE | 2019-02-16 10:30 | Surgery Progress Note ---
Date of Service February 16, 2019 Assessment & Plan (1) Abscess: Status post I&D of abscess in left upper thigh There is still some erythema which were going to talisha to be sure it is not progressing Continue with IV antibiotics for MRSA. Subjective Having very little pain T-max is 37.3 Denies nausea vomiting Physical Exam Constitutional: no acute distress Musculoskeletal: Left upper medial thigh and anterior thigh still some erythema. There is still some induration. There was a moderate amount of drainage on the dressing. The Carmelo-Estevez drain is intact. Results & Data Vital Signs (Past 12 Hours) Vital Signs Temp Pulse Resp BP Pulse Ox 02/16/19 07:11 36.4 C L 85 18 124/79 96 02/15/19 23:23 37.3 C 99 H 18 129/62 96 Laboratory Results 02/16/19 02/16/19 02/16/19 Range/Units 03:35 03:35 03:35 WBC 7.46 (4.8-10.8) K/uL RBC 3.37 L (4.2-5.4) M/uL Hgb 9.7 L (12.0-16.0) g/dL Hct 29.2 L (37-47) % MCV 86.6 (80-100) fL MCH 28.8 (25-34) pg MCHC 33.2 (32-36) g/dL RDW Std Deviation 41.6 (36.4-46.3) fL RDW Coeff of Kary 13.0 (11.5-14.5) % Plt Count 290 (130-400) K/uL MPV 8.9 (7.4-10.4) fL Immature Gran % (Auto) 0.7 % Neut % (Auto) 64.4 % Lymph % (Auto) 23.9 % Pike % (Auto) 7.8 % Eos % (Auto) 2.9 % Baso % (Auto) 0.3 % Immature Gran # (Auto) 0.05 H (0.00-0.02) K/uL Neut # (Auto) 4.81 (1.4-6.5) K/uL Lymph # (Auto) 1.78 (1.2-3.4) K/uL Pike # (Auto) 0.58 (0.11-0.59) K/uL Eos # (Auto) 0.22 (0-0.5) K/uL Baso # (Auto) 0.02 (0-0.2) K/uL Sodium 138 (136-145) mmol/L Potassium 3.5 (3.5-5.1) mmol/L Chloride 105 (98-107) mmol/L Carbon Dioxide 27 (21-32) mmol/L Anion Gap 6.0 (3-11) BUN 9 (7-18) mg/dl Creatinine 0.56 L (0.6-1.2) mg/dl Est Cr Clr Drug Dosing 152.5 ml/min Est GFR ( Amer) 129.6 Est GFR (Non-Af Amer) 111.8 BUN/Creatinine Ratio 15.8 (10-20) Glucose 96 (70-99) mg/dl Calcium 8.2 L (8.5-10.1) mg/dl Total Bilirubin 0.4 (0.2-1) mg/dl AST 7 L (15-37) U/L ALT 26 (12-78) U/L Alkaline Phosphatase 90 (45-117) U/L Total Protein 5.9 L (6.4-8.2) gm/dl Albumin 2.4 L (3.4-5.0) gm/dl Globulin 3.5 (2.5-4.0) gm/dl Albumin/Globulin Ratio 0.7 L (0.9-2) Vancomycin Trough 14.7 (See Comment) mcg/ml
--- NOTE | 2019-02-16 15:38 | Infectious Disease Consult ---
Date of Consultation February 16, 2019 Assessment & Plan (1) Abscess: 48-year-old female with left thigh abscess with MRSA, isolate is clindamycin resistant, and patient is allergic to Bactrim. Unable to take Zyvox because of sertraline therapy. Will therefore require IV antibiotics for at least 5-7 more days, and given that vancomycin being dosed every 8 hours, would recommend change to IV daptomycin which can be given once daily. Only other possibility would be to try to arrange for IV dalbavancin as an outpatient. Will discuss with all involved. Will follow. (2) Cellulitis: History of Present Illness Reason for Consultation: Antibiotic choice and frequency upon discharge Attending Physician: Arvind Kwan DO History of Present Illness 48-year-old female with history of unresectable brain tumor, status post multiple VARNISH DIPPER shunts for hydrocephalus, who apparently was in usual state of health until several days prior to admission when she noted abdominal pain and chills. She continued to complain of right lower quadrant pain, was brought to the emergency room, where she was found to have a large right thigh abscess which was drained, with subsequent cultures growing MRSA. Patient has been treated with IV vancomycin with some improvement in redness and swelling of her thigh. She thinks that she may have banged her thigh several days prior to onset of symptoms. She currently is complaining of minimal pain in her thigh, currently 2 out of 10 in intensity. Has been afebrile. Blood cultures have been negative. Allergies Allergy/AdvReac Type Severity Reaction Status Date / Time erythromycin base Allergy Intermediate RASH Verified 02/12/19 16:56 Penicillins Allergy Intermediate RASH Verified 02/12/19 16:56 sulfamethoxazole Allergy Intermediate RASH Verified 02/12/19 16:56 trimethoprim Allergy Intermediate RASH Verified 02/12/19 16:56 Bactrim Allergy Unknown RASH Verified 09/26/17 16:39 influenza virus vaccine, Allergy Unknown Unknown Verified 02/12/19 16:56 specific Home Medications Home Medications Medication Instructions Recorded Confirmed Type Therems 1 tab PO DAILY 11/15/18 02/12/19 History amlodipine 5 mg PO BID 11/15/18 02/12/19 History hydrochlorothiazide 12.5 mg PO DAILY 11/15/18 02/12/19 History sertraline 100 mg PO DAILY 11/15/18 02/12/19 History acetaminophen 650 mg PO Q6H PRN MDD 3 GM APAP/24 02/12/19 02/12/19 History HOURS docusate sodium [Doc-Q-Lace] 100 mg PO Q12H PRN 02/12/19 02/12/19 History lisinopril 20 mg PO BID 02/12/19 02/12/19 History nystatin 1 applic TOPICAL BID PRN 02/12/19 02/12/19 History Patient History Medical History Acute sepsis (Acute) Acute UTI (Acute) Multiple sclerosis (Chronic) Neurocognitive deficits (Chronic) History of brain tumor (Chronic) "hx pediatric brain tumor, unresectable. Hx multiple shunts for hydrocephalus. Hx colloid cyst" HTN (hypertension) (Chronic) Hx of hydrocephalus (Chronic) Depression (Chronic) Morbid obesity Surgical History S/P VARNISH DIPPER shunt History of incision and drainage (02/14/19) Left Thigh Incision and Drainage Dr. Horn 02/14/19 Hx laparoscopic cholecystectomy 11/19/2018 at [facility]. MAC 3. grade 1 view. 7.5ETT. no issues. Social History Preferred Language: Micronesian Communication Ability: Impaired Director Information Required: No Beliefs That Will Affect Care: None marital status: Single Current Living Situation: Personal Care Facility Current Living Situation Comment: [place] [facility] Other Information That Helps Us Care for You: No (cognitively impaired) Feels Safe at Home: Yes Safety Concerns: Feels Safe At This Time Smoking Status: Never smoker Hx Alcohol Use: No Hx Substance Use: No Review of Systems Review of Systems: All systems reviewed & are unremarkable except as noted in HPI & below Physical Exam Constitutional: WD/WN, vitals as above comfortable; no acute distress Eyes: PERRL, conjunctivae normal, anicteric sclerae ENMT: external ear and nose normal, oropharynx normal Neck: trachea midline, no thyromegaly neck nontender Respiratory: normal respiratory effort, lungs clear to auscultation normal percussion; does not use accessory muscles Cardiovascular: Rate/Rhythm: regular rate and regular rhythm Heart Sounds: normal S1 and normal S2; no gallop, no murmur and no cardiac rub Vessels: normal peripheral pulses; no JVD Gastrointestinal (Abdomen): normal bowel sounds, soft, nontender, no hepatosplenomegaly Musculoskeletal: no cyanosis or clubbing, extremities motor strength 5/5 Spine: thoracic spine normal to inspection and lumbar spine normal to inspection; no cervical spinal tenderness Skin: no rashes, warm and dry normal turgor and + wound (Right thigh wound dressing intact, some surrounding erythema) Neurologic: patellar DTR's 2+ bilat, sensation intact no focal motor deficits Psychiatric: A+Ox3, euthymic affect Orientation: cooperative Lymphatic: no cervical or axillary lymphadenopathy no inguinal lymphadenopathy Results & Data Vital Signs (Past 12 Hours) Vital Signs Temp Pulse Resp BP Pulse Ox 02/16/19 15:26 36.4 C L 81 17 122/83 99 02/16/19 07:11 36.4 C L 85 18 124/79 96 Laboratory Results Short CBC 02/16/19 Range/Units 03:35 WBC 7.46 (4.8-10.8) K/uL Hgb 9.7 L (12.0-16.0) g/dL Hct 29.2 L (37-47) % Plt Count 290 (130-400) K/uL BMP 02/16/19 03:35 Sodium 138 Potassium 3.5 Chloride 105 Carbon Dioxide 27 BUN 9 Creatinine 0.56 L Glucose 96 Calcium 8.2 L Liver Function 02/16/19 Range/Units 03:35 Total Bilirubin 0.4 (0.2-1) mg/dl AST 7 L (15-37) U/L ALT 26 (12-78) U/L Alkaline Phosphatase 90 (45-117) U/L Albumin 2.4 L (3.4-5.0) gm/dl Diagnostic Findings Microbiology 02/12/19 19:09 Blood Aerobic Blood Culture - Preliminary No growth in Aerobic bottle after 48 hours. 02/12/19 19:09 Blood Anaerobic Blood Culture - Preliminary No growth in Anaerobic bottle after 48 hours. 02/12/19 19:09 Blood Aerobic Blood Culture - Preliminary No growth in Aerobic bottle after 48 hours. 02/12/19 19:09 Blood Anaerobic Blood Culture - Final 02/12/19 20:00 Leg,Left Gram Stain - Final 02/12/19 20:00 Leg,Left Deep Wound Culture - Final Staph aureus MRSA cc: ~ CT OF THE ABDOMEN AND PELVIS WITH CONTRAST CLINICAL HISTORY: Abdominal pain. Leukocytosis. COMPARISON STUDY: CT of the abdomen and pelvis November 17, 2018. TECHNIQUE: Following IV administration of 90 mL of Optiray-320, axial images of the abdomen and pelvis were obtained from the lung bases to the proximal femurs. Images were reviewed in the axial, sagittal, and coronal planes. IV contrast was administered without complication. Automated exposure control was utilized for the study. A dose lowering technique was utilized adhering to the principles of ALARA. CT DOSE: 1051.67 mGy.cm FINDINGS: A VARNISH DIPPER shunt catheter terminates within the right lower quadrant. An additional VARNISH DIPPER shunt catheter is likely old. There is no biliary ductal dilatation status post interval cholecystectomy. Fatty infiltration of the liver is noted. The spleen, adrenal glands and kidneys are normal. There is no pancreatic ductal dilatation. There is no peripancreatic infiltration. Exam is mildly compromised by motion artifact. No hydronephrosis is present. There is no evidence for a bowel obstruction. The appendix is normal. A small amount of fluid within the pelvis is noted. No pneumatosis, free air or portal venous gas is present. There are no suspicious osseous lesions. IMPRESSION: 1. Normal appendix. No bowel obstruction. 2. Fatty infiltration of the liver. 3. Partially visualized VARNISH DIPPER shunt catheter. 4. Small amount fluid within the pelvis which is nonspecific and may be related to the shunt catheter. Electronically signed by: Emiliano Monet M.D. 02/12/2019 7:48 PM Dictated: 02/12/191941 Transcribed: 02/12/191941 PG Care Time/CCT Total # of Minutes Spent Total Time Spent with Patient: Total time spent is greater than 50% in coordination of care (as documented) at patient's floor/unit and/or counseling patient: (1) Cellulitis Site of cellulitis: unspecified site Qualified Code(s): L03.90 - Cellulitis, unspecified
[2019-02-17] MEDS: metroNIDAZOLE 500 MG/100 ML BAG IV SCH ×2 (03:19→09:37)
[2019-02-17] MEDS: VANCOMYCIN HCL 1,250 MG in SODIUM CHLORIDE 0.9% 250 ML IV SCH ×3 (04:25→20:54)
[2019-02-17 05:38] LABS: Basophils # (auto) 0.05 K/uL (0-0.2); Basophils % (auto) 0.8 %; Eosinophils # (auto) 0.21 K/uL (0-0.5); Eosinophils % (auto) 3.2 %; Hematocrit (blood only) 30.9 % (37-47); Hemoglobin 10.2 g/dL (12.0-16.0); Immature Granulocytes # (auto) 0.09 K/uL (0.00-0.02); Immature Granulocytes % (auto) 1.4 %; Lymphocytes # (auto) 1.74 K/uL (1.2-3.4); Lymphocytes % (auto) 26.2 %; Mean Corpuscular Hemoglobin 28.7 pg (25-34); Mean Corpuscular Volume 86.8 fL (80-100); Mean Platelet Volume 8.8 fL (7.4-10.4); Monocytes # (auto) 0.56 K/uL (0.11-0.59); Monocytes % (auto) 8.4 %; Platelet Count 328 K/uL (130-400); RDW Coefficient of Variation 13.2 % (11.5-14.5); RDW Standard Deviation 42.2 fL (36.4-46.3); Red Blood Count 3.56 M/uL (4.2-5.4); White Blood Count 6.65 K/uL (4.8-10.8)
[2019-02-17 06:16] LABS: Albumin Level 2.5 gm/dl (3.4-5.0); BUN Creatinine Ratio 12.9 (10-20); Calcium 8.3 mg/dl (8.5-10.1); Creatinine Clr Calc Pharmacy 144.8 ml/min; Est GFR (African American) 127.4; Est GFR (Non-African American) 109.9; Potassium 3.7 mmol/L (3.5-5.1)
[2019-02-17 06:18] LABS: Albumin Globulin Ratio 0.7 (0.9-2); Bilirubin,Total 0.3 mg/dl (0.2-1); Globulin 3.8 gm/dl (2.5-4.0); Total Protein 6.3 gm/dl (6.4-8.2)
--- NOTE | 2019-02-17 07:26 | Hospitalist Progress Note ---
Date of Service February 17, 2019 Assessment & Plan (1) Acute sepsis: Sec to UTI and Thigh Abscess, MRSA grew out in Wound, WBCs are now normal, DC today on IV Vanco or Dapto, per ID, US guided Peripheral (2) Acute UTI: (3) Abscess: (4) Cellulitis: (5) Cholecystitis: (6) Possible urinary tract infection: (7) Acute pancreatitis: (8) S/P DROP TESTER shunt: ASSESSMENT AND PLAN: This is a 48-year-old female who presents with a complaint of right quadrant abdominal pain and found to have left thigh abscess and also urinary tract infection. 1. Left thigh abscess, status post drained in the ER. MRSA. We placed on empirically on IV vancomycin and IV Invanz, general surgery saw the patient 2. Urinary tract infection. Antibiotics as above. 3. History of hypertension. Continue lisinopril, amlodipine. 4. History of depression. controlled on Zoloft. 5. History of multiple sclerosis and history of brain neoplasm, status post ventricular shunt. Follows with neurology. Family history of Ismael's chorea, follows with neurology. 6. Deep venous thrombosis prophylaxis, sequential compression devices for now. 7. Disposition: DC when afebrile 24-48 hrs, organism IDd and WBCs close to normal, WBCs normal now, afebrile last night, more alert BP normal now Labs checked ID on case DC Today or Sunday ROS-No Headache, No Visual Changes, No Nausea, No Vomiting, No Fever, No Chills, No Neck Pain or Stiffness, No Chest Pain, No Palpitations, No SOB, No THAKUR, No Cough, No Sputum, No Wheezing, No Abdominal Pain, No Diarrhea, No Hematemesis, No Hemoptysis, No Unexpected Weight Loss, No Flank pain, No Melena, No Hematochezia, No Frequency, No Urgency, No Burning, No Hematuria, No Rashes, No Diaphoresis. Appetite is Normal Physical Exam Gen-AAO x 3, NAD, Afebrile Head-NCAT, EOMI, PERRLA, Anicteric Sclera, No Posterior Pharyngeal Erythema Neck-Supple, No JVD, No Thyromegaly, No Masses, No LAD, No Bruits Lungs-Clear to Auscultation Bilaterally, No Rales, No Rhonchi, No Wheezing, No Crepitus Chest-No S4, +S1, +S2, No S3, No Murmurs, No Rubs, No Gallops, No Ectopy Abdomen-Soft, Bowel Sounds Present, Non Tender, Non Distended, No Hepatomegaly, No Splenomegaly, No Palpable Masses, No Rebound, No Rigidity, No Guarding Musculoskeletal-Full Range of Motion Bilaterally, No CVAT Extremities-No Cyanosis, No Clubbing, No Edema, l thigh abscess Nuero-Cranial Nerves II-XII grossly intact, Motor WNL, DTRs WNL, Strength WNL, Non Focal Psych-Pleasant Results & Data Vital Signs (Past 12 Hours) Vital Signs Temp Pulse Pulse Resp BP Pulse Ox 02/17/19 07:14 36.4 C L 95 H 16 146/77 H 92 02/16/19 22:50 37.3 C 89 18 143/84 H 97 (1) Cellulitis Site of cellulitis: unspecified site Qualified Code(s): L03.90 - Cellulitis, unspecified (2) Acute pancreatitis Pancreatitis type: unspecified pancreatitis type Acute pancreatitis complication: unspecified Qualified Code(s): K85.90 - Acute pancreatitis without necrosis or infection, unspecified
--- NOTE | 2019-02-17 08:46 | Surgery Progress Note ---
Date of Service February 17, 2019 Assessment & Plan (1) Abscess: POD#3 incision and drainage of left thigh abscess WBC 6.6 today and patient afebrile >48 hours. Blood cultures negative Wound cultures growing MRSA (S) to tetracycline, bactrim, dapto, and vancomycin. ID following- appreciate recommendations regarding home abx choice and duration Keep marline drain in place at discharge and plan to have patient follow up in clinic with Dr. Horn this upcoming vs Sunday for removal. Continue BID dressing changes upon discharge Okay for discharge from surgical standpoint once okay with medicine and ID Subjective Patient feeling well. Denies any pain in her left thigh. Hoping to be discharged to home soon. Physical Exam Physical Exam: awake/alert/eating breakfast Respiratory: normal respiratory effort; no respiratory distress Skin: Left thigh with marline drain in place and minimal drainage on dressing. Still with some induration. Erythema improving. Not much pain to palpation Results & Data Vital Signs (Past 12 Hours) Vital Signs Temp Pulse Pulse Resp BP Pulse Ox 02/17/19 07:14 36.4 C L 95 H 16 146/77 H 92 02/16/19 22:50 37.3 C 89 18 143/84 H 97 PG Care Time/CCT Total # of Minutes Spent Total Time Spent with Patient: Total time spent is greater than 50% in coordination of care (as documented) at patient's floor/unit and/or counseling patient:
[2019-02-17] MEDS: AMLODIPINE BESYLATE 5 MG TAB PO SCH ×2 (09:36→20:54)
[2019-02-17] MEDS: LISINOPRIL 20 MG TAB PO SCH ×2 (09:36→20:54)
[2019-02-17] MEDS: CEROVITE ADV FORMULA TAB PO SCH (09:37)
[2019-02-17] MEDS: SERTRALINE HCL 100 MG TABLET PO SCH (09:37)
[2019-02-17] MEDS ORDERED: VANCOMYCIN TROUGH ONE (11:30)
--- NOTE | 2019-02-17 14:11 | Pharmacy Report ---
Pharmacy Abx Dose Short Note - Date of Service February 17, 2019 - Assessment & Plan Assessment 48 year old F receiving vancomycin for treatment of MRSA cellulitis Day # 6 of antimicrobial therapy. Plan Vancomycin * Trough level of 16.1 mcg/mL is therapeutic * Continue dose of 1250 mg IV every 8 hours * Goal trough level for MRSA cellulitis : 15 to 20 mcg/mL * No additional troughs ordered at this point - re-order based upon clinical picture Pharmacy will continue to follow and will adjust dose/frequency as necessary. Thank you.
--- NOTE | 2019-02-17 15:18 | Infectious Disease Progress Nt ---
Date of Service February 17, 2019 Assessment & Plan (1) Abscess: 48-year-old female with left thigh abscess with MRSA, isolate is clindamycin resistant, and patient is allergic to Bactrim. Unable to take Zyvox because of sertraline therapy. Will therefore require IV antibiotics for at [facility] 5-7 more days, and given that vancomycin being dosed every 8 hours, would recommend change to IV daptomycin which can be given once daily. Only other possibility would be to try to arrange for IV dalbavancin as an outpatient. Will discuss with all involved. Will follow. (2) Cellulitis: Subjective Patient feeling well. Denies any pain in her left thigh. Hoping to be discharged to home soon. Review of Systems Review of Systems: All systems reviewed & are unremarkable except as noted in HPI & below Physical Exam Constitutional: WD/WN, vitals as above comfortable; no acute distress Eyes: PERRL, conjunctivae normal, anicteric sclerae ENMT: external ear and nose normal, oropharynx normal Neck: trachea midline, no thyromegaly neck nontender Respiratory: normal respiratory effort, lungs clear to auscultation normal percussion; does not use accessory muscles Cardiovascular: Rate/Rhythm: regular rate and regular rhythm Heart Sounds: normal S1 and normal S2; no gallop, no murmur and no cardiac rub Vessels: normal peripheral pulses; no JVD Gastrointestinal (Abdomen): normal bowel sounds, soft, nontender, no hepatosplenomegaly Musculoskeletal: no cyanosis or clubbing, extremities motor strength 5/5 Spine: thoracic spine normal to inspection and lumbar spine normal to inspection; no cervical spinal tenderness Skin: no rashes, warm and dry normal turgor and + wound (Right thigh wound dressing intact, some surrounding erythema) Neurologic: patellar DTR's 2+ bilat, sensation intact no focal motor deficits Psychiatric: A+Ox3, euthymic affect Orientation: cooperative Lymphatic: no cervical or axillary lymphadenopathy no inguinal ly mphadenopathy Results & Data Vital Signs (Past 12 Hours) Vital Signs Temp Pulse Pulse Resp BP Pulse Ox 02/17/19 15:11 36.8 C 86 16 130/84 92 02/17/19 07:14 36.4 C L 95 H 16 146/77 H 92 Laboratory Results Short CBC 02/17/19 Range/Units 05:15 WBC 6.65 (4.8-10.8) K/uL Hgb 10.2 L (12.0-16.0) g/dL Hct 30.9 L (37-47) % Plt Count 328 (130-400) K/uL BMP 02/17/19 05:15 Sodium 140 Potassium 3.7 Chloride 106 Carbon Dioxide 28 BUN 8 Creatinine 0.59 L Glucose 97 Calcium 8.3 L Liver Function 02/17/19 Range/Units 05:15 Total Bilirubin 0.3 (0.2-1) mg/dl AST 11 L (15-37) U/L ALT 26 (12-78) U/L Alkaline Phosphatase 86 (45-117) U/L Albumin 2.5 L (3.4-5.0) gm/dl Diagnostic Findings Microbiology 02/12/19 19:09 Blood Aerobic Blood Culture - Preliminary No growth in Aerobic bottle after 48 hours. 02/12/19 19:09 Blood Anaerobic Blood Culture - Preliminary No growth in Anaerobic bottle after 48 hours. 02/12/19 19:09 Blood Aerobic Blood Culture - Preliminary No growth in Aerobic bottle after 48 hours. 02/12/19 19:09 Blood Anaerobic Blood Culture - Final 02/12/19 20:00 Leg,Left Gram Stain - Final 02/12/19 20:00 Leg,Left Deep Wound Culture - Final Staph aureus MRSA PG Care Time/CCT Total # of Minutes Spent Total Time Spent with Patient: Total time spent is greater than 50% in coordination of care (as documented) at patient's floor/unit and/or counseling patient: (1) Cellulitis Site of cellulitis: unspecified site Qualified Code(s): L03.90 - Cellulitis, unspecified
[2019-02-18] MEDS: VANCOMYCIN HCL 1,250 MG in SODIUM CHLORIDE 0.9% 250 ML IV SCH (04:43)
[2019-02-18 07:57] LABS: Hematocrit (blood only) 36.8 % (37-47); Hemoglobin 12.1 g/dL (12.0-16.0); Mean Corpuscular Hemoglobin 28.7 pg (25-34); Mean Corpuscular Hgb Conc 32.9 g/dL (32-36); Mean Corpuscular Volume 87.4 fL (80-100); Platelet Count 396 K/uL (130-400); RDW Coefficient of Variation 13.4 % (11.5-14.5); RDW Standard Deviation 42.8 fL (36.4-46.3); Red Blood Count 4.21 M/uL (4.2-5.4); White Blood Count 8.39 K/uL (4.8-10.8)
[2019-02-18 08:21] LABS: BUN Creatinine Ratio 13.7 (10-20); Est GFR (Non-African American) 108.7; Potassium 4.1 mmol/L (3.5-5.1)
[2019-02-18] MEDS: SERTRALINE HCL 100 MG TABLET PO SCH (09:02)
[2019-02-18] MEDS: AMLODIPINE BESYLATE 5 MG TAB PO SCH (09:02)
[2019-02-18] MEDS: LISINOPRIL 20 MG TAB PO SCH (09:02)
[2019-02-18] MEDS: CEROVITE ADV FORMULA TAB PO SCH (09:02)
--- NOTE | 2019-02-18 09:03 | Discharge Summary ---
Date of Service February 18, 2019 Admission HPI Per Admitting Provider 48-year-old female with past medical history significant for unresectable brain tumor, hydrocephalus, status post multiple VEGETABLE TRIMMER shunts, multiple sclerosis, history of seizure disorder, hypertension, allergic rhinitis, depression, [facility] Presents with complaints of right lower quadrant abdominal pain. Says this started about 3 days ago and seems she has also had an accident when she was moving her bowels today, but denies any diarrhea and she was brought in here. She said she denies any fever, but felt chills 3 days ago. Denies any nausea, vomiting. No other complaints. Currently resting comfortably and hemodynamically stable. She also says that she hit the left thigh sometime back, she does not remember the exact time, but in the ER, she was found to have left thigh abscess and it was drained in the ER and also UA was positive. The patient denies any burning micturition currently. Denies any black stools or blood in the stools. Denies headache or dizziness. No blurred visions, no earache, no runny nose, no sore throat. Appetite is good, eating okay. No dysphagia, no shortness of breath, no cough, no rash. She has imbalance and she ambulates with the help of walker. She says her mother lives in [place] and she knows that she is in the hospital. Tried to contact [facility], but it went in to voicemail. Admission Exam Per Admitting Provider GENERAL: The patient is alert and awake, not in acute distress. VITAL SIGNS: Temperature 37.1, pulse 108, respiratory rate 22, blood pressure 125/71, oxygen 97% on room air. HEENT: No pallor, no icterus. Pupils equal, round, and reactive to light. Oral mucosa moist. NECK: No JVD, no neck masses, no carotid bruits. CARDIOVASCULAR: S1, S2 heard, regular rate and rhythm. No murmur, no gallop. RESPIRATORY SYSTEM: Normal AP diameter. No accessory muscle use. No wheezing, no crackles. ABDOMEN: Soft, bowel sounds present. Mild tenderness in the right lower quadrant. No guarding, no rigidity, no distention. CENTRAL NERVOUS SYSTEM: Cranial nerves II-XII grossly intact. Nonfocal. EXTREMITIES: Left middle part of thigh is erythematous and status post I and D done in the ER, dressing intact. No obvious drainage seen and erythematous. Principal Diagnosis MRSA Sepsis LLE Abscess UTI MS HTN Discharge Exam ROS-No Headache, No Visual Changes, No Nausea, No Vomiting, No Fever, No Chills, No Neck Pain or Stiffness, No Chest Pain, No Palpitations, No SOB, No THAKUR, No Cough, No Sputum, No Wheezing, No Abdominal Pain, No Diarrhea, No Hematemesis, No Hemoptysis, No Unexpected Weight Loss, No Flank pain, No Melena, No Hematochezia, No Frequency, No Urgency, No Burning, No Hematuria, No Rashes, No Diaphoresis. Appetite is Normal Physical Exam Gen-AAO x 3, NAD, Afebrile Head-NCAT, EOMI, PERRLA, Anicteric Sclera, No Posterior Pharyngeal Erythema Neck-Supple, No JVD, No Thyromegaly, No Masses, No LAD, No Bruits Lungs-Clear to Auscultation Bilaterally, No Rales, No Rhonchi, No Wheezing, No Crepitus Chest-No S4, +S1, +S2, No S3, No Murmurs, No Rubs, No Gallops, No Ectopy Abdomen-Soft, Bowel Sounds Present, Non Tender, Non Distended, No Hepatomegaly, No Splenomegaly, No Palpable Masses, No Rebound, No Rigidity, No Guarding Musculoskeletal-Full Range of Motion Bilaterally, No CVAT Extremities-No Cyanosis, No Clubbing, No Edema Nuero-Cranial Nerves II-XII grossly intact, Motor WNL, DTRs WNL, Strength WNL, Non Focal Psych-Normal Mood Discharge Data Allergies Allergy/AdvReac Type Severity Reaction Status Date / Time erythromycin base Allergy Intermediate RASH Verified 02/12/19 16:56 Penicillins Allergy Intermediate RASH Verified 02/12/19 16:56 sulfamethoxazole Allergy Intermediate RASH Verified 02/12/19 16:56 trimethoprim Allergy Intermediate RASH Verified 02/12/19 16:56 Bactrim Allergy Unknown RASH Verified 09/26/17 16:39 influenza virus vaccine, Allergy Unknown Unknown Verified 02/12/19 16:56 specific Consultations 02/12/19 19:21 ED Decision to Admit Stat 02/12/19 22:57 Consult Case Management - Discharge Planning Routine 02/13/19 08:00 Consult General Surgery Routine 02/16/19 07:47 Consult Infectious Diseases Routine Procedures Performed Operation Date: 02/14/19 11:00 Actual Procedures p Left Thigh Incision and Drainage(Left) - Emil Horn DO Current Diagnoses Sepsis, unspecified organism (02/12/19) Cholecystitis, unspecified (02/12/19) Acute pancreatitis without necrosis or infection, unspecified (02/12/19) Cutaneous abscess, unspecified (02/12/19) Cellulitis, unspecified (02/12/19) Urinary tract infection, site not specified (02/12/19) Other symptoms and signs involving the genitourinary system (02/12/19) Presence of cerebrospinal fluid drainage device (02/12/19) Allergies erythromycin base Allergy (Intermediate, Verified 02/12/19 16:56) RASH Penicillins Allergy (Intermediate, Verified 02/12/19 16:56) RASH sulfamethoxazole Allergy (Intermediate, Verified 02/12/19 16:56) RASH trimethoprim Allergy (Intermediate, Verified 02/12/19 16:56) RASH Bactrim Allergy (Unknown, Verified 09/26/17 16:39) RASH influenza virus vaccine, specific Allergy (Unknown, Verified 02/12/19 16:56) Unknown Height/Weight/Isolation Height 5 ft 5 in Weight 106.9 kg Isolation Type Contact Precautions Chemistry 02/17/19 02/18/19 05:15 07:44 Sodium 140 138 Potassium 3.7 4.1 Chloride 106 107 Carbon Dioxide 28 22 Anion Gap 6.0 9.0 BUN 8 8 Creatinine 0.59 L 0.61 Glucose 97 108 H Microbiology 02/12/19 19:09 Blood Aerobic Blood Culture - Final No growth in Aerobic bottle after 5 days. 02/12/19 19:09 Blood Anaerobic Blood Culture - Final No growth in Anaerobic bottle after 5 days. 02/12/19 19:09 Blood Aerobic Blood Culture - Final No growth in Aerobic bottle after 5 days. 02/12/19 19:09 Blood Anaerobic Blood Culture - Final Ordered Studies 02/12/19 18:31 CT abd pelvis IV con only Stat Hospital Course (1) Acute sepsis: Sec to UTI and Thigh Abscess, MRSA grew out in Wound, WBCs are normal, DC today on IV Dapto, for 7 days (2) Acute UTI: (3) Abscess: (4) Cellulitis: (5) Cholecystitis: (6) Possible urinary tract infection: (7) Acute pancreatitis: (8) S/P VEGETABLE TRIMMER shunt: ASSESSMENT AND PLAN: This is a 48-year-old female who presents with a complaint of right quadrant abdominal pain and found to have left thigh abscess and also urinary tract infection. 1. Left thigh abscess, status post drained in the ER. MRSA. We placed on empirically on IV vancomycin and IV Invanz, general surgery saw the patient 2. Urinary tract infection. Antibiotics as above. 3. History of hypertension. Continue lisinopril, amlodipine. 4. History of depression. controlled on Zoloft. 5. History of multiple sclerosis and history of brain neoplasm, status post ventricular shunt. Follows with neurology. Family history of Chaves's chorea, follows with neurology. 6. Deep venous thrombosis prophylaxis, sequential compression devices for now. 7. Disposition: DC when afebrile 24-48 hrs, organism IDd and WBCs close to normal, WBCs normal now, afebrile last night, more alert BP normal now Labs checked ID on case DC Today Total Time Total Time Spent Total Time Spent (In Minutes): 45 min Total Time Includes: Examination of the Patient, Discharge Planning, Medication Reconciliation and Communication With Other Providers Discharge Plan Discharge Items Patient Disposition: [facility] Reason For Visit: ABDOMINAL PAIN Discharge Diagnosis: MRSA Sepsis LLE Abscess UTI MS HTN Condition on Discharge: Good Activity: Resume your previous activity Lifting: Gradually increase as tolerated Bathing: No limitations Exercise/Sports: Gradually increase as tolerated Driving/Machine Use: No limitations Weightbearing: Full weightbearing Non-emergency contact: Primary Care Provider and Surgeon Call non-emergency contact if: you have any medication questions Follow-up/Referrals: Emil Horn, [Surgeon] - (Please call to schedule follow up in surgery clinic this upcoming Sunday02/19/19 or Sunday02/21/19 for wound check and possible drain removal. You may call the office sooner if you have any questions/concerns.) [employer] [Primary Care Provider] - Diet: Regular Addtl Attending Provider Instructions: You have a drain placed in your left thigh wound. Please keep this in place until your follow up in surgery clinic this upcoming week. Please have your thigh dressing changed twice daily and as needed with an ABD pad over wound, adhered with medipore tape. Pending Studies at Discharge: No Stand-Alone Forms: [facility], Call Back Authorization Skilled Items Patient informed of condition?: Yes DNR: No Discharge Level of Care: Other Communicable Disease: Yes Discharge Prognosis: Stable Lines: US Guided Peripheral IV Urinary Catheter: No Medications and DC Order Prescriptions: New daptomycin 500 mg recon soln 500 mg IV DAILY Qty: 7 RF: 0 Continued sertraline 100 mg Tablet 100 mg PO DAILY RF: 0 Therems Tablet 1 tab PO DAILY RF: 0 amlodipine 5 mg Tablet 5 mg PO BID RF: 0 hydrochlorothiazide 12.5 mg Tablet 12.5 mg PO DAILY RF: 0 acetaminophen 325 mg Tablet 650 mg PO Q6H MDD 3 GM APAP/24 HOURS PRN (Reason: Fever Or Pain) RF: 0 lisinopril 20 mg Tablet 20 mg PO BID RF: 0 docusate sodium [Doc-Q-Lace] 100 mg Capsule 100 mg PO Q12H PRN (Reason: Constipation) RF: 0 nystatin 100,000 unit/gram Powder 1 applic TOPICAL BID PRN (Reason: Yeast) RF: 0 Discharge Orders: Discharge Order (Routine); Ordered 02/18/19 Ordered By: Arvind Kwan Admission Data Admit Date/Time: 02/12/19 21:45 Attending Provider: Arvind Kwan Admit Provider: Surya Bond Primary Care Provider: Sundeep SalinasLicense Buddy [facility], [facility] Other Providers: Saurav Mart ; Surya Bond ; Fiona Pérez ; [facility]
[2019-02-18] MEDS ORDERED: DAPTOmycin 500 MG in SYRINGE 0 ML IV STA (09:42)
[2019-02-18] MEDS ORDERED: DAPTOmycin 500 MG in SYRINGE 0 ML IV ONE (10:00)
--- NOTE | 2019-02-18 15:09 | Infectious Disease Progress Nt ---
Date of Service February 18, 2019 Assessment & Plan (1) Abscess: Patient with acute thigh abscess with MRSA, responding to antibiotic therapy. Given lack of oral alternatives, patient to be treated with IV daptomycin likely for 7-10 days total depending on clinical response. (2) Cellulitis: Subjective Patient seen for high abscess. Offers no new complaints today. Remains afebrile. Review of Systems Review of Systems: All systems reviewed & are unremarkable except as noted in HPI & below Physical Exam Constitutional: WD/WN, vitals as above comfortable; no acute distress Eyes: PERRL, conjunctivae normal, anicteric sclerae ENMT: external ear and nose normal, oropharynx normal Neck: trachea midline, no thyromegaly neck nontender Respiratory: normal respiratory effort, lungs clear to auscultation normal percussion; does not use accessory muscles Cardiovascular: Rate/Rhythm: regular rate and regular rhythm Heart Sounds: normal S1 and normal S2; no gallop, no murmur and no cardiac rub Vessels: normal peripheral pulses; no JVD Gastrointestinal (Abdomen): normal bowel sounds, soft, nontender, no hepatosplenomegaly Musculoskeletal: no cyanosis or clubbing, extremities motor strength 5/5 Spine: thoracic spine normal to inspection and lumbar spine normal to inspection; no cervical spinal tenderness Skin: no rashes, warm and dry normal turgor and + wound (Dressing intact thigh) Neurologic: patellar DTR's 2+ bilat, sensation intact no focal motor deficits Psychiatric: A+Ox3, euthymic affect Orientation: cooperative Lymphatic: no cervical or axillary lymphadenopathy no inguinal lymphadenopathy Results & Data Vital Signs (Past 12 Hours) Vital Signs Temp Pulse Resp BP BP Pulse Ox 02/18/19 12:28 36.5 C 89 18 106/63 131/84 99 02/18/19 07:48 36.5 C 89 18 131/84 99 Laboratory Results Short CBC 02/18/19 Range/Units 07:44 WBC 8.39 (4.8-10.8) K/uL Hgb 12.1 (12.0-16.0) g/dL Hct 36.8 L (37-47) % Plt Count 396 (130-400) K/uL BMP 02/18/19 07:44 Sodium 138 Potassium 4.1 Chloride 107 Carbon Dioxide 22 BUN 8 Creatinine 0.61 Glucose 108 H Calcium 9.0 Diagnostic Findings Microbiology 02/12/19 19:09 Blood Aerobic Blood Culture - Final No growth in Aerobic bottle after 5 days. 02/12/19 19:09 Blood Anaerobic Blood Culture - Final No growth in Anaerobic bottle after 5 days. 02/12/19 19:09 Blood Aerobic Blood Culture - Final No growth in Aerobic bottle after 5 days. 02/12/19 19:09 Blood Anaerobic Blood Culture - Final 02/12/19 20:00 Leg,Left Gram Stain - Final 02/12/19 20:00 Leg,Left Deep Wound Culture - Final Staph aureus MRSA PG Care Time/CCT Total # of Minutes Spent Total Time Spent with Patient: Total time spent is greater than 50% in coordination of care (as documented) at patient's floor/unit and/or counseling patient: (1) Cellulitis Site of cellulitis: unspecified site Qualified Code(s): L03.90 - Cellulitis, unspecified
== END 2019-02-18 15:57 | DRG 853 ==
LOC: ED 15:30 → 3N 21:45

== ENCOUNTER 2022-12-05 12:16 | Inpatient (IN) ==
--- NOTE | 2022-12-05 13:55 | XRay Report ---
XR chest 1V portable CLINICAL HISTORY: weakness TECHNIQUE: Single frontal radiograph of the chest was obtained. Comparison: Comparison is made to chest radiograph 02/12/2019 FINDINGS: CLINICAL DATA SPECIALIST shunt is seen. The cardiomediastinal silhouette is normal. Lungs are underinflated but clear. No e vidence of pleural effusion or pneumothorax. IMPRESSION: No acute chest disease. ACT 112: Negative or not required by law. Electronically signed by: Checo Kowalski M.D. 12/05/2022 1:54 PM
--- NOTE | 2022-12-05 13:59 | Emergency Department Note ---
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 She has fallen twice in the last 24 hours. She is primarily in a wheelchair but does stand to pivot and change from a chair to bed and vice versa. Today, she fell forward while standing from her wheelchair and struck her head. No loss of consciousness. Patient denies any fever, cough or congestion. She has not had pain. No vomiting or diarrhea. As per the nursing notes, the staff at her care center would like her evaluated for the possibility of strengthening at [facility]. PMHx/PSHx: See Below SOCIAL HISTORY: See Below. PHYSICAL EXAM: GENERAL: Patient is in no acute distress. HEENT: There is an abrasion to the right forehead. No hematomas or lacerations. Mucous membranes are moist. NECK: No stridor, no adenopathy, nontender cervical spine, trachea is midline. LUNGS: Clear to auscultation bilaterally, no wheeze, no rhonchi, breath sounds equal. HEART: Without murmurs gallops or rubs, regular rate and rhythm. ABDOMEN: Soft, nontender, bowel sounds positive, no peritonitis. EXTREMITIES: No cyanosis, mild bilateral pedal edema, full range of motion of all the joints without pain or difficulty, no signs for acute trauma. NEUROLOGIC: Awake and alert, moves all extremities. Subtle speech slur. SKIN: No rash, no jaundice, no diaphoresis. DIFFERENTIAL DIAGNOSIS: Intracranial bleeding, skull fracture, C-spine injury, dehydration, UTI, anemia, electrolyte imbalance, deconditioning, among others. EMERGENCY DEPARTMENT COURSE/PROCEDURES: Prior/Outside records reviewed: EMS notes. ECG per my interpretation: Indication was weakness. The ECG shows a normal sinus rhythm with a rate of 84. There is no ST elevation, no PVCs. There is some poor R wave progression. The QTc is 465. Continuous Cardiac Monitoring per my interpretation: An order was placed for continuous cardiac monitoring. The monitor shows a rate of 76 with normal sinus rhythm. MEDICAL DECISION MAKING: There is no leukocytosis or concerning anemia. There is a normal platelet count. Sodium is low at 128, the patient does have a history of hyponatremia but today's value is lower than her baseline. There is no renal failure. No concerning liver enzyme elevation. The patient appeared to be in a euthyroid state. ECG showed a normal sinus rhythm, no ischemia. Cardiac enzyme testing x1 was not consistent with acute cardiac injury. Urinalysis showed some hematuria and potential contamination, no infection. COVID test returned negative. Brain CT showed no acute bleed or mass effect. No worsening hydrocephalus. C-spine CT showed no acute fracture. Chest film did not show mediastinal widening, pneumonia or pneumothorax per my review. The patient did not need laceration repair from her head trauma. She was resting comfortably. The patient was given 1 L of IV saline for hydration. The patient is falling, she is weaker than baseline, she is hyponatremic. Hospitalization is indicated. I did speak with case management, the on-call hospitalist was consulted. DISPOSITION: Patient's presentation and findings warrant a hospital stay. Past Med/Surg History Medical History Depression History of brain tumor "hx pediatric brain tumor, unresectable. Hx multiple shunts for hydrocephalus. Hx colloid cyst" HTN (hypertension) Ismael chorea Hx of hydrocephalus Morbid obesity Multiple sclerosis Neurocognitive deficits Surgical History History of incision and drainage (02/14/19) Left Thigh Incision and Drainage Dr. Horn 02/14/19 Hx laparoscopic cholecystectomy 11/19/2018 at [facility]. MAC 3. grade 1 view. 7.5ETT. no issues. S/P ANALYTICAL CONSULTANT shunt Family History Other Ismael chorea Social History Smoking Status: Unknown if ever smoked Hx Alcohol Use: No Hx Substance Use: No Preferred Language: Afghan Communication Ability: Impaired Communication Ability Comment: Patient cognitively impaired Manager Community Development Required: No Beliefs That Will Affect Care: None marital status: Single Current Living Situation: Personal Care Facility Current Living Situation Comment: [facility] How many Children do You have: 0 Feels Safe at Home: Yes Assistive Devices: None Allergies Allergies Allergy/AdvReac Type Severity Reaction Status Date / Time erythromycin base Allergy Intermediate RASH Verified 03/18/20 02:03 Penicillins Allergy Intermediate RASH Verified 03/18/20 02:03 sulfamethoxazole Allergy Intermediate RASH Verified 03/18/20 02:03 trimethoprim Allergy Intermediate RASH Verified 03/18/20 02:03 Bactrim Allergy Unknown RASH Verified 09/26/17 16:39 influenza virus vaccine, Allergy Unknown Unknown Verified 03/18/20 02:03 specific Home Meds Home Medications Medication Instructions Recorded Confirmed amlodipine 5 mg tablet 5 mg PO BID 11/15/18 12/05/22 sertraline 100 mg tablet 100 mg PO DAILY 11/15/18 12/05/22 lisinopril 20 mg tablet 20 mg PO BID 02/12/19 12/05/22 acetaminophen 500 mg tablet 1,000 mg PO Q4 PRN Fever Or Pain 03/18/20 12/05/22 (Acetaminophen Extra Strength) docusate sodium 100 mg capsule 100 mg PO BID 03/18/20 12/05/22 hydrochlorothiazide 25 mg tablet 25 mg PO DAILY 03/18/20 12/05/22 loperamide 2 mg tablet 2 mg PO UD PRN loose stools 03/18/20 12/05/22 (Anti-Diarrheal (loperamide)) therapeutic multivitamin 1 tab PO DAILY 03/18/20 12/05/22 acetaminophen 500 mg tablet 500 mg PO BID PRN pain and fever 12/05/22 12/05/22 dimenhydrinate 50 mg tablet 50 mg PO Q6H PRN Motion Sickness 12/05/22 12/05/22 Results & Data (ED) Vital Signs Vital Signs - 24 hr 12/05/22 12:16 12/05/22 13:09 12/05/22 12:31 Temperature 36.8 C Temperature Source Oral Pulse Rate 81 76 Pulse Rate [Bilateral] Pulse Rate from SpO2 Sensor Pulse Rhythm [Bilateral] Respiratory Rate 20 Respiratory Effort / Characteristics Non-Labored Respiratory Depth Normal Respiratory Pattern Regular Blood Pressure 135/85 Blood Pressure [Right Arm] Blood Pressure Mean 101 Blood Pressure Mean [Right Arm] Blood Pressure Position Lying Pulse Oximetry 100 Oxygen Delivery Method Room Air Room Air Sepsis Recent Fever Within 48 Hours No Sepsis New/Unexplained Change in Mental Status N/A Sepsis Action Taken by Nursing No Action Required 12/05/22 13:31 12/05/22 13:31 12/05/22 14:00 Temperature Temperature Source Pulse Rate 79 74 Pulse Rate [Bilateral] Pulse Rate from SpO2 Sensor 77 Pulse Rhythm [Bilateral] Respiratory Rate 15 16 Respiratory Effort / Characteristics Respiratory Depth Respiratory Pattern Blood Pressure 138/86 Blood Pressure [Right Arm] Blood Pressure Mean 100 Blood Pressure Mean [Right Arm] Blood Pressure Position Pulse Oximetry 99 Oxygen Delivery Method Sepsis Recent Fever Within 48 Hours Sepsis New/Unexplained Change in Mental Status Sepsis Action Taken by Nursing 12/05/22 14:00 12/05/22 14:18 12/05/22 15:59 Temperature Temperature Source Pulse Rate 93 H Pulse Rate [Bilateral] 70 Pulse Rate from SpO2 Sensor Pulse Rhythm [Bilateral] Regular Respiratory Rate 18 18 Respiratory Effort / Characteristics Respiratory Depth Respiratory Pattern Blood Pressure 141/78 H Blood Pressure [Right Arm] 130/70 Blood Pressure Mean 94 Blood Pressure Mean [Right Arm] 90 Blood Pressure Position Pulse Oximetry 99 Oxygen Delivery Method Sepsis Recent Fever Within 48 Hours Sepsis New/Unexplained Change in Mental Status Sepsis Action Taken by Nursing 12/05/22 17:09 Temperature Temperature Source Pulse Rate 67 Pulse Rate [Bilateral] Pulse Rate from SpO2 Sensor Pulse Rhythm [Bilateral] Respiratory Rate Respiratory Effort / Characteristics Respiratory Depth Respiratory Pattern Blood Pressure Blood Pressure [Right Arm] Blood Pressure Mean Blood Pressure Mean [Right Arm] Blood Pressure Position Pulse Oximetry Oxygen Delivery Method Sepsis Recent Fever Within 48 Hours Sepsis New/Unexplained Change in Mental Status Sepsis Action Taken by Residential Medications Current Medication List: was personally reviewed by me Laboratory Data Attestation: I reviewed the patient's lab results. 12/05/22 14:33 12/05/22 14:33 Lab Results 12/05/22 12/05/22 12/05/22 Range/Units 14:33 14:33 14:33 WBC 9.06 (4.8-10.8) K/ul RBC 4.37 (4.20-5.40) M/uL Hgb 13.2 (12.0-16.0) g/dl Hct 37.1 (37.0-47.0) % MCV 84.9 (80.0-100.0) fL MCH 30.2 (25.0-34.0) pg MCHC 35.6 (32.0-36.0) g/dL RDW Std Deviation 36.0 L (36.4-46.3) fL RDW Coeff of Kary 11.8 (11.5-14.5) % Plt Count 291 (130-400) K/uL MPV 9.1 L (9.4-12.4) fL Immature Gran % (Auto) 0.4 % Neut % (Auto) 60.8 % Lymph % (Auto) 30.9 % [place] % (Auto) 6.7 % Eos % (Auto) 0.8 % Baso % (Auto) 0.4 % Neut # (Auto) 5.50 (1.40-6.50) K/uL Lymph # (Auto) 2.80 (1.2-3.4) K/uL [place] # (Auto) 0.61 H (0.11-0.59) K/uL Eos # (Auto) 0.07 (0-0.50) K/uL Baso # (Auto) 0.04 (0-0.2) K/uL Immature Gran # (Auto) 0.04 (0.01-0.20) K/uL Sodium 128 L (136-145) mmol/L Potassium 3.5 (3.5-5.1) mmol/L Chloride 92 L (98-107) mmol/L Carbon Dioxide 29 (21-32) mmol/L Anion Gap 7 (3-11) BUN 10 (6-23) mg/dl Creatinine 0.58 L (0.6-1.2) mg/dl Est Cr Clr Drug Dosing 141.6 ml/min Est GFR ( Amer) 124.6 ml/min Est GFR (Non-Af Amer) 107.5 ml/min BUN/Creatinine Ratio 17.2 (10-20) Glucose 96 (70-99(Fasting)) mg/dl Calcium 9.5 (8.6-10.3) mg/dl Magnesium 2.0 (1.7-2.4) mg/dl Total Bilirubin 0.5 (0.2-1.0) mg/dl AST 16 (13-39) U/L ALT 16 (7-52) U/L Alkaline Phosphatase 87 (34-104) U/L Troponin I High Sens 2.9 (0-14) pg/ml Total Protein 7.5 (6.0-8.3) gm/dl Albumin 4.6 (3.4-5.0) gm/dl Globulin 2.9 (2.5-4.0) gm/dl Albumin/Globulin Ratio 1.6 (0.9-2) TSH 0.616 (0.300-4.500) uIu/ml Urine Color Urine Appearance (Clear) Urine pH (4.5-7.5) Ur Specific [place] (1.000-1.030) Urine Protein (Negative) Urine Glucose (UA) (Negative) Urine Ketones (Negative) Urine Blood (Negative) Urine Nitrite (Negative) Urine Bilirubin (Negative) Urine Urobilinogen (Negative) Ur Leukocyte Esterase (Negative) Urine WBC (Auto) (0-5) /hpf Urine RBC (Auto) (0-4) /hpf U Hyaline Cast (Auto) (0-5) /lpf U Epithel Cells (Auto) (0-5) /lpf Urine Bacteria (Auto) (Negative) 12/05/22 Range/Units 16:15 WBC (4.8-10.8) K/ul RBC (4.20-5.40) M/uL Hgb (12.0-16.0) g/dl Hct (37.0-47.0) % MCV (80.0-100.0) fL MCH (25.0-34.0) pg MCHC (32.0-36.0) g/dL RDW Std Deviation (36.4-46.3) fL RDW Coeff of Kary (11.5-14.5) % Plt Count (130-400) K/uL MPV (9.4-12.4) fL Immature Gran % (Auto) % Neut % (Auto) % Lymph % (Auto) % [place] % (Auto) % Eos % (Auto) % Baso % (Auto) % Neut # (Auto) (1.40-6.50) K/uL Lymph # (Auto) (1.2-3.4) K/uL [place] # (Auto) (0.11-0.59) K/uL Eos # (Auto) (0-0.50) K/uL Baso # (Auto) (0-0.2) K/uL Immature Gran # (Auto) (0.01-0.20) K/uL Sodium (136-145) mmol/L Potassium (3.5-5.1) mmol/L Chloride (98-107) mmol/L Carbon Dioxide (21-32) mmol/L Anion Gap (3-11) BUN (6-23) mg/dl Creatinine (0.6-1.2) mg/dl Est Cr Clr Drug Dosing ml/min Est GFR ( Amer) ml/min Est GFR (Non-Af Amer) ml/min BUN/Creatinine Ratio (10-20) Glucose (70-99(Fasting)) mg/dl Calcium (8.6-10.3) mg/dl Magnesium (1.7-2.4) mg/dl Total Bilirubin (0.2-1.0) mg/dl AST (13-39) U/L ALT (7-52) U/L Alkaline Phosphatase (34-104) U/L Troponin I High Sens (0-14) pg/ml Total Protein (6.0-8.3) gm/dl Albumin (3.4-5.0) gm/dl Globulin (2.5-4.0) gm/dl Albumin/Globulin Ratio (0.9-2) TSH (0.300-4.500) uIu/ml Urine Color Yellow Urine Appearance Clear (Clear) Urine pH 7.5 (4.5-7.5) Ur Specific [place] 1.014 (1.000-1.030) Urine Protein Negative (Negative) Urine Glucose (UA) Negative (Negative) Urine Ketones Negative (Negative) Urine Blood 2+ H (Negative) Urine Nitrite Negative (Negative) Urine Bilirubin Negative (Negative) Urine Urobilinogen Negative (Negative) Ur Leukocyte Esterase Negative (Negative) Urine WBC (Auto) 1-5 (0-5) /hpf Urine RBC (Auto) >30 H (0-4) /hpf U Hyaline Cast (Auto) 1-5 (0-5) /lpf U Epithel Cells (Auto) >30 H (0-5) /lpf Urine Bacteria (Auto) Negative (Negative) Administered Medications Discontinued Medications Sodium Chloride (Nss 1000ml) 1,000 mls @ 999 mls/hr IV .[id number] ONE Stop: 12/05/22 16:22 Last Infusion: 12/05/22 16:36 Dose: 0 mls/hr Documented By: Admin: 12/05/22 15:41 Dose: 999 mls/hr Documented By: DEANN Imaging Data Radiologist's Impression: Cervical Spine CT 12/05/22 13:32 CT cervical spine wo con CLINICAL HISTORY: fall, trauma TECHNIQUE: Multidetector row helical CT of the cervical spine was performed without administration of intravenous contrast. Coronal and sagittal reformations were obtained. Automated dose lowering techniques and/or adjustment according to patient size were utilized for this exam. Comparison: Comparison is made to MRI cervical spine 10/01/2017 FINDINGS: No acute fractures or subluxations are identified. Degenerative changes are seen in the visualized spine. The alignment is normal. Soft tissues are unremarkable. IMPRESSION: Degenerative changes without evidence of acute bony injury. ACT 112: Negative or not required by law. Electronically signed by: Checo Kowalski M.D. 12/05/2022 2:58 PM Chest X-Ray 12/05/22 13:32 XR chest 1V portable CLINICAL HISTORY: weakness TECHNIQUE: Single frontal radiograph of the chest was obtained. Comparison: Comparison is made to chest radiograph 02/12/2019 FINDINGS: ANALYTICAL CONSULTANT shunt is seen. The cardiomediastinal silhouette is normal. Lungs are underinflated but clear. No evidence of pleural effusion or pneumothorax. IMPRESSION: No acute chest disease. ACT 112: Negative or not required by law. Electronically signed by: Checo Kowalski M.D. 12/05/2022 1:[address] 12/05/22 13:[address] DOSE: 2569.76 mGy.cm HISTORY: fall, head trauma TECHNIQUE: Multiaxial CT images of the head were performed without the use of intravenous contrast. Automated exposure control was utilized for this study. A dose lowering technique was utilized adhering to the principles of ALARA. Comparison: Head CT 10/17/2017. Brain MRI 10/01/2017. Findings: The paranasal sinuses and mastoid air cells are clear. There is right frontal scalp swelling. Mild motion artifact. No calvarial fractures identified. Prior left-sided craniotomy again noted. A right parietal approach ventriculostomy catheter crosses the midline and terminates at the left basal ganglia. A left parietal approach ventriculostomy catheter terminates in the atrium of the left lateral ventricle. This remains unchanged. Slitlike lateral ventricles remain stable. No hydrocephalus. There is no hematoma, midline shift, acute infarct. Heterogeneous left basal ganglia calcifications in the 1.5 cm mass near the foramen of Rickey remain unchanged. Mild periarticular white matter hypodensity remains unchanged. Persistent described mass within the right Meckel's cave is not well visualized on this study. Chronic calvarial thickening with dural calcifications remain unchanged. Impression: 1. Right frontal scalp swelling. 2. Otherwise, no significant change compared to the prior study. No acute intracranial abnormality. 3. Postoperative changes as described above. 4. The ventricles remain stable in size. No hydrocephalus. ACT 112: Negative or not required by law. Electronically signed by: Toy Cotton M.D. 12/05/2022 2:45 PM Discharge Plan Visit Data Chief Complaint: Fall ED Provider: Jaguar Wheatley Discharge Problem: Weakness, Acute head trauma, Fall, Acute hyponatremia Patient Disposition: Admitted As Inpatient Condition: Fair Discharge Instructions Interventions: ED Discharge Assessment Last Done: 12/05/22 18:04
--- NOTE | 2022-12-05 14:47 | CT Scan Report ---
HEAD CT NONCONTRAST CT DOSE: 2569.76 mGy.cm HISTORY: fall, head trauma TECHNIQUE: Multiaxial CT images of the head were performed without the use of intravenous contrast. A utomated exposure control was utilized for this study. A dose lowering technique was utilized adheri ng to the principles of ALARA. Comparison: Head CT 10/17/2017. Brain MRI 10/01/2017. Findings: The paranasal sinuses and mastoid air cells are clear. There is right frontal scalp swellin g. Mild motion artifact. No calvarial fractures identified. Prior left-sided craniotomy again noted. A right parietal approach ventriculostomy catheter crosses the midline and terminates at the left bas al ganglia. A left parietal approach ventriculostomy catheter terminates in the atrium of the left la teral ventricle. This remains unchanged. Slitlike lateral ventricles remain stable. No hydrocephalus. There is no hematoma, midline shift, acute infarct. Heterogeneous left basal ganglia calcifications in the 1.5 cm mass near the foramen of Rickey remain unchanged. Mild periarticular white matter hypode nsity remains unchanged. Persistent described mass within the right Meckel's cave is not well visuali zed on this study. Chronic calvarial thickening with dural calcifications remain unchanged. Impression: 1. Right frontal scalp swelling. 2. Otherwise, no significant change compared to the prior study. No acute intracranial abnormality. 3. Postoperative changes as described above. 4. The ventricles remain stable in size. No hydrocephalus. ACT 112: Negative or not required by law. Electronically signed by: Toy Cotton M.D. 12/05/2022 2:45 PM
[2022-12-05 14:58] LABS: Basophils # (auto) 0.04 K/uL (0-0.2); Basophils % (auto) 0.4 %; Eosinophils # (auto) 0.07 K/uL (0-0.50); Eosinophils % (auto) 0.8 %; Hematocrit (blood only) 37.1 % (37.0-47.0); Hemoglobin 13.2 g/dl (12.0-16.0); Immature Granulocytes # (auto) 0.04 K/uL (0.01-0.20); Immature Granulocytes % (auto) 0.4 %; Lymphocytes % (auto) 30.9 %; Mean Corpuscular Hemoglobin 30.2 pg (25.0-34.0); Mean Corpuscular Hgb Conc 35.6 g/dL (32.0-36.0); Mean Corpuscular Volume 84.9 fL (80.0-100.0); Mean Platelet Volume 9.1 fL (9.4-12.4); Monocytes # (auto) 0.61 K/uL (0.11-0.59); Monocytes % (auto) 6.7 %; Neutrophils % (auto) 60.8 %; Platelet Count 291 K/uL (130-400); RDW Coefficient of Variation 11.8 % (11.5-14.5); Red Blood Count 4.37 M/uL (4.20-5.40); White Blood Count 9.06 K/ul (4.8-10.8)
--- NOTE | 2022-12-05 14:59 | CT Scan Report ---
CT cervical spine wo con CLINICAL HISTORY: fall, trauma TECHNIQUE: Multidetector row helical CT of the cervical spine was performed without administration of intravenous contrast. Coronal and sagittal reformations were obtained. Automated dose lowering techn iques and/or adjustment according to patient size were utilized for this exam. Comparison: Comparison is made to MRI cervical spine 10/01/2017 FINDINGS: No acute fractures or subluxations are identified. Degenerative changes are seen in the visualized sp ine. The alignment is normal. Soft tissues are unremarkable. IMPRESSION: Degenerative changes without evidence of acute bony injury. ACT 112: Negative or not required by law. Electronically signed by: Checo Kowalski M.D. 12/05/2022 2:58 PM
[2022-12-05 15:15] LABS: Albumin Globulin Ratio 1.6 (0.9-2); Albumin Level 4.6 gm/dl (3.4-5.0); BUN Creatinine Ratio 17.2 (10-20); Bilirubin,Total 0.5 mg/dl (0.2-1.0); Calcium 9.5 mg/dl (8.6-10.3); Creatinine Clr Calc Pharmacy 141.6 ml/min; Est GFR (African American) 124.6 ml/min; Est GFR (Non-African American) 107.5 ml/min; Globulin 2.9 gm/dl (2.5-4.0); Potassium 3.5 mmol/L (3.5-5.1); Total Protein 7.5 gm/dl (6.0-8.3)
[2022-12-05 15:21] LABS: Troponin I High Sensitivity 2.9 pg/ml (0-14)
[2022-12-05] MEDS ORDERED: SODIUM CHLORIDE 0.9% 1000ML 1,000 ML IV ONE (15:22)
--- NOTE | 2022-12-05 16:31 | History & Physical Report ---
Date of Service December 05, 2022 Assessment & Plan (1) Fall: (2) Generalized weakness: (3) Hyponatremia: (4) Multiple sclerosis: (5) Ismael chorea: (6) Depression: Plan This is a 52-year-old female with PMH of Ismael's chorea, multiple sclerosis, mood disorder and other medical problems listed below who presents from primary care facility after 2 falls in the past 24 hours. Multiple falls Generalized weakness In setting of multiple sclerosis, [place]'s chorea Had 2 falls at [facility] within 24 hrs that occurred during standing/pivot transfer from wheelchair to bed (which she can do at baseline; otherwise wheelchair bound) CT head, cervical spine CT without evidence of acute intracranial injury or fracture PT/OT evaluation for possible placement, fall precautions Considered underling infection but WBC normal, UA without leuks, nitrites or urine bacteria, CXR clear Hyponatremia Na 128 today (baseline low 130s). Appears slightly dry. At baseline mentation. Will hold hctz in AM and recheck labs. Received gentle IV hydration in ED. BMP in AM HTN Continue lisinopril, amlodipine, holding hctz as above Mood disorder Continue Zoloft DVT Ppx: SQ heparin Code status: FULL per discussion with patient PCP: Davey at [facility] Dispo: [facility] Patient seen in collaboration with Dr. Mckoy. Please see addendum. I spent a total of 75 minutes coordinating, documenting, and providing care for this patient excluding time spent in the performance of separately billed services. History of Present Illness Chief Complaint: Fall, generalized weakness Primary Care Provider: Duplia, [facility] This is a 52-year-old female with PMH of [place]'s chorea, multiple sclerosis, mood disorder and other medical problems listed below who presents from primary care facility after 2 falls in the past 24 hours. At baseline, patient is wheelchair-bound but is usually able to help stand to pivot from chair to bed but today when attempting to transfer from wheelchair, she lost her balance, fell and struck her head. Denies any loss of consciousness. Denies any other new symptoms. No fever, chills, recent sick contacts, congestion or lightheadedness. No chest pain or shortness of breath. No nausea, vomiting, abdominal pain, dysuria, diarrhea or constipation. Resides at [facility], which she enjoys. Allergies Allergy/AdvReac Type Severity Reaction Status Date / Time erythromycin base Allergy Intermediate RASH Verified 03/18/20 02:03 Penicillins Allergy Intermediate RASH Verified 03/18/20 02:03 sulfamethoxazole Allergy Intermediate RASH Verified 03/18/20 02:03 trimethoprim Allergy Intermediate RASH Verified 03/18/20 02:03 Bactrim Allergy Unknown RASH Verified 09/26/17 16:39 influenza virus vaccine, Allergy Unknown Unknown Verified 03/18/20 02:03 specific Home Medications Medication Instructions Recorded Confirmed Type amlodipine 5 mg tablet 5 mg PO BID 11/15/18 12/05/22 History sertraline 100 mg tablet 100 mg PO DAILY 11/15/18 12/05/22 History lisinopril 20 mg tablet 20 mg PO BID 02/12/19 12/05/22 History acetaminophen 500 mg tablet 1,000 mg PO Q4 PRN Fever Or Pain 03/18/20 12/05/22 History (Acetaminophen Extra Strength) docusate sodium 100 mg capsule 100 mg PO BID 03/18/20 12/05/22 History hydrochlorothiazide 25 mg tablet 25 mg PO DAILY 03/18/20 12/05/22 History loperamide 2 mg tablet 2 mg PO UD PRN loose stools 03/18/20 12/05/22 History (Anti-Diarrheal (loperamide)) therapeutic multivitamin 1 tab PO DAILY 03/18/20 12/05/22 History acetaminophen 500 mg tablet 500 mg PO BID PRN pain and fever 12/05/22 12/05/22 History dimenhydrinate 50 mg tablet 50 mg PO Q6H PRN Motion Sickness 12/05/22 12/05/22 History Past Med/Surg History Medical History (Updated 12/05/22 @ 20:33 by Jaguar Wheatley MD) Depression History of brain tumor "hx pediatric brain tumor, unresectable. Hx multiple shunts for hydrocephalus. Hx colloid cyst" HTN (hypertension) Ismael chorea Hx of hydrocephalus Morbid obesity Multiple sclerosis Neurocognitive deficits Surgical History History of incision and drainage (02/14/19) Left Thigh Incision and Drainage Dr. Horn 02/14/19 Hx laparoscopic cholecystectomy 11/19/2018 at [facility]. MAC 3. grade 1 view. 7.5ETT. no issues. S/P CLOCK MAKER shunt Family History Other [place] chorea Social History Smoking Status: Unknown if ever smoked Hx Alcohol Use: No Hx Substance Use: No Preferred Language: Faroese Communication Ability: Impaired Communication Ability Comment: Patient cognitively impaired [place] [employer]er Required: No Beliefs That Will Affect Care: None marital status: Single Current Living Situation: Personal Care Facility Current Living Situation Comment: [facility] How many Children do You have: 0 Feels Safe at Home: Yes Assistive Devices: None Review of Systems Review of Systems: At least ten systems reviewed and negative except as noted in the HPI. Physical Exam Physical Exam: General Appearance: WD/WN, vitals as above, NAD, sitting up in bed, pleasant, conversing with effort, +chorea Head: normocephalic, atraumatic, R frontal scalp abrasian, non-tender to palpation Eyes: normal inspection, PERRL, conjunctivae normal, anicteric sclerae ENT: external ear and nose normal, oropharynx dry mucous membranes Neck: normal visual inspection, trachea midline, no thyromegaly Respiratory: normal respiratory effort, lungs clear to auscultation, no wheeze, rales, rhonchi. No accessory muscle use Cardiovascular: regular rate, rhythm, no murmur, normal peripheral pulses, no BLE edema. Vessels: no JVD Chest: normal inspection of chest Abdomen/GI: normal bowel sounds, soft, nontender, no hepatosplenomegaly Extremities/Musculoskeletal: no cyanosis or clubbing, extremities motor strength 5/5 Neurologic: PERRL, moves all extremities Psychiatric: A+O x person and place, not to time, euthymic affect Skin: no rashes, normal color, warm/dry Results & Data Results & Data Vital Signs (Past 12 Hours) Vital Signs Temp Pulse Pulse Resp BP BP Pulse Ox 12/05/22 15:59 70 18 130/70 99 12/05/22 14:18 93 H 18 12/05/22 14:00 141/78 H 12/05/22 14:00 74 16 99 12/05/22 13:31 79 15 12/05/22 13:31 138/86 12/05/22 12:31 12/05/22 13:09 76 12/05/22 12:16 36.8 C 81 20 135/85 100 O2 Del Method 12/05/22 15:59 12/05/22 14:18 12/05/22 14:00 12/05/22 14:00 12/05/22 13:31 12/05/22 13:31 12/05/22 12:31 Room Air 12/05/22 13:09 12/05/22 12:16 Room Air Laboratory Results Short CBC 12/05/22 Range/Units 14:33 WBC 9.06 (4.8-10.8) K/ul Hgb 13.2 (12.0-16.0) g/dl Hct 37.1 (37.0-47.0) % Plt Count 291 (130-400) K/uL BMP 12/05/22 14:33 Sodium 128 L Potassium 3.5 Chloride 92 L Carbon Dioxide 29 BUN 10 Creatinine 0.58 L Glucose 96 Calcium 9.5 Liver Function 12/05/22 Range/Units 14:33 Total Bilirubin 0.5 (0.2-1.0) mg/dl AST 16 (13-39) U/L ALT 16 (7-52) U/L Alkaline Phosphatase 87 (34-104) U/L Albumin 4.6 (3.4-5.0) gm/dl Urine 12/05/22 Range/Units 16:15 Urine Color Yellow Urine Appearance Clear (Clear) Urine pH 7.5 (4.5-7.5) Ur Specific [place] 1.014 (1.000-1.030) Urine Protein Negative (Negative) Urine Glucose (UA) Negative (Negative) Diagnostic Findings Cervical Spine CT 12/05/22 13:32 CT cervical spine wo con CLINICAL HISTORY: fall, trauma TECHNIQUE: Multidetector row helical CT of the cervical spine was performed without administration of intravenous contrast. Coronal and sagittal reformations were obtained. Automated dose lowering techniques and/or adjustment according to patient size were utilized for this exam. Comparison: Comparison is made to MRI cervical spine 10/01/2017 FINDINGS: No acute fractures or subluxations are identified. Degenerative changes are seen in the visualized spine. The alignment is normal. Soft tissues are unremarkable. IMPRESSION: Degenerative changes without evidence of acute bony injury. ACT 112: Negative or not required by law. Electronically signed by: Checo Kowalski M.D. 12/05/2022 2:58 PM Chest X-Ray 12/05/22 13:32 XR chest 1V portable CLINICAL HISTORY: weakness TECHNIQUE: Single frontal radiograph of the chest was obtained. Comparison: Comparison is made to chest radiograph 02/12/2019 FINDINGS: CLOCK MAKER shunt is seen. The cardiomediastinal silhouette is normal. Lungs are underinflated but clear. No evidence of pleural effusion or pneumothorax. IMPRESSION: No acute chest disease. ACT 112: Negative or not required by law. Electronically signed by: Checo Kowalski M.D. 12/05/2022 1:[address] 12/05/22 13:[address] CT DOSE: 2569.76 mGy.cm HISTORY: fall, head trauma TECHNIQUE: Multiaxial CT images of the head were performed without the use of intravenous contrast. Automated exposure control was utilized for this study. A dose lowering technique was utilized adhering to the principles of ALARA. Comparison: Head CT 10/17/2017. Brain MRI 10/01/2017. Findings: The paranasal sinuses and mastoid air cells are clear. There is right frontal scalp swelling. Mild motion artifact. No calvarial fractures identified. Prior left-sided craniotomy again noted. A right parietal approach ventriculostomy catheter crosses the midline and terminates at the left basal ganglia. A left parietal approach ventriculostomy catheter terminates in the atrium of the left lateral ventricle. This remains unchanged. Slitlike lateral ventricles remain stable. No hydrocephalus. There is no hematoma, midline shift, acute infarct. Heterogeneous left basal ganglia calcifications in the 1.5 cm mass near the foramen of Rickey remain unchanged. Mild periarticular white matter hypodensity remains unchanged. Persistent described mass within the right M curtis's cave is not well visualized on this study. Chronic calvarial thickening with dural calcifications remain unchanged. Impression: 1. Right frontal scalp swelling. 2. Otherwise, no significant change compared to the prior study. No acute intracranial abnormality. 3. Postoperative changes as described above. 4. The ventricles remain stable in size. No hydrocephalus. ACT 112: Negative or not required by law. Electronically signed by: Toy Cotton M.D. 12/05/2022 2:45 PM ECG Additional Comments: EKG reviewed: normal sinus rhythm, Poor R wave progression, consider anterior [place] vs. lead placement vs. LVH, No significant change was found from previous Supervising Physician Co-Signing Physician Notes Ms. Mario is a 52-year-old female with PMHx (per chart) of HTN, chronic hyponatremia (likely d/t meds), hx of pancreatitis, [place]'s chorea, multiple sclerosis, brain tumor, hydrocephalus s/p CLOCK MAKER shunt, neurocognitive deficits and mood disorder. She presented from the facility that she lives in d/t falls. Here Na is a little lower than baseline, now with mild hypochloremia as well. Otherwise w/u is unrevealing. At baseline Ms. Mario is wheelchair-bound but is usually able to help stand to pivot from chair to bed. Today when attempting to transfer from wheelchair, she lost her balance, fell, and struck her head. She denies any loss of consciousness, dizziness, lightheadedness, new weakness, CP, sob, cough, congestion, abdominal pain, and diarrhea. She has no other complaints and feels "happy." Other than the falls she has been in her usual state of health. ED Course: VS notable for BP 170/78, otherwise vss. b/w notable for Na 128, CL 92. Remaining CBC and CMP are unimpressive/wnl, Mg, TSH, and Troponin are all wnl. UA is neg for bacteria. CTH + scalp swelling, changes consistent with prior surgeries CT c-spine neg for acute pathology CXR + CLOCK MAKER shunt, neg for acute pathology. Pt given NS and admitted to hospitalist service. Physical Exam: GEN: NAD, well developed, well nourished, + mild chorea Head: normocephalic, R frontal scalp abrasion, non-tender to palpation Eyes: normal inspection, PERRL, conjunctivae normal, anicteric sclerae nose: normal, nares patent Mouth: slightly dry Neck: supple, trachea midline CV: RRR S1 S2 Pulm: CTA b/l Abdomen/GI: + bowel sounds, soft, NT, ND Ext: no edema, peripheral pulses intact Neurologic: moves all extremities, per pt at baseline Psychiatric: normal mood and affect Skin: visible skin warm and dry without rashes, not fully undressed for exam. Small abrasion, hematoma on right frontal scalp # Falls: Unclear as to why she is falling, perhaps d/t dehydration though by the time of my exam (after IVF) oral membranes are minimally dry mild hyponatremia/chloremia not to the point I would expect symptoms, no other significant metabolic disturbances on b/w no acute pathology on CTH or CXR, no e/o infection check Orthostatic VS PT/OT consult, appreciate input # HTN: HCTZ on hold, may benefit from NaCl tabs at baseline as she chronically has low Na and Cl, likely d/t med continue Amlodipine 5 mg BID, Lisinopril 20 mg BID. # Hyponatremia, hypochloremia: Na 128 (baseline low 130s), Cl 92. Holding HCTZ, received gentle IVF with NS f/u am labs, consider starting NaCl tabs # Mood disorder: stable, well controlled continue Sertraline 10 mg daily Rest per attested note above (6) Depression Depression Type: unspecified Qualified Code(s): F32.9 - Major depressive disorder, single episode, unspecified
[2022-12-05 16:54] LABS: Appearance Urine Clear (Clear); Bacteria Urine Automated Negative (Negative); Bilirubin Urine Negative (Negative); Blood Urine 2+ (Negative); Color Urine Yellow; Epithelial Cell Urine Auto >30 /lpf (0-5); Glucose Urine UA Negative (Negative); Ketones Urine Negative (Negative); Leukocyte Esterase Urine Negative (Negative); Nitrite Urine Negative (Negative); Protein Urine Negative (Negative); RBC Urine Automated >30 /hpf (0-4); Specific Gravity Urine 1.014 (1.000-1.030); Urobilinogen Urine Negative (Negative); pH Urine 7.5 (4.5-7.5)
--- NOTE | 2022-12-05 18:04 | Electrocardiogram Report ---
Test Reason : Blood Pressure : / mmHG Vent. Rate : 084 BPM Atrial Rate : 084 BPM P-R Int : 178 ms QRS Dur : 090 ms QT Int : 394 ms P-R-T Axes : 049 -09 032 degrees QTc Int : 465 ms Normal sinus rhythm Low voltage QRS Poor R wave progression, consider anterior [place] vs. lead placement vs. LVH When compared with ECG of 12-FEB-2019 16:44, No significant change was found Confirmed by Haider Craft ([id number]) on 12/05/2022 6:04:12 PM Referred By: Kenny Urbano Morris Confirmed By:Prince Craft
[2022-12-05] MEDS ORDERED: ACETAMINOPHEN 325 MG TAB PO PRN (19:16)
[2022-12-05] MEDS ORDERED: ONDANSETRON INJ 2 MG/ML 2 ML VIAL IV PRN (19:16)
[2022-12-05] MEDS ORDERED: POLYETHYLENE (MIRALAX) 17 GM PACK PO PRN (19:16)
[2022-12-05] MEDS ORDERED: LOPERAMIDE HCL 2 MG CAP PO PRN (19:24)
[2022-12-05] MEDS: DOCUSATE SODIUM 100 MG CAP PO SCH (21:20)
[2022-12-05] MEDS: HEPARIN SOD 5,000 UNIT/0.5 ML VIAL SQ SCH (21:20)
[2022-12-05] MEDS: amLODIPine BESYLATE 5 MG TAB PO SCH (21:21)
[2022-12-05] MEDS: lisinopril 20 MG TAB PO SCH (21:21)
[2022-12-06] MEDS: HEPARIN SOD 5,000 UNIT/0.5 ML VIAL SQ SCH ×3 (05:21→20:11)
[2022-12-06 07:54] LABS: Hematocrit (blood only) 34.4 % (37.0-47.0); Hemoglobin 12.4 g/dl (12.0-16.0); Mean Corpuscular Hemoglobin 30.3 pg (25.0-34.0); Mean Corpuscular Volume 84.1 fL (80.0-100.0); Platelet Count 270 K/uL (130-400); RDW Coefficient of Variation 11.8 % (11.5-14.5); RDW Standard Deviation 36.1 fL (36.4-46.3); Red Blood Count 4.09 M/uL (4.20-5.40); White Blood Count 7.15 K/ul (4.8-10.8)
[2022-12-06] MEDS: DOCUSATE SODIUM 100 MG CAP PO SCH ×2 (07:54→19:47)
[2022-12-06] MEDS: MULTIVITAMIN TAB PO SCH (07:54)
[2022-12-06] MEDS: amLODIPine BESYLATE 5 MG TAB PO SCH ×2 (07:54→19:47)
[2022-12-06] MEDS: SERTRALINE HCL 100 MG TABLET PO SCH (07:54)
[2022-12-06] MEDS: lisinopril 20 MG TAB PO SCH ×2 (07:54→19:47)
[2022-12-06 08:15] LABS: BUN Creatinine Ratio 17.3 (10-20); Calcium 8.9 mg/dl (8.6-10.3); Creatinine Clr Calc Pharmacy 156.4 ml/min; Est GFR (African American) 129.1 ml/min; Est GFR (Non-African American) 111.4 ml/min; Potassium 3.5 mmol/L (3.5-5.1)
--- NOTE | 2022-12-06 13:40 | Hospitalist Progress Note ---
Date of Service December 06, 2022 Assessment & Plan (1) Fall: (2) Generalized weakness: (3) Hyponatremia: (4) Multiple sclerosis: (5) [place] chorea: (6) Depression: Plan This is a 52-year-old female with PMH of Ismael's chorea, multiple sclerosis, mood disorder and other medical problems listed below who presents from primary care facility after 2 falls in the past 24 hours. Multiple falls Generalized weakness In setting of multiple sclerosis, [place]'s chorea Had 2 falls at [facility] within 24 hrs that occurred during standing/pivot transfer from wheelchair to bed (which she can do at baseline; otherwise wheelchair bound) CT head, cervical spine CT without evidence of acute intracranial injury or fracture PT/OT evaluation for possible placement, fall precautions No infection identified Remains afebrile and hemodynamically stable We will continue home medications as planned and await PT and OT evaluation prior to discharge Hyponatremia Na 128 today (baseline low 130s). Appears slightly dry. At baseline mentation. Hydrochlorothiazide is on hold and likely be stopped on discharge Received cautious amount of intravenous fluid and will continue more fluid for now Sodium has come up to 129-we will monitor HTN Continue lisinopril, amlodipine, holding hctz as above Mood disorder Continue Zoloft DVT Ppx: SQ heparin Code status: FULL per discussion with patient PCP: Davey at [facility] Dispo: Admitted to [facility] Admission and Anticipated Discharge Date Admission Date: December 05, 2022 Subjective 12/06/2022 The patient was seen and examined in medical telemetry unit She was admitted with fall with history of [place]'s chorea and multiple sclerosis She has been feeling much better since admission and denies any symptoms Awaiting PT and OT evaluation Review of Systems Review of Systems: All systems reviewed and are unremarkable except as noted below Physical Exam Physical Exam: Lying in bed comfortably Constitutional: well developed, well nourished and + obese; not ill appearing Eyes: PERRL, conjunctivae normal, anicteric sclerae ENMT: external ear and nose normal, oropharynx normal Neck: trachea midline, no thyromegaly Respiratory: no respiratory distress Auscultation: lungs clear to auscultation bilaterally and + diminished lung sounds Cardiovascular: Rate/Rhythm: regular rate, regular rhythm and + tachycardic Heart Sounds: normal S1 and normal S2; no murmur Extremities: + edema (Trace edema bilaterally) Gastrointestinal (Abdomen): Inspection/Auscultation: normal bowel sounds; abdomen not distended Percussion/Palpation: abdomen soft; abdomen nontender Musculoskeletal: No acute arthritis involving any of the joint Neurologic: Alert and awake. Moves all extremities. No focal neurodeficit Lymphatic: no cervical or axillary lymphadenopathy Results & Data Results & Data Vital Signs (Past 12 Hours) Vital Signs Temp Pulse Pulse Pulse Resp BP Pulse Ox 12/06/22 13:04 36.8 C 100 H 12 127/84 96 12/06/22 08:31 16 95 12/06/22 07:55 36.9 C 92 H 16 129/72 95 12/06/22 07:18 79 12/06/22 04:00 36.9 C 90 18 124/77 96 O2 Del Method 12/06/22 13:04 Room Air 12/06/22 08:31 Room Air 12/06/22 07:55 Room Air 12/06/22 07:18 12/06/22 04:00 Room Air Laboratory Results Short CBC 12/05/22 12/06/22 Range/Units 14:33 07:32 WBC 9.06 7.15 (4.8-10.8) K/ul Hgb 13.2 12.4 (12.0-16.0) g/dl Hct 37.1 34.4 L (37.0-47.0) % Plt Count 291 270 (130-400) K/uL BMP 12/05/22 12/06/22 14:33 07:32 Sodium 128 L 129 L Potassium 3.5 3.5 Chloride 92 L 95 L Carbon Dioxide 29 27 BUN 10 9 Creatinine 0.58 L 0.52 L Glucose 96 97 Calcium 9.5 8.9 Liver Function 12/05/22 Range/Units 14:33 Total Bilirubin 0.5 (0.2-1.0) mg/dl AST 16 (13-39) U/L ALT 16 (7-52) U/L Alkaline Phosphatase 87 (34-104) U/L Albumin 4.6 (3.4-5.0) gm/dl Urine 12/05/22 Range/Units 16:15 Urine Color Yellow Urine Appearance Clear (Clear) Urine pH 7.5 (4.5-7.5) Ur Specific [place] 1.014 (1.000-1.030) Urine Protein Negative (Negative) Urine Glucose (UA) Negative (Negative) Medications Administered Current Inpatient Medications Acetaminophen (Acetaminophen 325 Mg Tab) 650 mg PO Q4H PRN PRN Reason: Pain or Fever Stop: 01/04/23 19:15 Amlodipine Besylate (Amlodipine Besylate 5 Mg Tab) 5 mg PO BID DORETHA Stop: 01/04/23 20:59 Last Admin: 12/06/22 07:54 Dose: 5 mg Dimenhydrinate (Dimenhydrinate 50 Mg Tab) 50 mg PO Q6H PRN PRN Reason: Motion Sickness Stop: 01/04/23 19:15 Docusate Sodium (Docusate Sodium 100 Mg Cap) 100 mg PO BID DORETHA Stop: 01/04/23 20:59 Last Admin: 12/06/22 07:54 Dose: 100 mg Heparin Sodium (Porcine) (Heparin Sod 5,000 Unit/0.5 Ml Vial) 5,000 units SQ Q8 DORETHA Stop: 01/04/23 21:59 Last Admin: 12/06/22 05:21 Dose: 5,000 units Lisinopril (Lisinopril 20 Mg Tab) 20 mg PO BID DORETHA Stop: 01/04/23 20:59 Last Admin: 12/06/22 07:54 Dose: 20 mg Loperamide HCl (Loperamide Hcl 2 Mg Cap) 2 mg PO UD PRN PRN Reason: loose stools Stop: 01/04/23 19:23 Multivitamins (Multivitamin Tab) 1 tab PO DAILY DORETHA Stop: 01/05/23 08:59 Last Admin: 12/06/22 07:54 Dose: 1 tab Ondansetron HCl (Ondansetron Inj 2 Mg/Ml 2 Ml Vial) 4 mg IV Q6H PRN PRN Reason: Nausea Stop: 01/04/23 19:15 Polyethylene Glycol (Polyethylene (Miralax) 17 Gm Pack) 17 gm PO DAILY PRN PRN Reason: Constipation Stop: 01/04/23 19:15 Sertraline HCl (Sertraline Hcl 100 Mg Tablet) 100 mg PO DAILY [facility] Stop: 01/05/23 08:59 Last Admin: 12/06/22 07:54 Dose: 100 mg (6) Depression Depression Type: unspecified Qualified Code(s): F32.9 - Major depressive disorder, single episode, unspecified
[2022-12-06] MEDS: SODIUM CHLORIDE 0.9% 1000ML 1,000 ML IV SCH (13:49)
[2022-12-07] MEDS: SODIUM CHLORIDE 0.9% 1000ML 1,000 ML IV SCH ×2 (01:17→13:57)
[2022-12-07] MEDS: HEPARIN SOD 5,000 UNIT/0.5 ML VIAL SQ SCH ×3 (05:22→21:57)
[2022-12-07 06:46] LABS: Hematocrit (blood only) 34.1 % (37.0-47.0); Hemoglobin 12.3 g/dl (12.0-16.0); Mean Corpuscular Hemoglobin 30.4 pg (25.0-34.0); Mean Corpuscular Hgb Conc 36.1 g/dL (32.0-36.0); Mean Corpuscular Volume 84.4 fL (80.0-100.0); Mean Platelet Volume 9.6 fL (9.4-12.4); Platelet Count 272 K/uL (130-400); RDW Coefficient of Variation 11.7 % (11.5-14.5); RDW Standard Deviation 35.8 fL (36.4-46.3); Red Blood Count 4.04 M/uL (4.20-5.40); White Blood Count 7.55 K/ul (4.8-10.8)
[2022-12-07 07:04] LABS: BUN Creatinine Ratio 14.9 (10-20); Calcium 8.6 mg/dl (8.6-10.3); Creatinine Clr Calc Pharmacy 172.9 ml/min; Est GFR (African American) 133.5 ml/min; Est GFR (Non-African American) 115.2 ml/min; Magnesium 1.8 mg/dl (1.7-2.4); Phosphorus 3.6 mg/dl (2.5-4.9); Potassium 3.7 mmol/L (3.5-5.1)
[2022-12-07] MEDS: DOCUSATE SODIUM 100 MG CAP PO SCH ×2 (07:34→21:57)
[2022-12-07] MEDS: MULTIVITAMIN TAB PO SCH (07:35)
[2022-12-07] MEDS: amLODIPine BESYLATE 5 MG TAB PO SCH ×2 (07:35→21:57)
[2022-12-07] MEDS: SERTRALINE HCL 100 MG TABLET PO SCH (07:35)
[2022-12-07] MEDS: lisinopril 20 MG TAB PO SCH ×2 (07:35→21:57)
--- NOTE | 2022-12-07 21:52 | Hospitalist Progress Note ---
Date of Service December 07, 2022 Assessment & Plan (1) Fall: (2) Generalized weakness: (3) Hyponatremia: (4) Multiple sclerosis: (5) [place] chorea: (6) Depression: Plan 52yoF with [facility] signifcant for [place]'s chorea, multiple sclerosis, mood disorder admitted after recurrent falls. Multiple falls Generalized weakness In setting of multiple sclerosis, [place]'s chorea Had 2 falls at [facility] within 24 hrs CT head, cervical spine CT without evidence of acute intracranial injury or fracture PT/OT - currently waiting on placement No infection identified Remains afebrile and hemodynamically stable Hyponatremia stable At baseline mentation. Hydrochlorothiazide is on hold and likely be stopped on discharge Received cautious amount of intravenous fluid and will continue more fluid for now HTN Continue lisinopril, amlodipine, holding hctz as above Mood disorder Continue Zoloft DVT Ppx: SQ heparin Code status: FULL per discussion with patient PCP: Davey at [facility] Dispo: Admitted to [facility] tele Admission and Anticipated Discharge Date Admission Date: December 05, 2022 Subjective Seen today. States she is doing well. Denies acute concerns. Denies any pain, N/V, diarrhea or constipation. Review of Systems Review of Systems: All systems reviewed & are unremarkable except as noted in Subjective Physical Exam Physical Exam: General: Alert, oriented. No acute distress Skin: No noted rashes or bruises Psych: Appropriate mood and affect Neuro: contorted on exam HEENT: NC/AT CV: RRR Resp: Breath sounds clear bilaterally Abdomen: Soft, nontender, nondistended. Extremities: No edema in lower extremities bilaterally. Results & Data Results & Data Vital Signs (Past 12 Hours) Vital Signs Temp Pulse Pulse Resp BP Pulse Ox O2 Del Method 12/07/22 19:54 37.3 C 79 18 134/75 93 Room Air 12/07/22 14:01 81 12/07/22 16:12 37.1 C 74 16 132/78 97 Room Air 12/07/22 11:49 37.2 C 85 16 126/74 96 Room Air (6) Depression Depression Type: unspecified Qualified Code(s): F32.9 - Major depressive disorder, single episode, unspecified
[2022-12-08] MEDS: HEPARIN SOD 5,000 UNIT/0.5 ML VIAL SQ SCH ×3 (05:49→20:49)
[2022-12-08 07:57] LABS: Hematocrit (blood only) 38.8 % (37.0-47.0); Hemoglobin 13.7 g/dl (12.0-16.0); Mean Corpuscular Hemoglobin 30.4 pg (25.0-34.0); Mean Corpuscular Hgb Conc 35.3 g/dL (32.0-36.0); Mean Platelet Volume 9.3 fL (9.4-12.4); Platelet Count 261 K/uL (130-400); RDW Coefficient of Variation 11.6 % (11.5-14.5); RDW Standard Deviation 36.5 fL (36.4-46.3); Red Blood Count 4.51 M/uL (4.20-5.40); White Blood Count 8.69 K/ul (4.8-10.8)
[2022-12-08] MEDS: MULTIVITAMIN TAB PO SCH (08:22)
[2022-12-08] MEDS: amLODIPine BESYLATE 5 MG TAB PO SCH ×2 (08:22→20:50)
[2022-12-08] MEDS: SERTRALINE HCL 100 MG TABLET PO SCH (08:22)
[2022-12-08] MEDS: lisinopril 20 MG TAB PO SCH ×2 (08:22→20:49)
[2022-12-08] MEDS: DOCUSATE SODIUM 100 MG CAP PO SCH ×2 (08:23→20:49)
--- NOTE | 2022-12-08 17:07 | Hospitalist Progress Note ---
Date of Service December 08, 2022 Assessment & Plan (1) Fall: (2) Generalized weakness: (3) Hyponatremia: (4) Multiple sclerosis: (5) [place] chorea: (6) Depression: Plan 52yoF with [facility] signifcant for [place]'s chorea, multiple sclerosis, mood disorder admitted after recurrent falls. Awaiting placement. Multiple falls Generalized weakness In setting of multiple sclerosis, [place]'s chorea Had 2 falls at [facility] within 24 hrs CT head, cervical spine CT without evidence of acute intracranial injury or fracture PT/OT - currently waiting on placement No infection identified Remains afebrile and hemodynamically stable Hyponatremia stable At baseline mentation. Hydrochlorothiazide is on hold and likely be stopped on discharge Received cautious amount of intravenous fluid and will continue more fluid for now HTN Continue lisinopril, amlodipine, holding hctz as above Mood disorder Continue Zoloft DVT Ppx: SQ heparin Code status: FULL per discussion with patient PCP: Davey at [facility] Dispo: Admitted to [facility] tele Admission and Anticipated Discharge Date Admission Date: December 05, 2022 Subjective Seen today. States she is doing "excellent". Denies acute concerns. Review of Systems Review of Systems: All systems reviewed & are unremarkable except as noted in Subjective Physical Exam Physical Exam: General: Alert, oriented. No acute distress Skin: No noted rashes or bruises Psych: Appropriate mood and affect Neuro: contorted on exam HEENT: NC/AT CV: RRR Resp: Breath sounds clear bilaterally Abdomen: Soft, nontender, nondistended. Extremities: No edema in lower extremities bilaterally. Results & Data Results & Data Vital Signs (Past 12 Hours) Vital Signs Temp Pulse Pulse Resp BP Pulse Ox O2 Del Method 12/08/22 16:17 69 12/08/22 15:08 36.9 C 71 20 128/80 98 Room Air 12/08/22 13:24 76 12/08/22 12:56 36.9 C 72 12 129/77 99 Room Air 12/08/22 08:00 75 12/08/22 08:18 37.0 C 68 20 125/70 97 Room Air (6) Depression Depression Type: unspecified Qualified Code(s): F32.9 - Major depressive disorder, single episode, unspecified
[2022-12-09] MEDS: HEPARIN SOD 5,000 UNIT/0.5 ML VIAL SQ SCH ×3 (05:18→21:02)
[2022-12-09 08:25] LABS: Hematocrit (blood only) 40.3 % (37.0-47.0); Hemoglobin 14.4 g/dl (12.0-16.0); Mean Corpuscular Hemoglobin 30.1 pg (25.0-34.0); Mean Corpuscular Hgb Conc 35.7 g/dL (32.0-36.0); Mean Corpuscular Volume 84.3 fL (80.0-100.0); Mean Platelet Volume 9.6 fL (9.4-12.4); Platelet Count 279 K/uL (130-400); RDW Coefficient of Variation 11.7 % (11.5-14.5); RDW Standard Deviation 35.7 fL (36.4-46.3); Red Blood Count 4.78 M/uL (4.20-5.40); White Blood Count 7.62 K/ul (4.8-10.8)
[2022-12-09 08:50] LABS: Calcium 9.6 mg/dl (8.6-10.3); Potassium 4.4 mmol/L (3.5-5.1)
[2022-12-09 08:55] LABS: BUN Creatinine Ratio 20.8 (10-20); Creatinine Clr Calc Pharmacy 165.9 ml/min; Est GFR (African American) 132.6 ml/min; Est GFR (Non-African American) 114.4 ml/min
[2022-12-09] MEDS: amLODIPine BESYLATE 5 MG TAB PO SCH ×2 (09:50→21:01)
[2022-12-09] MEDS: SERTRALINE HCL 100 MG TABLET PO SCH (09:50)
[2022-12-09] MEDS: DOCUSATE SODIUM 100 MG CAP PO SCH ×2 (09:50→21:01)
[2022-12-09] MEDS: lisinopril 20 MG TAB PO SCH ×2 (09:50→21:01)
[2022-12-09] MEDS: MULTIVITAMIN TAB PO SCH (09:50)
--- NOTE | 2022-12-09 16:57 | Hospitalist Progress Note ---
Date of Service December 09, 2022 Assessment & Plan (1) Fall: (2) Generalized weakness: (3) Hyponatremia: (4) Multiple sclerosis: (5) Michigamme chorea: (6) Depression: Plan 52yoF with [facility] signifcant for Michigamme's chorea, multiple sclerosis, mood disorder admitted after recurrent falls. Awaiting placement. Multiple falls Generalized weakness In setting of multiple sclerosis, Gastonia's chorea Had 2 falls at [facility] within [address] head, cervical spine CT without evidence of acute intracranial injury or fracture PT/OT - currently waiting on placement No infection identified Remains afebrile and hemodynamically stable Hyponatremia stable At baseline mentation. Hydrochlorothiazide is on hold and likely be stopped on discharge Received cautious amount of intravenous fluid and will continue more fluid for now HTN Continue lisinopril, amlodipine, holding hctz as above Mood disorder Continue Zoloft DVT Ppx: SQ heparin Code status: FULL per discussion with patient PCP: Davey at [facility] Dispo: Admitted to [facility] tele Admission and Anticipated Discharge Date Admission Date: December 05, 2022 Subjective Seen today. States she is doing well. Was eating lunch, taking big bites. Denies acute concerns. Review of Systems Review of Systems: All systems reviewed & are unremarkable except as noted in Subjective Physical Exam Physical Exam: General: Alert, oriented. No acute distress Skin: No noted rashes or bruises Psych: Appropriate mood and affect Neuro: contorted on exam, moving extremities HEENT: NC/AT CV: RRR Resp: Breath sounds clear bilaterally Abdomen: Soft, nontender, nondistended. Extremities: No edema in lower extremities bilaterally. Results & Data Results & Data Vital Signs (Past 12 Hours) Vital Signs Temp Pulse Pulse Resp BP Pulse Ox O2 Del Method 12/09/22 15:30 36.8 C 80 20 108/74 98 Room Air 12/09/22 15:26 76 12/09/22 12:02 36.9 C 81 19 123/77 97 Room Air 12/09/22 07:25 37 C 73 19 126/71 97 Room Air 12/09/22 07:04 65 (6) Depression Depression Type: unspecified Qualified Code(s): F32.9 - Major depressive disorder, single episode, unspecified
[2022-12-10] MEDS: HEPARIN SOD 5,000 UNIT/0.5 ML VIAL SQ SCH ×3 (05:11→21:37)
[2022-12-10] MEDS: lisinopril 20 MG TAB PO SCH ×2 (09:16→21:37)
[2022-12-10] MEDS: amLODIPine BESYLATE 5 MG TAB PO SCH ×2 (09:16→21:37)
[2022-12-10] MEDS: DOCUSATE SODIUM 100 MG CAP PO SCH ×2 (09:16→21:37)
[2022-12-10] MEDS: MULTIVITAMIN TAB PO SCH (09:16)
[2022-12-10] MEDS: SERTRALINE HCL 100 MG TABLET PO SCH (09:17)
[2022-12-10 10:00] LABS: BUN Creatinine Ratio 19.2 (10-20); Calcium 9.7 mg/dl (8.6-10.3); Creatinine Clr Calc Pharmacy 152.6 ml/min; Est GFR (African American) 129.1 ml/min; Est GFR (Non-African American) 111.4 ml/min; Potassium 4.2 mmol/L (3.5-5.1)
[2022-12-10 20:32] LABS: Appearance Urine Cloudy (Clear); Bacteria Urine Automated 4+ (Negative); Bilirubin Urine Negative (Negative); Blood Urine 2+ (Negative); Color Urine Yellow; Epithelial Cell Urine Auto 0-5 /lpf (0-5); Glucose Urine UA Negative (Negative); Ketones Urine Negative (Negative); Leukocyte Esterase Urine 3+ (Negative); Nitrite Urine Negative (Negative); Protein Urine 1+ (Negative); Specific Gravity Urine 1.013 (1.000-1.030); Urobilinogen Urine Negative (Negative); WBC Urine Automated >30 /hpf (0-5)
--- NOTE | 2022-12-10 21:31 | Hospitalist Progress Note ---
Date of Service December 10, 2022 Assessment & Plan (1) Fall: (2) Generalized weakness: (3) Hyponatremia: (4) Multiple sclerosis: (5) L[place] chorea: (6) Depression: Plan 52yoF with PMH significant for Ismael's chorea, multiple sclerosis, mood disorder admitted after recurrent falls. [facility]. Abnormal Urine Odor Notified on 12/10 that pt was having strong urine odor that had been progressing, denies dysuria. UA and culture ordered Follow Multiple falls Generalized weakness In setting of multiple sclerosis, Heard's chorea Had 2 falls at [facility] within [address] head, cervical spine CT without evidence of acute intracranial injury or fracture PT/OT - currently waiting on placement No infection identified Remains afebrile and hemodynamically stable Hyponatremia stable At baseline mentation. Hydrochlorothiazide is on hold and likely be stopped on discharge Received cautious amount of intravenous fluid and will continue more fluid for now HTN Continue lisinopril, amlodipine, holding hctz as above Mood disorder Continue Zoloft DVT Ppx: SQ heparin Code status: FULL per discussion with patient PCP: Davey at [facility] Dispo: Admitted to [facility] Admission and Anticipated Discharge Date Admission Date: December 05, 2022 Subjective Seen this AM. Denies any acute concerns such as dysuria. Nursing was concerned about her urine, noting strong odor that has been progressing. Review of Systems Review of Systems: All systems reviewed & are unremarkable except as noted in Subjective Physical Exam Physical Exam: General: Alert, oriented. No acute distress Skin: No noted rashes or bruises Psych: Appropriate mood and affect Neuro: contorted on exam, moving extremities HEENT: NC/AT CV: RRR Resp: Breath sounds clear bilaterally Abdomen: Soft, nontender, nondistended. Extremities: No edema in lower extremities bilaterally. Results & Data Results & Data Vital Signs (Past 12 Hours) Vital Signs Temp Pulse Pulse Pulse Resp BP Pulse Ox 12/10/22 20:01 36.9 C 80 20 138/79 99 12/10/22 16:00 80 12/10/22 15:26 36.6 C 75 18 122/68 90 12/10/22 11:00 37 C 80 18 140/79 99 O2 Del Method 12/10/22 20:01 Room Air 12/10/22 16:00 12/10/22 15:26 Room Air 12/10/22 11:00 Room Air (6) Depression Depression Type: unspecified Qualified Code(s): F32.9 - Major depressive disorder, single episode, unspecified
[2022-12-11] MEDS: HEPARIN SOD 5,000 UNIT/0.5 ML VIAL SQ SCH ×3 (05:27→21:19)
[2022-12-11] MEDS: lisinopril 20 MG TAB PO SCH ×2 (07:31→21:20)
[2022-12-11] MEDS: amLODIPine BESYLATE 5 MG TAB PO SCH ×2 (07:31→21:20)
[2022-12-11] MEDS: MULTIVITAMIN TAB PO SCH (07:32)
[2022-12-11] MEDS: DOCUSATE SODIUM 100 MG CAP PO SCH ×2 (07:32→21:19)
[2022-12-11] MEDS: SERTRALINE HCL 100 MG TABLET PO SCH (07:33)
[2022-12-11 08:35] LABS: Basophils # (auto) 0.04 K/uL (0-0.2); Basophils % (auto) 0.5 %; Eosinophils # (auto) 0.08 K/uL (0-0.50); Hematocrit (blood only) 43.3 % (37.0-47.0); Hemoglobin 15.1 g/dl (12.0-16.0); Immature Granulocytes # (auto) 0.03 K/uL (0.01-0.20); Immature Granulocytes % (auto) 0.4 %; Lymphocytes # (auto) 1.72 K/uL (1.2-3.4); Lymphocytes % (auto) 22.3 %; Mean Corpuscular Hemoglobin 30.1 pg (25.0-34.0); Mean Corpuscular Hgb Conc 34.9 g/dL (32.0-36.0); Mean Corpuscular Volume 86.4 fL (80.0-100.0); Mean Platelet Volume 8.9 fL (9.4-12.4); Monocytes % (auto) 5.2 %; Neutrophils # (auto) 5.46 K/uL (1.40-6.50); Neutrophils % (auto) 70.6 %; Platelet Count 334 K/uL (130-400); RDW Coefficient of Variation 11.9 % (11.5-14.5); RDW Standard Deviation 37.2 fL (36.4-46.3); Red Blood Count 5.01 M/uL (4.20-5.40); White Blood Count 7.73 K/ul (4.8-10.8)
[2022-12-11 08:51] LABS: Creatinine Clr Calc Pharmacy 162.1 ml/min; Est GFR (African American) 130.8 ml/min; Est GFR (Non-African American) 112.9 ml/min; Potassium 4.5 mmol/L (3.5-5.1)
[2022-12-11] MEDS: CEFEPIME 2,000 MG in SYRINGE 0 ML IV SCH ×2 (10:23→21:18)
--- NOTE | 2022-12-11 19:24 | Hospitalist Progress Note ---
Date of Service December 11, 2022 Assessment & Plan (1) Frequent falls: Plan: Fall prior to admission. No evidence of trauma on screening. Worsening ataxic and choreiform movements contributing to high fall risk. Max assist with w/c, cannot self propel. Awaiting placement to rehab. (2) UTI (urinary tract infection): Plan: GNB in urine. Covering with cefepime empirically. 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 Cont supportive care. (4) Multiple sclerosis: Plan: chronic, cont supoprtive care. (5) Hyponatremia: Plan: chronic over the last couple of years. May be related to her SSRI. She is stable and eating and hydrating orally. Cont to inveestigate as outpatient if needed. Hold HCTZ at discharge. (6) Depression: Plan: chronic, stable. She appears cheerful this evening. Cont sertraline per home regimen. DVT proph: heparin Full Code Dispo-medically stable for discharge when bed available. Maura Swanson DO [facility] Hospitalist Admission and Anticipated Discharge Date Admission Date: December 05, 2022 Subjective 52 yo F with elver's chorea and MS presents with recurrent falls. Today she reports feeling "excellent" SHe denies any pain She is eating Review of Systems Review of Systems: no issues Physical Exam Physical Exam: CONSTITUTIONAL: WNWD, vitals as above, generally well-appearing, NAD EYES: normal conjunctivae, no scleral icterus, ENT: external ear and nose normal, MMM NECK: trachea midline RESPIRATORY: clear to auscultation bilaterally, no crackles, rales or wheezes, normal respiratory effort CARDIOVASCULAR: regular rate and rhythm, S1 and 2 heard without murmurs, gallops or rubs, no JVD, no peripheral edema CHEST: inspection of chest was normal GASTROINTESTINAL: soft, nontender, ND, no guarding MUSCULOSKELETAL: strength 5/5 throughout, head is normocephalic and atraumatic SKIN: warm and dry NEUROLOGIC: CN 2-12 grossly intact, no sensory deficit, normal cognition, muffled speech PSYCHIATRIC: alert cooperative and oriented to person, place and time. Euthymic mood, makes good eye contact, language grossly intact, recent and remote memory grossly intact. Results & Data Results & Data Vital Signs (Past 12 Hours) Vital Signs Temp Pulse Pulse Resp BP Pulse Ox O2 Del Method 12/11/22 15:36 79 12/11/22 15:25 37.1 C 74 16 132/74 94 Room Air 12/11/22 11:39 36.9 C 83 16 145/79 H 97 Room Air 12/11/22 08:06 37.0 C 88 16 126/70 95 Room Air Laboratory Results Short CBC 12/11/22 Range/Units 08:20 WBC 7.73 (4.8-10.8) K/ul Hgb 15.1 (12.0-16.0) g/dl Hct 43.3 (37.0-47.0) % Plt Count 334 (130-400) K/uL BMP 12/11/22 08:20 Sodium 130 L Potassium 4.5 Chloride 96 L Carbon Dioxide 26 BUN 8 Creatinine 0.50 L Glucose 101 H Calcium 10.0 Urine 12/10/22 Range/Units 12:20 Urine Color Yellow Urine Appearance Cloudy A (Clear) Urine pH 7.0 (4.5-7.5) Ur Specific Lucas 1.013 (1.000-1.030) Urine Protein 1+ H (Negative) Urine Glucose (UA) Negative (Negative) Medications Administered Current Inpatient Medications Acetaminophen (Acetaminophen 325 Mg Tab) 650 mg PO Q4H PRN PRN Reason: Pain or Fever Stop: 01/04/23 19:15 Amlodipine Besylate (Amlodipine Besylate 5 Mg Tab) 5 mg PO BID [facility] Stop: 01/04/23 20:59 Last Admin: 12/11/22 07:31 Dose: 5 mg Dimenhydrinate (Dimenhydrinate 50 Mg Tab) 50 mg PO Q6H PRN PRN Reason: Motion Sickness Stop: 01/04/23 19:15 Docusate Sodium (Docusate Sodium 100 Mg Cap) 100 mg PO BID [facility] Stop: 01/04/23 20:59 Last Admin: 12/11/22 07:32 Dose: 100 mg Heparin Sodium (Porcine) (Heparin Sod 5,000 Unit/0.5 Ml Vial) 5,000 units SQ Q8 [facility] Stop: 01/04/23 21:59 Last Admin: 12/11/22 13:14 Dose: 5,000 units Cefepime HCl 2,000 mg/ Syringe 20 mls @ 5 mls/min IV Q12H [facility]; Protocol Stop: 12/21/22 09:59 Last Admin: 12/11/22 10:23 Dose: 5 mls/min Lisinopril (Lisinopril 20 Mg Tab) 20 mg PO BID [facility] Stop: 01/04/23 20:59 Last Admin: 12/11/22 07:31 Dose: 20 mg Loperamide HCl (Loperamide Hcl 2 Mg Cap) 2 mg PO UD PRN PRN Reason: loose stools Stop: 01/04/23 19:23 Multivitamins (Multivitamin Tab) 1 tab PO DAILY [facility] Stop: 01/05/23 08:59 Last Admin: 12/11/22 07:32 Dose: 1 tab Ondansetron HCl (Ondansetron Inj 2 Mg/Ml 2 Ml Vial) 4 mg IV Q6H PRN PRN Reason: Nausea Stop: 01/04/23 19:15 Polyethylene Glycol (Polyethylene (Miralax) 17 Gm Pack) 17 gm PO DAILY PRN PRN Reason: Constipation Stop: 01/04/23 19:15 Sertraline HCl (Sertraline Hcl 100 Mg Tablet) 100 mg PO DAILY [facility] Stop: 01/05/23 08:59 Last Admin: 12/11/22 07:33 Dose: 100 mg (6) Depression Depression Type: unspecified Qualified Code(s): F32.9 - Major depressive disorder, single episode, unspecified
[2022-12-12] MEDS: ENOXAPARIN INJ 40 MG/0.4 ML SYR SQ SCH (09:03)
[2022-12-12] MEDS: amLODIPine BESYLATE 5 MG TAB PO SCH ×2 (09:04→21:12)
[2022-12-12] MEDS: DOCUSATE SODIUM 100 MG CAP PO SCH ×2 (09:04→21:13)
[2022-12-12] MEDS: SERTRALINE HCL 100 MG TABLET PO SCH (09:04)
[2022-12-12] MEDS: lisinopril 20 MG TAB PO SCH ×2 (09:05→21:13)
[2022-12-12] MEDS: MULTIVITAMIN TAB PO SCH (10:30)
[2022-12-12] MEDS: CEFEPIME 2,000 MG in SYRINGE 0 ML IV SCH (10:31)
--- NOTE | 2022-12-12 17:59 | Hospitalist Progress Note ---
Date of Service December 12, 2022 Assessment & Plan (1) Frequent falls: Plan: Fall prior to admission. No evidence of trauma on screening. Worsening ataxic and choreiform movements contributing to high fall risk. Max assist with w/c, cannot self propel. Awaiting placement to rehab. (2) UTI (urinary tract infection): Plan: GNB in urine. Covering with cefepime empirically. (3) Sully chorea: Plan: choreriform movements present on exam. Cont supportive care. (4) Multiple sclerosis: Plan: chronic, cont supoprtive care. (5) Hyponatremia: Plan: chronic over the last couple of years. May be related to her SSRI. She is stable and eating and hydrating orally. Cont to inveestigate as outpatient if needed. Hold HCTZ at discharge. (6) Depression: Plan: chronic, stable. She appears cheerful this evening. Cont sertraline per home regimen. DVT proph: heparin Full Code Dispo-medically stable for discharge when bed available. Maura Swanson DO [facility] Hospitalist Admission and Anticipated Discharge Date Admission Date: December 05, 2022 Subjective 52 yo F with elver's chorea and MS presents with recurrent falls. Today she reports feeling "excellent" She is sitting nice and tall in the bed and reports "I am watching the [employer] channel" She appears very pleasant and happy SHe denies any pain She is eating Physical Exam Physical Exam: CONSTITUTIONAL: WNWD, vitals as above, generally well-appearing, NAD EYES: normal conjunctivae, no scleral icterus, periorbital ecchymosis ENT: external ear and nose normal, MMM NECK: trachea midline RESPIRATORY: clear to auscultation bilaterally, no crackles, rales or wheezes, normal respiratory effort CARDIOVASCULAR: regular rate and rhythm, S1 and 2 heard without murmurs, gallops or rubs, no JVD, no peripheral edema CHEST: inspection of chest was normal GASTROINTESTINAL: soft, nontender, ND, no guarding MUSCULOSKELETAL: strength 5/5 throughout, head is normocephalic and ecchymosis present on face SKIN: warm and dry NEUROLOGIC: CN 2-12 grossly intact, no sensory deficit, normal cognition, muffled speech PSYCHIATRIC: alert cooperative and oriented to person, place and time. Euthymic mood, makes good eye contact, language grossly intact, recent and remote memory grossly intact. Results & Data Results & Data Vital Signs (Past 12 Hours) Vital Signs Temp Pulse Resp BP Pulse Ox O2 Del Method 12/12/22 15:50 36.9 C 82 16 113/76 95 Room Air 12/12/22 07:54 36.9 C 76 16 127/74 97 Room Air Medications Administered Current Inpatient Medications Acetaminophen (Acetaminophen 325 Mg Tab) 650 mg PO Q4H PRN PRN Reason: Pain or Fever Stop: 01/04/23 19:15 Amlodipine Besylate (Amlodipine Besylate 5 Mg Tab) 5 mg PO BID [facility] Stop: 01/04/23 20:59 Last Admin: 12/12/22 09:04 Dose: 5 mg Cefdinir (Cefdinir 300 Mg Cap) 300 mg PO Q12H [facility]; Protocol Stop: 12/17/22 20:59 Dimenhydrinate (Dimenhydrinate 50 Mg Tab) 50 mg PO Q6H PRN PRN Reason: Motion Sickness Stop: 01/04/23 19:15 Docusate Sodium (Docusate Sodium 100 Mg Cap) 100 mg PO BID [facility] Stop: 01/04/23 20:59 Last Admin: 12/12/22 09:04 Dose: 100 mg Enoxaparin Sodium (Enoxaparin Inj 40 Mg/0.4 Ml Syr) 40 mg SQ QAM [facility] Stop: 01/11/23 08:59 Last Admin: 12/12/22 09:03 Dose: 40 mg Lisinopril (Lisinopril 20 Mg Tab) 20 mg PO BID [facility] Stop: 01/04/23 20:59 Last Admin: 12/12/22 09:05 Dose: 20 mg Loperamide HCl (Loperamide Hcl 2 Mg Cap) 2 mg PO UD PRN PRN Reason: loose stools Stop: 01/04/23 19:23 Multivitamins (Multivitamin Tab) 1 tab PO DAILY [facility] Stop: 01/05/23 08:59 Last Admin: 12/12/22 10:30 Dose: 1 tab Ondansetron HCl (Ondansetron Inj 2 Mg/Ml 2 Ml Vial) 4 mg IV Q6H PRN PRN Reason: Nausea Stop: 01/04/23 19:15 Polyethylene Glycol (Polyethylene (Miralax) 17 Gm Pack) 17 gm PO DAILY PRN PRN Reason: Constipation Stop: 01/04/23 19:15 Sertraline HCl (Sertraline Hcl 100 Mg Tablet) 100 mg PO DAILY [facility] Stop: 01/05/23 08:59 Last Admin: 12/12/22 09:04 Dose: 100 mg (6) Depression Depression Type: unspecified Qualified Code(s): F32.9 - Major depressive disorder, single episode, unspecified
[2022-12-12] MEDS: CEFDINIR 300 MG CAP PO SCH (21:12)
[2022-12-13] MEDS: CEFDINIR 300 MG CAP PO SCH (09:06)
[2022-12-13] MEDS: amLODIPine BESYLATE 5 MG TAB PO SCH (09:06)
[2022-12-13] MEDS: MULTIVITAMIN TAB PO SCH (09:06)
[2022-12-13] MEDS: DOCUSATE SODIUM 100 MG CAP PO SCH (09:06)
[2022-12-13] MEDS: lisinopril 20 MG TAB PO SCH (09:06)
[2022-12-13] MEDS: SERTRALINE HCL 100 MG TABLET PO SCH (09:06)
[2022-12-13] MEDS: ENOXAPARIN INJ 40 MG/0.4 ML SYR SQ SCH (09:07)
--- NOTE | 2022-12-13 12:19 | Discharge Summary ---
Date of Service December 13, 2022 Admission HPI Per Admitting Provider This is a 52-year-old female with PMH of Ismael's chorea, multiple sclerosis, mood disorder and other medical problems listed below who presents from primary care facility after 2 falls in the past 24 hours. At baseline, patient is wheelchair-bound but is usually able to help stand to pivot from chair to bed but today when attempting to transfer from wheelchair, she lost her balance, fell and struck her head. Denies any loss of consciousness. Denies any other new symptoms. No fever, chills, recent sick contacts, congestion or lightheadedness. No chest pain or shortness of breath. No nausea, vomiting, ab dominal pain, dysuria, diarrhea or constipation. Resides at [facility], which she enjoys. Admission Exam Per Admitting Provider General Appearance:WD/WN, vitals as above, NAD, sitting up in bed, pleasant, conversing with effort, +chorea Head: normocephalic, atraumatic, R frontal scalp abrasian, non-tender to palpation Eyes:normal inspection, PERRL, conjunctivae normal, anicteric sclerae ENT: external ear and nose normal, oropharynx dry mucous membranes Neck: normal visual inspection, trachea midline, no thyromegaly Respiratory:normal respiratory effort, lungs clear to auscultation, no wheeze, rales, rhonchi. No accessory muscle use Cardiovascular: regular rate, rhythm, no murmur, normal peripheral pulses, no BLE edema. Vessels: no JVD Chest: normal inspection of chest Abdomen/GI: normal bowel sounds, soft, nontender, no hepatosplenomegaly Extremities/Musculoskeletal: no cyanosis or clubbing, extremities motor strength 5/5 Neurologic: PERRL, moves all extremities Psychiatric:A+O x person and place, not to time, euthymic affect Skin: no rashes, normal color, warm/dry Principal Diagnosis Weakness, UTI Discharge Exam General: Alert, oriented. No acute distress Skin: Facial discoloration/bruises noted Psych: Appropriate mood and affect Neuro: moving extremities HEENT: NC/AT CV: RRR Resp: Breath sounds clear bilaterally Abdomen: Soft, nontender, nondistended. Extremities: No edema in lower extremities bilaterally. Discharge Data Allergies Allergy/AdvReac Type Severity Reaction Status Date / Time erythromycin base Allergy Intermediate RASH Verified 03/18/20 02:03 Penicillins Allergy Intermediate RASH Verified 03/18/20 02:03 sulfamethoxazole Allergy Intermediate RASH Verified 03/18/20 02:03 trimethoprim Allergy Intermediate RASH Verified 03/18/20 02:03 Bactrim Allergy Unknown RASH Verified 09/26/17 16:39 influenza virus vaccine, Allergy Unknown Unknown Verified 03/18/20 02:03 specific Consultations 12/05/22 16:21 ED Decision to Admit Stat Ordered Studies 12/05/22 13:32 CT cervical spine wo con Stat CT head/brain wo con Stat Hospital Course (1) Fall: (2) Generalized weakness: (3) Hyponatremia: (4) Multiple sclerosis: (5) Ismael chorea: (6) Depression: Plan 52yoF with PMH significant for Graham's chorea, multiple sclerosis, mood disorder admitted after recurrent falls with weakness. Currently being treated for a UTI but stable for discharge to SNF on 12/13/2022. UTI UA suggestive of infection Urine culture grew E.coli and Klebsiella sensitive to cefdinir, pt discharged with 7 more days of cefdinir 300mg BID. Multiple falls Generalized weakness In setting of multiple sclerosis, Power's chorea Fall prior to admission. No evidence of trauma on screening. Worsening ataxic and choreiform movements contributing to high fall risk. CT head, cervical spine CT without evidence of acute intracranial injury or fracture PT/OT - rehab placement at [place]. Hyponatremia stable At baseline mentation. Hydrochlorothiazide held and discontinued on discharge HTN Continue lisinopril, amlodipine, holding hctz as above Mood disorder Continue Zoloft Total Time Total Time Spent Total Time Spent (In Minutes): >30 minutes Discharge Plan Discharge Items Patient Disposition: Transfer [facility] Fac Reason For Visit: FALLS, HYPONATREMIA Discharge Diagnosis: Weakness, UTI Condition on Discharge: Fair Activity: Per Instructions section Non-emergency contact: Primary Care Provider [facility]errals[facility] [Non-Staff] - Diet: Regular Diet Texture: Easy to Chew Addtl Attending Provider Instructions: 52yoF with PMH significant for Ismael's chorea, multiple sclerosis, mood disorder admitted after recurrent falls with weakness. Currently being treated for a UTI but stable for discharge to SNF on 12/13/2022. UTI UA suggestive of infection Urine culture grew E.coli and Klebsiella sensitive to cefdinir, pt discharged with 7 more days of cefdinir 300mg BID. Multiple falls Generalized weakness In setting of multiple sclerosis, Power's chorea Fall prior to admission. No evidence of trauma on screening. Worsening ataxic and choreiform movements contributing to high fall risk. CT head, cervical spine CT without evidence of acute intracranial injury or fra cture PT/OT - rehab placement at [place]. Hyponatremia stable At baseline mentation. Hydrochlorothiazide held and discontinued on discharge HTN Continue lisinopril, amlodipine, holding hctz as above Mood disorder Continue Zoloft Pending Studies at Discharge: No Stand-Alone Forms: My [facility] Skilled Items Patient informed of condition?: Yes DNR: No Discharge Level of Care: Skilled Communicable Disease: No Discharge Prognosis: Stable Lines: None Urinary Catheter: No Medications and DC Order Prescriptions: New cefdinir 300 mg Capsule 300 mg PO Q12H 7 Days Qty: 14 0RF Continued Therems Tablet 1 tab PO DAILY acetaminophen [Acetaminophen Extra Strength] 500 mg Tablet 1,000 mg PO Q4 MDD 3gm PRN (Reason: Fever Or Pain) docusate sodium 100 mg Capsule 100 mg PO BID loperamide [Anti-Diarrheal (loperamide)] 2 mg Tablet 2 mg PO UD MDD 8 tablets/24hr PRN (Reason: loose stools) Rx Instructions: take 2 tablets after 1st bm then 1 tab thereafter each loose bm sertraline 100 mg Tablet 100 mg PO DAILY amlodipine 5 mg Tablet 5 mg PO BID lisinopril 20 mg Tablet 20 mg PO BID acetaminophen 500 mg Tablet 500 mg PO BID MDD 3 gm every 24 hours PRN (Reason: pain and fever) dimenhydrinate 50 mg Tablet 50 mg PO Q6H PRN (Reason: Motion Sickness) Discontinued hydrochlorothiazide 25 mg Tablet 25 mg PO DAILY Discharge Orders: Discharge Order (Routine); Ordered 12/13/22 Ordered By: Joanna Walker Admission Data Admit Date/Time: 12/05/22 17:17 Attending Provider: Joanna Walker Admit Provider: Fiona Mckoy Primary Care Provider: Laney Urbano Other Providers: [place] ; Sissy Dominguez ; [facility] [place] ; Fiona Mckoy ; [facility] ; Maura Swanson Other Interventions: Discharge Summary Assessment (RN) Last Done: 12/13/22 11:39
== END 2022-12-13 14:02 | DRG 690 ==
LOC: ED 12:16 → SUATTDRO 17:17 → 2W 17:17 → SUPCPDRO 17:17 → 2W 18:04